=== PATIENT | male | born 1970 | race Hispanic/Latino ===

== ENCOUNTER 2022-01-01 09:27 | Emergency (ER) | payer BC ==
[2022-01-01] MEDS ORDERED: DOXYCYCLINE 100 MG CAP PO ONE (10:38)
[2022-01-01] MEDS ORDERED: VALACYCLOVIR 500 MG TAB ONE (10:39)
--- NOTE | 2022-01-01 10:42 | ER ---
Nurse's Notes [facility] Name: Jose L Mathew Age: 51 yrs Sex: Male : 1970 Arrival Date: 01/01/2022 Time: 09:31 Bed 18 Private MD: Diagnosis: Facial Cellulitis Presentation: 01/01 09:38 Chief complaint: Patient states: Swelling and redness above L eyebrow that started ss yesterday and now swelling to L upper eyelid. Coronavirus screen: Client denies travel out of the [place] in the last 14 days. Ebola Screen: Patient denies exposure to infectious person. Patient denies travel to an Ebola-affected area in the 21 days before illness onset. Initial Sepsis Screen: Does the patient meet any 2 criteria? No. Patient's initial sepsis screen is negative. Does the patient have a suspected source of infection? No. Patient's initial sepsis screen is negative. Risk Assessment: Do you want to hurt yourself or someone else? Patient reports no desire to harm self or others. Onset of symptoms was December 31, 2021. 09:38 Method Of Arrival: Ambulatory ss 09:38 Acuity: URBANO 4 ss Historical: - Allergies: 09:39 No Known Allergies; ss - PMHx: 09:39 MO; Hypertensive disorder; high cholesterol; ss - PSHx: 09:39 CAB; ss - Immunization history:: Client reports having NOT received the Covid vaccine. - Social history:: Smoking status: Patient reports the use of cigarette tobacco products, smokes one-half pack cigarettes per day. Screenin:40 Abuse screen: Denies threats or abuse. Denies injuries from another. Nutritional ss screening: No deficits noted. Tuberculosis screening: Never had TB. Fall Risk None identified. Assessment: 09:40 General: Appears in no apparent distress. comfortable, Behavior is calm, cooperative, ss Denies fever, feeling ill, fatigue, chills. Pain: Complains of pain in outer aspect of left eyebrow and left supraorbital ridge Pain currently is 0 out of 10 on a pain scale. Quality of pain is described as tender. Neuro: Level of Consciousness is awake, alert, obeys commands, Oriented to person, place, time, situation. Respiratory: Airway is patent Respiratory effort is even, unlabored, Respiratory pattern is regular, symmetrical. GI: No signs and/or symptoms were reported involving the gastrointestinal system. EENT: Nares are clear Throat is clear. Derm: Skin is intact, is healthy with good turgor, Skin is dry, Skin is pink, warm \T\ dry. normal. Injury Description: redness and swelling noted to L upper eyelid and just above L side of eyebrow. 10:18 Reassessment: Patient appears in no apparent distress at this time. Patient and/or vg1 family updated on plan of care and expected duration. Pain level reassessed. Patient is alert, oriented x 3, equal unlabored respirations, skin warm/dry/pink. pt reports 10/10 pain at Left eye. Vital Signs: 09:38 BP 116 / 83; Pulse 87; Resp 16; Temp 98.6(TE); Pulse Ox 100% on R/A; Weight 77.56 kg; ss Height 5 ft. (152.40 cm); Pain 0/10; 10:19 BP 134 / 73; Pulse 80; Resp 16; Pulse Ox 99% on R/A; vg1 09:38 Body Mass Index 33.40 (77.56 kg, 152.40 cm) ED Course: 09:31 Patient arrived in ED. rg4 09:39 Triage completed. 09:39 Arm band placed on left wrist. 09:40 Patient has correct armband on for positive identification. Bed in low position. Call light in reach. 09:42 Vin Storey PA is PHCP. [facility] 09:43 Carlos Cummings DO is Attending Physician. [facility] 09:43 Jenifer Michel, RN is Primary Nurse. vg1 10:51 No provider procedures requiring assistance completed. Patient did not have IV access vg1 during this emergency room visit. Administered Medications: 10:37 Drug: Doxycycline 100 mg Route: PO; vg1 10:50 Follow up: Response: No adverse reaction vg1 10:37 Drug: valACYclovir 1000 mg Route: PO; vg1 10:50 Follow up: Response: No adverse reaction vg1 Medication: 09:40 VIS not applicable for this client. Outcome: 10:41 Discharge ordered by . jmm 10:51 Discharged to home ambulatory, with family. vg1 10:51 Condition: good 10:51 Discharge instructions given to patient, family, Instructed on discharge instructions, follow up and referral plans. medication usage, Demonstrated understanding of instructions, follow-up care, medications, Prescriptions given X 3. 10:51 Patient left the ED. vg1 Signatures: Vin Storey PA PA jmm Smirch, Shelby, RN RN Celeste Coleman4 Jenifer Michel RN RN vg1
--- NOTE | 2022-01-01 10:42 | EDPHYS ---
Physician Documentation [facility] Name: Jose L Mathew Age: 51 yrs Sex: Male : 1970 Arrival Date: 01/01/2022 Time: 09:31 Bed 18 Private MD: ED Physician Carlos Cummings Historical: - Allergies: 01/01 09:39 No Known Allergies; ss - PMHx: 09:39 DC; Hypertensive disorder; high cholesterol; ss - PSHx: 09:39 CAB; ss - Immunization history:: Client reports having NOT received the Covid vaccine. - Social history:: Smoking status: Patient reports the use of cigarette tobacco products, smokes one-half pack cigarettes per day. Vital Signs: 09:38 BP 116 / 83; Pulse 87; Resp 16; Temp 98.6(TE); Pulse Ox 100% on R/A; Weight 77.56 kg; ss Height 5 ft. (152.40 cm); Pain 0/10; 10:19 BP 134 / 73; Pulse 80; Resp 16; Pulse Ox 99% on R/A; vg1 09:38 Body Mass Index 33.40 (77.56 kg, 152.40 cm) ss MDM: 09:43 Patient medically screened. [facility] 10:40 Data reviewed: vital signs, nurses notes. Counseling: I had a detailed discussion with lauren the patient and/or guardian regarding: the historical points, exam findings, and any diagnostic results supporting the discharge/admit diagnosis, the need for outpatient follow up, to return to the emergency department if symptoms worsen or persist or if there are any questions or concerns that arise at home. Administered Medications: 10:37 Drug: Doxycycline 100 mg Route: PO; vg1 10:50 Follow up: Response: No adverse reaction vg1 10:37 Drug: valACYclovir 1000 mg Route: PO; vg1 10:50 Follow up: Response: No adverse reaction vg1 Disposition: 19:57 Co-signature as Attending Physician, Carlos Cummings DO I was immediately available on-site ms3 in the Emergency Department for consultation in the care of the patient.. Disposition Summary: 01/01/22 10:41 Discharge Ordered Location: Home jm Condition: Stable mago Diagnosis - Facial Cellulitis [facility] Followup: [facility] - With: Private Physician - When: 2 - 3 days - Reason: Recheck today's complaints, Continuance of care, Re-evaluation by your physician Discharge Instructions: - Discharge Summary Sheet m - Preseptal Cellulitis, Adult [facility] - Form - Return To Work 3 Forms: - Medication Reconciliation Form [facility] - Thank You Letter lauren - Antibiotic Education magom - Prescription Opioid Use jmm - Work release form 3 Prescriptions: - Valtrex 1 gram Oral tablet - take 1 tablet by ORAL route 3 times per day for 7 days; 21 tablet; Refills: 0, [facility] Product Selection Permitted - Cephalexin 500 mg Oral Capsule - take 1 capsule by ORAL route every 6 hours for 10 days; 40 capsule; Refills: 0, [facility] Product Selection Permitted - Doxycycline Hyclate 100 mg Oral Tablet - take 1 tablet by ORAL route every 12 hours; 20 tablet; Refills: 0, Product [facility] Selection Permitted Signatures: Vin Storey PA PA jmm Smirch, Shelby, RN RN ss Garcia, Victoria, RN RN vg1 Carlos Cummings DO DO ms3
[2022-01-01 10:59] VITALS: TEMP 98.6
[2022-01-01 11:00] VITALS: BP 134/73; O2SAT 99
== END 2022-01-01 10:51 | disposition home or self-care (01) ==
LOC: ER 09:27
DX: L03.211 Cellulitis of face (principal); I10 Essential (primary) hypertension; F17.210 Nicotine dependence, cigarettes, uncomplicated; Z95.1 Presence of aortocoronary bypass graft

== ENCOUNTER → 2023-07-15 | Emergency (ER) | payer BC ==
[~2023-07-15] MED LIST: HYDROCODONE/APAP 5/325 MG TAB ONE
--- OUTSIDE RECORDS SUMMARY | 2023-07-15 20:02 | XMS REPORT | Continuity of Care Document ---
Author Name Unknown Address [address] [facility]. [address] [place] [address] [facility] thconnect Address [address] [facility]. 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 Results Test Description Test Time Test Comments Results Result Co mments Source CBC W/AUTO [id number] 13:53:00* Test Item Value Reference Range Interpretation Comme nts WHITE BLOOD CELL (test code = WBC) 8.6 K/MM3 3.8-9.8 N RED BLOOD CELL (test code = RBC) 3.87 M/MM3 3.95-5.67 L HEMOGLOBIN (test code = HGB) 13.2 G/DL 12.4-16.7 N HEMATOCRIT (test code = HCT) 39.1 % 35.9-49.5 N MEAN CELL VOLUME (test code = MCV) 101 fL 81.7-96.1 H MEAN CELL HGB (test code = MCH) 34.1 pg 27.6-33.2 H MEAN CELL HGB CONCETRATION (test code = MCHC) 33.8 % 32.9-35.5 N RED CELL DISTRIBUTION WIDTH (test code = RDW) 12.7 % 12.1-15.2 N PLATELET COUNT (test code = PLT) 179 K/MM3 129-368 N MEAN PLATELET VOLUME (test c ode = MPV) 11.1 fl 7.4-10.4 H NEUTROPHIL % (test code = NT%) 45.8 % 43-75 N IMMATURE GRANULOCYTE % (test code = IG%) 0.3 % 0.0-2.0 N LYMPHOCYTE % (test code = LY%) 44.7 % 14-44 H MONOCYTE % (test code = MO%) 7.4 % 4-13 N EOSINOPHIL % (test code = EO%) 1.3 % 0-6 N BASOPHIL % (test code = BA%) 0.5 % 0-2 N NUCLEATED RBC % (test code = NRBC%) 0.0 % 0-1.0 N NEUTROPHIL # (test code = NT#) 3.95 K/mm3 2.0-7.6 N IMMATURE GRANULOCYTE # (test code = IG#) 0.03 x10 3/uL 0-0.03 N LYMPHOCYTE # (test code = LY#) 3.85 K/mm3 1.0-3.8 H MONOCYTE # (test code = MO#) 0.64 K/mm3 0.1-0.8 N EOSINOPHIL # (test code = EO#) 0.11 K/mm3 0.0-0.2 N BASOPHIL # (test code = BA#) 0.04 K/mm3 0.0-0.2 N NUCLEATED RBC # (test code = NRBC#) 0.00 K/mm3 0.0-0.1 N BASIC METABOLIC [id number] 05:54:00* Test Item Value Reference Range Interpretation Comme nts SODIUM (test code = NA) 140 MMOL/L 137-145 N POTASSIUM (test code = K) 4.0 MMOL/L 3.5-5.1 N CHLORIDE (test code = CL) 106 MMOL/L 98-107 N CARBON DIOXIDE (test code = CO2) 30 MMOL/L 22-30 N ANION GAP (test code = GAP) 8 MMOL/L 14-24 L GLUCOSE (test code = GLU) 90 MG/DL 74-106 BLOOD UREA NITROGEN (test code = BUN) 10 MG/DL 9-20 N GLOMERULAR FILTRATION RATE (test code = GFR) > 60 Reporting units: ml/min/1.73 m2 (Modified MDRD Formula)Reference Range: > or = 60 ml/min/1.73 m2 CREATININE (test code = CREAT) 0.60 MG/DL 0.66-1.25 L CALCIUM (test code = CA) 8.6 MG/DL 8.4-10.2 N CBC W/AUTO [id number] 05:40:00* Test Item Value Reference Range Interpretation Comme nts WHITE BLOOD CELL (test code = WBC) 10.9 K/MM3 3.8-9.8 H RED BLOOD CELL (test code = RBC) 3.48 M/MM3 3.95-5.67 L HEMOGLOBIN (test code = HGB) 12.0 G/DL 12.4-16.7 L HEMATOCRIT (test code = HCT) 35.2 % 35.9-49.5 L MEAN CELL VOLUME (test code = MCV) 101 fL 81.7-96.1 H MEAN CELL HGB (test code = MCH) 34.5 pg 27.6-33.2 H MEAN CELL HGB CONCETRATION (test code = MCHC) 34.1 % 32.9-35.5 N RED CELL DISTRIBUTION WIDTH (test code = RDW) 12.8 % 12.1-15.2 N PLATELET COUNT (test code = PLT) 160 K/MM3 129-368 N MEAN PLATELET VOLUME (test c ode = MPV) 11.0 fl 7.4-10.4 H NEUTROPHIL % (test code = NT%) 58.8 % 43-75 N IMMATURE GRANULOCYTE % (test code = IG%) 0.3 % 0.0-2.0 N LYMPHOCYTE % (test code = LY%) 34.0 % 14-44 N MONOCYTE % (test code = MO%) 6.3 % 4-13 N EOSINOPHIL % (test code = EO%) 0.3 % 0-6 N BASOPHIL % (test code = BA%) 0.3 % 0-2 N NUCLEATED RBC % (test code = NRBC%) 0.0 % 0-1.0 N NEUTROPHIL # (test code = NT#) 6.42 K/mm3 2.0-7.6 N IMMATURE GRANULOCYTE # (test code = IG#) 0.03 x10 3/uL 0-0.03 N LYMPHOCYTE # (test code = LY#) 3.71 K/mm3 1.0-3.8 N MONOCYTE # (test code = MO#) 0.69 K/mm3 0.1-0.8 N EOSINOPHIL # (test code = EO#) 0.03 K/mm3 0.0-0.2 N BASOPHIL # (test code = BA#) 0.03 K/mm3 0.0-0.2 N NUCLEATED RBC # (test code = NRBC#) 0.00 K/mm3 0.0-0.1 N - XR CHEST [id number] 08:05:00Patient Name: DELMI FLORES Unit No: [id number] EXAMS: CPT CODE: [id number] XR CHEST 1V 63080 EXAMINATION: - XR CHEST 1V. LOCATION: B2. HISTORY: post op. COMPARISON: Radiograph dated 01/09/2019. TECHNIQUE: Single AP view of the chest was obtained. FINDINGS: Right subclavian line is unchanged in position. The heart is mildly enlarged in size. Median sternotomy wires are present with breaks of the 3rd most superior wires, unchanged. The lungs are clear. No acute osseous abnormality is identified. IMP RESSION: Mild cardiomegaly with no acute pulmonary process. at 0805 Reported and signed by: Marilyn Chaney MD CC: Technologist: Hilda Ryder RT(R) Transcrpt Date/Tm/Trnsp: 01/10/2019 (804) [email or web address] Orig Print D/T: S: 01/10/2019 (0808) [facility] NAME: DELMI FLORES [id number] PHYS: [place] [address] : 1970 AGE: 48 SEX: M LOC: Z.SI04 A PHONE #: [phone] EXAM DATE: 01/10/2019 STATUS: ADM IN FAX #: [phone] RADIOLOGY NO: PAGE 1 Signed ReportBASIC METABOLIC [id number] 07:00:00* Test Item Value Reference Range Interpretation Comme nts SODIUM (test code = NA) 138 MMOL/L 137-145 N POTASSIUM (test code = K) 4.2 MMOL/L 3.5-5.1 N CHLORIDE (test code = CL) 106 MMOL/L 98-107 N CARBON DIOXIDE (test code = CO2) 26 MMOL/L 22-30 N ANION GAP (test code = GAP) 10 MMOL/L 14-24 L GLUCOSE (test code = GLU) 146 MG/DL 74-106 H BLOOD UREA NITROGEN (test code = BUN) 7 MG/DL 9-20 L GLOMERULAR FILTRATION RATE (test code = GFR) > 60 Reporting units: ml/min/1.73 m2 (Modified MDRD Formula)Reference Range: > or = 60 ml/min/1.73 m2 CREATININE (test code = CREAT) 0.50 MG/DL 0.66-1.25 L CALCIUM (test code = CA) 8.4 MG/DL 8.4-10.2 N UNABLE TO DRAW BLOOD, REASON: CBNNOTIFIED PATIENT CARE STAFF: [facility] 01/10/19 AT 0630 BY Jesus [id number] 07:00:00* Test Item Value Reference Range Interpretation Comme nts MAGNESIUM (test code = MAG) 2.0 MG/DL 1.6-2.3 UNABLE TO DRAW BLOOD, REASON: CBNNOTIFIED PATIENT CARE STAFF: [facility] 01/10/19 AT 0630 BY Jesus Velasquez W/AUTO [id number] 06:42:00* Test Item Value Reference Range Interpretation Comme nts WHITE BLOOD CELL (test code = WBC) 9.5 K/MM3 3.8-9.8 N RED BLOOD CELL (test code = RBC) 3.66 M/MM3 3.95-5.67 L HEMOGLOBIN (test code = HGB) 12.5 G/DL 12.4-16.7 N HEMATOCRIT (test code = HCT) 37.1 % 35.9-49.5 N MEAN CELL VOLUME (test code = MCV) 101 fL 81.7-96.1 H MEAN CELL HGB (test code = MCH) 34.2 pg 27.6-33.2 H MEAN CELL HGB CONCETRATION (test code = MCHC) 33.7 % 32.9-35.5 N RED CELL DISTRIBUTION WIDTH (test code = RDW) 12.5 % 12.1-15.2 N PLATELET COUNT (test code = PLT) 167 K/MM3 129-368 N MEAN PLATELET VOLUME (test c ode = MPV) 10.7 fl 7.4-10.4 H NEUTROPHIL % (test code = NT%) 83.2 % 43-75 H IMMATURE GRANULOCYTE % (test code = IG%) 0.5 % 0.0-2.0 N LYMPHOCYTE % (test code = LY%) 11.4 % 14-44 L MONOCYTE % (test code = MO%) 4.8 % 4-13 N EOSINOPHIL % (test code = EO%) 0.0 % 0-6 N BASOPHIL % (test code = BA%) 0.1 % 0-2 N NUCLEATED RBC % (test code = NRBC%) 0.0 % 0-1.0 N NEUTROPHIL # (test code = NT#) 7.90 K/mm3 2.0-7.6 H IMMATURE GRANULOCYTE # (test code = IG#) 0.05 x10 3/uL 0-0.03 H LYMPHOCYTE # (test code = LY#) 1.08 K/mm3 1.0-3.8 N MONOCYTE # (test code = MO#) 0.46 K/mm3 0.1-0.8 N EOSINOPHIL # (test code = EO#) 0.00 K/mm3 0.0-0.2 N BASOPHIL # (test code = BA#) 0.01 K/mm3 0.0-0.2 N NUCLEATED RBC # (test code = NRBC#) 0.00 K/mm3 0.0-0.1 N UNABLE TO DRAW BLOOD, REASON: CBNNOTIFIED PATIENT CARE STAFF: MIGUEL ÁNGEL 01/10/19 AT 0631 BY Aliya Vel[facility]quezPROM[facility] [id number] 20:01:00* Test Item Value Reference Range Interpretation Comme nts ARTERIAL BLOOD GAS PH (test code = PHA) 7.42 mmHg 7.35-7.45 N ARTERIAL BLOOD GAS PCO2 (adolfo t code = PCO2A) 37.0 mmHg 35.0-45.0 N ARTERIAL BLOOD GAS PO2 (test code = PO2A) 60.4 mmol/L 80.0-100.0 L BICARBONATE TOTAL HCO3 (test code = HCO3) 23.2 mmol/L 20.0-26.0 N BASE EXCESS (test code = ALEX) -0.9 mmol/L -3.0-3.0 N ABG O2 SATURATION (test code = SATA) 91.7 % 95.0-100.0 L ABG DELIVERY (test code = FATOUMATA) RM AIR ABG TEMPERATURE (test code = TEMPA) 37.0 C >37 ABG SITE (test code = SITEA) AL ALLENS TEST (test code = ALLENS) NA CHECK FIO2 (test code = COHBGFFIO2) 21 % - XR CHEST [id number] 19:54:00Patient Name: DELMI FLORES Unit No: [id number] EXAMS: CPT CODE: [id number] XR CHEST 1V 02719 REASONFOR EXAM: Central line placement. COMPARISON: January 04, 2019. Chest, single view, frontal projection. The right subclavian central line has is tip in the superior vena cava at the level of the right mainstem bronchus.. The lungs are well-inflated and clear. Heart size is normal. Median sternotomy changes. No effusion or pneumothorax can be seen. Osseous structures appear to be intact. . IMPRESSION: No acute cardiopulmonary disease. Good position for the central line. Location: U19 at 1953 Reported and signed by: Ad Gee MD CC: Technologist: Sanjay Hartmann, RT(R) Transcrpt Date/Tm/Trnsp: 01/09/2019 (1953) Sarah Orig Print D/T: S: 01/09/2019 (1956) [facility] NAME: DELMI FLORES [id number] PHYS: [place] [address] : 1970 AGE: 48 SEX: M LOC: Z.SI04 A PHONE #: [phone] EXAM DATE: 01/09/2019 STATUS: ADM IN FAX #: [phone] RADIOLOGYNO: PAGE 1 Signed ReportBASIC METABOLIC [id number] 19:37:00* Test Item Value Reference Range Interpretation Comme nts SODIUM (test code = NA) 141 MMOL/L 137-145 N POTASSIUM (test code = K) 3.7 MMOL/L 3.5-5.1 N CHLORIDE (test code = CL) 110 MMOL/L 98-107 H CARBON DIOXIDE (test code = CO2) 24 MMOL/L 22-30 N ANION GAP (test code = GAP) 11 MMOL/L 14-24 L GLUCOSE (test code = GLU) 120 MG/DL 74-106 H BLOOD UREA NITROGEN (test code = BUN) 9 MG/DL 9-20 N GLOMERULAR FILTRATION RATE (test code = GFR) > 60 Reporting units: ml/min/1.73 m2 (Modified MDRD Formula)Reference Range: > or = 60 ml/min/1.73 m2 CREATININE (test code = CREAT) 0.60 MG/DL 0.66-1.25 L CALCIUM (test code = CA) 8.6 MG/DL 8.4-10.2 N [id number] 19:37:00* Test Item Value Reference Range Interpretation Comme nts MAGNESIUM (test code = MAG) 1.5 MG/DL 1.6-2.3 L CBC W/AUTO [id number] 19:13:00* Test Item Value Reference Range Interpretation Comme nts WHITE BLOOD CELL (test code = WBC) 10.3 K/MM3 3.8-9.8 H RED BLOOD CELL (test code = RBC) 3.88 M/MM3 3.95-5.67 L HEMOGLOBIN (test code = HGB) 13.3 G/DL 12.4-16.7 N HEMATOCRIT (test code = HCT) 39.2 % 35.9-49.5 N MEAN CELL VOLUME (test code = MCV) 101 fL 81.7-96.1 H MEAN CELL HGB (test code = MCH) 34.3 pg 27.6-33.2 H MEAN CELL HGB CONCETRATION (test code = MCHC) 33.9 % 32.9-35.5 N RED CELL DISTRIBUTION WIDTH (test code = RDW) 12.8 % 12.1-15.2 N PLATELET COUNT (test code = PLT) 165 K/MM3 129-368 N MEAN PLATELET VOLUME (test c ode = MPV) 10.4 fl 7.4-10.4 N NEUTROPHIL % (test code = NT%) 71.6 % 43-75 N IMMATURE GRANULOCYTE % (test code = IG%) 0.6 % 0.0-2.0 N LYMPHOCYTE % (test code = LY%) 24.1 % 14-44 N MONOCYTE % (test code = MO%) 2.8 % 4-13 L EOSINOPHIL % (test code = EO%) 0.6 % 0-6 N BASOPHIL % (test code = BA%) 0.3 % 0-2 N NUCLEATED RBC % (test code = NRBC%) 0.0 % 0-1.0 N NEUTROPHIL # (test code = NT#) 7.35 K/mm3 2.0-7.6 N IMMATURE GRANULOCYTE # (test code = IG#) 0.06 x10 3/uL 0-0.03 H LYMPHOCYTE # (test code = LY#) 2.47 K/mm3 1.0-3.8 N MONOCYTE # (test code = MO#) 0.29 K/mm3 0.1-0.8 N EOSINOPHIL # (test code = EO#) 0.06 K/mm3 0.0-0.2 N BASOPHIL # (test code = BA#) 0.03 K/mm3 0.0-0.2 N NUCLEATED RBC # (test code = NRBC#) 0.00 K/mm3 0.0-0.1 N GLUCOSE BEDSIDE [id number] 15:24:00* Test Item Value Reference Range Interpretation Comme nts GLUCOSE BEDSIDE TESTING (adolfo t code = GLUBED) 82 MG/DL 60-99 N GLUCOSE BEDSIDE [id number] 13:15:00* Test Item Value Reference Range Interpretation Comme nts GLUCOSE BEDSIDE TESTING (adolfo t code = GLUBED) 86 MG/DL 60-99 N GLUCOSE BEDSIDE [id number] 09:53:00* Test Item Value Reference Range Interpretation Comme nts GLUCOSE BEDSIDE TESTING (adolfo t code = GLUBED) 81 MG/DL 60-99 N HIV 12 AB [id number] 17:32:00* Test Item Value Reference Range Interpretation Comme nts AB HIV 1 2 (test code = [id number]) NON REACTIVE NON-REAC NOTE: A NONREACT SANTO RESULT INDICATES THAT HIV-1 AND HIV-2ANTIBODIES HAVE NOT BEEN FOUND IN THIS PATIENT SPECIMEN. ANON-REACTIVE RESULT, HOWEVER, DOES NOT PRECLUDE PREVIOUSEXPOSURE OR INFECTION WITH HIV1. AG HIV1 P24 (test code = [id number]) NON REACTIVE NONE REAC - XR CHEST 2 [id number] 17:10:00Patient Name: DELMI FLORES Unit No: [id number] EXAMS: CPT CODE: [id number] XR CHEST 2 V 35101 DICTATION LOCATION: H48 HISTORY: Male, 48 years of age with PREOP EXAM: 2 VIEW CHEST X-RAY COMPARISON: 01/12/2019 COMMENT: PA and lateral views are provided. Sternotomy wires are noted. No acute infiltrate or effusion is seen. Cardiomediastinal silhouette is within normal limits. No acute bony abnormalities. IMPRESSION: No acute infiltrate or effusion. at 1710 Reported and signed by: Alejandra Webb MD CC: Technologist: ANDRESSA Nguyen, RT(R) Transcrpt Date/Tm/Trnsp: 01/04/2019 (3960) [email or web address] Orig Print D/T: S: 01/04/2019 (2180) [facility] NAME: DELMI FLORES [address] PHYS: [place] [address] : 1970 AGE: 48 SEX: M LOC: Z.SRG PHONE #: [phone] EXAM DATE: 01/04/2019 STATUS: PRE SDC FAX #: [phone] RADIOLOGY NO: PAGE 1 Signed ReportBASIC METABOLIC PANEL 2019-01-04 17:05:00* Test Item Value Reference Range Interpretation Comme nts SODIUM (test code = NA) 139 MMOL/L 137-145 N POTASSIUM (test code = K) 4.5 MMOL/L 3.5-5.1 N CHLORIDE (test code = CL) 105 MMOL/L 98-107 N CARBON DIOXIDE (test code = CO2) 24 MMOL/L 22-30 N ANION GAP (test code = GAP) 15 MMOL/L 14-24 N GLUCOSE (test code = GLU) 101 MG/DL 74-106 N BLOOD UREA NITROGEN (test code = BUN) 19 MG/DL 9-20 GLOMERULAR FILTRATION RATE (test code = GFR) 59 Reporting units: ml/min/1.73 m2 (Modified MDRD Formula)Reference Range: > or = 60 ml/min/1.73 m2 CREATININE (test code = CREAT) 1.30 MG/DL 0.66-1.25 H CALCIUM (test code = CA) 10.0 MG/DL 8.4-10.2 N PROTHROMBIN [id number] 17:04:00* Test Item Value Reference Range Interpretation Comme [facility] PROTHROMBIN TIME PATIENT (test code = PTP) 18.0 SECONDS 9.6-11.6 H INTERNATIONAL NORMAL RATIO (test code = INR) 1.7 0.8-1.1 H The INR is to be used only for monitoring oral anticoagulanttherap y. INDICATION INR VALUE -------1. Prophylaxis, deep venous thrombosis, including high risk surgery. 2.0 - 3.0 2. Prophylaxis, deep venous thrombosis, hip surgery, treatment for deep venous thrombosis or pulmonary prevention of systemic embolism in patients with valvular heart disease, atrial fibrillation, tissue heart valve, or acute myocardial infarction. 2.0 - 3.0 3. Mechanical prosthesis heart valves, recurrent systemic embolism. 3.0 - 4.5 PTT [id number] 17:04:00* Test Item Value Reference Range Interpretation Comme [facility] PTT ACTIVATED (test code = APTT) 39.3 SECONDS 22.0-33.0 H CBC W/AUTO [id number] 16:50:00* Test Item Value Reference Range Interpretation Comme [facility] WHITE BLOOD CELL (test code = WBC) 8.7 K/MM3 3.8-9.8 N RED BLOOD CELL (test code = RBC) 4.31 M/MM3 3.95-5.67 N HEMOGLOBIN (test code = HGB) 14.8 G/DL 12.4-16.7 N HEMATOCRIT (test code = HCT) 44.6 % 35.9-49.5 N MEAN CELL VOLUME (test code = MCV) 104 fL 81.7-96.1 H MEAN CELL HGB (test code = MCH) 34.3 pg 27.6-33.2 H MEAN CELL HGB CONCETRATION (test code = MCHC) 33.2 % 32.9-35.5 N RED CELL DISTRIBUTION WIDTH (test code = RDW) 12.8 % 12.1-15.2 N PLATELET COUNT (test code = PLT) 183 K/MM3 129-368 N MEAN PLATELET VOLUME (test c ode = MPV) 10.2 fl 7.4-10.4 N NEUTROPHIL % (test code = NT%) 45.2 % 43-75 N IMMATURE GRANULOCYTE % (test code = IG%) 0.3 % 0.0-2.0 N LYMPHOCYTE % (test code = LY%) 42.8 % 14-44 N MONOCYTE % (test code = MO%) 8.5 % 4-13 N EOSINOPHIL % (test code = EO%) 2.4 % 0-6 N BASOPHIL % (test code = BA%) 0.8 % 0-2 N NUCLEATED RBC % (test code = NRBC%) 0.0 % 0-1.0 N NEUTROPHIL # (test code = NT#) 3.93 K/mm3 2.0-7.6 N IMMATURE GRANULOCYTE # (test code = IG#) 0.03 x10 3/uL 0-0.03 N LYMPHOCYTE # (test code = LY#) 3.73 K/mm3 1.0-3.8 N MONOCYTE # (test code = MO#) 0.74 K/mm3 0.1-0.8 N EOSINOPHIL # (test code = EO#) 0.21 K/mm3 0.0-0.2 H BASOPHIL # (test code = BA#) 0.07 K/mm3 0.0-0.2 N NUCLEATED RBC # (test code = NRBC#) 0.00 K/mm3 0.0-0.1 N BASIC METABOLIC [id number] 07:55:00* Test Item Value Reference Range Interpretation Comme nts SODIUM (test code = NA) 143 MMOL/L 137-145 N POTASSIUM (test code = K) 4.1 MMOL/L 3.5-5.1 N CHLORIDE (test code = CL) 106 MMOL/L 98-107 N CARBON DIOXIDE (test code = CO2) 25 MMOL/L 22-30 N GLUCOSE (test code = GLU) 94 MG/DL 74-106 N BLOOD UREA NITROGEN (test code = BUN) 8 MG/DL 9-20 L GLOMERULAR FILTRATION RATE (test code = GFR) > 60 Reporting units: ml/min/1.73 m2 (Modified MDRD Formula)Reference Range: > or = 60 ml/min/1.73 m2 CREATININE (test code = CREAT) 0.60 MG/DL 0.66-1.25 L CALCIUM (test code = CA) 9.4 MG/DL 8.4-10.2 N LIPID PROFILE (CORONARY RISK)2018-12-24 07:55:00* Test Item Value Reference Range Interpretation Comme nts TRIGLYCERIDES (test code = TRIG) 215 MG/DL TRIGLYCERIDES REFERENCE RANGE:Normal: <150 mg/dLBorderline High: 150-199 mg/dLHigh: 200-499 mg/dLVery High: >=500 mg/dL CHOLESTEROL (test code = CHOL) 133 MG/DL <200 HDL CHOLESTEROL (test code = HDL) 57 MG/DL 40-59 N LIPOPROTEIN LDL (test code = LDL) 63 MG/DL 0-99 N OPTIMAL......... <100 mg/dLNEAR OPTIMAL/ABOVE OPTIMAL.........100-12 9 mg/dL BORDERLINE HIGH.........130-159 mg/dL HIGH.........160-189 mg/dL VERY HIGH.........>/= 190 mg/dL [id number] 07:55:00* Test Item Value Reference Range Interpretation Comme nts MAGNESIUM (test code = MAG) 1.7 MG/DL 1.6-2.3 N BASIC METABOLIC [id number] 07:44:00* Test Item Value Reference Range Interpretation Comme nts SODIUM (test code = NA) 143 MMOL/L 137-145 N POTASSIUM (test code = K) 4.1 MMOL/L 3.5-5.1 N CHLORIDE (test code = CL) 106 MMOL/L 98-107 N CARBON DIOXIDE (test code = CO2) 25 MMOL/L 22-30 N GLUCOSE (test code = GLU) 94 MG/DL 74-106 N BLOOD UREA NITROGEN (test code = BUN) 8 MG/DL 9-20 L GLOMERULAR FILTRATION RATE (test code = GFR) > 60 Reporting units: ml/min/1.73 m2 (Modified MDRD Formula)Reference Range: > or = 60 ml/min/1.73 m2 CREATININE (test code = CREAT) 0.60 MG/DL 0.66-1.25 L CALCIUM (test code = CA) 9.4 MG/DL 8.4-10.2 N LIPID PROFILE (CORONARY RISK)2018-12-24 07:44:00* Test Item Value Reference Range Interpretation Comme nts TRIGLYCERIDES (test code = TRIG) 215 MG/DL TRIGLYCERIDES REFERENCE RANGE:Normal: <150 mg/dLBorderline High: 150-199 mg/dLHigh: 200-499 mg/dLVery High: >=500 mg/dL CHOLESTEROL (test code = CHOL) 133 MG/DL <200 HDL CHOLESTEROL (test code = HDL) 57 MG/DL 40-59 N LIPOPROTEIN LDL (test code = LDL) MG/DL 0-99 [id number] 07:44:00* Test Item Value Reference Range Interpretation Comme nts MAGNESIUM (test code = MAG) 1.7 MG/DL 1.6-2.3 N PROTHROMBIN [id number] 07:31:00* Test Item Value Reference Range Interpretation Comme [facility] PROTHROMBIN TIME PATIENT (test code = PTP) 9.9 SECONDS 9.6-11.6 N INTERNATIONAL NORMAL RATIO (test code = INR) 0.9 0.8-1.1 N The INR is to be used only for monitoring oral anticoagulanttherap y. INDICATION INR VALUE -------1. Prophylaxis, deep venous thrombosis, including high risk surgery. 2.0 - 3.0 2. Prophylaxis, deep venous thrombosis, hip surgery, treatment for deep venous thrombosis or pulmonary prevention of systemic embolism in patients with valvular heart disease, atrial fibrillation, tissue heart valve, or acute myocardial infarction. 2.0 - 3.0 3. Mechanical prosthesis heart valves, recurrent systemic embolism. 3.0 - 4.5 PTT [id number] 07:31:00* Test Item Value Reference Range Interpretation Comme [facility] PTT ACTIVATED (test code = APTT) 27.1 SECONDS 22.0-33.0 N CBC W/AUTO [id number] 07:18:00* Test Item Value Reference Range Interpretation Comme nts WHITE BLOOD CELL (test code = WBC) 7.3 K/MM3 3.8-9.8 N RED BLOOD CELL (test code = RBC) 4.04 M/MM3 3.95-5.67 N HEMOGLOBIN (test code = HGB) 13.8 G/DL 12.4-16.7 N HEMATOCRIT (test code = HCT) 41.0 % 35.9-49.5 N MEAN CELL VOLUME (test code = MCV) 102 fL 81.7-96.1 H MEAN CELL HGB (test code = MCH) 34.2 pg 27.6-33.2 H MEAN CELL HGB CONCETRATION (test code = MCHC) 33.7 % 32.9-35.5 N RED CELL DISTRIBUTION WIDTH (test code = RDW) 13.0 % 12.1-15.2 N PLATELET COUNT (test code = PLT) 149 K/MM3 129-368 N MEAN PLATELET VOLUME (test c ode = MPV) 10.6 fl 7.4-10.4 H NEUTROPHIL % (test code = NT%) 45.7 % 43-75 N IMMATURE GRANULOCYTE % (test code = IG%) 0.4 % 0.0-2.0 N LYMPHOCYTE % (test code = LY%) 44.2 % 14-44 H MONOCYTE % (test code = MO%) 6.6 % 4-13 N EOSINOPHIL % (test code = EO%) 2.5 % 0-6 N BASOPHIL % (test code = BA%) 0.6 % 0-2 N NUCLEATED RBC % (test code = NRBC%) 0.0 % 0-1.0 N NEUTROPHIL # (test code = NT#) 3.32 K/mm3 2.0-7.6 N IMMATURE GRANULOCYTE # (test code = IG#) 0.03 x10 3/uL 0-0.03 N LYMPHOCYTE # (test code = LY#) 3.21 K/mm3 1.0-3.8 N MONOCYTE # (test code = MO#) 0.48 K/mm3 0.1-0.8 N EOSINOPHIL # (test code = EO#) 0.18 K/mm3 0.0-0.2 N BASOPHIL # (test code = BA#) 0.04 K/mm3 0.0-0.2 N NUCLEATED RBC # (test code = NRBC#) 0.00 K/mm3 0.0-0.1 N Notes Date/Time Note Provider Source 2019-02-28 20:17:00 [id number] V+[id number] Ehlz86lzCdOthBtkKC/[id number] [id number] [place] [address] PATIENT NAME: DELMI FLORES ADMIT DATE: 01/09/19ACCOUNT NO: [id number] ROOM NO: Z.422 AGE: 49 REPORT TYPE: DISCHARGE SUMMARY REPORT SEX: M ADMITTING PHYSICIAN:Ad Cummings MD ATTENDING PHYSICIAN:Ad Cummings MD ADMISSION DATE: 01/09/2019DISCHARGE DATE: 01/13/2019 DISCHARGE DIAGNOSES: Atherosclerosis of the bilateral lower extremity withintermittent claudication, 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 HOSPITAL COURSE: The patient is a 48-year-old male well known to our serviceswith a history of severe peripheral vascular disease to his bilateral lowerextremities. He is status post a left fem-pop bypass below knee with CryoVeinon 01/11/2018. He was doing relatively well until he was seen by Dr. Duval had stopped taking his warfarin treatment. The patient complained of havingsevere claudication to his bilateral lower extremities, left worse than theright and can barely ambulate a block from his house to his job. He was broughtto the cardiac label stamper by Dr. Worley on 12/24/2018 and underwent an abdominalaortogram with long leg runoff and was found to have a 90% distal SFA,popliteal, and infrapopliteal disease at the tibioperoneal trunk with calcifiedlesions and the left fem-pop bypass was 100% occluded distally. The patient wassubsequently admitted on 01/09/2019 and taken to the operating room, where heunderwent a redo left femoral to posterior tibial artery bypass withcryopreserved saphenous vein. The patient tolerated the procedure well and wastransferred to ICU in a stable condition where he maintained normal sinus rhythmand stable blood pressure. The patient is a heavy smoker and he had a smokingcessation counseling. He also consume alcoholic beverages and was counseledagain to stop consuming alcoholic products. The patient was transferred to theCVU unit where he was ambulating independently and with assistance of physicaltherapy. He remained stable postoperatively having had a good outcome fromsurgery. He was discharged to home in a stable condition. He was instructed tofollow up with Dr. Cummings in 1 week. He is also to follow up with hiscardiologist, Dr. Worley, and he is to continue medications per the dischargeMAR. Dictated By: JEAN Alvarez for Ad Cummings MD WT: DS:MELODY/EBONIE/NTSDD: 02/28/2019 20:17:39DT: 02/28/2019 23:00:29Conf#: [id number]/DID#: [id number] PATIENT NAME: DELMI FLORES Authenticated by JEAN Alvarez On 03/05/2019 05:11:49 PM Authenticated by Ad Cummings MD On 03/05/2019 05:16:33 PM at 1716 at 1716 PATIENT NAME: DELMI FLORES turbhpd0646-85-20L88:00:00Z.[id number] ilable for patient upekASOFJMZTYVMJBD7031-48-89O46:17:08 [facility] 2019-01-13 14:12:00 [id number] GwlwmwQm637HcbhW4xm2AjD4foiN1 1nI0WmybMTrFHshT5OmlXPAc4FgNfIRDCO8813-00-27H74:1 2:00 [facility] ProgREPORT#:[id number] REPORT STATUS: SignedDATE:01/13/19 TIME: 1412 PATIENT: DELMI FLORES UNIT #: [id number]#: [id number] ROOM/BED: [facility]-ADOB: [birth year] AGE: 48 SEX: M ATTEND: JuanAd white Angel [facility] AUTHOR: Yolanda Mondragon NP * ALL edits or amendments must be made on the electronic/computer document * GeneralPost-op: day 4Status post:Redo left femoral to posterior tibial artery bypass with cryopreserved SVG SubjectivePatient reports:No: complaints, nausea, vomiting, pain. Nursing reports:No: complaints. Comments:seen pt lying in beddenies pain, SOB, CP Review of SystemsConstitutional:Denies: chills, fatigue, fever, generalized weakness. Respiratory:Denies: MURO (dyspnea on exertion), SOB. Cardiovascular:Denies: chest pain, MURO (dyspnea on exertion), edema, orthopnea. Objective Physical ExamVS/I O:Last Documented: Result Date Time Pulse Ox 98 01/13 1110 B/P 139/76 01/13 1110 B/P Mean 96.9 01/13 1110 O2 Delivery Room air 01/13 1110 Temp 37.0 01/13 1110 Pulse 55 01/13 1110 Resp 18 01/13 1110 FiO2 21 01/11 0843 24 hour I O ending at 0700: 01/13 0700 01/12 1900 Intake Total 800 1100 Output Total 600 Balance 200 1100 Intake, Oral 800 1100 Number 0 Bowel Movements Number Voids 2 2 Output, Urine 600 Patient Weight Weight (lb): 185Weight (oz): 6.19Weight (kg): 83.915 Medications:Active Meds + DC'd Last 24 HrsBupropion HCl 150 MG BID PO Amlodipine Besylate 5 MG DAILY PO Famotidine 20 MG BID PO Nicotine 21 MG DAILY TRANSDERM (CKD) Ferrous Sulfate 300 MG BID PO Folic Acid 1 MG DAILY PO Multivitamins Therapeutic 1 TAB DAILY PO Thiamine HCl 100 MG DAILY PO Aspirin 81 MG DAILY PO Clopidogrel Bisulfate 75 MG DAILY PO Atorvastatin Calcium 20 MG BEDTIME PO Metoprolol Tartrate 50 MG BID PO Calcium Gluconate 1,000 MG ASDIR PRN IV Sodium Chloride 100 MLLosartan Potassium 100 MG DAILY PO Diphenhydramine HCl 25 MG Q6H PRN PRN PO Acetaminophen 650 MG Q4H PRN PRN PO Bisacodyl 10 MG ASDIR PRN RECTAL Hydrocodone Bitart/Acetaminophen 1 TAB Q4H PRN PRN PO Hydrocodone Bitart/Acetaminophen 2 TAB Q4H PRN PRN PO Meperidine HCl 25 MG Q4H PRN PRN IM Meperidine HCl 50 MG Q4H PRN PRN IM Ondansetron HCl 4 MG Q8H PRN PRN IV Potassium Chloride 10 MEQ ASDIR PRN PO General appearance: alert, awake, oriented, no acute distressWound/incision: 1 Location: left groin Site condition: dressing clean dry, dressing intactWound/incision: 2 Location: left lower extremity Site condition: dressing stained, dressing clean dry, dressing intactNeck: non-tender, no masses or swellingCardiovascular: normal heart sounds, regular rate rhythmRespiratory: aerating well, clear to auscultation, symmetric expansion, no distressAbdomen: soft, non-tenderGenitourinary: no foleyExtremities: pedal pulses (left foot non palpable), moves all, The left leg and foot is warm to touch with good color.Musculoskeletal: full range of motionNeuro/FRY COOK: alert, oriented X 3 ResultsFindings/Data:Laboratory Tests 01/13 1300 Chemistry Sodium (137 - 145 MMOL/L) 140 Potassium (3.5 - 5.1 MMOL/L) 4.5 Chloride (98 - 107 MMOL/L) 102 Carbon Dioxide (22 - 30 MMOL/L) 32 H BUN (9 - 20 MG/DL) 11 Creatinine (0.66 - 1.25 MG/DL) 0.70 Glomerular Filtr Rate > 60 Glucose (74 - 106 MG/DL) 93 Calcium (8.4 - 10.2 MG/DL) 9.8 Laboratory Tests 01/13 1300 Hematology WBC (3.8 - 9.8 K/MM3) 8.6 RBC (3.95 - 5.67 M/MM3) 3.87 L Hgb (12.4 - 16.7 G/DL) 13.2 Hct (35.9 - 49.5 %) 39.1 MCV (81.7 - 96.1 fL) 101 H MCH (27.6 - 33.2 pg) 34.1 H MCHC (32.9 - 35.5 %) 33.8 RDW (12.1 - 15.2 %) 12.7 Plt Count (129 - 368 K/MM3) 179 MPV (7.4 - 10.4 fl) 11.1 H Neut % (Auto) (43 - 75 %) 45.8 Lymph % (Auto) (14 - 44 %) 44.7 H [place] % (Auto) (4 - 13 %) 7.4 Eos % (Auto) (0 - 6 %) 1.3 Baso % (Auto) (0 - 2 %) 0.5 Neut # (Auto) (2.0 - 7.6 K/mm3) 3.95 Lymph # (Auto) (1.0 - 3.8 K/mm3) 3.85 H [place] # (Auto) (0.1 - 0.8 K/mm3) 0.64 Eos # (Auto) (0.0 - 0.2 K/mm3) 0.11 Baso # (Auto) (0.0 - 0.2 K/mm3) 0.04 Immature Gran % (0.0 - 2.0 %) 0.3 Nucleated RBC % (0 - 1.0 %) 0.0 Nucleated RBCs # (Man) (0.0 - 0.1 K/mm3) 0.00 Diagnosis, Assessment PlanFree Text A P:This is a 48 y/m severe PVD, HTN, HLD, CAD, s/p CABs/p Redo left femoral to posterior tibial artery bypass with cryopreserved SVGOn Plavix/ASA/BB/StatinETOH Abuse- on MVI/Thiamine/FolicExpected acute blood loss anemia- started on Feosol with ColaceEncouraged IS and ambulation/Cont PT/OTCBC/BMP/CXR- all unremarkable todayPlan: Conditional D/C home today. Follow up with Dr. Cummings after 1 week. Pt asked about his Coumadin if he needs to resume it back again. Discussed with and said pt does not need to take this, pt needs to be on ASA and Plavixonly. Pt will need pain prescription before dischrge. Plan discussed with: patient, collaborating MD (Dr. Cummings) at 1417 RPT #:[id number] OF REPORTPRProgress Hehu5199-69-97O19:12:00Z.[id number] able for patient babzCBFUAVSENUXAVV6298-30-35N04:17:29 [facility] 2019-01-13 14:12:00 [id number] MKAV0SJ0p9hfwfqyjVKJRriVBsTHC 1DxmzXks/GKntQ7MMRNZfr04SS3VNIGYdG0083-21-30G72:1 2:00 [facility]Card[facility] ProgREPORT#:[id number] REPORT STATUS: SignedDATE:01/13/19 TIME: 141 PATIENT: DELMI FLORES UNIT #: [id number]#: [id number] [facility] AGE: 48 SEX: M ATTEND: Ad Cummings [facility] AUTHOR: Yolanda Mondragon COOK CHILI * ALL edits or amendments must be made on the electronic/computer document * GeneralPost-op: day 4Status post:Redo left femoral to posterior tibial artery bypass with cryopreserved SVG SubjectivePatient reports:No: complaints, nausea, vomiting, pain. Nursing reports:No: complaints. Comments:seen pt lying in beddenies pain, SOB, CP Review of SystemsConstitutional:Denies: chills, fatigue, fever, generalized weakness. Respiratory:Denies: MURO (dyspnea on exertion), SOB. Cardiovascular:Denies: chest pain, MURO (dyspnea on exertion), edema, orthopnea. Objective Physical ExamVS/I O:Last Documented: Result Date Time Pulse Ox 98 01/13 1110 B/P 139/76 01/13 1110 B/P Mean 96.9 01/13 1110 O2 Delivery Room air 01/13 1110 Temp 37.0 01/13 1110 Pulse 55 01/13 1110 Resp 18 01/13 1110 FiO2 21 01/11 0843 24 hour I O ending at 0700: 01/13 0700 01/12 1900 Intake Total 800 1100 Output Total 600 Balance 200 1100 Intake, Oral 800 1100 Number 0 Bowel Movements Number Voids 2 2 Output, Urine 600 Patient Weight Weight (lb): 185Weight (oz): 6.19Weight (kg): 83.915 Medications:Active Meds + DC'd Last 24 HrsBupropion HCl 150 MG BID PO Amlodipine Besylate 5 MG DAILY PO Famotidine 20 MG BID PO Nicotine 21 MG DAILY TRANSDERM (CKD) Ferrous Sulfate 300 MG BID PO Folic Acid 1 MG DAILY PO Multivitamins Therapeutic 1 TAB DAILY PO Thiamine HCl 100 MG DAILY PO Aspirin 81 MG DAILY PO Clopidogrel Bisulfate 75 MG DAILY PO Atorvastatin Calcium 20 MG BEDTIME PO Metoprolol Tartrate 50 MG BID PO Calcium Gluconate 1,000 MG ASDIR PRN IV Sodium Chloride 100 MLLosartan Potassium 100 MG DAILY PO Diphenhydramine HCl 25 MG Q6H PRN PRN PO Acetaminophen 650 MG Q4H PRN PRN PO Bisacodyl 10 MG ASDIR PRN RECTAL Hydrocodone Bitart/Acetaminophen 1 TAB Q4H PRN PRN PO Hydrocodone Bitart/Acetaminophen 2 TAB Q4H PRN PRN PO Meperidine HCl 25 MG Q4H PRN PRN IM Meperidine HCl 50 MG Q4H PRN PRN IM Ondansetron HCl 4 MG Q8H PRN PRN IV Potassium Chloride 10 MEQ ASDIR PRN PO General appearance: alert, awake, oriented, no acute distressWound/incision: 1 Location: left groin Site condition: dressing clean dry, dressing intactWound/incision: 2 Location: left lower extremity Site condition: dressing stained, dressing clean dry, dressing intactNeck: non-tender, no masses or swellingCardiovascular: normal heart sounds, regular rate rhythmRespiratory: aerating well, clear to auscultation, symmetric expansion, no distressAbdomen: soft, non-tenderGenitourinary: no foleyExtremities: pedal pulses (left foot non palpable), moves all, The left leg and foot is warm to touch with good color.Musculoskeletal: full range of motionNeuro/FRY COOK: alert, oriented X 3 ResultsFindings/Data:Laboratory Tests 01/13 1300 Chemistry Sodium (137 - 145 MMOL/L) 140 Potassium (3.5 - 5.1 MMOL/L) 4.5 Chloride (98 - 107 MMOL/L) 102 Carbon Dioxide (22 - 30 MMOL/L) 32 H BUN (9 - 20 MG/DL) 11 Creatinine (0.66 - 1.25 MG/DL) 0.70 Glomerular Filtr Rate > 60 Glucose (74 - 106 MG/DL) 93 Calcium (8.4 - 10.2 MG/DL) 9.8 Laboratory Tests 01/13 1300 Hematology WBC (3.8 - 9.8 K/MM3) 8.6 RBC (3.95 - 5.67 M/MM3) 3.87 L Hgb (12.4 - 16.7 G/DL) 13.2 Hct (35.9 - 49.5 %) 39.1 MCV (81.7 - 96.1 fL) 101 H MCH (27.6 - 33.2 pg) 34.1 H MCHC (32.9 - 35.5 %) 33.8 RDW (12.1 - 15.2 %) 12.7 Plt Count (129 - 368 K/MM3) 179 MPV (7.4 - 10.4 fl) 11.1 H Neut % (Auto) (43 - 75 %) 45.8 Lymph % (Auto) (14 - 44 %) 44.7 H [place] % (Auto) (4 - 13 %) 7.4 Eos % (Auto) (0 - 6 %) 1.3 Baso % (Auto) (0 - 2 %) 0.5 Neut # (Auto) (2.0 - 7.6 K/mm3) 3.95 Lymph # (Auto) (1.0 - 3.8 K/mm3) 3.85 H [place] # (Auto) (0.1 - 0.8 K/mm3) 0.64 Eos # (Auto) (0.0 - 0.2 K/mm3) 0.11 Baso # (Auto) (0.0 - 0.2 K/mm3) 0.04 Immature Gran % (0.0 - 2.0 %) 0.3 Nucleated RBC % (0 - 1.0 %) 0.0 Nucleated RBCs # (Man) (0.0 - 0.1 K/mm3) 0.00 Diagnosis, Assessment PlanFree Text A P:This is a 48 y/m severe PVD, HTN, HLD, CAD, s/p CABs/p Redo left femoral to posterior tibial artery bypass with cryopreserved SVGOn Plavix/ASA/BB/StatinETOH Abuse- on MVI/Thiamine/FolicExpected acute blood loss anemia- started on Feosol with ColaceEncouraged IS and ambulation/Cont PT/OTCBC/BMP/CXR- all unremarkable todayPlan: Conditional D/C home today. Follow up with Dr. Cummings after 1 week. Pt asked about his Coumadin if he needs to resume it back again. Discussed with and said pt does not need to take this, pt needs to be on ASA and Plavixonly. Pt will need pain prescription before dischrge. Plan discussed with: patient, collaborating MD (Dr. Cummings) at 1417 at 1324 RPT #:[id number] OF REPORTPRProgress Ekff9907-75-86Q56:12:00Z.[id number] able for patient tofjXFYFRNDJEIDEYK4761-84-50E60:24:22 [facility] 2019-01-13 12:34:00 LVnqlchxxyg55011036W nWLisHO0Qd4f6bhGwjH/GqKTlkNNw rErNK1z7wGbdrwuSeMZqV0MAFVCzaaUFZ84153-25-65C28:3 4:00 [facility] HospitalHospitalist Progress NoteREPORT#:[id number] REPORT STATUS: SignedDATE:01/13/19 TIME: 1234 PATIENT: DELMI FLORES UNIT #: [id number]#: [id number] ROOM/BED: [facility]-ADOB: [birth year] AGE: 48 SEX: M ATTEND: Ad Cummings MDADM AUTHOR: Hudson Chong MD * ALL edits or amendments must be made on the electronic/computer document * SubjectiveChief Complaint:Patient is requesting something for the anxiety that he gets when he quits smoking. He mentions that he has some pain in the leg at the surgical site. He said he slept well and is ready to go home. Review of SystemsAll systems rev neg: except as marked Objective GeneralVS/I O:Vital Signs: Date Time Temp Pulse Resp B/P B/P Pulse O2 O2 Flow FiO2 Mean Ox Delivery Rate 01/13 1110 98.6 55 18 139/76 96.9 98 Room air 01/13 0731 98.8 61 18 152/76 101.5 97 Room air 01/13 0445 97.9 65 18 172/86 114.9 99 01/12 2330 97.9 57 18 162/86 111.1 99 01/13 2008 98.4 73 18 158/87 110.4 99 01/12 1611 98.6 67 18 123/83 96.2 98 24 hour I O ending at 0700: 01/13 0700 01/12 1900 Intake Total 800 1100 Output Total 600 Balance 200 1100 Intake, Oral 800 1100 Number 0 Bowel Movements Number Voids 2 2 Output, Urine 600 Patient Weight Weight (lb): 185Weight (oz): 6.19Weight (kg): 83.915 Medications:Active Meds + DC'd Last 24 HrsBupropion HCl 150 MG BID PO Amlodipine Besylate 5 MG DAILY PO Famotidine 20 MG BID PO Nicotine 21 MG DAILY TRANSDERM (CKD) Ferrous Sulfate 300 MG BID PO Folic Acid 1 MG DAILY PO Multivitamins Therapeutic 1 TAB DAILY PO Thiamine HCl 100 MG DAILY PO Aspirin 81 MG DAILY PO Clopidogrel Bisulfate 75 MG DAILY PO Atorvastatin Calcium 20 MG BEDTIME PO Metoprolol Tartrate 50 MG BID PO Calcium Gluconate 1,000 MG ASDIR PRN IV Sodium Chloride 100 MLLosartan Potassium 100 MG DAILY PO Diphenhydramine HCl 25 MG Q6H PRN PRN PO Acetaminophen 650 MG Q4H PRN PRN PO Bisacodyl 10 MG ASDIR PRN RECTAL Hydrocodone Bitart/Acetaminophen 1 TAB Q4H PRN PRN PO Hydrocodone Bitart/Acetaminophen 2 TAB Q4H PRN PRN PO Meperidine HCl 25 MG Q4H PRN PRN IM Meperidine HCl 50 MG Q4H PRN PRN IM Ondansetron HCl 4 MG Q8H PRN PRN IV Potassium Chloride 10 MEQ ASDIR PRN PO Physical ExamGeneral appearance: alert, awake, oriented, no acute distress, pleasant, conversational, mental status normal, no respiratory distressHead/Eyes: atraumatic, EOMI, normal conjunctiva/sclera, normal eyelids/periorb.,PERRLENT: moist mucosal membranes, normal ear left, normal ear right, normal nose, normal pharynxNeck: non-tender, supple/no meningismus, no masses or swellingCardiovascular: normal heart sounds, regular rate rhythmRespiratory: aerating well, clear to auscultation, symmetric expansion, no distressAbdomen: non-tender, normal bowel sounds, soft, no guarding, no reboundGenitourinary: no foleyRectal: not indicatedExtremities: moves all, no clubbing, no cyanosisMusculoskeletal: normal inspection, no muscle spasmNeuro/FRY COOK: alert, oriented X 3, normal speech, no motor deficitsWound/incision: Location:Left thigh and leg. Site Condition: dressing clean dry, dressing intactPsychiatry: normal affect, normal judgment/insight, normal mood Sepsis ReassessmentVS:Last Documented: Result Date Time Pulse Ox 98 01/13 1110 B/P 139/76 01/13 1110 B/P Mean 96.9 01/13 1110 O2 Delivery Room air 01/13 1110 Temp 98.6 01/13 1110 Pulse 55 01/13 1110 Resp 18 01/13 1110 FiO2 21 01/11 0843 Diagnosis, Assessment PlanOrders: Procedure Date/time Status Ok to Discharge 01/13 1244 Active Free Text DxA P NotesFree Text DxA P Notes:- Severe peripheral vascular disease with occluded left fem-pop graft, s/p redo left fem-pop on 01/09/2019.- Atherosclerotic heart disease.- Hypertension.- Diabetes mellitus.- Hypercholesterolemia.- Tobacco dependence. PLAN AND RECOMMENDATIONS:01/10/2019:1. Continue home medications.2. Advanced diet and activity.3. Pain medications as needed.4. Counseled the patient regarding tobacco cessation. He indicated that he istrying recently and cutdown on his smoking. I asked if he has tried any tobaccocessation agents including nicotine replacement or Chantix and he indicated no.I offered nicotine patch and he is agreeable.5. The patient to be transferred out of intensive care unit later today. 01/11/2019:- Transfer patient from SICU to medical floor.- Current medical treatment. - Anticipate discharge home in the next 24-48 hours. 01/12/2019:- Continue medical treatment. - Anticipate dischage home tomorrow. 01/13/2019:- Patient is being discharged today. - Continue current treatment until such time. - Patient is requesting a medication that can help with the mood changes associated with smoking cessation. Will prescribe Wellbutrin. Quality MedicationsCurrent medication review:I attest that the foregoing medication list in the medical record is true, accurate, and complete to the best of my knowledge. BMI Screening > 25 or < 18.5BMI status/follow-up: abnl BMI, pt to F/U w/PCP (to discuss diet exercise) Tobacco Use/CounselingTobacco use/counseling: tobacco user, cessation general counsel <3 min HTN Screening/Follow-upB/P assess/follow-up: pre-existing hx of HTN at 1711 RPT #:[id number] OF REPORTPRProgress Ajit0440-36-26O24:34:00Z.[id number] able for patient vmraWQUBJNPXFQTEMD5330-21-07O10:11:28 [facility] 2019-01-13 06:29:00 [id number] VpXAJ9sCfVFvP/96vev6SEPKeF4+T qGHsk0l7JSAI+MrUBsu1l2XnF07fWcSDyL9101-73-36V04:2 9:00 [facility] ([facility])Cardiology Progress NoteREPORT#:[id number] REPORT STATUS: SignedDATE:01/13/19 TIME: 628 PATIENT: DELMI FLORES UNIT #: [id number]#: [id number] ROOM/BED: [facility]-ADOB: [birth year] AGE: 48 SEX: M ATTEND: Ad Cummings [facility] AUTHOR: Gilberto Bonds MD * ALL edits or amendments must be made on the electronic/computer document * SubjectiveChief Complaint:LLE PainPatient reports:No: chest pain, palpitations, shortness of breath. Objective GeneralVS/I O:24 hour I O ending at 0700: 07/19 0700 01/12 1900 Intake Total 800 1100 Output Total 600 Balance 200 1100 Intake, Oral 800 1100 Number 0 Bowel Movements Number Voids 2 2 Output, Urine 600 Vital Signs: Date Time Temp Pulse Resp B/P B/P Pulse O2 O2 Flow FiO2 Mean Ox Delivery Rate 01/13 0445 97.9 65 18 172/86 114.9 99 01/12 2330 97.9 57 18 162/86 111.1 99 01/13 2008 98.4 73 18 158/87 110.4 99 01/12 1611 98.6 67 18 123/83 96.2 98 01/12 1146 98.1 65 16 154/78 103.0 96 01/12 0734 98.4 56 18 149/71 97.4 98 Patient Weight Weight (lb): 185Weight (oz): 6.19Weight (kg): 83.915 Medications:Active Meds + DC'd Last 24 HrsFamotidine 20 MG BID PO Nicotine 21 MG DAILY TRANSDERM (CKD) Ferrous Sulfate 300 MG BID PO Folic Acid 1 MG DAILY PO Multivitamins Therapeutic 1 TAB DAILY PO Thiamine HCl 100 MG DAILY PO Aspirin 81 MG DAILY PO Clopidogrel Bisulfate 75 MG DAILY PO Atorvastatin Calcium 20 MG BEDTIME PO Metoprolol Tartrate 50 MG BID PO Mupirocin 1 APPLIC BID NASAL (DC) Calcium Gluconate 1,000 MG ASDIR PRN IV Sodium Chloride 100 MLLosartan Potassium 100 MG DAILY PO Diphenhydramine HCl 25 MG Q6H PRN PRN PO Acetaminophen 650 MG Q4H PRN PRN PO Bisacodyl 10 MG ASDIR PRN RECTAL Hydrocodone Bitart/Acetaminophen 1 TAB Q4H PRN PRN PO Hydrocodone Bitart/Acetaminophen 2 TAB Q4H PRN PRN PO Meperidine HCl 25 MG Q4H PRN PRN IM Meperidine HCl 50 MG Q4H PRN PRN IM Ondansetron HCl 4 MG Q8H PRN PRN IV Potassium Chloride 10 MEQ ASDIR PRN PO Physical ExamGeneral appearance: alert, awake, orientedHead/Eyes: atraumatic, normocephalicENT: moist mucosal membranesNeck: no JVDCardiovascular: CV assessment: regular rate and rhythmRespiratory: clear to auscultation, no distressUpper extremity: UE assessment: no cyanosis, no edemaLower extremity: LE assessment: no edemaMusculoskeletal: full range of motion, normal inspection, straight leg raise negNeuro/FRY COOK: alert, oriented X 3, CN II-XII intactSkin: dry, intactWound/incision: Site condition: dressing clean dryPsychiatry: normal affect, normal judgment/insight, normal mood Diagnosis, Assessment Plan Free Text DxA P NotesFree Text DxA P Notes:IMP: Severe PVD s/p LLE Fem-pop bypass 12/2017 now with occluded graft s/p LLE fem-tib bypass CAD - s/p ACB Tobacco abuse REC: Continue home medications Add amlodipine IS Ambulate Advised to quit smoking. D/C planning at 0743 RPT #:[id number] OF REPORTPRProgress Pusm5278-55-04E34:29:00Z.[id number] able for patient cexyJTSOXPINMQJGCB6368-23-16Y02:43:35 [facility] 2019-01-12 19:37:00 OBacxvqwrzo82515712U 9hTtDpMcylpPRLjFiv7plJhFCAsH0 bDYHvoE3mXr1MlGq8xMfCDzRPAVWsN9Qyu0231-66-49B81:3 7:00 [facility]Card[facility] ProgREPORT#:[id number] REPORT STATUS: SignedDATE:01/12/19 TIME: 1936 PATIENT: DELMI FLORES UNIT #: [id number]#: [id number] ROOM/BED: [facility]-ADOB: [birth year] AGE: 48 SEX: M ATTEND: Ad Cummings [facility] AUTHOR: Ml Marie * ALL edits or amendments must be made on the electronic/computer document * GeneralPost-op: day 3Status post:Redo left femoral to posterior tibial artery bypass with cryopreserved SVG SubjectivePatient reports:No: complaints. Nursing reports:No: complaints. Comments:Pt. seen at bedside, doing well. He still has some mild soreness to his left leg Review of SystemsConstitutional:Denies: chills, fatigue, fever. Respiratory:Denies: MURO (dyspnea on exertion), SOB. Cardiovascular:Denies: chest pain. Objective Physical ExamVS/I O:Last Documented: Result Date Time Pulse Ox 98 01/12 1611 B/P 123/83 01/12 161 B/P Mean 96.2 01/12 161 Temp 37.0 01/12 161 Pulse 67 01/12 1611 Resp 18 01/12 161 O2 Delivery Room air 01/11 2017 FiO2 21 01/11 0843 24 hour I O ending at 0700: 01/12 0700 01/11 1900 Intake Total 300 Output Total 500 Balance -200 Intake, Oral 300 Output, Urine 500 Patient Weight Weight (lb): 185Weight (oz): 6.19Weight (kg): 83.915 Medications:Active Meds + DC'd Last 24 HrsFamotidine 20 MG BID PO Nicotine 21 MG DAILY TRANSDERM (CKD) Ferrous Sulfate 300 MG BID PO Folic Acid 1 MG DAILY PO Multivitamins Therapeutic 1 TAB DAILY PO Thiamine HCl 100 MG DAILY PO Aspirin 81 MG DAILY PO Clopidogrel Bisulfate 75 MG DAILY PO Atorvastatin Calcium 20 MG BEDTIME PO Metoprolol Tartrate 50 MG BID PO Mupirocin 1 APPLIC BID NASAL (DC) Calcium Gluconate 1,000 MG ASDIR PRN IV Sodium Chloride 100 MLLosartan Potassium 100 MG DAILY PO Diphenhydramine HCl 25 MG Q6H PRN PRN PO Acetaminophen 650 MG Q4H PRN PRN PO Bisacodyl 10 MG ASDIR PRN RECTAL Hydrocodone Bitart/Acetaminophen 1 TAB Q4H PRN PRN PO Hydrocodone Bitart/Acetaminophen 2 TAB Q4H PRN PRN PO Meperidine HCl 25 MG Q4H PRN PRN IM Meperidine HCl 50 MG Q4H PRN PRN IM Ondansetron HCl 4 MG Q8H PRN PRN IV Potassium Chloride 10 MEQ ASDIR PRN PO General appearance: alert, awake, oriented, no acute distressWound/incision: Location: left lower extremity Site condition: dressing clean dry, dressing intactNeck: non-tender, no masses or swellingCardiovascular: normal heart sounds, regular rate rhythmRespiratory: aerating well, clear to auscultation, symmetric expansion, no distressAbdomen: soft, non-tenderGenitourinary: foleyExtremities: pedal pulses (left foot non palpable), moves all, The left leg and foot is warm to touch with good color.Musculoskeletal: full range of motionNeuro/FRY COOK: alert, oriented X 3 Diagnosis, Assessment PlanFree Text A P:This is a 48 y/m severe PVD, HTN, HLD, CAD, s/p CABs/p Redo left femoral to posterior tibial artery bypass with cryopreserved SVGOn Plavix/ASA/BB/StatinETOH Abuse- on MVI/Thiamine/FolicExpected acute blood loss anemia- started on Feosol with ColaceEncouraged IS and ambulation/Cont PT/OTPlan for discharge home in am at 193 RPT #:[id number] OF REPORTPRProgress Yaxd0161-30-59I82:37:00Z.[id number] able for patient jbgyYPVHYLEGBRXWMM6956-48-86U24:40:04 [facility] 2019-01-12 19:37:00 [id number] W6F7qk76tSN0kg1bV48sOB1/ItrN6 8O/vZQ+PunuNazwdrWMOMZ14Oolrl0bl982025-42-16L38:3 7:00 [facility] ([facility])Cardiovascular Surgery ProgREPORT#:[id number] REPORT STATUS: SignedDATE:01/12/19 TIME: 1936 PATIENT: DELMI FLORES UNIT #: [id number]#: [id number] ROOM/BED: [facility]-ADOB: [birth year] AGE: 48 SEX: M ATTEND: Ad Cummings AUTHOR: Ml Marie * ALL edits or amendments must be made on the electronic/computer document * GeneralPost-op: day 3Status post:Redo left femoral to posterior tibial artery bypass with cryopreserved SVG SubjectivePatient reports:No: complaints. Nursing reports:No: complaints. Comments:Pt. seen at bedside, doing well. He still has some mild soreness to his left leg Review of SystemsConstitutional:Denies: chills, fatigue, fever. Respiratory:Denies: MURO (dyspnea on exertion), SOB. Cardiovascular:Denies: chest pain. Objective Physical ExamVS/I O:Last Documented: Result Date Time Pulse Ox 98 01/12 161 B/P 123/83 01/12 161 B/P Mean 96.2 01/12 1611 Temp 37.0 01/12 161 Pulse 67 01/12 1611 Resp 18 01/12 1611 O2 Delivery Room air 01/11 2017 FiO2 21 01/11 0843 24 hour I O ending at 0700: 01/12 0700 01/11 1900 Intake Total 300 Output Total 500 Balance -200 Intake, Oral 300 Output, Urine 500 Patient Weight Weight (lb): 185Weight (oz): 6.19Weight (kg): 83.915 Medications:Active Meds + DC'd Last 24 HrsFamotidine 20 MG BID PO Nicotine 21 MG DAILY TRANSDERM (CKD) Ferrous Sulfate 300 MG BID PO Folic Acid 1 MG DAILY PO Multivitamins Therapeutic 1 TAB DAILY PO Thiamine HCl 100 MG DAILY PO Aspirin 81 MG DAILY PO Clopidogrel Bisulfate 75 MG DAILY PO Atorvastatin Calcium 20 MG BEDTIME PO Metoprolol Tartrate 50 MG BID PO Mupirocin 1 APPLIC BID NASAL (DC) Calcium Gluconate 1,000 MG ASDIR PRN IV Sodium Chloride 100 MLLosartan Potassium 100 MG DAILY PO Diphenhydramine HCl 25 MG Q6H PRN PRN PO Acetaminophen 650 MG Q4H PRN PRN PO Bisacodyl 10 MG ASDIR PRN RECTAL Hydrocodone Bitart/Acetaminophen 1 TAB Q4H PRN PRN PO Hydrocodone Bitart/Acetaminophen 2 TAB Q4H PRN PRN PO Meperidine HCl 25 MG Q4H PRN PRN IM Meperidine HCl 50 MG Q4H PRN PRN IM Ondansetron HCl 4 MG Q8H PRN PRN IV Potassium Chloride 10 MEQ ASDIR PRN PO General appearance: alert, awake, oriented, no acute distressWound/incision: Location: left lower extremity Site condition: dressing clean dry, dressing intactNeck: non-tender, no masses or swellingCardiovascular: normal heart sounds, regular rate rhythmRespiratory: aerating well, clear to auscultation, symmetric expansion, no distressAbdomen: soft, non-tenderGenitourinary: foleyExtremities: pedal pulses (left foot non palpable), moves all, The left leg and foot is warm to touch with good color.Musculoskeletal: full range of motionNeuro/FRY COOK: alert, oriented X 3 Diagnosis, Assessment PlanFree Text A P:This is a 48 y/m severe PVD, HTN, HLD, CAD, s/p CABs/p Redo left femoral to posterior tibial artery bypass with cryopreserved SVGOn Plavix/ASA/BB/StatinETOH Abuse- on MVI/Thiamine/FolicExpected acute blood loss anemia- started on Feosol with ColaceEncouraged IS and ambulation/Cont PT/OTPlan for discharge home in am at 1939 at 1457 RPT #:[id number] OF REPORTPRProgress Wkmp7387-35-29N18:37:00Z.[id number] able for patient xpocFMDDKOIAFFICTV2704-03-58R14:57:20 [facility] 2019-01-12 15:37:00 [id number] XfbwXjMrG7AhvVZ+xFF030vCr2v4b CCnn5r+9NjdDV0MFC40RRRpNmgwN5QGTiI3871-24-37X56:3 7:00 [facility] ([facility])Cardiology Progress NoteREPORT#:[id number] REPORT STATUS: SignedDATE:01/12/19 TIME: 1537 PATIENT: DELMI FLORES UNIT #: [id number]#: [id number] ROOM/BED: [facility]-ADOB: [birth year] AGE: 48 SEX: M ATTEND: Ad Cummings MDADM AUTHOR: Gilberto Bonds MD * ALL edits or amendments must be made on the electronic/computer document * SubjectiveChief Complaint:LLE PainPatient reports:No: chest pain, palpitations, shortness of breath. Objective GeneralVS/I O:24 hour I O ending at 0700: 01/12 0700 01/11 1900 Intake Total 300 Output Total 500 Balance -200 Intake, Oral 300 Output, Urine 500 Vital Signs: Date Time Temp Pulse Resp B/P B/P Pulse O2 O2 Flow FiO2 Mean Ox Delivery Rate 01/12 1146 98.1 65 16 154/78 103.0 96 01/12 0734 98.4 56 18 149/71 97.4 98 01/12 0431 98.1 68 18 179/86 117.3 100 01/11 2339 98.4 58 18 127/72 90.1 96 01/11 2017 98.1 65 18 146/82 103 97 Room air 01/11 1714 98.1 62 16 145/80 101.8 Patient Weight Weight (lb): 185Weight (oz): 6.19Weight (kg): 83.915 Medications:Active Meds + DC'd Last 24 HrsFamotidine 20 MG BID PO Nicotine 21 MG DAILY TRANSDERM (CKD) Ferrous Sulfate 300 MG BID PO Folic Acid 1 MG DAILY PO Multivitamins Therapeutic 1 TAB DAILY PO Thiamine HCl 100 MG DAILY PO Aspirin 81 MG DAILY PO Clopidogrel Bisulfate 75 MG DAILY PO Atorvastatin Calcium 20 MG BEDTIME PO Metoprolol Tartrate 50 MG BID PO Mupirocin 1 APPLIC BID NASAL (DC) Calcium Gluconate 1,000 MG ASDIR PRN IV Sodium Chloride 100 MLLosartan Potassium 100 MG DAILY PO Diphenhydramine HCl 25 MG Q6H PRN PRN PO Acetaminophen 650 MG Q4H PRN PRN PO Bisacodyl 10 MG ASDIR PRN RECTAL Hydrocodone Bitart/Acetaminophen 1 TAB Q4H PRN PRN PO Hydrocodone Bitart/Acetaminophen 2 TAB Q4H PRN PRN PO Meperidine HCl 25 MG Q4H PRN PRN IM Meperidine HCl 50 MG Q4H PRN PRN IM Ondansetron HCl 4 MG Q8H PRN PRN IV Potassium Chloride 10 MEQ ASDIR PRN PO Physical ExamGeneral appearance: alert, awake, orientedHead/Eyes: atraumatic, normocephalicENT: moist mucosal membranesNeck: no JVDCardiovascular: CV assessment: regular rate and rhythmRespiratory: clear to auscultation, no distressUpper extremity: UE assessment: no cyanosis, no edemaLower extremity: LE assessment: no edemaMusculoskeletal: full range of motion, normal inspection, straight leg raise negNeuro/FRY COOK: alert, oriented X 3, CN II-XII intactSkin: dry, intactWound/incision: Site condition: dressing clean dryPsychiatry: normal affect, normal judgment/insight, normal mood Diagnosis, Assessment Plan Free Text DxA P NotesFree Text DxA P Notes:IMP: Severe PVD s/p LLE Fem-pop bypass 12/2017 now with occluded graft s/p LLE fem-tib bypass CAD - s/p ACB Tobacco abuse REC: Continue home medications Add nifedipine prn for HTN. IS Ambulate Advised to quit smoking. at [facility] RPT #:[id number] OF REPORTPRProgress Twbu1258-65-29O22:37:00Z.[id number] able for patient vkppTKCAUADLGSHXBO6635-71-39A61:01:54 [facility] 2019-01-12 14:18:00 [id number] +iFIOo6x5L4GYXtGSdm06MaImcuqf cUu+z+P1/Gh+BjFpKbCUImegPRvO2HesHG5329-66-93X10:1 8:00 [facility] ([facility])Hospitalist Progress NoteREPORT#:[id number] REPORT STATUS: SignedDATE:01/12/19 TIME: 1417 PATIENT: DELMI FLORES UNIT #: [id number]#: [id number] ROOM/BED: [facility]-ADOB: [birth year] AGE: 48 SEX: M ATTEND: Ad Cummings AUTHOR: Hudson Chong MD * ALL edits or amendments must be made on the electronic/computer document * SubjectiveChief Complaint:Patient reports having some pain at the surgical site. He continues to report nodiscomfort while walking. Patient says "everything else is good." Review of SystemsAll systems rev neg: except as marked Objective GeneralVS/I O:Vital Signs: Date Time Temp Pulse Resp B/P B/P Pulse O2 O2 Flow FiO2 Mean Ox Delivery Rate 01/12 1146 98.1 65 16 154/78 103.0 96 01/12 0734 98.4 56 18 149/71 97.4 98 01/12 0431 98.1 68 18 179/86 117.3 100 01/11 2339 98.4 58 18 127/72 90.1 96 01/11 2017 98.1 65 18 146/82 103 97 Room air 01/11 1714 98.1 62 16 145/80 101.8 24 hour I O ending at 0700: 01/12 0700 01/11 1900 Intake Total 300 Output Total 500 Balance -200 Intake, Oral 300 Output, Urine 500 Patient Weight Weight (lb): 185Weight (oz): 6.19Weight (kg): 83.915 Medications:Active Meds + DC'd Last 24 HrsFamotidine 20 MG BID PO Nicotine 21 MG DAILY TRANSDERM (CKD) Ferrous Sulfate 300 MG BID PO Folic Acid 1 MG DAILY PO Multivitamins Therapeutic 1 TAB DAILY PO Thiamine HCl 100 MG DAILY PO Aspirin 81 MG DAILY PO Clopidogrel Bisulfate 75 MG DAILY PO Atorvastatin Calcium 20 MG BEDTIME PO Metoprolol Tartrate 50 MG BID PO Mupirocin 1 APPLIC BID NASAL (DC) Calcium Gluconate 1,000 MG ASDIR PRN IV Sodium Chloride 100 MLLosartan Potassium 100 MG DAILY PO Diphenhydramine HCl 25 MG Q6H PRN PRN PO Acetaminophen 650 MG Q4H PRN PRN PO Bisacodyl 10 MG ASDIR PRN RECTAL Hydrocodone Bitart/Acetaminophen 1 TAB Q4H PRN PRN PO Hydrocodone Bitart/Acetaminophen 2 TAB Q4H PRN PRN PO Meperidine HCl 25 MG Q4H PRN PRN IM Meperidine HCl 50 MG Q4H PRN PRN IM Ondansetron HCl 4 MG Q8H PRN PRN IV Potassium Chloride 10 MEQ ASDIR PRN PO Physical ExamGeneral appearance: alert, awake, oriented, no acute distress, pleasant, conversational, mental status normal, no respiratory distressHead/Eyes: atraumatic, clear cornea, EOMI, normal conjunctiva/sclera, normal eyelids/periorb., PERRLENT: moist mucosal membranes, normal ear left, normal ear right, normal nose, normal pharynxNeck: non-tender, supple/no meningismus, no masses or swellingCardiovascular: normal heart sounds, regular rate rhythmRespiratory: aerating well, clear to auscultation, symmetric expansion, no distressAbdomen: non-tender, normal bowel sounds, soft, no guarding, no reboundGenitourinary: no foleyRectal: not indicatedExtremities: moves all, no clubbing, no cyanosisMusculoskeletal: normal inspection, no muscle spasmNeuro/FRY COOK: alert, oriented X 3, normal speech, no motor deficitsWound/incision: Location:Left thigh and leg. Site Condition: dressing clean dry, dressing intactPsychiatry: normal affect, normal judgment/insight, normal mood ResultsResults: no new labs, vital signs stable, current med profile rev'd Sepsis ReassessmentVS:Last Documented: Result Date Time Pulse Ox 96 01/12 1146 B/P 154/78 01/12 1146 B/P Mean 103.0 01/12 1146 Temp 98.1 01/12 1146 Pulse 65 01/12 1146 Resp 16 01/12 1146 O2 Delivery Room air 01/11 2017 FiO2 21 01/11 0843 Diagnosis, Assessment Plan Free Text DxA P NotesFree Text DxA P Notes:- Severe peripheral vascular disease with occluded left fem-pop graft, s/p redo left fem-pop on 01/09/2019.- Atherosclerotic heart disease.- Hypertension.- Diabetes mellitus.- Hypercholesterolemia.- Tobacco dependence. PLAN AND RECOMMENDATIONS:01/10/2019:1. Continue home medications.2. Advanced diet and activity.3. Pain medications as needed.4. Counseled the patient regarding tobacco cessation. He indicated that he istrying recently and cutdown on his smoking. I asked if he has tried any tobaccocessation agents including nicotine replacement or Chantix and he indicated no.I offered nicotine patch and he is agreeable.5. The patient to be transferred out of intensive care unit later today. 01/11/2019:- Transfer patient from SICU to medical floor.- Current medical treatment. - Anticipate discharge home in the next 24-48 hours. 01/12/2019:- Continue medical treatment. - Anticipate dischage home tomorrow. Quality MedicationsCurrent medication review:I attest that the foregoing medication list in the medical record is true, accurate, and complete to the best of my knowledge. BMI Screening > 25 or < 18.5BMI status/follow-up: abnl BMI, pt to F/U w/PCP (to discuss diet exercise) at 1946 RPT #:[id number] OF REPORTPRProgress Fasl9462-59-11M24:18:00Z.[id number] able for patient baznLJTEVXCHKHXGXP5103-06-15A87:46:54 [facility] 2019-01-11 19:30:00 [id number] QsxNawexjX/sZY5rxPGJi3nopfCMg Kk87YSagbioZt0E16CU5xOlHhLv396TGEM6988-56-18V85:3 0:00 [facility] ProgREPORT#:[id number] REPORT STATUS: SignedDATE:01/11/19 TIME: 1929 PATIENT: DELMI FLORES UNIT #: [id number]#: [id number] ROOM/BED: [facility]-ADOB: [birth year] AGE: 48 SEX: M ATTEND: Ad Cummings [facility] AUTHOR: Ml Marie * ALL edits or amendments must be made on the electronic/computer document * GeneralPost-op: day 2Status post:Redo left femoral to posterior tibial artery bypass with cryopreserved SVG SubjectivePatient reports:No: complaints. Nursing reports:No: complaints. Comments:Pt. seen at bedside, he was transferred to telemetry today. States that his leftfoot feels mucgh better since the surgery Review of SystemsConstitutional:Denies: chills, fatigue, fever. Respiratory:Denies: MURO (dyspnea on exertion), SOB. Cardiovascular:Denies: chest pain, MURO (dyspnea on exertion), palpitations. Objective Physical ExamVS/I O:Last Documented: Result Date Time B/P 145/80 07/17 1714 B/P Mean 101.8 01/11 1714 Temp 36.7 01/11 1714 Pulse 62 01/11 1714 Resp 16 01/11 1714 Pulse Ox 98 01/11 1230 FiO2 21 01/11 0843 O2 Delivery Room air 01/11 0843 24 hour I O ending at 0700: 01/11 0700 01/10 1900 Intake Total 850 1400.00 Output Total 650 1180 Balance 200 220.00 Intake, IV 600.00 Intake, Oral 850 800 Number Voids 2 Output, Urine 650 1180 Patient 83.915 kg Weight Patient Weight Weight (lb): 185Weight (oz): 6.19Weight (kg): 83.915 Medications:Active Meds + DC'd Last 24 HrsFamotidine 20 MG BID PO Nicotine 21 MG DAILY TRANSDERM (CKD) Ferrous Sulfate 300 MG BID PO Folic Acid 1 MG DAILY PO Multivitamins Therapeutic 1 TAB DAILY PO Thiamine HCl 100 MG DAILY PO Aspirin 81 MG DAILY PO Clopidogrel Bisulfate 75 MG DAILY PO Atorvastatin Calcium 20 MG BEDTIME PO Metoprolol Tartrate 50 MG BID PO Mupirocin 1 APPLIC BID NASAL Calcium Gluconate 1,000 MG ASDIR PRN IV Sodium Chloride 100 MLLosartan Potassium 100 MG DAILY PO Diphenhydramine HCl 25 MG Q6H PRN PRN PO Acetaminophen 650 MG Q4H PRN PRN PO Bisacodyl 10 MG ASDIR PRN RECTAL Hydrocodone Bitart/Acetaminophen 1 TAB Q4H PRN PRN PO Hydrocodone Bitart/Acetaminophen 2 TAB Q4H PRN PRN PO Meperidine HCl 25 MG Q4H PRN PRN IM Meperidine HCl 50 MG Q4H PRN PRN IM Nicardipine HCl 25 MG ASDIR PRN IV (DC) Sodium Chloride 250 MLNifedipine 10 MG Q4H PRN PRN SL (DC) Ondansetron HCl 4 MG Q8H PRN PRN IV Potassium Chloride 10 MEQ ASDIR PRN PO Potassium Chloride/Dextrose/Sod Cl 1,000 ML Q12H IV (DC) Nicardipine HCl 25 MG ASDIR IV (DC) Sodium Chloride 250 ML General appearance: alert, awake, oriented, no acute distressWound/incision: Location: left lower extremity, Left groin and thigh dressings are intact. The left calf dressing is saturatedNeck: non-tender, no masses or swellingCardiovascular: normal heart sounds, regular rate rhythmRespiratory: aerating well, clear to auscultation, symmetric expansion, no distressAbdomen: soft, non-tenderExtremities: pedal pulses (left foot non palpable), moves all, The left leg and foot is warm to touch with good color.Musculoskeletal: full range of motionNeuro/FRY COOK: alert, oriented X 3 ResultsFindings/Data:Laboratory Tests 01/12 436 Chemistry Sodium (137 - 145 MMOL/L) 140 Potassium (3.5 - 5.1 MMOL/L) 4.0 Chloride (98 - 107 MMOL/L) 106 Carbon Dioxide (22 - 30 MMOL/L) 30 Anion Gap (14 - 24 MMOL/L) 8 L BUN (9 - 20 MG/DL) 10 Creatinine (0.66 - 1.25 MG/DL) 0.60 L Glomerular Filtr Rate > 60 Glucose (74 - 106 MG/DL) 90 Calcium (8.4 - 10.2 MG/DL) 8.6 Laboratory Tests 01/12 436 Hematology WBC (3.8 - 9.8 K/MM3) 10.9 H RBC (3.95 - 5.67 M/MM3) 3.48 L Hgb (12.4 - 16.7 G/DL) 12.0 L Hct (35.9 - 49.5 %) 35.2 L MCV (81.7 - 96.1 fL) 101 H MCH (27.6 - 33.2 pg) 34.5 H MCHC (32.9 - 35.5 %) 34.1 RDW (12.1 - 15.2 %) 12.8 Plt Count (129 - 368 K/MM3) 160 MPV (7.4 - 10.4 fl) 11.0 H Neut % (Auto) (43 - 75 %) 58.8 Lymph % (Auto) (14 - 44 %) 34.0 [place] % (Auto) (4 - 13 %) 6.3 Eos % (Auto) (0 - 6 %) 0.3 Baso % (Auto) (0 - 2 %) 0.3 Neut # (Auto) (2.0 - 7.6 K/mm3) 6.42 Lymph # (Auto) (1.0 - 3.8 K/mm3) 3.71 [place] # (Auto) (0.1 - 0.8 K/mm3) 0.69 Eos # (Auto) (0.0 - 0.2 K/mm3) 0.03 Baso # (Auto) (0.0 - 0.2 K/mm3) 0.03 Immature Gran % (0.0 - 2.0 %) 0.3 Nucleated RBC % (0 - 1.0 %) 0.0 Nucleated RBCs # (Man) (0.0 - 0.1 K/mm3) 0.00 Diagnosis, Assessment PlanFree Text A P:This is a 48 y/m severe PVD, HTN, HLD, CAD, s/p CABs/p Redo left femoral to posterior tibial artery bypass with cryopreserved SVGOn Plavix/ASA/BB/StatinETOH Abuse- on MVI/Thiamine/FolicExpected acute blood loss anemia- started on Feosol with ColaceEncouraged IS and ambulation/Cont PT/OTPlan for discharge home on WednesdayD/C central line at 1936 RPT #:[id number] OF REPORTPRProgress Eulw7427-56-17V90:30:00Z.[id number] able for patient vqiuEDBKCJVMFCJSYF7044-08-39I08:36:23 [facility] 2019-01-11 19:30:00 [id number] [facility]/i3mJZ3SSLvEk+V068Xv9RBX X14T3AO74p9LEoj40HHYEZqcijHErg58V75185-32-96V02:3 0:00 [facility] ([facility])Cardiovascular Surgery ProgREPORT#:[id number] REPORT STATUS: SignedDATE:01/11/19 TIME: 1929 PATIENT: DELMI FLORES UNIT #: [id number]#: [id number] [facility] AGE: 48 SEX: M ATTEND: Ad Cummings AUTHOR: Ml Marie * ALL edits or amendments must be made on the electronic/computer document * GeneralPost-op: day 2Status post:Redo left femoral to posterior tibial artery bypass with cryopreserved SVG SubjectivePatient reports:No: complaints. Nursing reports:No: complaints. Comments:Pt. seen at bedside, he was transferred to telemetry today. States that his leftfoot feels mucgh better since the surgery Review of SystemsConstitutional:Denies: chills, fatigue, fever. Respiratory:Denies: MURO (dyspnea on exertion), SOB. Cardiovascular:Denies: chest pain, MURO (dyspnea on exertion), palpitations. Objective Physical ExamVS/I O:Last Documented: Result Date Time B/P 145/80 01/11 171 B/P Mean 101.8 01/11 1714 Temp 36.7 01/11 1714 Pulse 62 01/11 1714 Resp 16 01/11 1714 Pulse Ox 98 01/11 1230 FiO2 21 01/11 0843 O2 Delivery Room air 01/11 0843 24 hour I O ending at 0700: 01/11 0700 01/10 1900 Intake Total 850 1400.00 Output Total 650 1180 Balance 200 220.00 Intake, IV 600.00 Intake, Oral 850 800 Number Voids 2 Output, Urine 650 1180 Patient 83.915 kg Weight Patient Weight Weight (lb): 185Weight (oz): 6.19Weight (kg): 83.915 Medications:Active Meds + DC'd Last 24 HrsFamotidine 20 MG BID PO Nicotine 21 MG DAILY TRANSDERM (CKD) Ferrous Sulfate 300 MG BID PO Folic Acid 1 MG DAILY PO Multivitamins Therapeutic 1 TAB DAILY PO Thiamine HCl 100 MG DAILY PO Aspirin 81 MG DAILY PO Clopidogrel Bisulfate 75 MG DAILY PO Atorvastatin Calcium 20 MG BEDTIME PO Metoprolol Tartrate 50 MG BID PO Mupirocin 1 APPLIC BID NASAL Calcium Gluconate 1,000 MG ASDIR PRN IV Sodium Chloride 100 MLLosartan Potassium 100 MG DAILY PO Diphenhydramine HCl 25 MG Q6H PRN PRN PO Acetaminophen 650 MG Q4H PRN PRN PO Bisacodyl 10 MG ASDIR PRN RECTAL Hydrocodone Bitart/Acetaminophen 1 TAB Q4H PRN PRN PO Hydrocodone Bitart/Acetaminophen 2 TAB Q4H PRN PRN PO Meperidine HCl 25 MG Q4H PRN PRN IM Meperidine HCl 50 MG Q4H PRN PRN IM Nicardipine HCl 25 MG ASDIR PRN IV (DC) Sodium Chloride 250 MLNifedipine 10 MG Q4H PRN PRN SL (DC) Ondansetron HCl 4 MG Q8H PRN PRN IV Potassium Chloride 10 MEQ ASDIR PRN PO Potassium Chloride/Dextrose/Sod Cl 1,000 ML Q12H IV (DC) Nicardipine HCl 25 MG ASDIR IV (DC) Sodium Chloride 250 ML General appearance: alert, awake, oriented, no acute distressWound/incision: Location: left lower extremity, Left groin and thigh dressings are intact. The left calf dressing is saturatedNeck: non-tender, no masses or swellingCardiovascular: normal heart sounds, regular rate rhythmRespiratory: aerating well, clear to auscultation, symmetric expansion, no distressAbdomen: soft, non-tenderExtremities: pedal pulses (left foot non palpable), moves all, The left leg and foot is warm to touch with good color.Musculoskeletal: full range of motionNeuro/FRY COOK: alert, oriented X 3 ResultsFindings/Data:Laboratory Tests 01/11 0436 Chemistry Sodium (137 - 145 MMOL/L) 140 Potassium (3.5 - 5.1 MMOL/L) 4.0 Chloride (98 - 107 MMOL/L) 106 Carbon Dioxide (22 - 30 MMOL/L) 30 Anion Gap (14 - 24 MMOL/L) 8 L BUN (9 - 20 MG/DL) 10 Creatinine (0.66 - 1.25 MG/DL) 0.60 L Glomerular Filtr Rate > 60 Glucose (74 - 106 MG/DL) 90 Calcium (8.4 - 10.2 MG/DL) 8.6 Laboratory Tests 01/11 0436 Hematology WBC (3.8 - 9.8 K/MM3) 10.9 H RBC (3.95 - 5.67 M/MM3) 3.48 L Hgb (12.4 - 16.7 G/DL) 12.0 L Hct (35.9 - 49.5 %) 35.2 L MCV (81.7 - 96.1 fL) 101 H MCH (27.6 - 33.2 pg) 34.5 H MCHC (32.9 - 35.5 %) 34.1 RDW (12.1 - 15.2 %) 12.8 Plt Count (129 - 368 K/MM3) 160 MPV (7.4 - 10.4 fl) 11.0 H Neut % (Auto) (43 - 75 %) 58.8 Lymph % (Auto) (14 - 44 %) 34.0 [place] % (Auto) (4 - 13 %) 6.3 Eos % (Auto) (0 - 6 %) 0.3 Baso % (Auto) (0 - 2 %) 0.3 Neut # (Auto) (2.0 - 7.6 K/mm3) 6.42 Lymph # (Auto) (1.0 - 3.8 K/mm3) 3.71 [place] # (Auto) (0.1 - 0.8 K/mm3) 0.69 Eos # (Auto) (0.0 - 0.2 K/mm3) 0.03 Baso # (Auto) (0.0 - 0.2 K/mm3) 0.03 Immature Gran % (0.0 - 2.0 %) 0.3 Nucleated RBC % (0 - 1.0 %) 0.0 Nucleated RBCs # (Man) (0.0 - 0.1 K/mm3) 0.00 Diagnosis, Assessment PlanFree Text A P:This is a 48 y/m severe PVD, HTN, HLD, CAD, s/p CABs/p Redo left femoral to posterior tibial artery bypass with cryopreserved SVGOn Plavix/ASA/BB/StatinETOH Abuse- on MVI/Thiamine/FolicExpected acute blood loss anemia- started on Feosol with ColaceEncouraged IS and ambulation/Cont PT/OTPlan for discharge home on WednesdayD/C central line at 1936 at 1502 RPT #:[id number] OF REPORTPRProgress Kebz8264-12-35E21:30:00Z.[id number] able for patient uucwCQONKCHXEDTNMP4537-32-88K34:02:42 [facility] 2019-[facility] 16:16:00 [id number] s9Gnzw944aJiyfWgMQPHvZIrLRPVL rsHRInO1mhfT5yDmxT4s712g2tR97ynL4d0874-38-49C47:1 6:00 [facility] ([facility])Hospitalist Progress NoteREPORT#:[id number] REPORT STATUS: SignedDATE:01/11/19 TIME: 161 PATIENT: DELMI FLORES UNIT #: [id number]#: [id number] ROOM/BED: [facility]-ADOB: [birth year] AGE: 48 SEX: M ATTEND: Ad Cummings AUTHOR: Hudson Chong MD * ALL edits or amendments must be made on the electronic/computer document * SubjectiveChief Complaint:Patient reports feeling and eating well. He says that he has walked today with no pain and has not experienced the same pain with walking that he used to experience. He mentioned that he had a BM today. He mentions that he is concerned about some oozing at the site of incision. Review of SystemsAll systems rev neg: except as marked Objective GeneralVS/I O:Vital Signs: Date Time Temp Pulse Resp B/P B/P Pulse O2 O2 Flow FiO2 Mean Ox Delivery Rate 01/11 1237 68 12 01/11 1230 97.4 01/11 1230 62 13 109/56 77 98 01/11 1220 15 01/11 1200 55 114/64 84 99 01/11 1130 61 107/53 77 97 01/11 1100 64 16 105/55 76 97 01/11 1030 70 18 131/60 98 01/11 1000 60 129/58 83 96 01/11 0930 65 10 161/78 111 98 01/11 0900 78 12 143/82 107 99 01/11 0843 96 Room air 21 01/11 0841 51 11 143/78 104 98 01/11 0800 56 14 146/77 104 96 01/11 0730 58 15 138/65 94 99 01/11 0700 97.6 01/11 0700 63 24 152/69 96 01/11 0500 69 12 157/79 108 100 01/11 0430 51 15 141/77 103 98 01/11 0400 97.7 01/11 0400 57 13 139/73 101 98 01/11 0330 49 13 152/78 105 98 01/11 0300 50 12 126/76 96 98 01/11 0230 50 13 138/78 102 98 01/11 0200 48 14 160/78 108 99 01/11 0130 47 13 135/79 102 98 01/11 0100 49 125/68 90 95 01/11 0030 50 124/70 92 96 01/11 0000 97.7 01/11 0000 53 14 116/65 85 97 01/10 2330 53 14 126/74 95 96 01/10 2300 54 14 116/67 87 92 01/10 2230 54 16 127/71 94 96 01/10 2200 55 12 123/68 88 94 01/10 2130 58 14 118/69 89 95 01/10 2100 64 14 125/65 90 95 / 2030 67 16 119/62 85 95 01/11 2000 97.9 01/11 2000 63 18 108/58 77 95 01/10 1930 63 18 126/67 90 98 01/10 1900 64 17 115/61 83 96 01/10 1844 98 Room air 01/10 1730 57 127/71 92 99 01/10 1700 58 124/72 93 98 01/10 1630 59 15 116/64 85 99 24 hour I O ending at 0700: 01/11 0700 01/10 1900 Intake Total 850 1400.00 Output Total 650 1180 Balance 200 220.00 Intake, IV 600.00 Intake, Oral 850 800 Number Voids 2 Output, Urine 650 1180 Patient 185 lb Weight Patient Weight Weight (lb): 185Weight (oz): 6.19Weight (kg): 83.915 Medications:Active Meds + DC'd Last 24 HrsFamotidine 20 MG BID PO Nicotine 21 MG DAILY TRANSDERM (CKD) Ferrous Sulfate 300 MG BID PO Folic Acid 1 MG DAILY PO Multivitamins Therapeutic 1 TAB DAILY PO Thiamine HCl 100 MG DAILY PO Aspirin 81 MG DAILY PO Clopidogrel Bisulfate 75 MG DAILY PO Atorvastatin Calcium 20 MG BEDTIME PO Metoprolol Tartrate 50 MG BID PO Mupirocin 1 APPLIC BID NASAL Calcium Gluconate 1,000 MG ASDIR PRN IV Sodium Chloride 100 MLLosartan Potassium 100 MG DAILY PO Diphenhydramine HCl 25 MG Q6H PRN PRN PO Acetaminophen 650 MG Q4H PRN PRN PO Bisacodyl 10 MG ASDIR PRN RECTAL Hydrocodone Bitart/Acetaminophen 1 TAB Q4H PRN PRN PO Hydrocodone Bitart/Acetaminophen 2 TAB Q4H PRN PRN PO Meperidine HCl 25 MG Q4H PRN PRN IM Meperidine HCl 50 MG Q4H PRN PRN IM Nicardipine HCl 25 MG ASDIR PRN IV (DC) Sodium Chloride 250 MLNifedipine 10 MG Q4H PRN PRN SL (DC) Ondansetron HCl 4 MG Q8H PRN PRN IV Potassium Chloride 10 MEQ ASDIR PRN PO Potassium Chloride/Dextrose/Sod Cl 1,000 ML Q12H IV (DC) Nicardipine HCl 25 MG ASDIR IV (DC) Sodium Chloride 250 ML Physical ExamGeneral appearance: alert, awake, oriented, no acute distress, pleasant, conversational, mental status normal, no respiratory distressHead/Eyes: atraumatic, clear cornea, EOMI, normal conjunctiva/sclera, normal eyelids/periorb., PERRLENT: moist mucosal membranes, normal ear left, normal ear right, normal nose, normal pharynxNeck: non-tender, supple/no meningismus, no masses or swellingCardiovascular: normal heart sounds, regular rate rhythmRespiratory: aerating well, clear to auscultation, symmetric expansion, no distressAbdomen: non-tender, normal bowel sounds, soft, no guarding, no reboundGenitourinary: no foleyRectal: not indicatedExtremities: moves all, no clubbing, no cyanosisMusculoskeletal: normal inspection, no muscle spasmNeuro/FRY COOK: alert, oriented X 3, normal speech, no motor deficitsWound/incision: Location:Left thigh and leg. Site Condition: dressing stainedPsychiatry: normal affect, normal judgment/insight, normal mood ResultsFindings/Data:Laboratory Tests 01/11 0436 Chemistry Sodium (137 - 145 MMOL/L) 140 Potassium (3.5 - 5.1 MMOL/L) 4.0 Chloride (98 - 107 MMOL/L) 106 Carbon Dioxide (22 - 30 MMOL/L) 30 Anion Gap (14 - 24 MMOL/L) 8 L BUN (9 - 20 MG/DL) 10 Creatinine (0.66 - 1.25 MG/DL) 0.60 L Glomerular Filtr Rate > 60 Glucose (74 - 106 MG/DL) 90 Calcium (8.4 - 10.2 MG/DL) 8.6 Laboratory Tests 01/11 0436 Hematology WBC (3.8 - 9.8 K/MM3) 10.9 H RBC (3.95 - 5.67 M/MM3) 3.48 L Hgb (12.4 - 16.7 G/DL) 12.0 L Hct (35.9 - 49.5 %) 35.2 L MCV (81.7 - 96.1 fL) 101 H MCH (27.6 - 33.2 pg) 34.5 H MCHC (32.9 - 35.5 %) 34.1 RDW (12.1 - 15.2 %) 12.8 Plt Count (129 - 368 K/MM3) 160 MPV (7.4 - 10.4 fl) 11.0 H Neut % (Auto) (43 - 75 %) 58.8 Lymph % (Auto) (14 - 44 %) 34.0 [place] % (Auto) (4 - 13 %) 6.3 Eos % (Auto) (0 - 6 %) 0.3 Baso % (Auto) (0 - 2 %) 0.3 Neut # (Auto) (2.0 - 7.6 K/mm3) 6.42 Lymph # (Auto) (1.0 - 3.8 K/mm3) 3.71 [place] # (Auto) (0.1 - 0.8 K/mm3) 0.69 Eos # (Auto) (0.0 - 0.2 K/mm3) 0.03 Baso # (Auto) (0.0 - 0.2 K/mm3) 0.03 Immature Gran % (0.0 - 2.0 %) 0.3 Nucleated RBC % (0 - 1.0 %) 0.0 Nucleated RBCs # (Man) (0.0 - 0.1 K/mm3) 0.00 Sepsis ReassessmentVS:Last Documented: Result Date Time Pulse 68 01/11 1237 Resp 12 01/11 1237 Temp 97.4 01/11 1230 Pulse Ox 98 01/11 1230 B/P 109/56 01/11 1230 B/P Mean 77 01/11 1230 FiO2 21 01/11 0843 O2 Delivery Room air 01/11 0843 Diagnosis, Assessment Plan Free Text DxA P NotesFree Text DxA P Notes:- Leukocytosis, likely reactive. - Severe peripheral vascular disease with occluded left fem-pop graft, s/p redo left fem-pop on 01/09/2019.- Atherosclerotic heart disease.- Hypertension.- Diabetes mellitus.- Hypercholesterolemia.- Tobacco dependence. PLAN AND RECOMMENDATIONS:01/10/2019:1. Continue home medications.2. Advanced diet and activity.3. Pain medications as needed.4. Counseled the patient regarding tobacco cessation. He indicated that he istrying recently and cutdown on his smoking. I asked if he has tried any tobaccocessation agents including nicotine replacement or Chantix and he indicated no.I offered nicotine patch and he is agreeable.5. The patient to be transferred out of intensive care unit later today. 01/11/2019:- Transfer patient from SICU to medical floor.- Current medical treatment. - Anticipate discharge home in the next 24-48 hours. Quality MedicationsCurrent medication review:I attest that the foregoing medication list in the medical record is true, accurate, and complete to the best of my knowledge. BMI Screening > 25 or < 18.5BMI status/follow-up: abnl BMI, pt to F/U w/PCP (to discuss diet exercise) Tobacco Use/CounselingTobacco use/counseling: tobacco user, cessation general counsel <3 min HTN Screening/Follow-upB/P assess/follow-up: pre-existing hx of HTN at 1748 RPT #:[id number] OF REPORTPRProgress Kmxw5070-07-78V33:16:00Z.PBUU74233507-5516TQVpjmo able for patient opsoINXQUMIDFSLZDM7596-99-12P58:48:28 [facility] 2019-01-11 07:49:00 [id number] 6uYoY09XjMxsOpF0P9dvqbX3PpVnT N+ofSn23MOYkShHxZDqXrmtXtNlm63ztqd0117-24-89P15:4 9:00 [facility] HospitalCardiology Progress NoteREPORT#:[id number] REPORT STATUS: SignedDATE:01/11/19 TIME: 0749 PATIENT: DELMI FLORES UNIT #: [id number]#: [id number] ROOM[facility]BED: [facility]-ADOB: [birth year] AGE: 48 SEX: M ATTEND: Ad Cummings [facility] AUTHOR: Gilberto Bonds MD * ALL edits or amendments must be made on the electronic/computer document * SubjectivePatient reports:No: chest pain, palpitations, shortness of breath. Objective GeneralVS/I O:24 hour I O ending at 0700: 01/11 0700 01/10 1900 Intake Total 850 1400.00 Output Total 650 1180 Balance 200 220.00 Intake, IV 600.00 Intake, Oral 850 800 Number Voids 2 Output, Urine 650 1180 Patient 83.915 kg Weight Vital Signs: Date Time Temp Pulse Resp B/P B/P Pulse O2 O2 Flow FiO2 Mean Ox Delivery Rate 01/11 0500 69 12 157/79 108 100 01/11 0430 51 15 141/77 103 98 01/11 0400 97.7 01/11 0400 57 13 139/73 101 98 01/11 0330 49 13 152/78 105 98 01/11 0300 50 12 126/76 96 98 01/11 0230 50 13 138/78 102 98 01/11 0200 48 14 160/78 108 99 01/11 0130 47 13 135/79 102 98 01/11 0100 49 125/68 90 95 01/11 0030 50 124/70 92 96 01/11 0000 97.7 01/11 0000 53 14 116/65 85 97 01/10 2330 53 14 126/74 95 96 01/10 2300 54 14 116/67 87 92 / 2230 54 16 127/71 94 96 01/10 2200 55 12 123/68 88 94 / 2130 58 14 118/69 89 95 /16 2100 64 14 125/65 90 95 /16 2030 67 16 119/62 85 95 /16 2000 97.9 01/10 2000 63 18 108/58 77 95 /16 1930 63 18 126/67 90 98 / 1900 64 17 115/61 83 96 01/10 1844 98 Room air 07/16 1730 57 127/71 92 99 07/16 1700 58 124/72 93 98 07/16 1630 59 15 116/64 85 99 07/16 1600 67 17 144/76 101 97 07/16 1600 98.3 62 18 144/76 98 97 Room air 07/16 1530 61 123/69 91 95 07/16 1500 59 13 129/69 94 97 07/16 1430 62 11 133/71 96 98 07/16 1400 64 16 117/63 85 98 07/16 1300 60 13 162/82 115 98 07/16 1230 60 7 124/67 90 99 07/16 1209 98 Room air 21 07/16 1200 61 9 130/62 89 98 07/16 1200 97.8 63 12 130/62 84 100 Room air 07/16 1130 68 18 112/58 79 97 07/16 1101 61 13 114/66 84 99 07/16 1030 59 15 99 07/16 1015 75 19 97 07/16 1000 63 15 99 07/16 0945 62 8 98 07/16 0930 65 15 97 07/16 0915 77 12 96 07/16 0900 59 10 99 07/16 0845 65 97 07/16 0830 63 95 07/16 0815 58 11 96 07/16 0800 58 98 07/16 0800 97.9 62 15 138/60 86 96 Room air Patient Weight Weight (lb): 185Weight (oz): 6.19Weight (kg): 83.915 Medications:Active Meds + DC'd Last 24 HrsHeparin Sodium (Porcine) 1,000 UNIT .STK-MED ONE Z (DC) Sodium Chloride 1,000 ML .STK-MED ONE Z (DC) Famotidine 20 MG BID PO Nicotine 21 MG DAILY TRANSDERM (CKD) Ferrous Sulfate 300 MG BID PO Folic Acid 1 MG DAILY PO Multivitamins Therapeutic 1 TAB DAILY PO Thiamine HCl 100 MG DAILY PO Aspirin 81 MG DAILY PO Clopidogrel Bisulfate 75 MG DAILY PO Cefazolin Sodium 1,000 MG Q8H IV (DC) Sodium Chloride 10 MLAtorvastatin Calcium 20 MG BEDTIME PO Famotidine 20 MG Q12HR IV (DC) Metoprolol Tartrate 50 MG BID PO Mupirocin 1 APPLIC BID NASAL Calcium Gluconate 1,000 MG ASDIR PRN IV Sodium Chloride 100 MLLosartan Potassium 100 MG DAILY PO Multivitamins 10 ML .Q24H IV (DC) Thiamine HCl 100 MG Folic Acid 1 MG Sodium Chloride 1,000 MLDiphenhydramine HCl 25 MG Q6H PRN PRN PO Acetaminophen 650 MG Q4H PRN PRN PO Bisacodyl 10 MG ASDIR PRN RECTAL Hydrocodone Bitart/Acetaminophen 1 TAB Q4H PRN PRN PO Hydrocodone Bitart/Acetaminophen 2 TAB Q4H PRN PRN PO Meperidine HCl 25 MG Q4H PRN PRN IM Meperidine HCl 50 MG Q4H PRN PRN IM Nicardipine HCl 25 MG ASDIR PRN IV (DC) Sodium Chloride 250 MLNifedipine 10 MG Q4H PRN PRN SL (DC) Ondansetron HCl 4 MG Q8H PRN PRN IV Potassium Chloride 10 MEQ ASDIR PRN PO Potassium Chloride/Dextrose/Sod Cl 1,000 ML Q12H IV (DC) Nicardipine HCl 25 MG ASDIR IV (DC) Sodium Chloride 250 ML Physical ExamGeneral appearance: alert, awake, orientedHead/Eyes: atraumatic, normocephalicENT: moist mucosal membranesNeck: no JVDCardiovascular: CV assessment: regular rate and rhythmRespiratory: clear to auscultation, no distressUpper extremity: UE assessment: no cyanosis, no edemaLower extremity: LE assessment: no edemaMusculoskeletal: full range of motion, normal inspection, straight leg raise negNeuro/FRY COOK: alert, oriented X 3, CN II-XII intactSkin: dry, intactWound/incision: Site condition: dressing clean dryPsychiatry: normal affect, normal judgment/insight, normal mood ResultsFindings/Data:Laboratory Tests 01/12 436 Chemistry Sodium (137 - 145 MMOL/L) 140 Potassium (3.5 - 5.1 MMOL/L) 4.0 Chloride (98 - 107 MMOL/L) 106 Carbon Dioxide (22 - 30 MMOL/L) 30 Anion Gap (14 - 24 MMOL/L) 8 L BUN (9 - 20 MG/DL) 10 Creatinine (0.66 - 1.25 MG/DL) 0.60 L Glomerular Filtr Rate > 60 Glucose (74 - 106 MG/DL) 90 Calcium (8.4 - 10.2 MG/DL) 8.6 Laboratory Tests 07/17 0436 Hematology WBC (3.8 - 9.8 K/MM3) 10.9 H RBC (3.95 - 5.67 M/MM3) 3.48 L Hgb (12.4 - 16.7 G/DL) 12.0 L Hct (35.9 - 49.5 %) 35.2 L MCV (81.7 - 96.1 fL) 101 H MCH (27.6 - 33.2 pg) 34.5 H MCHC (32.9 - 35.5 %) 34.1 RDW (12.1 - 15.2 %) 12.8 Plt Count (129 - 368 K/MM3) 160 MPV (7.4 - 10.4 fl) 11.0 H Neut % (Auto) (43 - 75 %) 58.8 Lymph % (Auto) (14 - 44 %) 34.0 [place] % (Auto) (4 - 13 %) 6.3 Eos % (Auto) (0 - 6 %) 0.3 Baso % (Auto) (0 - 2 %) 0.3 Neut # (Auto) (2.0 - 7.6 K/mm3) 6.42 Lymph # (Auto) (1.0 - 3.8 K/mm3) 3.71 [place] # (Auto) (0.1 - 0.8 K/mm3) 0.69 Eos # (Auto) (0.0 - 0.2 K/mm3) 0.03 Baso # (Auto) (0.0 - 0.2 K/mm3) 0.03 Immature Gran % (0.0 - 2.0 %) 0.3 Nucleated RBC % (0 - 1.0 %) 0.0 Nucleated RBCs # (Man) (0.0 - 0.1 K/mm3) 0.00 Diagnosis, Assessment Plan Free Text DxA P NotesFree Text DxA P Notes:IMP: Severe PVD s/p LLE Fem-pop bypass 12/2017 now with occluded graft s/p LLE fem-tib bypass CAD - s/p ACB Tobacco abuse REC: Continue home medications IS Ambulate Advised to quit smoking. at 1755 RPT #:[id number] OF REPORTPRProgress Uswy4748-11-91L47:49:00Z.KQLI88344541-8778BCPxbvl able for patient hdhhLZQFTHJTZGHKPU4675-52-70X17:55:28 [facility] 2019-01-10 15:11:00 [id number] d1k9+AyJXqr2ExmcvJ4I/iCFMsVL5 EjV3OPLvD9/p7WLWRjRlVhsXTcBSXucUE/7299-58-52L95:1 1:[id number] [address] PATIENT NAME: DELMI FLORES ADMIT DATE: 01/09/19ACCOUNT NO: [id number] ROOM NO: Z.SI04 AGE: 48 REPORT TYPE: CONSULTATION REPORT SEX: M ADMITTING PHYSICIAN:Ad Cummings MD ATTENDING PHYSICIAN:Ad Cummings MD CONSULTATION DATE: 01/09/2019 CONSULTING PHYSICIAN: Hudson Chong MD INTERNAL MEDICINE CONSULTATION REFERRING PHYSICIAN: Ad Cummings MD REASON FOR CONSULTATION: Management of medical problems. CHIEF COMPLAINT: Pain in lower extremities. HISTORY OF PRESENTING ILLNESS: The patient is a 48-year-old male with knownmultiple medical problems including hypertension, diabetes mellitus, coronaryartery disease, and peripheral arterial disease who underwent a redo leftfemoral to posterior tibial artery bypass yesterday and is now admitted to theintensive care unit. History has been obtained from the patient as well as fromreview of medical records. The patient initially underwent left fem-pop surgeryin December 2017. He was placed on aspirin, Plavix, and warfarin by Dr. Cummings. There was a concern of hypercoagulable state. At some point, patient quittaking warfarin and subsequently started having symptoms related to claudicationin his left lower extremity. He has some blockages in his right lower extremityas well. He was seen by his vocal music teacher, Dr. Saurabh Worley and underwentaortogram as well as angiogram of bilateral lower extremities on 12/24/2018which showed occluded left fem-pop as well as stenosis of arteries of rightlower extremity. The patient was referred back to Dr. Cummings, who scheduledthe surgery, which was performed yesterday. The patient is now seen in the intensive care unit, sitting up in the chair atthe bedside. He reports improvement in pain in the left lower extremity, whichhe was having prior to the surgery. He reports slight pain at the surgicalsite. He denies any other complaints. PAST MEDICAL HISTORY:1. Hypertension.2. Diabetes mellitus.3. Hyperlipidemia.4. Coronary artery disease. PAST SURGICAL HISTORY:1. CABG.2. Left lower extremity fem-pop graft. PATIENT NAME: DELMI FLORES 3. Ventral hernia repair. MEDICATIONS:1. Plavix 75 mg daily.2. Atorvastatin 20 mg at bedtime.3. Losartan 100 mg daily.4. Metoprolol tartrate 50 mg b.i.d.5. Ecotrin 81 mg daily. ALLERGIES: NO KNOWN DRUG ALLERGIES. SOCIAL HISTORY: The patient has smoked a pack a day almost for 35 years. Veryrecently he decided to decrease and cut down to half pack per day. He drinksalcohol 2 to 3 times a month, mostly on the weekend. His last drink was 2 weeksago. He denies use of any drugs. 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 He is and has 4 children. FAMILY HISTORY: Father has diabetes mellitus and heart problems. Mother hashypercholesterolemia. REVIEW OF SYSTEMS: An extensive 12-point review of systems was performed andwas noted to be negative except for the symptoms listed in the history ofpresenting illness. PHYSICAL EXAMINATION:GENERAL: The patient is a middle age male of average build and height. He is awake, alert, and oriented and a fair historian. He does not appear leida in acute distress.VITAL SIGNS: Temperature 97.9, pulse 62, respiratory rate 16, blood wteiqobk305/60, pulse ox 96%. BMI 27.4.HEENT: Atraumatic, normocephalic, anicterus, pink conjunctivae. Pupils equallyround and reactive to light. No frontomaxillary tenderness, moist oral mucosa,no oropharyngeal lesions.NECK: Supple, nontender.CHEST: Symmetric expansion, respirations nonlabored.LUNGS: Clear to auscultation.CARDIOVASCULAR: No carotid bruits, no JVD. S1 and S2 with regular rate andrhythm, trace pitting edema noted in left lower extremity, diminished pedalpulses.ABDOMEN: Bowel sounds normoactive, soft. No tenderness, guarding, or rigidity.EXTREMITIES: No clubbing or cyanosis, surgical site in left lower extremitycovered with clean dressings.MUSCULOSKELETAL SYSTEM: Normal inspection. No muscle spasms.CENTRAL NERVOUS SYSTEM: The patient is awake, alert, and oriented x3, speechnormal, no motor deficits. LABORATORY DATA: WBC count 9.5, hemoglobin 12.5, and platelets 167. Electrolytes were normal. BUN 7, creatinine 0.5, glucose 146, calcium 8.4, andmagnesium 2.0. Prothrombin time 18.0, INR 1.7. DIAGNOSTIC STUDIES: Chest x-ray showed mild cardiomegaly with no acutepulmonary process. ASSESSMENT: PATIENT NAME: DELMI FLORES 1. Severe peripheral vascular disease with occluded left fem-pop graft, statuspost redo left fem-pop on 01/09/2019.2. Atherosclerotic heart disease.3. Hypertension.4. Diabetes mellitus.5. Hypercholesterolemia.6. Tobacco dependence. PLAN AND RECOMMENDATIONS:1. Continue home medications.2. Advanced diet and activity.3. Pain medications as needed.4. Counseled the patient regarding tobacco cessation. He indicated that he istrying recently and cutdown on his smoking. I asked if he has tried any tobaccocessation agents including nicotine replacement or Chantix and he indicated no. I offered nicotine patch and he is agreeable.5. The patient to be transferred out of intensive care unit later today. Thank you, Dr. Cummings for allowing us to participate in the care of thispatient. We will continue to follow along with you. Dictated By: Hudson Chong MD WT: CON:ZSANGEETA/DOROTHY/NTSDD: 01/10/2019 15:11:39DT: 01/10/2019 15:47:42Conf#: [id number]/DID#: [id number] Authenticated by Hudson Chong MD On 01/10/2019 08:24:48 PM at 2024 PATIENT NAME: DELMI FLORES :47:00Z.[place] [id number] for patient bpbaZCDGPCUESWYSPU5300-04-96Y23:25:33 [facility] 2019-01-10 10:54:00 [id number] B0C/VcQWwHyKbjwPTTQY2PWklJupZ XAbStK+RDoMUnSTjK2wsXsAMfo09nLECeY0644-05-10W56:5 4:00 [facility] HospitalAdult General ConsultationREPORT#:[id number] REPORT STATUS: SignedDATE:01/10/19 TIME: 1054 PATIENT: DELMI FLORES UNIT #: [id number]#: [id number] [address] AGE: 48 SEX: M ATTEND: Ad Cummings MDADM AUTHOR: Hudson Chong MD * ALL edits or amendments must be made on the electronic/computer document * History - Adult longitudinalAllergies:Coded Allergies:No Known Allergies (01/13/18) Diagnosis, Assessment Plan Free Text DxA P NotesFree Text DxA P Notes: CONSULT DICTATED: # [id number] Quality MedicationsCurrent medication review:I attest that the foregoing medication list in the medical record is true, accurate, and complete to the best of my knowledge. 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 general counsel <3 min HTN Screening/Follow-upLast documented vitals:Last Documented: Result Date Time Pulse Ox 98 01/10 1209 FiO2 21 01/10 1209 O2 Delivery Room air 01/10 1209 B/P 130/62 01/10 1200 B/P Mean 84 01/10 1200 Temp 97.8 01/10 1200 Pulse 63 01/10 1200 Resp 12 01/10 1200 B/P assess/follow-up: pre-existing hx of HTN at 1513 RPT #:[id number] OF REPORTLBQjvqzubjtzmf2936-91-63B90:54:00Z.PDOC2 [id number] for patient eidrCVWGUWFQITIRBT9162-19-57J53:13:45 [facility] 2019-01-10 10:41:00 [id number] x00qWr/wX6NdCGJgEJI1OncIYJ3sR USWHC7Jb4LFYBWlwWh2Mi5KqnHpdZqtkPR8020-14-79I62:4 1:00 [facility] HospitalCardiovascular Surgery ProgREPORT#:[id number] REPORT STATUS: SignedDATE:01/10/19 TIME: 1041 PATIENT: DELMI FLORES UNIT #: [id number]#: [id number] [address] AGE: 48 SEX: M ATTEND: Ad Cummings [facility] AUTHOR: Yolanda Mondragon NP * ALL edits or amendments must be made on the electronic/computer document * GeneralPost-op: day 1Status post:Redo left femoral to posterior tibial artery bypass with cryopreserved SVG SubjectivePatient reports:No: complaints, nausea, vomiting, pain. Nursing reports:No: complaints. Comments:seen pt OOB in the chair denies pain,SOB, CP Review of SystemsConstitutional:Denies: chills, fatigue, fever, generalized weakness. Respiratory:Denies: MURO (dyspnea on exertion), SOB. Cardiovascular:Denies: chest pain, MURO (dyspnea on exertion), edema, orthopnea. Objective Physical ExamVS/I O:Last Documented: Result Date Time Pulse Ox 96 01/10 0800 B/P 138/60 01/10 0800 B/P Mean 86 01/10 0800 O2 Delivery Room air 01/10 0800 Temp 36.6 01/10 0800 Pulse 62 01/10 0800 Resp 15 01/10 0800 24 hour I O ending at 0700: 01/10 0700 01/09 1900 Intake Total 1860.00 230.00 Output Total 2275 500 Balance -415.00 -270.00 Intake, IV 1360.00 230.00 Intake, Oral 500 Output, Urine 2275 500 Patient Weight Weight (lb): 185Weight (oz): 6.19Weight (kg): 84.090 Medications:Active Meds + DC'd Last 24 HrsAspirin 81 MG DAILY PO Clopidogrel Bisulfate 75 MG DAILY PO Cefazolin Sodium 1,000 MG Q8H IV Sodium Chloride 10 MLMagnesium Sulfate 50 ML NOW ONE IV (DC) Atorvastatin Calcium 20 MG BEDTIME PO Famotidine 20 MG Q12HR IV Metoprolol Tartrate 50 MG BID PO Mupirocin 1 APPLIC BID NASAL Calcium Gluconate 1,000 MG ASDIR PRN IV Sodium Chloride 100 MLDiphenhydramine HCl 12.5 MG ONCE ONE IV (DC) Losartan Potassium 100 MG DAILY PO Magnesium Sulfate 50 ML NOW ONE IV (DC) Multivitamins 10 ML .Q24H IV Thiamine HCl 100 MG Folic Acid 1 MG Sodium Chloride 1,000 MLDiphenhydramine HCl 25 MG Q6H PRN PRN PO Prednisone 20 MG NOW ONE PO (DC) Diphenhydramine HCl 0 .STK-MED ONE IV (DC) Acetaminophen 650 MG Q4H PRN PRN PO Bisacodyl 10 MG ASDIR PRN RECTAL Calcium Chloride 5 ML ASDIR PRN IV (DC) Sodium Chloride 100 MLHydrocodone Bitart/Acetaminophen 1 TAB Q4H PRN PRN PO Hydrocodone Bitart/Acetaminophen 2 TAB Q4H PRN PRN PO Meperidine HCl 25 MG Q4H PRN PRN IM Meperidine HCl 50 MG Q4H PRN PRN IM Nicardipine HCl 25 MG ASDIR PRN IV Sodium Chloride 250 MLNifedipine 10 MG Q4H PRN PRN SL Ondansetron HCl 4 MG Q8H PRN PRN IV Potassium Chloride 10 MEQ ASDIR PRN PO Potassium Chloride/Dextrose/Sod Cl 1,000 ML Q12H IV Ondansetron HCl 0 .STK-MED ONE .ROUTE (DC) Nicardipine HCl 25 MG ASDIR IV Sodium Chloride 250 MLGlycopyrrolate 0 .STK-MED ONE .ROUTE (DC) Neostigmine [place] 0 .STK-MED ONE .ROUTE (DC) Ephedrine Sulfate 0 .STK-MED ONE .ROUTE (DC) Dexamethasone Sodium Phosphate 0 .STK-MED ONE .ROUTE (DC) Papaverine HCl 0 .STK-MED ONE .ROUTE (DC) Rocuronium [place] 0 .STK-MED ONE .ROUTE (DC) Lidocaine HCl 0 .STK-MED ONE .ROUTE (DC) Propofol 0 .STK-MED ONE .ROUTE (DC) Fentanyl Citrate 0 .STK-MED ONE .ROUTE (DC) Midazolam HCl 0 .STK-MED ONE .ROUTE (DC) Bacitracin 0 .STK-MED ONE .ROUTE (DC) Heparin Sodium 0 .STK-MED ONE .ROUTE (DC) Nicardipine HCl 0 .STK-MED ONE IV (DC) Norepinephrine Bitartrate 0 .STK-MED ONE .ROUTE (DC) Phenylephrine HCl 0 .STK-MED ONE IV (DC) Protamine Sulfate 0 .STK-MED ONE .ROUTE (DC) Sodium Chloride 20 ML .STK-MED ONE IV (DC) Thrombin 0 .STK-MED ONE .ROUTE (DC) Cefazolin Sodium 1,000 MG ONCALL IV (DC) Sodium Chloride 10 ML General appearance: alert, awake, oriented, no acute distressWound/incision: 1 Location: left groin Site condition: dressing clean dry, dressing intactWound/incision: 2 Location: left lower extremity Site condition: dressing clean dry, dressing intactNeck: non-tender, no masses or swellingCardiovascular: normal heart sounds, regular rate rhythmRespiratory: aerating well, clear to auscultation, symmetric expansion, no distressAbdomen: soft, non-tenderGenitourinary: foleyExtremities: pedal pulses (left foot non palpable), moves allMusculoskeletal: full range of motionNeuro/FRY COOK: alert, oriented X 3 ResultsFindings/Data:Laboratory Tests 01/09 1947 Blood Gas Puncture Site AL ABG pH (7.35 - 7.45 mmHg) 7.42 ABG pCO2 (35.0 - 45.0 mmHg) 37.0 ABG pO2 (80.0 - 100.0 mmol/L) 60.4 L ABG HCO3 (20.0 - 26.0 mmol/L) 23.2 ABG O2 Saturation (95.0 - 100.0 %) 91.7 L ABG Base Excess (-3.0 - 3.0 mmol/L) -0.9 Nick Test (CHECK) NA Temperature (37 C) 37.0 O2 Delivery Device RM AIR FiO2 (%) 21 Laboratory Tests 01/10 1857 1519 1308 Chemistry Sodium (137 - 145 MMOL/L) 138 141 Potassium (3.5 - 5.1 MMOL/L) 4.2 3.7 Chloride (98 - 107 MMOL/L) 106 110 H Carbon Dioxide (22 - 30 MMOL/L) 26 24 Anion Gap (14 - 24 MMOL/L) 10 L 11 L BUN (9 - 20 MG/DL) 7 L 9 Creatinine (0.66 - 1.25 MG/DL) 0.50 L 0.60 L Glomerular Filtr Rate > 60 > 60 Glucose (74 - 106 MG/DL) 146 H 120 H POC Glucose (60 - 99 MG/DL) 82 86 Calcium (8.4 - 10.2 MG/DL) 8.4 8.6 Magnesium (1.6 - 2.3 MG/DL) 2.0 1.5 L Laboratory Tests 01/10 1857 Hematology WBC (3.8 - 9.8 K/MM3) 9.5 10.3 H RBC (3.95 - 5.67 M/MM3) 3.66 L 3.88 L Hgb (12.4 - 16.7 G/DL) 12.5 13.3 Hct (35.9 - 49.5 %) 37.1 39.2 MCV (81.7 - 96.1 fL) 101 H 101 H MCH (27.6 - 33.2 pg) 34.2 H 34.3 H MCHC (32.9 - 35.5 %) 33.7 33.9 RDW (12.1 - 15.2 %) 12.5 12.8 Plt Count (129 - 368 K/MM3) 167 165 MPV (7.4 - 10.4 fl) 10.7 H 10.4 Neut % (Auto) (43 - 75 %) 83.2 H 71.6 Lymph % (Auto) (14 - 44 %) 11.4 L 24.1 [place] % (Auto) (4 - 13 %) 4.8 2.8 L Eos % (Auto) (0 - 6 %) 0.0 0.6 Baso % (Auto) (0 - 2 %) 0.1 0.3 Neut # (Auto) (2.0 - 7.6 K/mm3) 7.90 H 7.35 Lymph # (Auto) (1.0 - 3.8 K/mm3) 1.08 2.47 [place] # (Auto) (0.1 - 0.8 K/mm3) 0.46 0.29 Eos # (Auto) (0.0 - 0.2 K/mm3) 0.00 0.06 Baso # (Auto) (0.0 - 0.2 K/mm3) 0.01 0.03 Immature Gran % (0.0 - 2.0 %) 0.5 0.6 Nucleated RBC % (0 - 1.0 %) 0.0 0.0 Nucleated RBCs # (Man) (0.0 - 0.1 K/mm3) 0.00 0.00 Radiology data:Recent Impressions:RADIOLOGY - XR CHEST 1V 01/10 1944 Report Impression - Status: SIGNED Entered: 01/09/20191956 IMPRESSION: No acute cardiopulmonary disease. Good position for thecentral line. Location: [id number] By: [facility] - Ad Eng MDRADIOLOGY - XR CHEST 1V 01/10 0605 Report Impression - Status: SIGNED Entered: 01/10/2019 0808 IMPRESSION:Mild cardiomegaly with no acute pulmonary process.Impression By: [email or web address] - Marilyn Chaney MD Diagnosis, Assessment PlanFree Text A P:This is a 48 y/m severe PVD, HTN, HLD, CAD, s/p CABs/p Redo left femoral to posterior tibial artery bypass with cryopreserved SVGOn Plavix/ASA/BB/StatinD/C F/CD/C arterial lineSR on tele HR 70'sETOH- on MVI/Thiamine/FolicExpected acute blood loss anemia- started on Feosol with ColaceEncouraged IS and ambulation/Cont PT/OTTransfer to CVU/IMCUPlan discussed with: patient, collaborating MD (DR. Cummings) at 1803 RPT #:[id number] OF REPORTPRProgress [id number]:41:00Z.[id number] able for patient saptLFPZEBCMZWNUDQ5321-96-77M91:03:54 [facility] 2019-01-10 10:41:00 [id number] ovrwnUgvs5EmqvP9tAYjYdKQhiH9s qnOdpdgRgkEsDuzLLn/iQg1XWAunO7rDvQ8847-40-07W56:4 1:00 [facility]Card[facility] ProgREPORT#:[id number] REPORT STATUS: SignedDATE:01/10/19 TIME: 1041 PATIENT: DELMI FLORES UNIT #: [id number]#: [id number] ROOM/BED: [facility]-ADOB: [birth year] AGE: 48 SEX: M ATTEND: Ad Cummings [facility] AUTHOR: Yolanda Mondragon COOK CHILI * ALL edits or amendments must be made on the electronic/computer document * GeneralPost-op: day 1Status post:Redo left femoral to posterior tibial artery bypass with cryopreserved SVG SubjectivePatient reports:No: complaints, nausea, vomiting, pain. Nursing reports:No: complaints. Comments:seen pt OOB in the chair denies pain,SOB, CP Review of SystemsConstitutional:Denies: chills, fatigue, fever, generalized weakness. Respiratory:Denies: MURO (dyspnea on exertion), SOB. Cardiovascular:Denies: chest pain, MURO (dyspnea on exertion), edema, orthopnea. Objective Physical ExamVS/I O:Last Documented: Result Date Time Pulse Ox 96 01/10 0800 B/P 138/60 01/10 0800 B/P Mean 86 01/10 0800 O2 Delivery Room air 01/11 800 Temp 36.6 01/10 0800 Pulse 62 01/10 0800 Resp 15 01/10 0800 24 hour I O ending at 0700: 01/10 0700 01/09 1900 Intake Total 1860.00 230.00 Output Total 2275 500 Balance -415.00 -270.00 Intake, IV 1360.00 230.00 Intake, Oral 500 Output, Urine 2275 500 Patient Weight Weight (lb): 185Weight (oz): 6.19Weight (kg): 84.090 Medications:Active Meds + DC'd Last 24 HrsAspirin 81 MG DAILY PO Clopidogrel Bisulfate 75 MG DAILY PO Cefazolin Sodium 1,000 MG Q8H IV Sodium Chloride 10 MLMagnesium Sulfate 50 ML NOW ONE IV (DC) Atorvastatin Calcium 20 MG BEDTIME PO Famotidine 20 MG Q12HR IV Metoprolol Tartrate 50 MG BID PO Mupirocin 1 APPLIC BID NASAL Calcium Gluconate 1,000 MG ASDIR PRN IV Sodium Chloride 100 MLDiphenhydramine HCl 12.5 MG ONCE ONE IV (DC) Losartan Potassium 100 MG DAILY PO Magnesium Sulfate 50 ML NOW ONE IV (DC) Multivitamins 10 ML .Q24H IV Thiamine HCl 100 MG Folic Acid 1 MG Sodium Chloride 1,000 MLDiphenhydramine HCl 25 MG Q6H PRN PRN PO Prednisone 20 MG NOW ONE PO (DC) Diphenhydramine HCl 0 .STK-MED ONE IV (DC) Acetaminophen 650 MG Q4H PRN PRN PO Bisacodyl 10 MG ASDIR PRN RECTAL Calcium Chloride 5 ML ASDIR PRN IV (DC) Sodium Chloride 100 MLHydrocodone Bitart/Acetaminophen 1 TAB Q4H PRN PRN PO Hydrocodone Bitart/Acetaminophen 2 TAB Q4H PRN PRN PO Meperidine HCl 25 MG Q4H PRN PRN IM Meperidine HCl 50 MG Q4H PRN PRN IM Nicardipine HCl 25 MG ASDIR PRN IV Sodium Chloride 250 MLNifedipine 10 MG Q4H PRN PRN SL Ondansetron HCl 4 MG Q8H PRN PRN IV Potassium Chloride 10 MEQ ASDIR PRN PO Potassium Chloride/Dextrose/Sod Cl 1,000 ML Q12H IV Ondansetron HCl 0 .STK-MED ONE .ROUTE (DC) Nicardipine HCl 25 MG ASDIR IV Sodium Chloride 250 MLGlycopyrrolate 0 .STK-MED ONE .ROUTE (DC) Neostigmine [place] 0 .STK-MED ONE .ROUTE (DC) Ephedrine Sulfate 0 .STK-MED ONE .ROUTE (DC) Dexamethasone Sodium Phosphate 0 .STK-MED ONE .ROUTE (DC) Papaverine HCl 0 .STK-MED ONE .ROUTE (DC) Rocuronium [place] 0 .STK-MED ONE .ROUTE (DC) Lidocaine HCl 0 .STK-MED ONE .ROUTE (DC) Propofol 0 .STK-MED ONE .ROUTE (DC) Fentanyl Citrate 0 .STK-MED ONE .ROUTE (DC) Midazolam HCl 0 .STK-MED ONE .ROUTE (DC) Bacitracin 0 .STK-MED ONE .ROUTE (DC) Heparin Sodium 0 .STK-MED ONE .ROUTE (DC) Nicardipine HCl 0 .STK-MED ONE IV (DC) Norepinephrine Bitartrate 0 .STK-MED ONE .ROUTE (DC) Phenylephrine HCl 0 .STK-MED ONE IV (DC) Protamine Sulfate 0 .STK-MED ONE .ROUTE (DC) Sodium Chloride 20 ML .STK-MED ONE IV (DC) Thrombin 0 .STK-MED ONE .ROUTE (DC) Cefazolin Sodium 1,000 MG ONCALL IV (DC) Sodium Chloride 10 ML General appearance: alert, awake, oriented, no acute distressWound/incision: 1 Location: left groin Site condition: dressing clean dry, dressing intactWound/incision: 2 Location: left lower extremity Site condition: dressing clean dry, dressing intactNeck: non-tender, no masses or swellingCardiovascular: normal heart sounds, regular rate rhythmRespiratory: aerating well, clear to auscultation, symmetric expansion, no distressAbdomen: soft, non-tenderGenitourinary: foleyExtremities: pedal pulses (left foot non palpable), moves allMusculoskeletal: full range of motionNeuro/FRY COOK: alert, oriented X 3 ResultsFindings/Data:Laboratory Tests 01/09 1947 Blood Gas Puncture Site AL ABG pH (7.35 - 7.45 mmHg) 7.42 ABG pCO2 (35.0 - 45.0 mmHg) 37.0 ABG pO2 (80.0 - 100.0 mmol/L) 60.4 L ABG HCO3 (20.0 - 26.0 mmol/L) 23.2 ABG O2 Saturation (95.0 - 100.0 %) 91.7 L ABG Base Excess (-3.0 - 3.0 mmol/L) -0.9 Nick Test (CHECK) NA Temperature (37 C) 37.0 O2 Delivery Device RM AIR FiO2 (%) 21 Laboratory Tests 07/01/09 1857 1519 1308 Chemistry Sodium (137 - 145 MMOL/L) 138 141 Potassium (3.5 - 5.1 MMOL/L) 4.2 3.7 Chloride (98 - 107 MMOL/L) 106 110 H Carbon Dioxide (22 - 30 MMOL/L) 26 24 Anion Gap (14 - 24 MMOL/L) 10 L 11 L BUN (9 - 20 MG/DL) 7 L 9 Creatinine (0.66 - 1.25 MG/DL) 0.50 L 0.60 L Glomerular Filtr Rate > 60 > 60 Glucose (74 - 106 MG/DL) 146 H 120 H POC Glucose (60 - 99 MG/DL) 82 86 Calcium (8.4 - 10.2 MG/DL) 8.4 8.6 Magnesium (1.6 - 2.3 MG/DL) 2.0 1.5 L Laboratory Tests 01/10 1857 Hematology WBC (3.8 - 9.8 K/MM3) 9.5 10.3 H RBC (3.95 - 5.67 M/MM3) 3.66 L 3.88 L Hgb (12.4 - 16.7 G/DL) 12.5 13.3 Hct (35.9 - 49.5 %) 37.1 39.2 MCV (81.7 - 96.1 fL) 101 H 101 H MCH (27.6 - 33.2 pg) 34.2 H 34.3 H MCHC (32.9 - 35.5 %) 33.7 33.9 RDW (12.1 - 15.2 %) 12.5 12.8 Plt Count (129 - 368 K/MM3) 167 165 MPV (7.4 - 10.4 fl) 10.7 H 10.4 Neut % (Auto) (43 - 75 %) 83.2 H 71.6 Lymph % (Auto) (14 - 44 %) 11.4 L 24.1 [place] % (Auto) (4 - 13 %) 4.8 2.8 L Eos % (Auto) (0 - 6 %) 0.0 0.6 Baso % (Auto) (0 - 2 %) 0.1 0.3 Neut # (Auto) (2.0 - 7.6 K/mm3) 7.90 H 7.35 Lymph # (Auto) (1.0 - 3.8 K/mm3) 1.08 2.47 [place] # (Auto) (0.1 - 0.8 K/mm3) 0.46 0.29 Eos # (Auto) (0.0 - 0.2 K/mm3) 0.00 0.06 Baso # (Auto) (0.0 - 0.2 K/mm3) 0.01 0.03 Immature Gran % (0.0 - 2.0 %) 0.5 0.6 Nucleated RBC % (0 - 1.0 %) 0.0 0.0 Nucleated RBCs # (Man) (0.0 - 0.1 K/mm3) 0.00 0.00 Radiology data:Recent Impressions:RADIOLOGY - XR CHEST 1V 01/09 194 Report Impression - Status: SIGNED Entered: 01/09/20191956 IMPRESSION: No acute cardiopulmonary disease. Good position for thecentral line. Location: [id number] By: Sarah - Ad Eng MDRADIOLOGY - XR CHEST 1V 01/10 0605 Report Impression - Status: SIGNED Entered: 01/10/2019 0808 IMPRESSION:Mild cardiomegaly with no acute pulmonary process.Impression By: TellyPR7 - Marilyn Chaney MD Diagnosis, Assessment PlanFree Text A P:This is a 48 y/m severe PVD, HTN, HLD, CAD, s/p CABs/p Redo left femoral to posterior tibial artery bypass with cryopreserved SVGOn Plavix/ASA/BB/StatinD/C F/CD/C arterial lineSR on tele HR 70'sETOH- on MVI/Thiamine/FolicExpected acute blood loss anemia- started on Feosol with ColaceEncouraged IS and ambulation/Cont PT/OTTransfer to CVU/IMCUPlan discussed with: patient, collaborating MD (DR. Cummings) at 1803 at 1507 RPT #:[id number] OF REPORTPRProgress Rwyn6935-32-69N38:41:00Z.GVWL43455738-7109BJWkvon able for patient tnhwUNVBPDZDWEGVIQ9549-65-22M75:07:32 [facility] 2019-01-10 06:17:00 [id number] tqoafD8hoHXAbNCH9fhCGkNeVc965 smmhrwOjsTSrF0RH2828yDhxPhnG2fD5902416-13-89X25:1 7:00 [facility] ([facility])Cardiology Progress NoteREPORT#:[id number] REPORT STATUS: SignedDATE:01/10/19 TIME: 616 PATIENT: DELMI FLORES UNIT #: [id number]#: [id number] [facility] AGE: 48 SEX: M ATTEND: Ad Cummings [facility] AUTHOR: Gilberto Bonds MD * ALL edits or amendments must be made on the electronic/computer document * SubjectiveHPI:48 year old male with h/o CAD, ACB, severe PVD, s/p previous left fem-pop bypass12/2017, now s/p LLE fem-tib bypass. No c/o chest pain, palpitations, dyspnea. LLE incisional pain. Objective GeneralVS/I O:Vital Signs: Date Time Temp Pulse Resp B/P B/P Pulse O2 O2 Flow FiO2 Mean Ox Delivery Rate 01/09 1900 89 22 100 01/09 1844 97 100 01/09 1842 97.6 01/09 1003 97.3 64 18 173/95 100 Room air Patient Weight Weight (lb): 185Weight (oz): 6.19Weight (kg): 84.090 Medications:Active Meds + DC'd Last 24 HrsAspirin 81 MG DAILY PO Clopidogrel Bisulfate 75 MG DAILY PO Cefazolin Sodium 1,000 MG Q8H IV Sodium Chloride 10 MLMagnesium Sulfate 50 ML NOW ONE IV (DC) Atorvastatin Calcium 20 MG BEDTIME PO Famotidine 20 MG Q12HR IV Metoprolol Tartrate 50 MG BID PO Mupirocin 1 APPLIC BID NASAL Calcium Gluconate 1,000 MG ASDIR PRN IV Sodium Chloride 100 MLDiphenhydramine HCl 12.5 MG ONCE ONE IV (DC) Losartan Potassium 100 MG DAILY PO Magnesium Sulfate 50 ML NOW ONE IV (DC) Multivitamins 10 ML .Q24H IV Thiamine HCl 100 MG Folic Acid 1 MG Sodium Chloride 1,000 MLDiphenhydramine HCl 25 MG Q6H PRN PRN PO Prednisone 20 MG NOW ONE PO (DC) Diphenhydramine HCl 0 .STK-MED ONE IV (DC) Acetaminophen 650 MG Q4H PRN PRN PO Bisacodyl 10 MG ASDIR PRN RECTAL Calcium Chloride 5 ML ASDIR PRN IV (DC) Sodium Chloride 100 MLHydrocodone Bitart/Acetaminophen 1 TAB Q4H PRN PRN PO Hydrocodone Bitart/Acetaminophen 2 TAB Q4H PRN PRN PO Meperidine HCl 25 MG Q4H PRN PRN IM Meperidine HCl 50 MG Q4H PRN PRN IM Nicardipine HCl 25 MG ASDIR PRN IV Sodium Chloride 250 MLNifedipine 10 MG Q4H PRN PRN SL Ondansetron HCl 4 MG Q8H PRN PRN IV Potassium Chloride 10 MEQ ASDIR PRN PO Potassium Chloride/Dextrose/Sod Cl 1,000 ML Q12H IV Ondansetron HCl 0 .STK-MED ONE .ROUTE (DC) Nicardipine HCl 25 MG ASDIR IV Sodium Chloride 250 MLGlycopyrrolate 0 .STK-MED ONE .ROUTE (DC) Neostigmine [place] 0 .STK-MED ONE .ROUTE (DC) Ephedrine Sulfate 0 .STK-MED ONE .ROUTE (DC) Dexamethasone Sodium Phosphate 0 .STK-MED ONE .ROUTE (DC) Papaverine HCl 0 .STK-MED ONE .ROUTE (DC) Rocuronium [place] 0 .STK-MED ONE .ROUTE (DC) Lidocaine HCl 0 .STK-MED ONE .ROUTE (DC) Propofol 0 .STK-MED ONE .ROUTE (DC) Fentanyl Citrate 0 .STK-MED ONE .ROUTE (DC) Midazolam HCl 0 .STK-MED ONE .ROUTE (DC) Bacitracin 0 .STK-MED ONE .ROUTE (DC) Heparin Sodium 0 .STK-MED ONE .ROUTE (DC) Nicardipine HCl 0 .STK-MED ONE IV (DC) Norepinephrine Bitartrate 0 .STK-MED ONE .ROUTE (DC) Phenylephrine HCl 0 .STK-MED ONE IV (DC) Protamine Sulfate 0 .STK-MED ONE .ROUTE (DC) Sodium Chloride 20 ML .STK-MED ONE IV (DC) Thrombin 0 .STK-MED ONE .ROUTE (DC) Cefazolin Sodium 0 .STK-MED ONE .ROUTE (DC) Lidocaine HCl 0 .STK-MED ONE .ROUTE (DC) Cefazolin Sodium 1,000 MG ONCALL IV (DC) Sodium Chloride 10 ML Physical ExamGeneral appearance: alert, awake, orientedHead/Eyes: atraumatic, normocephalicENT: moist mucosal membranesNeck: no JVDCardiovascular: CV assessment: regular rate and rhythmRespiratory: clear to auscultation, no distressUpper extremity: UE assessment: no cyanosis, no edemaLower extremity: LE assessment: no edemaMusculoskeletal: full range of motion, normal inspection, straight leg raise negNeuro/FRY COOK: alert, oriented X 3, CN II-XII intactSkin: dry, intactWound/incision: Site condition: dressing clean dryPsychiatry: normal affect, normal judgment/insight, normal mood ResultsFindings/Data:Laboratory Tests 01/09 1947 Blood Gas Puncture Site AL ABG pH (7.35 - 7.45 mmHg) 7.42 ABG pCO2 (35.0 - 45.0 mmHg) 37.0 ABG pO2 (80.0 - 100.0 mmol/L) 60.4 L ABG HCO3 (20.0 - 26.0 mmol/L) 23.2 ABG O2 Saturation (95.0 - 100.0 %) 91.7 L ABG Base Excess (-3.0 - 3.0 mmol/L) -0.9 Nick Test (CHECK) NA Temperature (37 C) 37.0 O2 Delivery Device RM AIR FiO2 (%) 21 Laboratory Tests 01/09 01/09 01/09 01/09 1857 1519 1308 0943 Chemistry Sodium (137 - 145 MMOL/L) 141 Potassium (3.5 - 5.1 MMOL/L) 3.7 Chloride (98 - 107 MMOL/L) 110 H Carbon Dioxide (22 - 30 MMOL/L) 24 Anion Gap (14 - 24 MMOL/L) 11 L BUN (9 - 20 MG/DL) 9 Creatinine (0.66 - 1.25 MG/DL) 0.60 L Glomerular Filtr Rate > 60 Glucose (74 - 106 MG/DL) 120 H POC Glucose (60 - 99 MG/DL) 82 86 81 Calcium (8.4 - 10.2 MG/DL) 8.6 Magnesium (1.6 - 2.3 MG/DL) 1.5 L Laboratory Tests 01/09 1857 Hematology WBC (3.8 - 9.8 K/MM3) 10.3 H RBC (3.95 - 5.67 M/MM3) 3.88 L Hgb (12.4 - 16.7 G/DL) 13.3 Hct (35.9 - 49.5 %) 39.2 MCV (81.7 - 96.1 fL) 101 H MCH (27.6 - 33.2 pg) 34.3 H MCHC (32.9 - 35.5 %) 33.9 RDW (12.1 - 15.2 %) 12.8 Plt Count (129 - 368 K/MM3) 165 MPV (7.4 - 10.4 fl) 10.4 Neut % (Auto) (43 - 75 %) 71.6 Lymph % (Auto) (14 - 44 %) 24.1 [place] % (Auto) (4 - 13 %) 2.8 L Eos % (Auto) (0 - 6 %) 0.6 Baso % (Auto) (0 - 2 %) 0.3 Neut # (Auto) (2.0 - 7.6 K/mm3) 7.35 Lymph # (Auto) (1.0 - 3.8 K/mm3) 2.47 [place] # (Auto) (0.1 - 0.8 K/mm3) 0.29 Eos # (Auto) (0.0 - 0.2 K/mm3) 0.06 Baso # (Auto) (0.0 - 0.2 K/mm3) 0.03 Immature Gran % (0.0 - 2.0 %) 0.6 Nucleated RBC % (0 - 1.0 %) 0.0 Nucleated RBCs # (Man) (0.0 - 0.1 K/mm3) 0.00 Laboratory Tests 01/097 Chemistry Magnesium (1.6 - 2.3 MG/DL) 1.5 L Radiology data:Recent Impressions:RADIOLOGY - XR CHEST 1V 01/10 1944 Report Impression - Status: SIGNED Entered: 01/09/20191956 IMPRESSION: No acute cardiopulmonary disease. Good position for thecentral line. Location: [id number] By: Sarah Eng MD Diagnosis, Assessment Plan Free Text DxA P NotesFree Text DxA P Notes:IMP: Severe PVD s/p LLE Fem-pop bypass 12/2017 now with occluded graft s/p LLE fem-tib bypass CAD - s/p ACB Tobacco abuse REC: Continue home medications IS Ambulate Advised to quit smoking. at 0724 RPT #:[id number] OF REPORTPRProgress Dbmm5873-85-16O16:17:00Z.JBZY78987201-2489LSBybyi able for patient nxoqYXREJHERRZGRKW0827-49-70Q67:24:40 [facility] 2019-01-10 03:59:00 GPbmpdiqikh06065646G /BFXzorGk6BlgT5TztPEXMwHkgkV7 FWcapy2WMHarIDXzU3+dCdgb4dig4TcCR54324-89-78P48:5 9:[id number] [address] PATIENT NAME: DELMI FLORES ADMIT DATE: 01/09/19ACCOUNT NO: [id number] ROOM NO: SI04 AGE: 48 REPORT TYPE: ELECTROCARDIOGRAM SEX: M ADMITTING PHYSICIAN:Ad Cummings MD ATTENDING PHYSICIAN:Ad Cummings MD Order:[id number] Reason : CAD Test Date/Time Stamp:WedJan 10 2019 03:59:09Blood Pressure : / mmHGVent. Rate : 056 BPM Atrial Rate : 056 BPM P-R Int : 166 ms QRS Dur : 118 ms QT Int : 468 ms P-R-T Axes : 062 063 058 degrees QTc Int : 451 ms Sinus bradycardiaRight bundle branch blockAbnormal ECGWhen compared with ECG of 09-JAN-2019 20:54,No significant change was foundConfirmed by SAURABH WORLEY ([id number]) on 01/10/2019 7:07:13 AM Referred By: Ad Cummings Confirmed by:SAURABH WORLEY at 0707 PATIENT NAME: DELMI FLORES .[id number] AVAvailable for patient wyabMPNGTZBZNUTGJU4231-60-08P35:07:31 [facility] 2019-01-09 20:54:00 [id number] JDdKeYuB5lOP1cGycN+DcE7RwVUXg ohBOp82gVKHpPy5eNgq2QADwNI6OJo66fn2464-56-55S99:5 [id number] [place] [address] PATIENT NAME: DELMI FLORES ADMIT DATE: 01/09/19ACCOUNT NO: [id number] ROOM NO: Z.SI04 AGE: 48 REPORT TYPE: ELECTROCARDIOGRAM SEX: M ADMITTING PHYSICIAN:Ad Cummings MD ATTENDING PHYSICIAN:Ad Cummings MD Order:[id number] Reason : CAD Test Date/Time Stamp:WedJan 09 2019 20:54:46Blood Pressure : / mmHGVent. Rate : 079 BPM Atrial Rate : 079 BPM P-R Int : 152 ms QRS Dur : 118 ms QT Int : 430 ms P-R-T Axes : 055 034 046 degrees QTc Int : 493 ms Normal sinus rhythmRight bundle branch blockAbnormal ECGWhen compared with ECG of 04-JAN-2019 15:49,QT has lengthenedConfirmed by SAURABH WORLEY ([id number]) on 01/10/2019 7:07:03 AM Referred By: Ad Cummings Confirmed by:SAURABH WORLEY at 0707 PATIENT NAME: DELMI FLORES .[id number] AVAvailable for patient ihwuYOSBXZLSHEQKIU2329-68-00X70:07:22 [facility] 2019-01-09 18:44:00 IDhptfviqqg55169744f clKv2/I4N72iggd4zlV0h+Nt5Pxhg YbquLQHGaqTpSLDdGNhV+Xh9O9NxRrPw+H3703-44-68L89:4 4:[id number] [address] PATIENT NAME: DELMI FLORES ADMIT DATE: 01/09/19ACCOUNT NO: [id number] ROOM NO: Z.[facility] AGE: 49 REPORT TYPE: OPERATIVE REPORT SEX: M ADMITTING PHYSICIAN:Ad Cummings MD ATTENDING PHYSICIAN:Ad Cummings MD OPERATION DATE: 01/09/2019 CARDIAC SURGERY SERVICE PREOPERATIVE DIAGNOSES: Severe peripheral vascular disease left lower extremitywith severe rest pain and claudication, atherosclerosis vessels with leftpopliteal artery occlusion, left tibioperoneal occlusion, hypertension,hyperlipidemia, coronary artery disease, status post coronary artery bypasssurgery, positive tobacco use. POSTOPERATIVE DIAGNOSES: Severe peripheral vascular disease left lowerextremity with severe rest pain and claudication, atherosclerosis vessels withleft popliteal artery occlusion, left tibioperoneal occlusion, hypertension,hyperlipidemia, coronary artery disease, status post coronary artery bypasssurgery, positive tobacco use. PROCEDURE: Right CVP insertion and also ultrasound-guided access with SonoSiteto right subclavian vein, redo left femoral to posterior tibial artery bypassusing cryopreserved saphenous vein. SURGEON: Ad Cummings MD DRIVER OPERATOR: Ml Marie PA-C ANESTHESIA: General. COMPLICATIONS: None. DISPOSITION: The patient to surgical ICU in stable condition. DESCRIPTION OF PROCEDURE: On 01/09/2019, patient was brought to the operatingroom, placed on the operating table in supine position, prepped and draped inusual fashion. Following introduction of satisfactory general anesthesia,placement of appropriate monitoring lines, Her catheter, hips, shoulders,elbows padded in usual fashion. Right subclavian CVP was placed using Seldingerpercutaneous guidewire technique and ultrasound-guided access with SonoSite. The patient prepped and draped in usual fashion. Redo left groin incision wasmade, carried down through dense scar tissue down to the femoral, superficialfemoral artery after takeoff of the deep femoral artery. We then made a medialcalf incision where the previous incision was and extended more distally,dissected down through scar tissue again to get down to level of the posteriortibial artery and isolated the posterior tibial artery. Counter incision made a PATIENT NAME: DELMI FLORES left medial thigh through dense scar tissue from previous graft and dissectedout tunnels and we used a tunneler to pass the cryopreserved saphenous vein fromthe left groin through the counter incision in medial thigh to the left midcalfincision. We then heparinized the patient. Small vascular clamps were placedon the posterior tibial artery. Arteriotomy was made and the distal anastomosiswas done with running 6-0 Prolene suture. Clamps were released and the vascularclamps then placed on the other femoral artery and arteriotomy was made andanastomosis was done with running 6-0 Prolene suture. Clamps were released. Excellent pulse by palpation and Doppler within the incisions. Protamine given,hemostasis achieved. Wounds were irrigated with antibiotic saline solution,closed in layers in the usual fashion, dressings applied, and the patient to thesurgical ICU in stable condition with good Doppler pulse present in theincisions. Wound site has been closed in standard fashion. Dictated By: Ad Cummings MD WT: OP:ZSANGEETA/DENG/NTSDD: 01/09/2019 18:44:39DT: 01/09/2019 21:30:25Conf#: [id number]/DID#: [id number] cc: Dr. Hugo oWrley MD Authenticated by Ad Cummings MD On 02/25/2019 01:10:36 PM at 1311 PATIENT NAME: DELMI FLORES ybbzzp2987-56-54N28:30:00Z.[id number] lable for patient wdzyLDRWDZGPVNNEGX6495-31-81I29:11:14 [facility] 2019-01-09 18:33:00 EWnrjzjyeso59775689o dS2ifhDXVd/SQMLWGZFnzO8aX9aip miKVWDy6lgNHtHt7VVRtNuZG39r6qH8Y5f9005-09-56Q05:3 3:00 [facility] ([facility])Brief Op NoteREPORT#:[id number] REPORT STATUS: SignedDATE:01/09/19 TIME: 1832 PATIENT: DELMI FLORES UNIT #: [id number]#: [id number] [address] AGE: 48 SEX: M ATTEND: Ad Cummings MDADM AUTHOR: Ad Cummings MD * ALL edits or amendments must be made on the electronic/computer document * Op/Inv Proc Note - BriefORM Surgeries: Surgery Date and Time: 01/09/2019 1455 Proposed Primary Procedure: REDO LEFT FEMORAL TO POSTERIOR TIBIAL Pre-procedure diagnosis:Atherosclerosis of the LLE with intermittent claudicationAtherosclerosis of the non autologous bypass graft of the LLE with intermittent claudicationsPost-procedure diagnosis: same as pre procedure dxProcedures performed:Redo left femoral to posterior tibial artery bypass with cryopreserved SVGInsertion of right subclavian central line using sonosite US guidancePrimary Surgeon:Ad Gurrolatant(s): JEAN Escalante-CAnesthesiologist:Dr. Tang Hauser. AlanizAnesthesia: general anesthesiaFindings:see detailed op reportComplications: noneEstimated blood loss in ml's: 100ccSpecimens removed/altered: noneDrain(s): Her Catheter PlacedDisposition: ICU, stable at 1836 RPT #:[id number] OF REPORTOPOperative iyxfmo2836-04-87P29:33:00Z.[id number] ilable for patient jqiyGXIQQNEFRAVAEX2607-39-19O26:36:43 [facility] 2019-01-09 16:00:00 ELjittwvbcc58594857h 6xBf0f0IIuQV+Nz/CVqyN/ZwGeGwO HadYyzW5OGMsOA5QP10rHoClzPBDCvQCyG5744-54-26G11:0 [id number] [place] [address] PATIENT NAME: DELMI FLORES ADMIT DATE: 01/09/19ACCOUNT NO: [id number] ROOM NO: Z.422 AGE: 49 REPORT TYPE: HISTORY AND PHYSICAL SEX: M ADMITTING PHYSICIAN:Ad Cummings MD ATTENDING PHYSICIAN:Ad Cummings MD ADMISSION DATE: 01/09/2019 REASON FOR ADMISSION: Atherosclerosis of the left lower extremity withintermittent claudication, atherosclerosis of the nonautologous bypass graft ofthe left lower extremity with intermittent claudication, coronary arterydisease, status post CABG. HISTORY OF PRESENT ILLNESS: The patient is a 48-year-old male well [facility] with a history of severe peripheral vascular disease to his bilaterallower extremity. He is status post a left fem-pop bypass below knee withCryoVein on 01/11/2018. The patient was discharged home on aspirin, Plavix, andwarfarin at that time. Most recently, he was seen and followed by hiscardiologist, Dr. Worley and he had stopped taking his warfarin treatment. Thepatient also states that he has severe claudication to his bilateral lowerextremity, left worse than the right. He works about a block from his home andhe could barely make it to his house, so he is ambulating. He is able toambulate less than a block before he has severe cramping to his bilateral lowerextremity. He also says he has pain to his bilateral feet. He is status postan abdominal aortogram with long leg runoff by Dr. Worley on 12/24/2018 wherehe was found to have a 90% distal SFA, popliteal, and infrapopliteal disease atthe tibioperoneal trunk calcified lesions on the right occluded left fem-popwith 100% distal occlusion of the SFA, popliteal distal SFA was also 80% beforethe occlusion. The patient's is being admitted to the hospital today to undergoa redo left femoral to posterior tibial artery bypass. PAST MEDICAL HISTORY: Significant for coronary artery disease, peripheralvascular disease, hypertension, hypercholesterolemia, history of depression. PAST SURGICAL HISTORY: Significant for CABG in 2011, a left fem-pop bypassbelow knee on 01/11/2018 and hernia repair. ALLERGIES: NO KNOWN DRUG ALLERGIES. MEDICATIONS: Aspirin, metoprolol, Plavix, atorvastatin, losartan, citalopram. He stopped taking his warfarin. SOCIAL HISTORY: The patient continues to smoke. He is a current everydaysmoker. He smokes cigarettes daily despite being counseled to stop severaltimes. He denies using any alcoholic beverages or use any illicit drugs. FAMILY HISTORY: Positive for coronary artery disease. PATIENT NAME: DELMI FLORES REVIEW OF SYSTEMS: The patient complains of having severe claudication tobilateral lower extremities with numbness and pain to his left foot. He denieshaving any chest pain, shortness of breath, nausea, or vomiting. PHYSICAL EXAMINATION:GENERAL: Demonstrates well-developed, well-nourished male in no apparentdistress.NECK: No carotid bruits. Carotid pulse present bilaterally.LUNGS: Clear to auscultation bilaterally.HEART: Regular rate and rhythm. Sternal incision is well healed from previousscar.ABDOMEN: Soft, nontender, and nondistended.EXTREMITIES: He has 2+ femoral pulses bilaterally. He has absent poplitealpulses on both feet and absent pedal pulses on both legs.NEUROLOGIC: He is alert and oriented x3. IMPRESSION: The patient with atherosclerosis of the bilateral lower extremitywith intermittent claudication, atherosclerosis of the nonautologous bypassgraft of the left lower extremity with intermittent claudication, hypertension,hypercholesterolemia, coronary artery disease, status post coronary arterybypass grafting. PLAN: The plan will be to take the patient to the operating room today toundergo a redo left femoral to posterior tibial artery bypass. The procedure,possible risks, alternatives, complications as well as the inherent risks ofsurgery were all explained to the patient and his who understands, accepts,and wants to proceed. Dictated By: JEAN Alvarez for Ad Cummings MD WT: HP:MELODY/EBONIE/NTSDD: 01/09/2019 16:00:31DT: 01/09/2019 18:33:46Conf#: [id number]/DID#: [id number] by JEAN Alvarez On 01/11/2019 09:58:26 PM Authenticated by Ad Cummings MD On 02/25/2019 01:10:32 PM at 1310 at 1310 PATIENT NAME: DELMI FLORES and physical pbktcmawwcs9357-20-26B45:33:00Z.[id number] VAvailable for patient zupfXRTEBKXBISEBTG2585-59-67G37:11:04 [facility] 2019-01-04 15:49:00 [id number] X0+P3KT74OXRJgnfT1vokG0uxgW3B qsYSYw2Xzm+vj83n9HF/hAIvMhqzBgVOax9223-25-38O56:4 9:[id number] [place] [id number] PATIENT NAME: DELMI FLORES ADMIT DATE: ACCOUNT NO: [id number] ROOM NO: AGE: 48 REPORT TYPE: ELECTROCARDIOGRAM SEX: M ADMITTING PHYSICIAN: ATTENDING PHYSICIAN:Ad Cummings MD Order:[id number] Reason : PREOP Test Date/Time Stamp:WedJan 04 2019 15:49:47Blood Pressure : / mmHGVent. Rate : 064 BPM Atrial Rate : 064 BPM P-R Int : 176 ms QRS Dur : 116 ms QT Int : 412 ms P-R-T Axes : 047 021 040 degrees QTc Int : 425 ms Normal sinus rhythmIncomplete right bundle branch blockBorderline ECGWhen compared with ECG of 24-DEC-2018 07:15,No significant change was foundConfirmed by SAURABH WORLEY ([id number]) on 01/06/2019 11:15:05 AM Referred By: Ad Cummings Confirmed by:SAURABH WORLEY at 1115 PATIENT NAME: DELMI FLORES .[id number] AVAvailable for patient dlxgPIWYZZGNYSXJGL4640-70-30V49:15:23 [facility] 2018-12-24 09:05:00 [id number] 94lyLfivNzA1TdXJ1kQXGkSH8JqDZ l3+fZKc6+SAIL FINISHER HAND+X3+2qH0KSbQpM6zOaGfIUH9371-45-91Z00:0 [id number] [place] [address] PATIENT NAME: DELMI FLORES ADMIT DATE: 12/24/18ACCOUNT NO: [id number] ROOM NO: AGE: 48 REPORT TYPE: CARDIAC CATHETERIZATION REPORT SEX: M ADMITTING PHYSICIAN: ATTENDING PHYSICIAN:Saurabh Worley MD PROCEDURE DATE: 12/24/2018 CARDIOLOGY PROCEDURE DIRECTOR OF ASSISTED LIVING: Saurabh Worley MD INDICATION FOR THE PROCEDURE: Disabling PAD with leg claudications previousfem-pop bypass on the left. TITLE OF THE PROCEDURE: Abdominal and bilateral selective iliofemoralangiograms, first order angiogram of the right lower extremity, third orderangiogram of the left lower extremity. ESTIMATED BLOOD LOSS: Minimal. COMPLICATIONS: None. CONTRAST: 100 mL. ANESTHESIA: Conscious sedation with Versed and fentanyl and 1% lidocaine forlocal anesthesia. FINAL DIAGNOSES: A 90% distal SFA, popliteal, and infrapopliteal disease at theTP trunk calcified lesions on the right, occluded left fem-pop on the, 100%distal occlusion of the SFA, popliteal, distal SFA was also 80% before theocclusion. The recommendation is surgical consultation PROCEDURE IN DETAIL: After informed consent, the patient was brought to thecardiac catheterization lab in a stable fasting nonsedated state. He wasprepped and draped in the usual sterile fashion. After conscious sedation, 1%lidocaine was administered to the right common femoral artery area for localanesthesia. A 6-Croatian sheath was placed in the right common femoral arteryusing standard techniques and fluoroscopy. After heparinization, selectiveiliofemoral angiogram on the right showed a 35% external iliac disease, 50%eccentric common femoral disease. The distal SFA had a 90% at the popliteal andthen after that he has 2 calcified lesions in the TP trunk 90%. There was3-vessel runoff. The abdominal angiogram showed no significant aortoiliacdisease. The left fem-pop bypass is occluded. The selective angiogram with theright coronary catheter over a Glidewire of the left lower extremity third ordershowed 80% distal SFA lesion followed by 100% occlusion at the popliteal withcollaterals down to the leg. The right groin was sealed using basket. Therewere no complications. The patient tolerated the procedure well and will be PATIENT NAME: DELMI FLORES transferred back to the holding area for observation. Surgical consultationwill be obtained. Of note, here also he had a small distal abdominal aorticaneurysm on the abdominal angiogram. Dictated By: Saurabh Worley MD WT: CATH:CURTIS/LIZ/NTSDD: 12/24/2018 09:05:54DT: 12/24/2018 10:45:23Conf#: [id number]/DID#: [id number] Authenticated by Saurabh Worley MD On 12/24/2018 12:10:26 PM at 1210 PATIENT NAME: DELMI FLORES Aceg0160-24-78B07:45:00Z.[id number] ble for patient dxiuDVHLTCSINYVYNG8154-57-72E41:10:55 [facility] 2018-12-24 07:15:00 [id number] khcjQyKktj1YPKV+9aJHYkrfvJKQR ijtynFjGLgdlj4rjM4tPlXgxGllzziHrza9122-71-46F73:1 [id number] [place] [address] PATIENT NAME: DELMI FLORES ADMIT DATE: 12/24/18ACCOUNT NO: [id number] ROOM NO: AGE: 48 REPORT TYPE: ELECTROCARDIOGRAM SEX: M ADMITTING PHYSICIAN: ATTENDING PHYSICIAN:Saurabh Worley MD Order:[id number] Reason : CAD Test Date/Time Stamp:WedDec 24 2018 07:15:01Blood Pressure : / mmHGVent. Rate : 067 BPM Atrial Rate : 067 BPM P-R Int : 178 ms QRS Dur : 116 ms QT Int : 390 ms P-R-T Axes : 060 032 029 degrees QTc Int : 412 ms Normal sinus rhythmRight bundle branch blockAbnormal ECGWhen compared with ECG of 15-JAN-2018 07:26,Right bundle branch block is now presentConfirmed by SAURABH WORLEY ([id number]) on 12/24/2018 10:36:27 AM Referred By: Saurabh Worley Confirmed by:SAURABH WORLEY at 1036 PATIENT NAME: DELMI FLORES .[id number] AVAvailable for patient vozxXXKULINOOOPRFQ2719-87-34O21:36:53 [facility] 2018-12-23 07:15:00 [id number] S/IKnDwwyIeGIM9oWHVbGNJEjr4Xg YVj7Pp6Jmpp7Dm0M9aA1XMY/bL1MkARYX43607-23-96H32:1 [id number] [address] PATIENT NAME: DELMI FLORES ADMIT DATE: ACCOUNT NO: [id number] ROOM NO: AGE: 48 REPORT TYPE: HISTORY AND PHYSICAL SEX: M ADMITTING PHYSICIAN: ATTENDING PHYSICIAN:Saurabh Worley MD PATIENT NAME: DELMI FLORES ADMIT DATE:12/24/2018ADMISSION DATE: 12/24/2018 DIRECTOR OF ASSISTED LIVING: Saurabh Worley MD REASON FOR ADMISSION: Abdominal and bilateral selective iliofemoral angiograms. Access from the right groin to assess for peripheral vascular disease andpossible further revascularization. HISTORY OF PRESENT ILLNESS: Delmi is a 48-year-old patient with extensiveatherosclerotic cardiovascular disease history. The patient has known coronaryartery disease. His last heart catheterization was done on 01/08/2018 thatshowed patent LOMELI to the LAD, patent vein graft to the PDA and occluded veingraft to the OM. He has been stable from the cardiac standpoint. His lastperipheral angiogram showed his right popliteal to be 60% stenosed. The leftpopliteal to be 100% occluded. The patient underwent surgery by Dr. Cummings.He was considered to be hypercoagulable state and was placed on aspirin, Plavix,and warfarin. The patient due to noncompliance has stopped his warfarin andpresented back to the office with worsening claudication of the left lowerextremity. The lower arterial Doppler examination showed the right anklebrachial index to be still normal but the left ankle brachial index was 0.59showing most likely occlusion of the graft for severe disease. Given thisinformation, the patient is here for abdominal and bilateral iliofemoralangiograms to assess for further possible revascularization. The patient hasmoderate carotid disease, 40% to 50% plaquing. He has known normal ejectionfraction on an echocardiogram with mild mitral regurgitation and mild pulmonaryhypertension. His last stress test showed ischemia back in November 2017 andejection fraction of 45% that was followed up by the last heart catheterization,which showed occlusion of the vein graft to the obtuse marginal and he will bemanaged medically for his coronary artery disease. The patient is here todayfor abdominal and bilateral iliofemoral angiograms to assess for furtherrevascularization of the left lower extremity. PAST MEDICAL HISTORY: Remarkable for the above in addition to hypertension,hyperlipidemia, previous myocardial infarction and a triple bypass in 2011,anxiety and depression. PAST SURGICAL HISTORY: The above-mentioned bypass and hernia repair and theleft leg bypass. ALLERGIES: NO KNOWN DRUG ALLERGIES. PATIENT NAME: DELMI FLORES MEDICATIONS: Aspirin 81 mg daily, metoprolol 50 mg b.i.d., Plavix 75 mg daily,atorvastatin 10 mg daily, losartan 100 mg daily. He is supposed to be onwarfarin, but he has been out of it due to noncompliance, citalopram 20 mgdaily. He was on simvastatin 40 mg daily that was changed to atorvastatin 10 mgdaily. SOCIAL HISTORY: The patient is an active smoker. He denies alcohol or streetdrug use. FAMILY HISTORY: Positive for atherosclerotic cardiovascular disease. REVIEW OF SYSTEMS: Remarkable for the above in addition to easy bruisability.No acute GI or symptoms. No TIAs or strokes. PHYSICAL EXAMINATION:GENERAL: Reveals a pleasant middle-aged male, in no acute distress.VITAL SIGNS: Blood pressure 127/88, pulse 68 and regular, respiratory rate 16unlabored, temperature afebrile.HEENT: Head, atraumatic and normocephalic. Eyes, ENT examination within normalfor age.NECK: Supple. No jugular venous distention, bruits, or lymphadenopathy.Normal upstroke.LUNGS: Decreased air entry, otherwise clear and resonant.HEART: Regular rate and rhythm with II/ systolic ejection murmur at the leftlower sternal border and no gallops.ABDOMEN: Soft. No tenderness, no organomegaly, no masses or bruits.EXTREMITIES: 1+ distal pulses on the left, 2+ on the right, left leg scar notedfrom the bypass. No edema, cyanosis, or clubbing.NEUROLOGIC: Alert and oriented x3. Examination appears to be nonfocal. LABORATORY DATA: Pending. Noninvasive cardiovascular workup enclosed. IMPRESSION: This is a 48-year-old patient with known atheroscleroticcardiovascular disease, multiple cardiovascular risk factors, who appears tohave either severe disease or occlusion of the left fem-pop bypass that issymptomatic with left lower extremity claudication. The patient is here forabdominal and bilateral selective iliofemoral angiograms to assess the patencyof the left fem-pop bypass and to assess for further possible revascularization. The surgery was done by Dr. Cummings on 01/11/2018. The recommendation is to proceed with the above-mentioned procedure. The risksand benefits of the planned procedures were discussed in detail with the patientand his and he is willing to proceed. Dictated By: Saurabh Worley MD WT: HP:MELODY/LIZ/EARLEDD: 12/23/2018 07:15:37DT: 12/23/2018 08:55:07Conf#: [id number]/DID#: [id number] PATIENT NAME: DELMI FLORES cc: Ad Cummings MDAuthenticated and Edited by Saurabh Worley MD On 12/23/18 5:55:12 PM at 1757 PATIENT NAME: DELMI FLORES and physical fybxfuthhie3967-99-19U77:55:00Z.[id number] VAvailable for patient mguhWCLHKVSKSMEFBA0258-26-28P50:58:03 HCAWU
--- NOTE | 2023-07-15 22:23 | ER ---
Nurse's Notes [facility] Name: Jose L Mathew Age: 53 yrs Sex: Male : 1970 Arrival Date: 07/15/2023 Time: 20:00 Bed 10 Private MD: Diagnosis: Peripheral vascular disease, bilateral leg pain Presentation: 07/15 20:13 Chief complaint: Patient states: bilateral lower leg pain of 10 that radiates to pf1 feet,onset 1 year. Patient denies any injury. Coronavirus screen: Vaccine status: Patient reports being unvaccinated. Client denies travel out of the [place] in the last 14 days. At this time, the client does not indicate any symptoms associated with coronavirus-19. Ebola Screen: Patient negative for fever greater than or equal to 101.5 degrees Fahrenheit, and additional compatible Ebola Virus Disease symptoms. Initial Sepsis Screen: Does the patient meet any 2 criteria? No. Patient's initial sepsis screen is negative. Does the patient have a suspected source of infection? No. Patient's initial sepsis screen is negative. Risk Assessment: Do you want to hurt yourself or someone else? Patient reports no desire to harm self or others. 20:13 Method Of Arrival: Ambulatory pf1 20:13 Acuity: URBANO 3 pf1 Triage Assessment: 22:52 General: Appears in no apparent distress. comfortable, Behavior is calm, cooperative. pf1 Pain: Complains of pain in right leg and left leg. Historical: - Allergies: 20:18 No Known Allergies; pf1 - PMHx: 20:18 High Cholesterol; Hypertensive disorder; OK; pf1 - PSHx: 20:18 CAB; pf1 - Immunization history:: Adult Immunizations not up to date, Client reports having NOT received the Covid vaccine. Last tetanus immunization: > 10 years ago Flu vaccine is not up to date. - Social history:: Smoking status: Patient reports the use of cigarette tobacco products, smokes one-half pack cigarettes per day, Patient uses alcohol, on a daily basis. Patient/guardian denies using street drugs. Screenin:52 [facility] ED Fall Risk Assessment (Adult) History of falling in the last 3 months, pf1 including since admission No falls in past 3 months (0 pts). Abuse screen: Denies threats or abuse. Denies injuries from another. Nutritional screening: No deficits noted. Tuberculosis screening: No symptoms or risk factors identified. Assessment: 22:51 General: see triage assessment. pf1 Vital Signs: 20:13 BP 126 / 85; Pulse 84; Resp 16; Temp 97.9; Pulse Ox 100% on R/A; Weight 77.11 kg; pf1 Height 5 ft. 6 in. ; Pain 10/10; 20:13 Body Mass Index 27.44 (77.11 kg, 167.64 cm) pf1 20:13 Pain Scale: Adult pf1 ED Course: 20:02 Patient arrived in ED. jj6 20:03 Oumou Jay MD is Attending Physician. sp3 20:18 Triage completed. pf1 22:51 Leola Ybarra, RN is Primary Nurse. pf1 22:52 Arm band placed on right wrist. pf1 22:52 Patient has correct armband on for positive identification. pf1 22:52 No provider procedures requiring assistance completed. Patient did not have IV access pf1 during this emergency room visit. Administered Medications: 22:32 Drug: [place] PO 5 mg-325 mg 2 tabs PO once Route: PO; lg3 22:40 Follow up: Response: No adverse reaction; Marked relief of symptoms lg3 Medication: 22:52 VIS not applicable for this client. pf1 Outcome: 22:22 Discharge ordered by . sp3 22:52 Discharged to home ambulatory, pf1 22:52 Condition: stable 22:52 Discharge instructions given to patient, Instructed on discharge instructions, follow up and referral plans. Demonstrated understanding of instructions, follow-up care, 22:52 Patient left the ED. pf1 Signatures: Sunita Castellano RN RN 3 Oumou Jay MD MD sp3 Aliya Londono j6 Leola Ybarra RN RN pf1
--- NOTE | 2023-07-15 22:23 | EDPHYS ---
Physician Documentation [facility] Name: Jose L Mathew Age: 53 yrs Sex: Male : 1970 Arrival Date: 07/15/2023 Time: 20:00 Bed 10 Private MD: ED Physician Oumou Jay HPI: 07/15 22:19 This 53 yrs old Male presents to ER via Ambulatory with complaints of Leg Pain.sp3 22:19 53-year-old male with history of peripheral vascular disease, CAD status post CABG, sp3 hypertension, hyperlipidemia now presents to the ED with chief complaint acute on chronic bilateral lower extremity pain and numbness that has been going on for a total of 5 years and he states is worse over the last few weeks and decided to come in to "figure it out". Patient has had balloon angioplasties bilaterally in the lower extremities presumably arterial and has not followed up with his vascular surgeon. Patient states he is "not been taking all of his medications" due to financial reasons. He denies any other symptoms including fever, URI symptoms, headache, chest pain, back pain, shortness of breath, abdominal pain, nausea, vomiting, diarrhea, focal neurological deficit other than the bilateral lower extremity numbness in the feet, or any other signs or symptoms on ROS at this time.. Historical: - Allergies: 20:18 No Known Allergies; pf1 - PMHx: 20:18 High Cholesterol; Hypertensive disorder; [place]; pf1 - PSHx: 20:18 CAB; pf1 - Immunization history:: Adult Immunizations not up to date, Client reports having NOT received the Covid vaccine. Last tetanus immunization: > 10 years ago Flu vaccine is not up to date. - Social history:: Smoking status: Patient reports the use of cigarette tobacco products, smokes one-half pack cigarettes per day, Patient uses alcohol, on a daily basis. Patient/guardian denies using street drugs. ROS: 22:20 Constitutional: Negative for fever, chills, and weight loss, Eyes: Negative for injury, sp3 pain, redness, and discharge, ENT: Negative for injury, pain, and discharge, Neck: Negative for injury, pain, and swelling, Cardiovascular: Negative for chest pain, palpitations, and edema, Respiratory: Negative for shortness of breath, cough, wheezing, and pleuritic chest pain, Abdomen/GI: Negative for abdominal pain, nausea, vomiting, diarrhea, and constipation, Back: Negative for injury and pain, Skin: Negative for injury, rash, and discoloration, Neuro: Negative for headache, weakness, numbness, tingling, and seizure, Psych: Negative for depression, anxiety, suicide ideation, homicidal ideation, and hallucinations, Allergy/Immunology: Negative for hives, rash, and allergies, Endocrine: Negative for neck swelling, polydipsia, polyuria, polyphagia, and marked weight changes, Hematologic/Lymphatic: Negative for swollen nodes, abnormal bleeding, and unusual bruising, 22:20 All other systems are negative, Exam: 22:20 Constitutional: This is a well developed, well nourished patient who is awake, alert, sp3 and in no acute distress. Head/Face: Normocephalic, atraumatic. Eyes: Pupils equal round and reactive to light, extra-ocular motions intact. Lids and lashes normal. Conjunctiva and sclera are non-icteric and not injected. Cornea within normal limits. Periorbital areas with no swelling, redness, or edema. Chest/axilla: Normal chest wall appearance and motion. Nontender with no deformity. No lesions are appreciated. Cardiovascular: Regular rate and rhythm with a normal S1 and S2. No gallops, murmurs, or rubs. Normal PMI, no JVD. No pulse deficits. Respiratory: Lungs have equal breath sounds bilaterally, clear to auscultation and percussion. No rales, rhonchi or wheezes noted. No increased work of breathing, no retractions or nasal flaring. Abdomen/GI: Soft, non-tender, with normal bowel sounds. No distension or tympany. No guarding or rebound. No evidence of tenderness throughout. Back: No spinal tenderness. No costovertebral tenderness. Full range of motion. Skin: Warm, dry with normal turgor. Normal color with no rashes, no lesions, and no evidence of cellulitis. Neuro: Awake and alert, GCS 15, oriented to person, place, time, and situation. Cranial nerves II-XII grossly intact. Motor strength 5/5 in all extremities. Sensory grossly intact. Cerebellar exam normal. Normal gait. Psych: Awake, alert, with orientation to person, place and time. Behavior, mood, and affect are within normal limits. 22:20 Musculoskeletal/extremity: Faint pulse present bilaterally. Capillary refill is normal bilaterally. Patient has full range of motion and is neurologically intact except for some subjective numbness. . Vital Signs: 20:13 BP 126 / 85; Pulse 84; Resp 16; Temp 97.9; Pulse Ox 100% on R/A; Weight 77.11 kg; pf1 Height 5 ft. 6 in. ; Pain 10/10; 20:13 Body Mass Index 27.44 (77.11 kg, 167.64 cm) pf1 20:13 Pain Scale: Adult pf1 MDM: 20:20 Patient medically screened. sp3 22:21 Data reviewed: vital signs, nurses notes. ED course: 53-year-old with ongoing sp3 peripheral vascular disease. No acute or emergent process currently occurring. We will treat pain with [place] 2 tabs and I have urged patient to follow-up with his vascular surgeon by making appointment with her clinic.. Administered Medications: 22:32 Drug: [place] PO 5 mg-325 mg 2 tabs PO once Route: PO; lg3 22:40 Follow up: Response: No adverse reaction; Marked relief of symptoms lg3 Disposition Summary: 07/15/23 22:22 Discharge Ordered Notes: Location: Home sp3 Condition: Stable sp3 Diagnosis - Peripheral vascular disease, bilateral leg pain sp3 Followup: sp3 - With: Private Physician - When: Upon discharge from the Emergency Department - Reason: Continuance of care Discharge Instructions: - Discharge Summary Sheet sp3 - Peripheral Vascular Disease, Agjq-ox-Ydmk sp3 Forms: - Work release form lg3 - Medication Reconciliation Form sp3 - Thank You Letter sp3 - Antibiotic Education sp3 - Prescription Opioid Use sp3 - Patient Portal Instructions sp3 - Leadership Thank You Letter sp3 Signatures: Sunita Castellano RN RN lg3 Oumou Jay MD MD sp3 Leola Ybarra RN RN pf1
[2023-07-16 01:33] VITALS: BP 126/85; TEMP 97.9; O2SAT 100
== END ==
LOC: ER 20:00
DX: I73.9 Peripheral vascular disease, unspecified (principal); F17.210 Nicotine dependence, cigarettes, uncomplicated; I10 Essential (primary) hypertension; E78.00 Pure hypercholesterolemia, unspecified; I25.2 Old myocardial infarction
CPT/HCPCS: 99283

== ENCOUNTER 2023-10-10 19:14 | Emergency (ER) | payer BC ==
--- OUTSIDE RECORDS SUMMARY | 2023-10-10 19:18 | XMS REPORT | Continuity of Care Document ---
Author Name Unknown Address [address] [facility]. [address] [place] [address] [facility] thconnect Address [address] [facility]. [address] [place] [address] Care Team Providers Care Warehouse Checker Name Role Phone Unavailable Unavailable Unavailable Payers Payer Name Policy Type Policy Number Effective Date Expirati on Date Source Allergies, Adverse Reactions, Alerts Allergy Name Allergy Type Status Severity Reaction(s) Onset Date Inactive Date Treating Clinician Comments Source No Known Allergie s DA Active U 01-13 00:00: 00 [facility] Results Test Description Test Time Test Comments Results Result Co mments Source CBC W/AUTO [id number] 13:53:00* Test Item Value Reference Range Interpretation [...] NRBC#) 0.00 K/mm3 0.0-0.1 N BASIC METABOLIC [id number] 05:54:00* Test Item Value Reference Range Interpretation [...] CA) 8.6 MG/DL 8.4-10.2 N CBC W/AUTO [id number] 05:40:00* Test Item Value Reference Range Interpretation [...] 0.00 K/mm3 0.0-0.1 N - XR CHEST [id number] 08:05:00Patient Name: DELMI FLORES Unit No: [id number] EXAMS: CPT CODE: [id number] XR CHEST 1V 02713 EXAMINATION: - XR CHEST 1V. LOCATION: B2. [...] tSHERRYR.PR7 Orig Print D/T: S: 01/10/2019 (0808) [facility] NAME: DELMI FLORES [address] PHYS: [place] [address] :1970 AGE: 48 SEX: M LOC: Z.SI04 A PHONE #: [phone] EXAM DATE: 01/10/2019 STATUS: ADM IN FAX #: [phone] RADIOLOGY NO: PAGE 1 Signed ReportBASIC METABOLIC [id number] 07:00:00* Test Item Value Reference Range Interpretation [...] DRAW BLOOD, REASON: CBNNOTIFIED PATIENT CARE STAFF: [facility] 01/10/19 AT 0630 BY Jesus VelasquezAciqcgayKERQJQIAV4658-09-81 07:00:00* Test Item Value Reference Range Interpretation Comme nts MAGNESIUM (test code = MAG) 2.0 MG/DL 1.6-2.3 UNABLE TO DRAW BLOOD, REASON: CBNNOTIFIED PATIENT CARE STAFF: [facility] 01/10/19 AT 0630 BY Jesus Velasquez W/AUTO [id number] 06:42:00* Test Item Value Reference Range Interpretation [...] MIGUEL ÁNGEL 01/10/19 AT 0631 BY [facility] [id number] 20:01:00* Test Item Value Reference Range Interpretation [...] = COHBGFFIO2) 21 % - XR CHEST [id number] 19:54:00Patient Name: DELMI FLORES Unit No: [id number] EXAMS: CPT CODE: [id number] XR CHEST 1V 49754 REASON FOR EXAM: Central line placement. COMPARISON: January 04, 2019. Chest, single view, frontal projection.The right subclavian central line has is tip in the superior vena cava at the level of the right mainstem bronchus.. The lungs are well-inflated and clear. Heart size is normal. Median sternotomy changes. No effusion or pneumothorax can be seen. Osseous structures appear to be intact. . IMPRESSION:No acute cardiopulmonary disease. Good position for the central line. Location: U19 at 1953 Reported and signed by: Ad Eng MD CC: Technologist: RT Anaid(R) Transcrpt Date/Tm/Trnsp: 01/09/2019 (1953)Sarah Orig Print D/T: S: 01/09/2019 (1956) [facility] NAME: DELMI FLORES [address] PHYS: [place] [address] : 1970 AGE: 48 SEX: M LOC: Z.SI04 A PHONE #: [phone] EXAM DATE: 01/09/2019 STATUS: ADM IN FAX #: [phone] RADIOLOGY NO: PAGE 1 Signed ReportBASIC METABOLIC [id number] 19:37:00* Test Item Value Reference Range Interpretation [...] code = CA) 8.6 MG/DL 8.4-10.2 N [id number] 19:37:00* Test Item Value Reference Range Interpretation Comme nts MAGNESIUM (test code = MAG) 1.5 MG/DL 1.6-2.3 L CBC W/AUTO [id number] 19:13:00* Test Item Value Reference Range Interpretation [...] NRBC#) 0.00 K/mm3 0.0-0.1 N GLUCOSE BEDSIDE [id number] 15:24:00* Test Item Value Reference Range Interpretation Comme nts GLUCOSE BEDSIDE TESTING (adolfo t code = GLUBED) 82 MG/DL 60-99 N GLUCOSE BEDSIDE [id number] 13:15:00* Test Item Value Reference Range Interpretation Comme nts GLUCOSE BEDSIDE TESTING (adolfo t code = GLUBED) 86 MG/DL 60-99 N GLUCOSE BEDSIDE [id number] 09:53:00* Test Item Value Reference Range Interpretation Comme nts GLUCOSE BEDSIDE TESTING (adolfo t code = GLUBED) 81 MG/DL 60-99 N HIV 12 AB PERCADORGBXQRLI7540-06-09 17:32:00* Test Item Value Reference Range Interpretation Comme nts AB HIV 1 2 (test code = ZNJ24DK) NON REACTIVE NON-REAC NOTE: A NONREACT SANTO RESULT INDICATES THAT HIV-1 AND HIV-2ANTIBODIES HAVE NOT BEEN FOUND IN THIS PATIENT SPECIMEN. ANON-REACTIVE RESULT, HOWEVER, DOES NOT PRECLUDE PREVIOUSEXPOSURE OR INFECTION WITH HIV1. AG HIV1 P24 (test code = KAA8I99) NON REACTIVE NONE REAC - XR CHEST 2 [id number] 17:10:00Patient Name: DELMI FLORES Unit No: [id number] EXAMS: CPT CODE: [id number] XR CHEST 2 V 61040 DICTATION LOCATION: H48 HISTORY: Male, 48 years [...] Technologist: ANDRESSA Nguyen, RT(R) Transcrpt Date/Tm/Trnsp: 01/04/2019 (1380) t.SAIMA.CLW Orig Print D/T: S: 01/04/2019 (6854) [facility]: DELMI FLORES [address] PHYS: [place] [address] : 1970 AGE: 48 SEX: M LOC: Z.SRG PHONE #: [phone] EXAM DATE: 01/04/2019 STATUS: PRE SDC FAX #: [phone] RADIOLOGY NO: PAGE 1 Signed ReportBASIC METABOLIC [...] = CA) 10.0 MG/DL 8.4-10.2 N PROTHROMBIN [id number] 17:04:00* Test Item Value Reference Range Interpretation Comme [facility] PROTHROMBIN TIME PATIENT (test code = PTP) [...] recurrent systemic embolism. 3.0 - 4.5 PTT [id number] 17:04:00* Test Item Value Reference Range Interpretation Comme [facility] PTT ACTIVATED (test code = APTT) 39.3 SECONDS 22.0-33.0 H CBC W/AUTO [id number] 16:50:00* Test Item Value Reference Range Interpretation Comme [facility] WHITE BLOOD CELL (test code = WBC) [...] NRBC#) 0.00 K/mm3 0.0-0.1 N BASIC METABOLIC [id number] 07:55:00* Test Item Value Reference Range Interpretation [...] mg/dL HIGH.........160-189 mg/dL VERY HIGH.........>/= 190 mg/dL RBYXMYWQH9135-85-37 07:55:00* Test Item Value Reference Range Interpretation Comme nts MAGNESIUM (test code = MAG) 1.7 MG/DL 1.6-2.3 N BASIC METABOLIC [id number] 07:44:00* Test Item Value Reference Range Interpretation [...] LDL (test code = LDL) MG/DL 0-99 WNOCBNVYV5332-54-08 07:44:00* Test Item Value Reference Range Interpretation Comme nts MAGNESIUM (test code = MAG) 1.7 MG/DL 1.6-2.3 N PROTHROMBIN [id number] 07:31:00* Test Item Value Reference Range Interpretation Comme [facility] PROTHROMBIN TIME PATIENT (test code = PTP) [...] recurrent systemic embolism. 3.0 - 4.5 PTT WXQFLUBKB3667-22-85 07:31:00* Test Item Value Reference Range Interpretation Comme [facility] PTT ACTIVATED (test code = APTT) 27.1 SECONDS 22.0-33.0 N CBC W/AUTO [id number] 07:18:00* Test Item Value Reference Range Interpretation [...] Notes Date/Time Note Provider Source 2019-02-28 20:17:00 XXqvtnjuhxd65708634p V+QxZZ/QLmqVPfolSoLl6syuwKVyZ Gxaa11piZgZlxBpeFF/Gg2uO2wFXsLRmR36250-86-04T41:1 7:679580-0041 [place] [address] PATIENT NAME: DELMI FLORES ADMIT DATE: 01/09/19ACCOUNT NO: [id number] ROOM NO: Z.422 AGE: 49 REPORT TYPE: [...] his job. 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 Worley on 12/24/2018 and underwent [...] MD WT: DS:MELODY/EBONIE/NTSDD: 02/28/2019 20:17:39DT: 02/28/2019 23:00:29Conf#: [id number]/DID#: [id number] PATIENT NAME: DELMI FLORES Authenticated by JEAN Alvarez On 03/05/2019 05:11:49 PM Authenticated by Ad Cummings MD On 03/05/2019 05:16:33 PM at 1716 at 1716 PATIENT NAME: DELMI FLORES isnawpl3503-17-61T38:00:00Z.LYW69991709-5118JJVqn ilable for patient zjsiRAFPIKUAOVCFMY9053-47-25H89:17:08 [facility] 2019-01-13 14:12:00 DUyeqkpxavl227257320 KsaqxjYh883OvizZ1wt2KwE5kmxT7 2vF9HtsqXZiJEpiH6SkmWYNk9WnWuQSXVB1553-31-63G26:1 2:00 [facility] ProgREPORT#:[id number] REPORT STATUS: SignedDATE:01/13/19 TIME: 1412 PATIENT: DELMI FLORES UNIT #: [id number]#: [id number] ROOM/BED: [facility]-ADOB: [birth year] AGE: 48 SEX: M ATTEND: JuanAd white Angel [facility] AUTHOR: Yolanda Mondragon NP * ALL edits [...] touch with good color.Musculoskeletal: full range of motionNeuro/PHYSICIAN ASSISTANT SURGERY: alert, oriented X 3 ResultsFindings/Data:Laboratory Tests 01/13 [...] (Auto) (14 - 44 %) 44.7 H Graves % (Auto) (4 - 13 %) 7.4 Eos % (Auto) (0 - 6 %) 1.3 Baso % (Auto) (0 - 2 %) 0.5 Neut # (Auto) (2.0 - 7.6 K/mm3) 3.95 Lymph # (Auto) (1.0 - 3.8 K/mm3) 3.85 H Graves # (Auto) (0.1 - 0.8 K/mm3) 0.64 [...] collaborating MD (Dr. Cummings) at 1417 RPT #:[id number] OF REPORTPRProgress Ngnc3322-67-35N43:12:00Z.CLQR94069047-1052PUEcuiu able for patient jakgEJUTEVCNCPMGZW9500-89-63H58:17:29 [facility] 2019-01-13 14:12:00 LSscsjtzxfh836481233 NRUY6QE8r9djruqgxYBODylZIaKOZ 1DxmzXks/LDllL1TKCPXpm87LM3MTYVEfW4246-29-45C77:1 2:00 [facility] ProgREPORT#:[id number] REPORT STATUS: SignedDATE:01/13/19 TIME: 141 PATIENT: DELMI FLORES UNIT #: [id number]#: [id number] [facility] [birth year] AGE: 48 SEX: M ATTEND: Ad Cummings [facility] AUTHOR: Yolanda Mondragon PAEDODONTIST * ALL edits or amendments must be [...] touch with good color.Musculoskeletal: full range of motionNeuro/PHYSICIAN ASSISTANT SURGERY: alert, oriented X 3 ResultsFindings/Data:Laboratory Tests 01/13 [...] (Auto) (14 - 44 %) 44.7 H Graves % (Auto) (4 - 13 %) 7.4 Eos % (Auto) (0 - 6 %) 1.3 Baso % (Auto) (0 - 2 %) 0.5 Neut # (Auto) (2.0 - 7.6 K/mm3) 3.95 Lymph # (Auto) (1.0 - 3.8 K/mm3) 3.85 H Graves # (Auto) (0.1 - 0.8 K/mm3) 0.64 [...] (Dr. Cummings) at 1417 at 1324 RPT #:[id number] OF REPORTPRProgress Zvyf8476-80-92B08:12:00Z.CODG45720321-3354PAJamxt able for patient ltymBTMYOBVIPKZNDA5482-22-41B92:24:22 [facility] 2019-01-13 12:34:00 TIsbhxrjmzp81419706B pJDanUP6Ts2n8bsUpyO/GqKTlkNNw hUtOJ7a7hLpqonsGtIHvY2MRTFEvazECA95855-76-00D72:3 4:00 [facility]entonHospital[facility] Progress NoteREPORT#:[id number] REPORT STATUS: SignedDATE:01/13/19 TIME: 1234 PATIENT: DELMI FLORES UNIT #: [id number]#: [id number] ROOM/BED: [facility]-ADOB: [birth year] AGE: 48 SEX: M ATTEND: Ad [...] clubbing, no cyanosisMusculoskeletal: normal inspection, no muscle spasmNeuro/PHYSICIAN ASSISTANT SURGERY: alert, oriented X 3, normal speech, no [...] exercise) Tobacco Use/CounselingTobacco use/counseling: tobacco user, cessation mental health counselor <3 min HTN Screening/Follow-upB/P assess/follow-up: pre-existing hx of HTN at 1711 RPT #:[id number] OF REPORTPRProgress Yomh8908-67-47J38:34:00Z.STBD73693379-4043YAXskyn able for patient zbjgRTGOYOVNTTZIML0567-45-67E54:11:28 [facility] 2019-01-13 06:29:00 LGjydkzaxsy179453427 AzQFY9gRrZLqD/36vqs7GEMRxB8+T hRHmn6g3IJZO+GaXIjo4a0YtM37uQoPDdO5786-32-57Y47:2 9:00 [facility] ([facility])Cardiology Progress NoteREPORT#:[id number] REPORT STATUS: SignedDATE:01/13/19 TIME: 628 PATIENT: DELMI FLORES UNIT #: [id number]#: [id number] ROOM/BED: [facility]-ADOB: [birth year] AGE: 48 SEX: M ATTEND: Ad Cummings [facility] AUTHOR: Gilberto Bonds MD * ALL edits [...] of motion, normal inspection, straight leg raise negNeuro/PHYSICIAN ASSISTANT SURGERY: alert, oriented X 3, CN II-XII intactSkin: [...] quit smoking. D/C planning at 0743 RPT #:[id number] OF REPORTPRProgress Ousq6945-93-52L67:29:00Z.BAEW48332077-2984CTPmlze able for patient fousIASNYSXUEAGZJX9657-16-77W50:43:35 [facility] 2019-01-12 19:37:00 ADoaylpyqqr52384141L 6vJvRlDytjuLSGfMdf5xlUrQOLjW6 dUTQyfS5dMx4UzBr1sCnGEqPTXZLtY8Pgo0989-32-69Q05:3 7:00 [facility] ProgREPORT#:[id number] REPORT STATUS: SignedDATE:01/12/19 TIME: 1936 PATIENT: DELMI FLORES UNIT #: [id number]#: [id number] ROOM/BED: [facility]-ADOB: [birth year] AGE: 48 SEX: M ATTEND: Ad Cummings [facility] AUTHOR: Ml Marie * ALL edits or [...] touch with good color.Musculoskeletal: full range of motionNeuro/PHYSICIAN ASSISTANT SURGERY: alert, oriented X 3 Diagnosis, Assessment PlanFree Text A P:This is a 48 y/m severe PVD, HTN, HLD, CAD, s/p CABs/p Redo left femoral to posterior tibial artery bypass with cryopreserved SVGOn Plavix/ASA/BB/StatinETOH Abuse- on MVI/Thiamine/FolicExpected acute blood loss anemia- started on Feosol with ColaceEncouraged IS and ambulation/Cont PT/OTPlan for discharge home in am at 193 RPT #:[id number] OF REPORTPRProgress Qbwa7917-21-19A77:37:00Z.GJKN38714610-0592XMSplcj able for patient yaycQYXZIDCFBRDFJA1164-87-57H47:40:04 [facility] 2019-01-12 19:37:00 MWcbgoaiqtd08565283F G7P5fv57cSS6af5rE65iCQ4/ItrN6 8O/vZQ+CekeLsvcmmCSOCE04Rhjbu4qt841059-19-08V23:3 7:00 [facility] ([facility])Cardiovascular Surgery ProgREPORT#:[id number] REPORT STATUS: SignedDATE:01/12/19 TIME: 1936 PATIENT: DELMI FLORES UNIT #: [id number]#: [id number] ROOM/BED: [facility]-ADOB: [birth year] AGE: 48 SEX: M ATTEND: Ad [...] touch with good color.Musculoskeletal: full range of motionNeuro/PHYSICIAN ASSISTANT SURGERY: alert, oriented X 3 Diagnosis, Assessment PlanFree Text A P:This is a 48 y/m severe PVD, HTN, HLD, CAD, s/p CABs/p Redo left femoral to posterior tibial artery bypass with cryopreserved SVGOn Plavix/ASA/BB/StatinETOH Abuse- on MVI/Thiamine/FolicExpected acute blood loss anemia- started on Feosol with ColaceEncouraged IS and ambulation/Cont PT/OTPlan for discharge home in am at 1939 at 1457 RPT #:[id number] OF REPORTPRProgress Lkya0225-72-57I10:37:00Z.YMPL37898634-2740PZLbmfh able for patient uctfASYZDUORWHMYIT4441-29-17L17:57:20 [facility] 2019-01-12 15:37:00 WJotexadxkp39488938Q WyakXyJbU5BdtUI+gSA997xEd0x0q CCnn5r+5SpnFR3SDW05TOQtItmtB5CMJpK8149-19-15U50:3 7:00 [facility] ([facility])Cardiology Progress NoteREPORT#:[id number] REPORT STATUS: SignedDATE:01/12/19 TIME: 1537 PATIENT: DELMI FLORES UNIT #: [id number]#: [id number] ROOM/BED: [facility]-ADOB: [birth year] AGE: 48 SEX: M ATTEND: Ad [...] of motion, normal inspection, straight leg raise negNeuro/PHYSICIAN ASSISTANT SURGERY: alert, oriented X 3, CN II-XII intactSkin: [...] IS Ambulate Advised to quit smoking. at [facility] RPT #:[id number] OF REPORTPRProgress Undd0373-09-93I44:37:00Z.BNWQ69930832-8030WCLlwzv able for patient vbzaHWETDDXKWVQZWA7705-22-73Z56:01:54 [facility] 2019-01-12 14:18:00 GBxlrndrdfm05419418h +vMUXw8z3N6ITVfHApx76WiNepdtu cUu+z+P1/Gh+EqTxWrKCUzauBKpQ5XdfCL8995-35-53Y80:1 8:00 [facility] ([facility])Hospitalist Progress NoteREPORT#:[id number] REPORT STATUS: SignedDATE:01/12/19 TIME: 1417 PATIENT: DELMI FLORES UNIT #: [id number]#: [id number] ROOM/BED: [facility]-ADOB: [birth year] AGE: 48 SEX: M ATTEND: Ad [...] clubbing, no cyanosisMusculoskeletal: normal inspection, no muscle spasmNeuro/PHYSICIAN ASSISTANT SURGERY: alert, oriented X 3, normal speech, no [...] (to discuss diet exercise) at 1946 RPT #:[id number] OF REPORTPRProgress Gedj8108-04-51G61:18:00Z.KJLM04787504-7108AQLjqus able for patient dhdcRDXRQEHQJNCASX1163-32-96W76:46:54 [facility] 2019-01-11 19:30:00 RTupcqfeuti37629088M QsxNawexjX/bAX6plXGJf4rtvcDXy Kd59ZEhsijiOr4K46YW0aHkLtNs299ICMP7354-15-37E71:3 0:00 [facility] ProgREPORT#:[id number] REPORT STATUS: SignedDATE:01/11/19 TIME: 1929 PATIENT: DELMI FLORES UNIT #: [id number]#: [id number] ROOM/BED: [facility]-ADOB: [birth year] AGE: 48 SEX: M ATTEND: Ad Cummings [facility] AUTHOR: Ml Marie * ALL edits or [...] touch with good color.Musculoskeletal: full range of motionNeuro/PHYSICIAN ASSISTANT SURGERY: alert, oriented X 3 ResultsFindings/Data:Laboratory Tests 01/12 [...] % (Auto) (14 - 44 %) 34.0 Graves % (Auto) (4 - 13 %) 6.3 Eos % (Auto) (0 - 6 %) 0.3 Baso % (Auto) (0 - 2 %) 0.3 Neut # (Auto) (2.0 - 7.6 K/mm3) 6.42 Lymph # (Auto) (1.0 - 3.8 K/mm3) 3.71 Graves # (Auto) (0.1 - 0.8 K/mm3) 0.69 [...] on WednesdayD/C central line at 1936 RPT #:[id number] OF REPORTPRProgress Znzb8415-15-00K62:30:00Z.CQAO36496439-2123AXAcimx able for patient tcnzBPURSCKNWSPIPB3737-16-30F76:36:23 [facility] 2019-01-11 19:30:00 JCinujlrgfu68540877C [facility]/q2qQX7NCTbTh+R887Mu5ADT Y68H1WG81k8DDom31CIAUFczgsSVgg58A30906-33-74W90:3 0:00 [facility] ([facility])Cardiovascular Surgery ProgREPORT#:[id number] REPORT STATUS: SignedDATE:01/11/19 TIME: 1929 PATIENT: DELMI FLORES UNIT #: [id number]#: [id number] [facility] [birth year] AGE: 48 SEX: M ATTEND: Ad [...] touch with good color.Musculoskeletal: full range of motionNeuro/PHYSICIAN ASSISTANT SURGERY: alert, oriented X 3 ResultsFindings/Data:Laboratory Tests 01/11 [...] % (Auto) (14 - 44 %) 34.0 Graves % (Auto) (4 - 13 %) 6.3 Eos % (Auto) (0 - 6 %) 0.3 Baso % (Auto) (0 - 2 %) 0.3 Neut # (Auto) (2.0 - 7.6 K/mm3) 6.42 Lymph # (Auto) (1.0 - 3.8 K/mm3) 3.71 Graves # (Auto) (0.1 - 0.8 K/mm3) 0.69 [...] central line at 1936 at 1502 RPT #:[id number] OF REPORTPRProgress Xxis6502-96-08V08:30:00Z.IOUR71757632-8511HFEavla able for patient trrsXSBJGBFLNERXJH9741-58-92G34:02:42 [facility] 2019-[facility] 16:16:00 FJhicxoejtp741292094 z2Nrna794tRffgArEQYQkHMqMINCO ceNFAeB0aniN8qQxyL0v374v2cC81qxX7p0568-51-39E66:1 6:00 [facility] ([facility])Hospitalist Progress NoteREPORT#:[id number] REPORT STATUS: SignedDATE:01/11/19 TIME: 161 PATIENT: DELMI FLORES UNIT #: [id number]#: [id number] ROOM/BED: [facility]-ADOB: [birth year] AGE: 48 SEX: M ATTEND: Ad [...] clubbing, no cyanosisMusculoskeletal: normal inspection, no muscle spasmNeuro/PHYSICIAN ASSISTANT SURGERY: alert, oriented X 3, normal speech, no [...] % (Auto) (14 - 44 %) 34.0 Graves % (Auto) (4 - 13 %) 6.3 Eos % (Auto) (0 - 6 %) 0.3 Baso % (Auto) (0 - 2 %) 0.3 Neut # (Auto) (2.0 - 7.6 K/mm3) 6.42 Lymph # (Auto) (1.0 - 3.8 K/mm3) 3.71 Graves # (Auto) (0.1 - 0.8 K/mm3) 0.69 [...] exercise) Tobacco Use/CounselingTobacco use/counseling: tobacco user, cessation mental health counselor <3 min HTN Screening/Follow-upB/P assess/follow-up: pre-existing hx of HTN at 1748 RPT #:[id number] OF REPORTPRProgress Ogje5761-57-48O73:16:00Z.UKEU42546824-8398QVWiutl able for patient rntmQZWMFNQWWJQOQD1419-44-43M81:48:28 [facility] 2019-01-11 07:49:00 QWnehikcstl68115926O 2yQiK31XoCzuYhA2A1hdxtL8LzHiS N+aeLb67DUUcOjTaCAcViouTmYws31ainx9988-49-66M71:4 9:00 [facility] ([facility])Cardiology Progress NoteREPORT#:[id number] REPORT STATUS: SignedDATE:01/11/19 TIME: 0749 PATIENT: DELMI FLORES UNIT #: [id number]#: [id number] ROOM/BED: [facility]-ADOB: [birth year] AGE: 48 SEX: M ATTEND: Ad Cummings [facility] AUTHOR: Gilberto Bonds MD * ALL edits [...] 01/10 2130 58 14 118/69 89 95 /16 2100 64 14 125/65 90 95 / 2030 67 16 119/62 85 95 01/10 2000 97.9 01/10 2000 63 18 108/58 77 95 01/10 [...] of motion, normal inspection, straight leg raise negNeuro/PHYSICIAN ASSISTANT SURGERY: alert, oriented X 3, CN II-XII intactSkin: [...] % (Auto) (14 - 44 %) 34.0 Graves % (Auto) (4 - 13 %) 6.3 Eos % (Auto) (0 - 6 %) 0.3 Baso % (Auto) (0 - 2 %) 0.3 Neut # (Auto) (2.0 - 7.6 K/mm3) 6.42 Lymph # (Auto) (1.0 - 3.8 K/mm3) 3.71 Graves # (Auto) (0.1 - 0.8 K/mm3) 0.69 [...] Advised to quit smoking. at 1755 RPT #:[id number] OF REPORTPRProgress Ibyw5530-33-26F37:49:00Z.IONJ95852128-4629UQKdrsz able for patient kqrjZCYZFGKGVWXDBQ6480-98-82E35:55:28 [facility] 2019-01-10 15:11:00 LVgzrcfrlrk38794768U d1k9+EsSOsa9FaxyoH4K/iCFMsVL5 JmE2CZJuT1/i6AREMoRwMgtUGaGNVruIV/0943-85-64G84:1 1:218740-5212 [place] [address] PATIENT NAME: DELMI FLORES ADMIT DATE: 01/09/19ACCOUNT NO: [id number] ROOM NO: Z.SI04 AGE: 48 REPORT TYPE: CONSULTATION REPORT SEX: M ADMITTING PHYSICIAN:Ad Cummings MD ATTENDING PHYSICIAN:Ad Cummings MD CONSULTATION DATE: 01/09/2019 CONSULTING PHYSICIAN: Hudson Chong MD INTERNAL MEDICINE CONSULTATION REFERRING PHYSICIAN: Ad Cumminsg MD REASON FOR CONSULTATION: Management of medical [...] extremityas well. He was seen by his electric motor analyst, Dr. Saurabh Worley and underwentaortogram as well [...] drugs. 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 He is and has 4 children. FAMILY [...] 97.9, pulse 62, respiratory rate 16, blood pdylvoxd520/60, pulse ox 96%. BMI 27.4.HEENT: Atraumatic, normocephalic, [...] MD WT: CON:ZSANGEETA/DOROTHY/NTSDD: 01/10/2019 15:11:39DT: 01/10/2019 15:47:42Conf#: [id number]/DID#: [id number] Authenticated by Hudson Chong MD On 01/10/2019 08:24:48 PM at 2024 PATIENT NAME: DELMI FLORES :47:00Z.VT [id number] for patient zqfjVAZMIJCYNOSXLO2783-20-69E85:25:33 [facility] 2019-01-10 10:54:00 [id number] B0C/SoWBgGhObixPFCMQ3LGnkOgrL XAbStK+MZeGRoTBqR5inAlOZsn31hZIWmY6142-67-94R25:5 4:00 [facility] ([facility] SYSTEMAdult General ConsultationREPORT#:[id number] REPORT STATUS: SignedDATE:01/10/19 TIME: 1054 PATIENT: DELMI FLORES UNIT #: [id number]#: [id number] [address] AGE: 48 SEX: M ATTEND: Ad Cummings MDADM AUTHOR: Hudson Chong MD * ALL edits or amendments must be made on the electronic/computer document * History - Adult longitudinalAllergies:Coded Allergies:No Known Allergies (01/13/18) Diagnosis, Assessment Plan Free Text DxA P NotesFree Text DxA P Notes: CONSULT DICTATED: # [id number] Quality MedicationsCurrent medication review:I attest that the foregoing medication list in the medical record is true, accurate, and complete to the best of my knowledge. 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 mental health counselor <3 min HTN Screening/Follow-upLast documented vitals:Last Documented: Result Date Time Pulse Ox 98 01/10 1209 FiO2 21 01/10 1209 O2 Delivery Room air 01/10 1209 B/P 130/62 01/10 1200 B/P Mean 84 01/10 1200 Temp 97.8 01/10 1200 Pulse 63 01/10 1200 Resp 12 01/10 1200 B/P assess/follow-up: pre-existing hx of HTN at 1513 RPT #:[id number] OF REPORTHSNaxiwyygmtqk4585-15-24Y51:54:00Z.PDOC2 [id number] for patient zfsrTYAUNFUATODJFH1153-76-21C57:13:45 [facility] 2019-01-10 10:41:00 [id number] x00qWr/hA9SfHDDvRNV6AzqWNL3hV OIBTA3Do1QMJYRqsUx5Uf1FtcIqmNcefJL8697-70-16G91:4 1:00 [facility] ProgREPORT#:[id number] REPORT STATUS: SignedDATE:01/10/19 TIME: 1041 PATIENT: DELMI FLORES UNIT #: [id number]#: [id number] [address]: [address] AGE: 48 SEX: M ATTEND: Ad Cummings [facility] AUTHOR: Yolanda Mondragon PAEDODONTIST * ALL edits or amendments must be [...] MLGlycopyrrolate 0 .STK-MED ONE .ROUTE (DC) Neostigmine [place] 0 .STK-MED ONE .ROUTE (DC) Ephedrine Sulfate 0 .STK-MED ONE .ROUTE (DC) Dexamethasone Sodium Phosphate 0 .STK-MED ONE .ROUTE (DC) Papaverine HCl 0 .STK-MED ONE .ROUTE (DC) Rocuronium [place] 0 .STK-MED ONE .ROUTE (DC) Lidocaine HCl [...] non palpable), moves allMusculoskeletal: full range of motionNeuro/PHYSICIAN ASSISTANT SURGERY: alert, oriented X 3 ResultsFindings/Data:Laboratory Tests 01/09 [...] (14 - 44 %) 11.4 L 24.1 Graves % (Auto) (4 - 13 %) 4.8 2.8 L Eos % (Auto) (0 - 6 %) 0.0 0.6 Baso % (Auto) (0 - 2 %) 0.1 0.3 Neut # (Auto) (2.0 - 7.6 K/mm3) 7.90 H 7.35 Lymph # (Auto) (1.0 - 3.8 K/mm3) 1.08 2.47 Graves # (Auto) (0.1 - 0.8 K/mm3) 0.46 [...] disease. Good position for thecentral line. Location: P49Ffceaedgnx [facility] Ad Eng MDRADIOLOGY - XR CHEST 1V 01/10 0605 Report Impression - Status: SIGNED Entered: 01/10/2019 0808 IMPRESSION:Mild cardiomegaly with no acute pulmonary process.Impression By: Stacy7 Mable Chaney MD Diagnosis, Assessment PlanFree Text A [...] collaborating MD (DR. Cummings) at 1803 RPT #:[id number] OF REPORTPRProgress Jyot3344-60-63J21:41:00Z.ZGZR24056813-2850ALCtwny able for patient aojeMGHCTZDUGIRALL9008-36-12V34:03:54 [facility] 2019-01-10 10:41:00 NJrvpwdawan50043245x okhujYiub3JeunE1qYYpKpLGweB3t qnOdpdgRgkEsDuzLLn/kMl9WDYaoR9oAcE5956-27-18Z84:4 1:00 [facility] ProgREPORT#:[id number] REPORT STATUS: SignedDATE:01/10/19 TIME: 1041 PATIENT: DELMI FLORES UNIT #: [id number]#: [id number] ROOM/BED: [facility]-ADOB: [birth year] AGE: 48 SEX: M ATTEND: Ad Cummings AUTHOR: Yolanda Mondragon PAEDODONTIST * ALL edits or amendments must be [...] MLGlycopyrrolate 0 .STK-MED ONE .ROUTE (DC) Neostigmine [place] 0 .STK-MED ONE .ROUTE (DC) Ephedrine Sulfate 0 .STK-MED ONE .ROUTE (DC) Dexamethasone Sodium Phosphate 0 .STK-MED ONE .ROUTE (DC) Papaverine HCl 0 .STK-MED ONE .ROUTE (DC) Rocuronium [place] 0 .STK-MED ONE .ROUTE (DC) Lidocaine HCl [...] non palpable), moves allMusculoskeletal: full range of motionNeuro/PHYSICIAN ASSISTANT SURGERY: alert, oriented X 3 ResultsFindings/Data:Laboratory Tests 01/09 [...] (14 - 44 %) 11.4 L 24.1 Graves % (Auto) (4 - 13 %) 4.8 2.8 L Eos % (Auto) (0 - 6 %) 0.0 0.6 Baso % (Auto) (0 - 2 %) 0.1 0.3 Neut # (Auto) (2.0 - 7.6 K/mm3) 7.90 H 7.35 Lymph # (Auto) (1.0 - 3.8 K/mm3) 1.08 2.47 Graves # (Auto) (0.1 - 0.8 K/mm3) 0.46 [...] disease. Good position for thecentral line. Location: L86Cearjugwxd By: Sarah - Ad Eng MDRADIOLOGY - [...] (DR. Cummings) at 1803 at 1507 RPT #:[id number] OF REPORTPRProgress Dhjh1774-84-97S62:41:00Z.WYOZ70891016-5354OUDwnks able for patient ehskHJFZRWGEHAEWXB5582-26-25Z27:07:32 [facility] 2019-01-10 06:17:00 WSwreyttcpt31182617Q loiutG2pvLOCgWKW7egTIuAmDm765 xdyrrsOiyBTfF2AC5191jTacWlkE2bK3359908-94-81P51:1 7:00 [facility] ([facility])Cardiology Progress NoteREPORT#:[id number] REPORT STATUS: SignedDATE:01/10/19 TIME: 616 PATIENT: DELMI FLORES UNIT #: [id number]#: [id number] [facility] AGE: 48 SEX: M ATTEND: Ad Cummings MDA AUTHOR: Gilberto Bonds MD * ALL edits [...] MLGlycopyrrolate 0 .STK-MED ONE .ROUTE (DC) Neostigmine [place] 0 .STK-MED ONE .ROUTE (DC) Ephedrine Sulfate 0 .STK-MED ONE .ROUTE (DC) Dexamethasone Sodium Phosphate 0 .STK-MED ONE .ROUTE (DC) Papaverine HCl 0 .STK-MED ONE .ROUTE (DC) Rocuronium [place] 0 .STK-MED ONE .ROUTE (DC) Lidocaine HCl [...] of motion, normal inspection, straight leg raise negNeuro/PHYSICIAN ASSISTANT SURGERY: alert, oriented X 3, CN II-XII intactSkin: [...] % (Auto) (14 - 44 %) 24.1 Graves % (Auto) (4 - 13 %) 2.8 L Eos % (Auto) (0 - 6 %) 0.6 Baso % (Auto) (0 - 2 %) 0.3 Neut # (Auto) (2.0 - 7.6 K/mm3) 7.35 Lymph # (Auto) (1.0 - 3.8 K/mm3) 2.47 Graves # (Auto) (0.1 - 0.8 K/mm3) 0.29 Eos # (Auto) (0.0 - 0.2 K/mm3) 0.06 Baso # (Auto) (0.0 - 0.2 K/mm3) 0.03 Immature Gran % (0.0 - 2.0 %) 0.6 Nucleated RBC % (0 - 1.0 %) 0.0 Nucleated RBCs # (Man) (0.0 - 0.1 K/mm3) 0.00 Laboratory Tests 01/09 1857 Chemistry Magnesium (1.6 - 2.3 MG/DL) 1.5 L Radiology data:Recent Impressions:RADIOLOGY - XR CHEST 1V 07/15 1944 Report Impression - Status: SIGNED Entered: 01/09/20191956 IMPRESSION: No acute cardiopulmonary disease. Good position for thecentral line. Location: R79Xvaticspqr By: Sarah - Ad Eng MD Diagnosis, Assessment Plan Free Text DxA P NotesFree Text DxA P Notes:IMP: Severe PVD s/p LLE Fem-pop bypass 12/2017 now with occluded graft s/p LLE fem-tib bypass CAD - s/p ACB Tobacco abuse REC: Continue home medications IS Ambulate Advised to quit smoking. at 0724 RPT #:[id number] OF REPORTPRProgress Pzyp1031-93-18X80:17:00Z.DXWX01787943-5493SCRgwju able for patient pihhEHMESMUSTJYXXR7392-94-35N45:24:40 [facility] 2019-01-10 03:59:00 GLybfzfodkw10887498J /HROklzVa0SbnU6RnvULFYmKklmT8 PZtogw3OUHqnQKWsL7+dNhwa0neg0DbPO66916-39-58Y58:5 9:[id number] [address] PATIENT NAME: DELMI FLORES ADMIT DATE: 01/09/19ACCOUNT NO: [id number] ROOM NO: [facility] AGE: 48 REPORT TYPE: ELECTROCARDIOGRAM SEX: M ADMITTING PHYSICIAN:Ad Cummings MD ATTENDING PHYSICIAN:Ad Cummings MD Order:[id number] Reason : CAD Test Date/Time Stamp:WedJan 10 [...] WORLEY at 0707 PATIENT NAME: DELMI FLORES .[id number] AVAvailable for patient yqagDVDTOKIRLZAQTN4928-27-31U79:07:31 [facility] 2019-01-09 20:54:00 [id number] ZHcXvQzH5wZB6xXgoW+HtW1GlWCMb fsLLf14hGXCzFa0qRxw0HOAfOQ7TLh66uy5599-96-36M40:5 4:[id number] [place] [address] PATIENT NAME: DELMI FLORES ADMIT DATE: 01/09/19ACCOUNT NO: [id number] ROOM NO: Z.SI04 AGE: 48 REPORT TYPE: ELECTROCARDIOGRAM SEX: M ADMITTING PHYSICIAN:Ad Cummings MD ATTENDING PHYSICIAN:Ad Cummings MD Order:[id number] Reason : CAD Test Date/Time Stamp:WedJan 09 [...] WORLEY at 0707 PATIENT NAME: DELMI FLORES .[id number] AVAvailable for patient ecwwENZZJBFQPDBAZP7601-15-12T53:07:22 [facility] 2019-01-09 18:44:00 RTngmqbiwnv62793634l clKv2/V0N11uskz3gmM4b+Kq1Utqb YbquLQHGaqTpSLDdGNhV+Jf9P1WgKeIz+F4648-48-35Q11:4 4:830945-1987 [place] [address] PATIENT NAME: DELMI FLORES ADMIT DATE: 01/09/19ACCOUNT NO: [id number] ROOM NO: [facility] AGE: 49 REPORT TYPE: OPERATIVE REPORT [...] cryopreserved saphenous vein. SURGEON: Ad Cummings MD FINANCIAL AID ADVISOR: Ml Marie PA-C ANESTHESIA: General. COMPLICATIONS: None. [...] MD WT: OP:ZSANGEETA/DENG/NTSDD: 01/09/2019 18:44:39DT: 01/09/2019 21:30:25Conf#: [id number]/DID#: [id number] cc: Dr. Hugo Worley MD Authenticated by Ad Cummings MD On 02/25/2019 01:10:36 PM at 1311 PATIENT NAME: DELMI FLORES kpjhpq2876-41-94J52:30:00Z.EPX04992398-7492RHPwyr lable for patient zufxZZQNXRIGTUPKAU2040-92-56M12:11:14 [facility] 2019-01-09 18:33:00 RHemcehsmrp95899403r hE1uyvAJYs/HAZCWJTLkdB0fJ4bhp vpPACEy3dbZAkHc8FXMeGiPO99d6vL7L5w3146-91-10X71:3 3:00 [facility] ([facility])Brief Op NoteREPORT#:[id number] REPORT STATUS: SignedDATE:01/09/19 TIME: 1832 PATIENT: DELMI FLORES UNIT #: [id number]#: [id number] [address] AGE: 48 SEX: M ATTEND: Ad [...] Catheter PlacedDisposition: ICU, stable at 1836 RPT #:[id number] OF REPORTOPOperative atzgpu6528-74-14N91:33:00Z.AKNH71790770-4131PUDyc ilable for patient xevhAALJRECHMUYUET5606-42-94U43:36:43 [facility] 2019-01-09 16:00:00 NYpppcqnvxd61755216o 8oBh9j9FXfIP+Nz/CVqyN/ZwGeGwO MsgHyiK9TATqSO0ON06pIsDakFAMHoYUeD9051-71-13L58:0 0:275650-3284 [place] [address] PATIENT NAME: DELMI FLORES ADMIT DATE: 01/09/19ACCOUNT NO: [id number] ROOM NO: Z.422 AGE: 49 REPORT TYPE: [...] is a 48-year-old male well known to [facility] with a history of severe peripheral vascular [...] MD WT: HP:MELODY/EBONIE/NTSDD: 01/09/2019 16:00:31DT: 01/09/2019 18:33:46Conf#: [id number]/DID#: [id number] by JEAN Alvarez On 01/11/2019 09:58:26 PM Authenticated by Ad Cummings MD On 02/25/2019 01:10:32 PM at 1310 at 1310 PATIENT NAME: DELMI FLORES and physical sebgmqbxyvd5733-17-42T34:33:00Z.TXZ12755426-9505Y VAvailable for patient ebvsYKLWGUTDPNYMCR5271-51-43I73:11:04 [facility] 2019-01-04 15:49:00 FDlgwitvhfl42221342I X0+F0EO55FEDYyjlQ9jxsD3bjbR5J dfFCVw2Fco+pu27b2YF/wGQhQmugQgEWqr4492-63-72M33:4 9:553787-4401 [place] [address] PATIENT NAME: DELMI FLORES ADMIT DATE: ACCOUNT NO: [id number] ROOM NO: AGE: 48 REPORT TYPE: ELECTROCARDIOGRAM SEX: M ADMITTING PHYSICIAN: ATTENDING PHYSICIAN:Ad Cummings MD Order:[id number] Reason : PREOP Test Date/Time Stamp:WedJan 04 [...] WORLEY at 1115 PATIENT NAME: DELMI FLORES .[id number] AVAvailable for patient jlvhWQQQNEZOXMVKFN4251-91-39L84:15:23 [facility] 2018-12-24 09:05:00 OKxsefmxbyk60960588e 18hvElryZkA4JxPS2pXHHmOU3RhIV l3+fZKc6+ENGINEERING TECHNOLOGIST+X3+8cC4FJmIzL8nFiRfLSN0227-77-33K42:0 5:721274-6950 [place] [address] PATIENT NAME: DELMI FLORES ADMIT DATE: 12/24/18ACCOUNT NO: [id number] ROOM NO: AGE: 48 REPORT TYPE: CARDIAC CATHETERIZATION REPORT SEX: M ADMITTING PHYSICIAN: ATTENDING PHYSICIAN:Saurabh Worley MD PROCEDURE DATE: 12/24/2018 CARDIOLOGY PROCEDURE DUPLEX TRIMMER: Saurabh Worley MD INDICATION FOR THE PROCEDURE: [...] common femoral artery area for localanesthesia. A 6-Mongolian sheath was placed in the right common [...] bypass is occluded. The selective angiogram with [employer] coronary catheter over a Glidewire of the [...] MD WT: CATH:CURTIS/LIZ/NTSDD: 12/24/2018 09:05:54DT: 12/24/2018 10:45:23Conf#: [id number]/DID#: [id number] Authenticated by Saurabh Worley MD On 12/24/2018 12:10:26 PM at 1210 PATIENT NAME: DELMI FLORES Bqcp7387-25-56G70:45:00Z.ELM91695071-0290NOCadvju ble for patient yqweUCVPZVHFGUUNLE8101-16-07Z52:10:55 [facility] 2018-12-24 07:15:00 LHfltaavflx85960883A rkypLkTpvj4BXFH+9aJHYkrfvJKQR sykjrFvKViqud3dvJ2lQjYhgDmljebQqdx6458-69-47Z32:1 5:[id number] [place] [address] PATIENT NAME: DELMI FLORES ADMIT DATE: 12/24/18ACCOUNT NO: [id number] ROOM NO: AGE: 48 REPORT TYPE: ELECTROCARDIOGRAM SEX: M ADMITTING PHYSICIAN: ATTENDING PHYSICIAN:Saurabh Worley MD Order:[id number] Reason : CAD Test Date/Time Stamp:WedDec 24 [...] WORLEY at 1036 PATIENT NAME: DELMI FLORES .[id number] AVAvailable for patient nqvxCGCUJNDOWMSNDB0363-26-52W90:36:53 [facility] 2018-12-23 07:15:00 AFqsmqlzokb68064330y S/QAnKbciFmNBF6xDXLeBRIBhu4Gz HPn0Ku7Erit5Oo2A8hV6UQZ/kM8XcUNMQ27944-71-52S00:1 5:114850-6289 [place] [address] PATIENT NAME: DELMI FLORES ADMIT DATE: ACCOUNT NO: [id number] ROOM NO: AGE: 48 REPORT TYPE: HISTORY AND PHYSICAL SEX: M ADMITTING PHYSICIAN: ATTENDING PHYSICIAN:Saurabh Worley MD PATIENT NAME: DELMI FLORES ADMIT DATE:12/24/2018ADMISSION DATE: 12/24/2018 DUPLEX TRIMMER: Saurabh Worley MD REASON FOR ADMISSION: Abdominal [...] MD WT: HP:MELODY/LIZ/EARLEDD: 12/23/2018 07:15:37DT: 12/23/2018 08:55:07Conf#: [id number]/DID#: [id number] PATIENT NAME: DELMI FLORES cc: Ad Cummings MDAuthenticated and Edited by Saurabh Worley MD On 12/23/18 5:55:12 PM at 1757 PATIENT NAME: DELMI FLORES and physical oebfobheonp5107-46-48G56:55:00Z.RIW48082373-7900I VAvailable for patient szjkQBIPBQTNMTSQCO7048-76-12P60:58:03 [facility]
[2023-10-10 19:56] LABS: Absolute Basophils 0.1 K/uL (0-0.5); Absolute Eosinophils 0.1 K/uL (0-0.5); Absolute Monocytes 0.4 K/uL (0.1-1.3); Absolute Neutrophil 3.3 K/uL (1.8-8.0); Basophils % 0.9 % (0-1.3); Eosinophils % 0.8 % (0-4.4); Hemoglobin 12.9 g/dL (13.6-17.9); Lymphocytes % 56.4 % (15.3-44.8); MCH 35.9 pg (27.0-35.0); MCHC 34.8 g/dL (32.0-36.0); MCV 103.3 fL (80-100); MPV 8.2 fL (7.6-11.3); Monocytes % 4.9 % (3.3-12.3); Nucleated Red Blood Cells % 0.3 % (0-0); Platelets 150 thou/uL (152-406); RBC Red Blood Cell Count 3.58 M/uL (4.33-5.43); Red Cell Distribution Width 13.1 % (12.1-15.2)
[2023-10-10 19:59] LABS: PT Prothrombin Time 10.7 SECONDS (9.5-12.5); Protime INR 0.97
[2023-10-10 20:35] LABS: Albumin 3.2 g/dL (3.4-5.0); Albumin/Globulin Ratio 0.7 (1.1-1.8); Anion Gap 13.7 mEq/L (5.0-15.0); Bilirubin Direct 0.1 mg/dL (0-0.2); Bilirubin Indirect, Calculated 0.3 mg/dL (0.2-0.8); Bilirubin Total 0.4 mg/dL (0.2-1.0); Globulin 4.4 g/dL (2.3-3.5); Magnesium 1.9 mg/dL (1.6-2.4); Potassium 3.7 mEq/L (3.5-5.1); Protein, Total 7.6 g/dL (6.4-8.2); Troponin High Sensitivity 17.5 pg/mL (<58.9)
--- NOTE | 2023-10-10 20:39 | RAD REPORT ---
EXAM DESCRIPTION: Ron Single View10/10/2023 8:28 pm CLINICAL HISTORY: CHEST PAIN COMPARISON: THORAX WO CONTRAST dated 02/25/2013 TECHNIQUE: Portable AP view of the chest. FINDINGS: The lungs are clear. No pneumothorax or effusion. The cardiomediastinal contours are unch anged, with sequelae of median sternotomy. IMPRESSION: No acute cardiopulmonary process.
[2023-10-10] MEDS ORDERED: NA CHLORIDE 0.9% 500 ML ONE (20:52)
--- NOTE | 2023-10-10 21:13 | ER ---
Nurse's Notes [facility] Name: Jose L Mathew Age: 53 yrs Sex: Male : 1970 Arrival Date: 10/10/2023 Time: 19:14 Bed 14 Private MD: Diagnosis: Chest pain, unspecified;Hypo-osmolality and hyponatremia Presentation: 10/09 19:19 Chief complaint: EMS states: HE WAS WATCHING TV WHEN HE SUDDENLY STARTED TO FEEL CHEST ha1 PAIN. 324 mg OF ASPIRIN WERE GIVEN. DENIES ANY PAIN AT THIS MOMENT. Coronavirus screen: Vaccine status: Patient reports being unvaccinated. Ebola Screen: No symptoms or risks identified at this time. Initial Sepsis Screen: Does the patient meet any 2 criteria? No. Patient's initial sepsis screen is negative. Does the patient have a suspected source of infection? No. Patient's initial sepsis screen is negative. Risk Assessment: Do you want to hurt yourself or someone else? Patient reports no desire to harm self or others. Onset of symptoms was October 10, 2023. 19:19 Method Of Arrival: EMS: [facility] ha1 19:19 Acuity: URBANO 2 ha1 Historical: - Allergies: 19:23 No Known Allergies; ha1 - PMHx: 19:23 High Cholesterol; Hypertensive disorder; UT; ha1 - PSHx: 19:23 CAB; ha1 - Immunization history:: Adult Immunizations not up to date. - Infectious Disease History:: Denies. - Social history:: Smoking status: Patient reports the use of cigarette tobacco products, smokes one pack cigarettes per day. Screenin:30 Abuse screen: Denies threats or abuse. Denies injuries from another. Nutritional ha1 screening: No deficits noted. Tuberculosis screening: No symptoms or risk factors identified. Assessment: 19:25 Reassessment: SEE TRIAGE ASSESSMENT. ha1 20:25 Reassessment: Patient and/or family updated on plan of care and expected duration. Pain ha1 level reassessed. Patient is alert, oriented x 3, equal unlabored respirations, skin warm/dry/pink. 20:30 Reassessment: PT. REQUESTING TO BE DISCHARGE NOTIFIED CARE PROVIDER PAGE. EXPLAINED THE ha1 NEED FOR ADMIT DUE TO LOW SODIUM LEVELS. Vital Signs: 19:19 BP 115 / 77; Pulse 73; Resp 18 S; Temp 97.9; Pulse Ox 99% on R/A; Weight 60.33 kg; ha1 20:17 BP 101 / 75; Pulse 70; Resp 18 S; Pulse Ox 96% on R/A; ha1 ED Course: 19:17 Patient arrived in ED. gm2 19:18 Patient has correct armband on for positive identification. Bed in low position. Call ha1 light in reach. Side rails up X 1. Adult w/ patient. 19:18 Client placed on continuous cardiac and pulse oximetry monitoring. NIBP monitoring ha1 applied. monitor technician on. 19:19 Ruthann Doran, RN is Primary Nurse. ha1 19:23 Triage completed. ha1 19:27 Perry Acevedo PA is PHCP. cp 19:27 Oumou Jay MD is Attending Physician. cp 19:30 Maintain EMS IV. Dressing intact. Good blood return noted. Site clean \T\ dry. Gauge \T\ martinez 1 site: 20 GAUGE LAC. 19:40 EKG done, by ED staff, reviewed by Perry PENA. [facility] 20:30 XRAY Chest (1 view) In Process Unspecified. EDMS Administered Medications: 21:08 Not Given (Patient Refused): lactated ringers alxqkwbt4151 ml IV at 75 ml/hr continuous ha1 21:09 Not Given (Patient Refused): ns 0.9% 500 ml IV at bolus once ha1 Outcome: 21:17 Patient left the ED. ha1 Signatures: Dispatcher [employer] EDMS Perry Acevedo PA PA cp Ayala, Heidy, RN RN 1 Danay Fisher 2 Sandi Stafford [facility]
--- NOTE | 2023-10-10 21:14 | EDPHYS ---
Physician Documentation [facility] Name: Jose L Mathew Age: 53 yrs Sex: Male : 1970 Arrival Date: 10/10/2023 Time: 19:14 Bed 14 Private MD: ED Physician Oumou Jay HPI: 10/09 19:30 This 53 yrs old Male presents to ER via EMS with complaints of Chest Pain. cp 19:30 The patient or guardian reports chest pain that is located primarily in the anterior cp chest wall. Onset: just prior to arrival. 19:30 The pain does not radiate. Duration: The patient or guardian reports a single episode, cp that is now resolved. 19:30 Associated signs and symptoms: Pertinent negatives: abdominal pain, diaphoresis, lower cp extremity pain, lower extremity swelling, lightheadedness, near syncope, palpitations, shortness of breath, syncope. 19:30 The chest pain is described as aching. cp Historical: - Allergies: 19:23 No Known Allergies; ha1 - PMHx: 19:23 High Cholesterol; Hypertensive disorder; NM; ha1 - PSHx: 19:23 CAB; ha1 - Immunization history:: Adult Immunizations not up to date. - Infectious Disease History:: Denies. - Social history:: Smoking status: Patient reports the use of cigarette tobacco products, smokes one pack cigarettes per day. ROS: 19:30 Constitutional: Negative for body aches, chills, fever, poor PO intake, cp 19:30 Cardiovascular: Positive for chest pain, Negative for edema, palpitations, cp 19:30 Back: Negative for pain at rest, pain with movement, 19:30 Neuro: Negative for altered mental status, dizziness, headache, numbness, syncope, weakness, Exam: 19:30 ECG was reviewed by the Attending Physician. cp 19:35 Constitutional: The patient appears in no acute distress, alert, awake, cp non-diaphoretic, non-toxic, well developed, well nourished, 19:35 Head/Face: Normocephalic, atraumatic. cp 19:35 Eyes: Periorbital structures: appear normal, Conjunctiva: normal, no exudate, no injection, Sclera: no appreciated abnormality, Lids and lashes: appear normal, bilaterally, 19:35 ENT: External ear(s): are unremarkable, Nose: is normal, Mouth: Lips: moist, Oral mucosa: moist, Posterior pharynx: Airway: no evidence of obstruction, patent, 19:35 Neck: ROM/movement: is normal, is supple, without pain, no range of motions limitations, 19:35 Chest/axilla: Inspection: normal, 19:35 Cardiovascular: Rate: normal, Rhythm: regular, Edema: is not appreciated, JVD: is not appreciated, 19:35 Respiratory: the patient does not display signs of respiratory distress, Respirations: normal, no use of accessory muscles, no retractions, labored breathing, is not present, Breath sounds: are clear throughout, no decreased breath sounds, no stridor, no wheezing, 19:35 Abdomen/GI: Inspection: abdomen appears normal, Palpation: abdomen is soft and non-tender, in all quadrants, 19:35 Neuro: Orientation: to person, place \T\ time. Mentation: able to follow commands, Motor: cp moves all fours, no focal deficits, Vital Signs: 19:19 BP 115 / 77; Pulse 73; Resp 18 S; Temp 97.9; Pulse Ox 99% on R/A; Weight 60.33 kg; ha1 20:17 BP 101 / 75; Pulse 70; Resp 18 S; Pulse Ox 96% on R/A; ha1 MDM: 19:28 Patient medically screened. cp 20:45 Data reviewed: vital signs, nurses notes, lab test result(s), EKG, radiologic studies, cp plain films. 20:45 The patient was not given aspirin in the Emergency Department. Administered by EMS. cp 21:00 Refusal of service: The patient/guardian displays adequate decision making capability cp and despite a detailed discussion of alternatives, benefits, risks, and consequences refuses: Admission to the hospital for further work-up and treatment, patient is capable of informed decision making and refuses admission for low sodium and chest pain, understands risk of and that he can return at any time for reevaluation. 10/09 19:28 Order name: Basic Metabolic Panel; Complete Time: 20:42 cp 10/09 20:42 Interpretation: Normal except: NA 119; CL 86; BUN 4; CRE 0.48; CA 7.8. cp 10/09 19:28 Order name: CBC with Diff; Complete Time: 20:42 cp 10/09 20:42 Interpretation: Normal except: RBC 3.58; HGB 12.9; HCT 37.0; MCV 103.3; MCH 35.9; PLT cp 150; ELLIOTT% 37.0; LYM% 56.4; LYMA 5.0. 10/09 19:28 Order name: LFT's; Complete Time: 20:42 cp 10/09 19:28 Order name: Magnesium; Complete Time: 20:42 cp 10/09 19:28 Order name: NT PRO-BNP; Complete Time: 20:42 cp 10/09 19:28 Order name: PT-INR; Complete Time: 20:42 cp 10/09 19:28 Order name: Troponin HS; Complete Time: 20:42 cp 10/09 20:43 Order name: ETOH Level cp 10/09 19:28 Order name: XRAY Chest (1 view); Complete Time: 20:42 cp 10/09 19:28 Order name: Cardiac monitoring; Complete Time: 19:36 cp 10/09 19:28 Order name: EKG - Nurse/Tech; Complete Time: 19:36 cp 10/09 19:28 Order name: IV Saline Lock; Complete Time: 19:36 cp 10/09 19:28 Order name: Labs collected and sent; Complete Time: 19:36 cp 10/09 19:28 Order name: O2 Per Protocol; Complete Time: 19:36 cp 10/09 19:28 Order name: O2 Sat Monitoring; Complete Time: 19:36 cp EC:30 Rate is 70 beats/min. Rhythm is regular. LA interval is normal. QRS interval is cp prolonged at 132 msec. QT interval is normal. T waves are Inverted in lead aVR. Interpreted by me. Reviewed by me. Administered Medications: 21:08 Not Given (Patient Refused): lactated ringers fliwfcyx9784 ml IV at 75 ml/hr continuous ha1 21:09 Not Given (Patient Refused): ns 0.9% 500 ml IV at bolus once ha1 Disposition Summary: 10/10/23 21:13 Left Against Medical Advice Notes: Location: Home cp Problem: new cp Symptoms: have improved cp Condition: Fair cp Diagnosis - Chest pain, unspecified cp - Hypo-osmolality and hyponatremia cp Followup: cp - With: Private Physician - When: 1 - 2 days - Reason: Recheck today's complaints Discharge Instructions: - Discharge Summary Sheet cp - Nonspecific Chest Pain, Adult cp - Hyponatremia cp Signatures: Dispatcher [employer] EDMS Perry Acevedo PA PA cp Ayala, Heidy RN RN ha1 Corrections: (The following items were deleted from the chart) 19: 19:28 BASIC METABOLIC PANEL+C.LAB.BRZ ordered. EDMS EDMS 19: 19:28 CBC+H.LAB.BRZ ordered. EDMS EDMS : 19:28 HEPATIC FUNCTION+C.LAB.BRZ ordered. EDMS EDMS 19: 19:28 MAGNESIUM+C.LAB.BRZ ordered. EDMS EDMS 19: 19:28 PROBNP+C.LAB.BRZ ordered. EDMS EDMS 19: 19:28 PROTIME (+INR)+COAG.LAB.BRZ ordered. EDMS EDMS 19: 19:28 Troponin High Sensitivity+C.LAB.BRZ ordered. EDMS EDMS 19: 19:29 Chest Single View+RAD.RAD.BRZ ordered. EDMS EDMS
[2023-10-10 22:43] VITALS: BP 101/75; TEMP 97.9; O2SAT 96
== END 2023-10-10 21:17 | disposition left against medical advice (07) ==
LOC: ER 19:14
DX: R07.89 Other chest pain (principal); E87.1 Hypo-osmolality and hyponatremia; E78.00 Pure hypercholesterolemia, unspecified; I10 Essential (primary) hypertension; I25.2 Old myocardial infarction; F17.210 Nicotine dependence, cigarettes, uncomplicated; Z95.1 Presence of aortocoronary bypass graft
CPT/HCPCS: 93005; 85025; 80048; 36415; 83735; 85610; 80076; 84484; 83880; 71045; 99284; 82077; J7040

== ENCOUNTER 2023-12-18 18:03 | Emergency (ER) | payer BC ==
--- OUTSIDE RECORDS SUMMARY | 2023-12-18 18:07 | XMS REPORT | Continuity of Care Document ---
Author Name Unknown Address [address] [facility] [address] [place] [address] [facility] thconnect Address [address] [place] [address] Care Team Providers Care Hospital Laboratory Technician Name Role Phone Unavailable Unavailable Unavailable Payers Payer Name Policy Type Policy Number Effective Date Expirati on Date Source Allergies, Adverse Reactions, Alerts Allergy Name Allergy Type Status Severity Reaction(s) Onset Date Inactive Date Treating Clinician Comments Source No Known Allergie s DA Active U 01-13 00:00: 00 [facility] Results Test Description Test Time Test Comments Results Result Co mments Source CBC W/AUTO [id number] 13:53:00* Test Item Value Reference Range Interpretation [...] NRBC#) 0.00 K/mm3 0.0-0.1 N BASIC METABOLIC [id number] 05:54:00* Test Item Value Reference Range Interpretation [...] CA) 8.6 MG/DL 8.4-10.2 N CBC W/AUTO [id number] 05:40:00* Test Item Value Reference Range Interpretation [...] 0.00 K/mm3 0.0-0.1 N - XR CHEST [id number] 08:05:00Patient Name: DELMI FLORES Unit No: [id number] EXAMS: CPT CODE: [id number] XR CHEST 1V 84383 EXAMINATION: - XR CHEST 1V. LOCATION: B2. HISTORY: post op. COMPARISON: Radiograph dated 01/09/2019. TECHNIQU E: Single AP view of the chest was obtained. FINDINGS: Right subclavian line is unchanged in position. The heart is mildly enlarged in size. Median sternotomy wires are present with breaks of the 3rdmost superior wires, unchanged. The lungs are clear. No acute osseous abnormality is identified. IMPRESSION: Mild cardiomegaly with no acute pulmonary process. at 0805 Reported and signed by: Marilyn Chaney MD CC: Technologist: RT Cornel(R) Transcrpt Date/Tm/Trnsp: 01/10/2019 (08) tELISSA.PR7 Orig Print D/T: S: 01/10/2019 (0808) [facility] NAME: DELMI FLORES [address] PHYS: [place] [address] :1970 AGE: 48 SEX: M LOC: Z.SI04 A PHONE #: [phone] EXAM DATE: 01/10/2019 STATUS: ADM IN FAX #: [phone] RADIOLOGY NO: PAGE 1 Signed Report BASIC METABOLIC [id number] 07:00:00* Test Item Value Reference Range Interpretation [...] DRAW BLOOD, REASON: CBNNOTIFIED PATIENT CARE STAFF: [facility] 01/10/19 AT 0630 BY Jesus VelasquezHsbacvzgFMMCLLDPG9298-79-76 07:00:00* Test Item Value Reference Range Interpretation Comme nts MAGNESIUM (test code = MAG) 2.0 MG/DL 1.6-2.3 UNABLE TO DRAW BLOOD, REASON: CBNNOTIFIED PATIENT CARE STAFF: [facility] 01/10/19 AT 0630 BY Jesus Velasquez W/AUTO [id number] 06:42:00* Test Item Value Reference Range Interpretation [...] MIGUEL ÁNGEL 01/10/19 AT 0631 BY Aliya [facility] [id number] 20:01:00* Test Item Value Reference Range Interpretation [...] = COHBGFFIO2) 21 % - XR CHEST [id number] 19:54:00Patient Name: DELMI FLORES Unit No: [id number] EXAMS: CPT CODE: [id number] XR CHEST 1V 86382 REASON FOR EXAM: Central line placement. COMPARISON: [...] Good position for the central line. Location: [facility] at [facility] Reported and signed by: Ad Eng MD CC: Technologist: Sanjay Hartmann, RT(R) Transcrpt Date/Tm/Trnsp: 01/09/2019 (1953) Sarah Orig Print D/T: S: 01/09/2019 (1956) [facility] NAME: DELMI FLORES [address] PHYS: [place] [address] : 1970 AGE: 48 SEX: M LOC:Z.SI04 A PHONE #: [phone] EXAM DATE: 01/09/2019 STATUS: ADM IN FAX #: [phone] RADIOLOGY NO: PAGE 1 Signed ReportBASIC METABOLIC [id number] 19:37:00* Test Item Value Reference Range Interpretation [...] code = CA) 8.6 MG/DL 8.4-10.2 N [id number] 19:37:00* Test Item Value Reference Range Interpretation Comme nts MAGNESIUM (test code = MAG) 1.5 MG/DL 1.6-2.3 L CBC W/AUTO [id number] 19:13:00* Test Item Value Reference Range Interpretation [...] NRBC#) 0.00 K/mm3 0.0-0.1 N GLUCOSE BEDSIDE [id number] 15:24:00* Test Item Value Reference Range Interpretation Comme nts GLUCOSE BEDSIDE TESTING (adolfo t code = GLUBED) 82 MG/DL 60-99 N GLUCOSE BEDSIDE [id number] 13:15:00* Test Item Value Reference Range Interpretation Comme nts GLUCOSE BEDSIDE TESTING (adolfo t code = GLUBED) 86 MG/DL 60-99 N GLUCOSE BEDSIDE BQMIJGR0780-37-43 09:53:00* Test Item Value Reference Range Interpretation Comme nts GLUCOSE BEDSIDE TESTING (adolfo t code = GLUBED) 81 MG/DL 60-99 N HIV 12 AB SUNWYMNNMMQUKCL7414-90-29 17:32:00* Test Item Value Reference Range Interpretation Comme nts AB HIV 1 2 (test code = SZH59YD) NON REACTIVE NON-REAC NOTE: A NONREACT SANTO RESULT INDICATES THAT HIV-1 AND HIV-2ANTIBODIES HAVE NOT BEEN FOUND IN THIS PATIENT SPECIMEN. ANON-REACTIVE RESULT, HOWEVER, DOES NOT PRECLUDE PREVIOUSEXPOSURE OR INFECTION WITH HIV1. AG HIV1 P24 (test code = PAL9U10) NON REACTIVE NONE REAC - XR CHEST 2 [id number] 17:10:00Patient Name: DELMI FLORES Unit No: [id number] EXAMS: CPT CODE: [id number] XR CHEST 2 V 89478 DICTATION LOCATION: H48 HISTORY: Male, 48 years [...] Technologist: ANDRESSA Nguyen, RT(R) Transcrpt Date/Tm/Trnsp: 01/04/2019 (5420) t.SAIMA.CLW Orig Print D/T: S: 01/04/2019 (2390) [facility] NAME: DELMI FLORES [address] PHYS: [place] [address] : 1970 AGE: 48 SEX: M LOC: Z.SRG PHONE #: [phone] EXAM DATE: 01/04/2019 STATUS: PRE SDC FAX #: [phone] RADIOLOGY NO: PAGE 1 Signed ReportBASIC METABOLIC [...] = CA) 10.0 MG/DL 8.4-10.2 N PROTHROMBIN [id number] 17:04:00* Test Item Value Reference Range Interpretation Comme [facility] PROTHROMBIN TIME PATIENT (test code = [...] recurrent systemic embolism. 3.0 - 4.5 PTT [id number] 17:04:00* Test Item Value Reference Range Interpretation Comme [facility] PTT ACTIVATED (test code = APTT) 39.3 SECONDS 22.0-33.0 H CBC W/AUTO [id number] 16:50:00* Test Item Value Reference Range Interpretation Comme [facility] WHITE BLOOD CELL (test code = [...] NRBC#) 0.00 K/mm3 0.0-0.1 N BASIC METABOLIC [id number] 07:55:00* Test Item Value Reference Range Interpretation [...] mg/dL HIGH.........160-189 mg/dL VERY HIGH.........>/= 190 mg/dL [id number] 07:55:00* Test Item Value Reference Range Interpretation Comme nts MAGNESIUM (test code = MAG) 1.7 MG/DL 1.6-2.3 N BASIC METABOLIC [id number] 07:44:00* Test Item Value Reference Range Interpretation [...] Test Item Value Reference Range Interpretation Comme [facility] TRIGLYCERIDES (test code = TRIG) 215 MG/DL TRIGLYCERIDES REFERENCE RANGE:Normal: <150 mg/dLBorderline High: 150-199 mg/dLHigh: 200-499 mg/dLVery High: >=500 mg/dL CHOLESTEROL (test code = CHOL) 133 MG/DL <200 HDL CHOLESTEROL (test code = HDL) 57 MG/DL 40-59 N LIPOPROTEIN LDL (test code = LDL) MG/DL 0-99 [id number] 07:44:00* Test Item Value Reference Range Interpretation Comme [facility] MAGNESIUM (test code = MAG) 1.7 MG/DL 1.6-2.3 N PROTHROMBIN [id number] 07:31:00* Test Item Value Reference Range Interpretation Comme [facility] PROTHROMBIN TIME PATIENT (test code = [...] recurrent systemic embolism. 3.0 - 4.5 PTT CRNJJJSGM3701-75-59 07:31:00* Test Item Value Reference Range Interpretation [facility] P[facility] ACTIVATED (test code = APTT) 27.1 SECONDS 22.0-33.0 N CBC W/AUTO [id number] 07:18:00* Test Item Value Reference Range Interpretation Comme [facility] WHITE BLOOD CELL (test code = [...] Notes Date/Time Note Provider Source 2019-02-28 20:17:00 KSfhlfgdnqh93696553x V+QxZZ/NXjxWAlyqSjBg3isoaJMqI Bldi76btBhIhtRpwKX/Dz9uI9wPKyLTyF93698-19-87K04:1 7:920139-[address]17 [place] [address] PATIENT NAME: DELMI FLORES ADMIT DATE: 01/09/19ACCOUNT NO: [id number] ROOM NO: [facility] AGE: 49 REPORT TYPE: DISCHARGE SUMMARY REPORT [...] his job. 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 Worley on 12/24/2018 and underwent [...] MD WT: DS:MELODY/EBONIE/NTSDD: 02/28/2019 20:17:39DT: 02/28/2019 23:00:29Conf#: [id number]/DID#: [id number] PATIENT NAME: DELMI FLORES Authenticated by JEAN Alvarez On 03/05/2019 05:11:49 PM Authenticated by Ad Cummings MD On 03/05/2019 05:16:33 PM at 1716 at 1716 PATIENT NAME: DELMI FLORES ulsgegu5216-13-82L87:00:00Z.ZWK92693738-8759NKZtk ilable for patient bfdsHKCHXKULVRMIOX3535-61-98A64:17:08 [facility] 2019-01-13 14:12:00 XXdbgfgotij879548098 ClhqtmGo357NosiD0kj2LlM2yhmK3 8vM0NsjwIByFEquK7ZpyGMKv2CmIoBVFEO9497-78-97R43:1 2:00 [facility] ([facility])Cardiovascular Surgery ProgREPORT#:[id number] REPORT STATUS: SignedDATE:01/13/19 TIME: 1412 PATIENT: DELMI FLORES UNIT #: [id number]#: [id number] ROOM/BED: [facility]-ADOB: [birth year] AGE: 48 SEX: M ATTEND: Ad Cummings [facility] AUTHOR: Yolanda Mondragon NP * ALL edits [...] touch with good color.Musculoskeletal: full range of motionNeuro/TREE TRIMMER HELPER: alert, oriented X 3 ResultsFindings/Data:Laboratory Tests 01/13 [...] (Auto) (14 - 44 %) 44.7 H [place] % (Auto) (4 - 13 %) 7.4 Eos % (Auto) (0 - 6 %) 1.3 Baso % (Auto) (0 - 2 %) 0.5 Neut # (Auto) (2.0 - 7.6 K/mm3) 3.95 Lymph # (Auto) (1.0 - 3.8 K/mm3) 3.85 H [place] # (Auto) (0.1 - 0.8 K/mm3) 0.64 [...] collaborating MD (Dr. Cummings) at 1417 RPT #:[id number] OF REPORTPRProgress Cviw1741-37-30K40:12:00Z.RSSN61903604-3956JVMblbu able for patient xdixLOBYRZAHJLLSYI3993-88-92C01:17:29 [facility] 2019-01-13 14:12:00 DIqgbrqpxdf996228556 LDLQ3XJ6f9hynwpovHFKEsbRRvDNE 1DxmzXks/MMljB5ICYRYjm95PP9XQQLHiG7910-25-56M16:1 2:00 [facility] ProgRE[facility]#:[id number] REPORT STATUS: SignedDATE:01/13/19 TIME: 1411 PATIENT: DELMI FLORES UNIT #: [id number]#: [id number] ROOM/BED: [facility]-ADOB: [birth year] AGE: 48 SEX: M ATTEND: Ad Cummings [facility] AUTHOR: Yolanda Mondragon LEGAL PROJECT MANAGER * ALL edits or amendments must be [...] touch with good color.Musculoskeletal: full range of motionNeuro/TREE TRIMMER HELPER: alert, oriented X 3 ResultsFindings/Data:Laboratory Tests 01/13 [...] (Auto) (14 - 44 %) 44.7 H [place] % (Auto) (4 - 13 %) 7.4 Eos % (Auto) (0 - 6 %) 1.3 Baso % (Auto) (0 - 2 %) 0.5 Neut # (Auto) (2.0 - 7.6 K/mm3) 3.95 Lymph # (Auto) (1.0 - 3.8 K/mm3) 3.85 H [place] # (Auto) (0.1 - 0.8 K/mm3) 0.64 [...] (Dr. Cummings) at 1417 at 1324 RPT #:[id number] OF REPORTPRProgress Papp4173-04-78Y15:12:00Z.AKLP41708019-7182FVDkthn able for patient ghvaWZIUQCTTKSWJRU3081-10-53U41:24:22 [facility] 2019-01-13 12:34:00 NXnptblplbs23726149G iGIcbUA5Uj2f9lvVhgT/GqKTlkNNw oOuPR5y0bOrrpplGdNAoS5KOXPVrhcSBB90350-04-14F42:3 4:00 [facility] ([facility] SYSTEMHospitalist Progress NoteREPORT#:[id number] REPORT STATUS: SignedDATE:01/13/19 TIME: 1234 PATIENT: DELMI FLORES UNIT #: [id number]#: [id number] ROOM/BED: [facility]-ADOB: [birth year] AGE: 48 SEX: M ATTEND: [...] clubbing, no cyanosisMusculoskeletal: normal inspection, no muscle spasmNeuro/TREE TRIMMER HELPER: alert, oriented X 3, normal speech, no [...] exercise) Tobacco Use/CounselingTobacco use/counseling: tobacco user, cessation counseling center director <3 min HTN Screening/Follow-upB/P assess/follow-up: pre-existing hx of HTN at 1711 RPT #:[id number] OF REPORTPRProgress Fisq5423-69-68G85:34:00Z.RCEG43575886-2651RYJlkmg able for patient qjspCPWNNISXIKWUHQ2039-58-91S71:11:28 [facility] 2019-01-13 06:29:00 JHgtrscbzel897950459 GyGJR8vQwGYaR/99vwm3FBFVwF5+T vPStj8j0IWXS+RuDYys0m5MkE89hKaRDeP4274-06-04D35:2 9:00 [facility] ([facility] SYSTEMCardiology Progress NoteREPORT#:[id number] REPORT STATUS: SignedDATE:01/13/19 TIME: 628 PATIENT: DELMI FLORES UNIT #: [id number]#: [id number] ROOM/BED: [facility]-ADOB: [birth year] AGE: 48 SEX: M ATTEND: Ad Cummings [facility] AUTHOR: Gilberto Bonds MD * ALL edits or amendments must be made on the electronic/computer document * SubjectiveChief Complaint:LLE PainPatient reports:No: chest pain, palpitations, shortness of breath. Objective GeneralVS/I O:24 hour I O ending at 0700: 01/13 0700 07/18 1900 Intake Total 800 1100 Output Total [...] of motion, normal inspection, straight leg raise negNeuro/TREE TRIMMER HELPER: alert, oriented X 3, CN II-XII intactSkin: [...] quit smoking. D/C planning at 0743 RPT #:[id number] OF REPORTPRProgress Vpdd4425-94-99A34:29:00Z.GMHM38341497-1668CXRvtrz able for patient sfjyWSXDMSEFWVPEEF4607-74-12W52:43:35 [facility] 2019-01-12 19:37:00 JLjesjvhreh96397879N 0xOrAyAuudyMGFkKrl9ktNxIOEhT5 lOFMpnB4oOc9CcIs7qLnGHtLZZZFcG0Bkl1968-78-26J37:3 7:00 [facility] ([facility])Cardiovascular Surgery ProgREPORT#:[id number] REPORT STATUS: SignedDATE:01/12/19 TIME: 1936 PATIENT: DELMI FLORES UNIT #: [id number]#: [id number] ROOM/BED: [facility]-ADOB: [birth year] AGE: 48 SEX: M ATTEND: Ad Cummings [facility] AUTHOR: Ml Marie * ALL edits or [...] touch with good color.Musculoskeletal: full range of motionNeuro/TREE TRIMMER HELPER: alert, oriented X 3 Diagnosis, Assessment PlanFree Text A P:This is a 48 y/m severe PVD, HTN, HLD, CAD, s/p CABs/p Redo left femoral to posterior tibial artery bypass with cryopreserved SVGOn Plavix/ASA/BB/StatinETOH Abuse- on MVI/Thiamine/FolicExpected acute blood loss anemia- started on Feosol with ColaceEncouraged IS and ambulation/Cont PT/OTPlan for discharge home in am at 193 RPT #:[id number] OF REPORTPRProgress Imht0799-20-93M12:37:00Z.BRHM73005864-6731JXZxprj able for patient yfvmGMCAZLEMYXYVIN3734-66-45G42:40:04 [facility] 2019-01-12 19:37:00 MGuzsjqejug73337804M I3Y7xe91iGQ0pk2wC63cYU7/ItrN6 8O/vZQ+JbazKafhcgBVNGC70Lqrpl9no370460-09-80O82:3 7:00 [facility] ([facility])Cardiovascular Surgery ProgREPORT#:[id number] REPORT STATUS: SignedDATE:01/12/19 TIME: 1936 PATIENT: DELMI FLORES UNIT #: [id number]#: [id number] ROOM/BED: [facility]-ADOB: [birth year] AGE: 48 SEX: M ATTEND: [...] touch with good color.Musculoskeletal: full range of motionNeuro/TREE TRIMMER HELPER: alert, oriented X 3 Diagnosis, Assessment PlanFree Text A P:This is a 48 y/m severe PVD, HTN, HLD, CAD, s/p CABs/p Redo left femoral to posterior tibial artery bypass with cryopreserved SVGOn Plavix/ASA/BB/StatinETOH Abuse- on MVI/Thiamine/FolicExpected acute blood loss anemia- started on Feosol with ColaceEncouraged IS and ambulation/Cont PT/OTPlan for discharge home in am at 1939 at 1457 RPT #:[id number] OF REPORTPRProgress Dpui4024-26-38I67:37:00Z.NSDG21075638-6457HFKfeye able for patient fdzlLAJIOFXKOGQELB4825-39-42Q10:57:20 [facility] 2019-01-12 15:37:00 IEfvxbmkwln23518337S VfkoByUaS4OtcYE+zDX672fOn4u1c CCnn5r+4VnoPV3GDR56RPLjFzqxQ2TGShA6983-08-25F76:3 7:00 [facility] ([facility])Cardiology Progress NoteREPORT#:[id number] REPORT STATUS: SignedDATE:01/12/19 TIME: 1537 PATIENT: DELMI FLORES UNIT #: [id number]#: [id number] ROOM/BED: [facility]-ADOB: [birth year] AGE: 48 SEX: M ATTEND: [...] of motion, normal inspection, straight leg raise negNeuro/TREE TRIMMER HELPER: alert, oriented X 3, CN II-XII intactSkin: [...] IS Ambulate Advised to quit smoking. at [address] [place] [address] #:[id number] OF REPORTPRProgress Qxze7916-45-53Y84:37:00Z.SYAQ27191928-5516RJCciin able for patient djeuXDUFPPGIWHPCAH6993-41-02C19:01:54 [facility] 2019-01-12 14:18:00 TFnatnvgica89585733b +aAROk6d3O6SBFjPUij16SsDpqicb cUu+z+P1/Gh+NsNrYxFIBhisDFqK2EzsMP4862-94-64L12:1 8:00 [facility] ([facility] SYSTEMHospitalist Progress NoteREPORT#:[id number] REPORT STATUS: SignedDATE:01/12/19 TIME: 1418 PATIENT: DELMI FLORES UNIT #: [id number]#: [id number] [facility] [birth year] [facility]GE: 48 SEX: M ATTEND: Ad [...] clubbing, no cyanosisMusculoskeletal: normal inspection, no muscle spasmNeuro/TREE TRIMMER HELPER: alert, oriented X 3, normal speech, no [...] (to discuss diet exercise) at 1946 RPT #:[id number] OF REPORTPRProgress Cwgv4219-71-72F96:18:00Z.EIAM40161863-0039YBOqzdy able for patient hsmyGVJICMVDTAEWYR6086-26-34Q53:46:54 [facility] 2019-01-11 19:30:00 DFaixdxnzdj30501049K QsxNawexjX/gDX7rjBQUb5frzlPAc Oz47CEujuheBf2T18OI2wDiQqOx363IPMD9602-68-86J74:3 0:00 [facility] ProgREPORT#:[id number] REPORT STATUS: SignedDATE:01/11/19 TIME: 1929 PATIENT: DELMI FLORES UNIT #: [id number]#: [id number] ROOM/BED: [facility]-ADOB: [birth year] AGE: 48 SEX: M ATTEND: Ad Cummings [facility] AUTHOR: Ml Marie * ALL edits or [...] Documented: Result Date Time B/P 145/80 01/11 1714 B/P Mean 101.8 01/11 1714 Temp 36.7 01/11 1714 Pulse 62 01/11 1714 Resp 16 01/11 171 Pulse Ox 98 01/11 1230 FiO2 21 [...] touch with good color.Musculoskeletal: full range of motionNeuro/TREE TRIMMER HELPER: alert, oriented X 3 ResultsFindings/Data:Laboratory Tests 01/12 [...] % (Auto) (14 - 44 %) 34.0 [place] % (Auto) (4 - 13 %) 6.3 Eos % (Auto) (0 - 6 %) 0.3 Baso % (Auto) (0 - 2 %) 0.3 Neut # (Auto) (2.0 - 7.6 K/mm3) 6.42 Lymph # (Auto) (1.0 - 3.8 K/mm3) 3.71 [place] # (Auto) (0.1 - 0.8 K/mm3) 0.69 [...] on WednesdayD/C central line at 1936 RPT #:[id number] OF REPORTPRProgress Hknd6867-23-57U76:30:00Z.ISXC67693914-0206PRJkweg able for patient clegTRZIZQWLGZQOKJ8856-87-16H73:36:23 [facility] 2019-01-11 19:30:00 OYsagbijvrt88691579Q ZaWt/k3nCO2TZAzKv+M798Gu2CJA J85X9QV09q7IDoz70QCCWLrhwpCNjr51D03851-47-01N64:3 0:00 [facility] ([facility])Cardiovascular Surgery ProgREPORT#:[id number] REPORT STATUS: SignedDATE:01/11/19 TIME: 1929 PATIENT: DELMI FLORES UNIT #: [id number]#: [id number] [facility] [birth year] AGE: 48 SEX: M ATTEND: Ad Cummings AUTHOR: Ml Maire * ALL edits or amendments must be [...] touch with good color.Musculoskeletal: full range of motionNeuro/TREE TRIMMER HELPER: alert, oriented X 3 ResultsFindings/Data:Laboratory Tests 01/11 [...] % (Auto) (14 - 44 %) 34.0 [place] % (Auto) (4 - 13 %) 6.3 Eos % (Auto) (0 - 6 %) 0.3 Baso % (Auto) (0 - 2 %) 0.3 Neut # (Auto) (2.0 - 7.6 K/mm3) 6.42 Lymph # (Auto) (1.0 - 3.8 K/mm3) 3.71 [place] # (Auto) (0.1 - 0.8 K/mm3) 0.69 [...] central line at 1936 at 1502 RPT #:[id number] OF REPORTPRProgress Hhnz9292-17-21A41:30:00Z.DTMN73775743-7812LTKxfma able for patient hqvxXYKNMQXZAZTHYH8760-95-69R84:02:42 [facility] 2019-01-11 16:16:00 NJiupkccegg928843588 n7Hhqo382dVlkeRcAHYSfLExBURRM ajJXBpG9ingS8hXcpV6f090f4lX89snE0j9095-61-95S07:1 6:00 [facility] ([facility] SYSTEMHospitalist Progress NoteREPORT#:[id number] REPORT STATUS: SignedDATE:01/11/19 TIME: 161 PATIENT: DELMI FLORES UNIT #: [id number]#: [id number] ROOM/BED: [facility]-ADOB: [birth year] AGE: 48 SEX: M ATTEND: Ad Cummings [facility] AUTHOR: Hudson Chong MD * ALL edits [...] 01/10 2100 64 14 125/65 90 95 01/10 2030 67 16 119/62 85 95 01/10 2000 97.9 01/11 2000 63 18 108/58 [...] clubbing, no cyanosisMusculoskeletal: normal inspection, no muscle spasmNeuro/TREE TRIMMER HELPER: alert, oriented X 3, normal speech, no [...] % (Auto) (14 - 44 %) 34.0 [place] % (Auto) (4 - 13 %) 6.3 Eos % (Auto) (0 - 6 %) 0.3 Baso % (Auto) (0 - 2 %) 0.3 Neut # (Auto) (2.0 - 7.6 K/mm3) 6.42 Lymph # (Auto) (1.0 - 3.8 K/mm3) 3.71 [place] # (Auto) (0.1 - 0.8 K/mm3) 0.69 [...] exercise) Tobacco Use/CounselingTobacco use/counseling: tobacco user, cessation counseling center director <3 min HTN Screening/Follow-upB/P assess/follow-up: pre-existing hx of HTN at 1748 RPT #:[id number] OF REPORTPRProgress Qbwm6219-71-06D69:16:00Z.DFHA03383841-5573KVSlilf able for patient xpkySUNVRDGIRPJUMO0660-58-13V90:48:28 [facility] 2019-01-11 07:49:00 SJjpzbtaqea89540511W 6cEzV07IwPayZvR8A6ujmhR9OvKzA N+rtVj95NCVvFaAaJMhShykTbQxf58yuiz3781-14-12R17:4 9:00 [facility] ([facility])Cardiology Progress NoteREPORT#:[id number] REPORT STATUS: SignedDATE:01/11/19 TIME: 0749 PATIENT: DELMI FLORES UNIT #: [id number]#: [id number] ROOM/BED: [facility]-ADOB: [birth year] AGE: 48 SEX: M ATTEND: Ad Cummings [facility] AUTHOR: Gilberto Bonds MD * ALL edits [...] / 2130 58 14 118/69 89 95 / 2100 64 14 125/65 90 95 /16 2030 67 16 119/62 85 95 / 2000 97.9 01/10 2000 63 18 108/58 77 95 / 1930 63 18 126/67 90 98 / 1900 64 17 115/61 83 96 07/16 1844 98 Room air 07/16 1730 57 [...] of motion, normal inspection, straight leg raise negNeuro/TREE TRIMMER HELPER: alert, oriented X 3, CN II-XII intactSkin: [...] % (Auto) (14 - 44 %) 34.0 [place] % (Auto) (4 - 13 %) 6.3 Eos % (Auto) (0 - 6 %) 0.3 Baso % (Auto) (0 - 2 %) 0.3 Neut # (Auto) (2.0 - 7.6 K/mm3) 6.42 Lymph # (Auto) (1.0 - 3.8 K/mm3) 3.71 [place] # (Auto) (0.1 - 0.8 K/mm3) 0.69 [...] Advised to quit smoking. at 1755 RPT #:[id number] OF REPORTPRProgress Blpm3870-66-25R84:49:00Z.NQOX27261465-5493NSJnwum able for patient fyrvBOGCVUZIZQJZTB4485-81-11W31:55:28 [facility] 2019-01-10 15:11:00 [id number] d1k9+FpOKcm6ZrkciL2V/iCFMsVL5 WbC9JLHdU3/t1RMJEmFsQncSSsWJNtsHZ/1494-71-02N03:1 1:[id number] [place] [address] PATIENT NAME: DELMI FLORES ADMIT DATE: 01/09/19ACCOUNT NO: [id number] [facility]GE[facility] 48 REPORT TYPE: CONSULTATION REPORT SEX: [...] extremityas well. He was seen by his director of public relations, Dr. Saurabh Worley and underwentaortogram as well [...] drugs. 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 He is and has 4 children. FAMILY [...] 97.9, pulse 62, respiratory rate 16, blood uzrbipde599/60, pulse ox 96%. BMI 27.4.HEENT: Atraumatic, normocephalic, [...] you. Dictated By: Hudson Chong MD WT: CON:MELODY/DOROTHY/NTSDD: 01/10/2019 15:11:39DT: 01/10/2019 15:47:42Conf#: [id number]/DID#: [id number] Authenticated by Hudson Chong MD On 01/10/2019 08:24:48 PM at 2024 PATIENT NAME: DELMI FLORES :47:00Z.VA [id number] for patient lyjvBGTWICRYOEUTQW4658-60-99D10:25:33 [facility] 2019-01-10 10:54:00 [id number] [facility]/HnKOvMmKebnHFCGG2XTxxOqoR XAbStK+ODbFGbGHvH5bdIfNDlv94zIMCrL1190-81-15C34:5 4:00 [facility] ([facility] SYSTEMAdult General ConsultationREPORT#:[id number] REPORT STATUS: SignedDATE:01/10/19 TIME: 1054 PATIENT: DELMI FLORES UNIT #: [id number]#: [id number] [address]YPQ: 69 AGE: 48 SEX: M ATTEND: Ad Cummings AUTHOR: Hudson Chong MD * ALL edits or amendments must be made on the electronic/computer document * History - Adult longitudinalAllergies:Coded Allergies:No Known Allergies (01/13/18) Diagnosis, Assessment Plan Free Text DxA P NotesFree Text DxA P Notes: CONSULT DICTATED: # [id number] Quality MedicationsCurrent medication review:I attest that the foregoing medication list in the medical record is true, accurate, and complete to the best of my knowledge. 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 counseling center director <3 min HTN Screening/Follow-upLast documented vitals:Last Documented: Result Date Time Pulse Ox 98 01/10 1209 FiO2 21 01/10 1209 O2 Delivery Room air 01/10 1209 B/P 130/62 01/10 1200 B/P Mean 84 01/10 1200 Temp 97.8 01/10 1200 Pulse 63 01/10 1200 Resp 12 01/10 1200 B/P assess/follow-up: pre-existing hx of HTN at 1513 RPT #:[id number] OF REPORTXIAemztgzopqxl3070-01-66B14:54:00Z.PDOC2 [id number] for patient ikxzWECGCBMTEMRQUW8238-91-02U86:13:45 [facility] 2019-01-10 10:41:00 [id number] x00qWr/xG3SqBLHlKZM6KkfPXX2wQ PXXPY8Fq1SZYFStsRu1Pe1PmfJdvGmxwWT6291-24-88A81:4 1:00 [facility]Card[facility] ProgREPORT#:[id number] REPORT STATUS: SignedDATE:01/10/19 TIME: 1041 PATIENT: DELMI FLORES UNIT #: [id number]#: [id number] [address] AGE: 48 SEX: M ATTEND: Ad Cummings [facility] AUTHOR: Yolanda Mondragon LEGAL PROJECT MANAGER * ALL edits or amendments must be [...] MLGlycopyrrolate 0 .STK-MED ONE .ROUTE (DC) Neostigmine [place] 0 .STK-MED ONE .ROUTE (DC) Ephedrine Sulfate 0 .STK-MED ONE .ROUTE (DC) Dexamethasone Sodium Phosphate 0 .STK-MED ONE .ROUTE (DC) Papaverine HCl 0 .STK-MED ONE .ROUTE (DC) Rocuronium [place] 0 .STK-MED ONE .ROUTE (DC) Lidocaine HCl [...] non palpable), moves allMusculoskeletal: full range of motionNeuro/TREE TRIMMER HELPER: alert, oriented X 3 ResultsFindings/Data:Laboratory Tests 01/09 [...] (14 - 44 %) 11.4 L 24.1 [place] % (Auto) (4 - 13 %) 4.8 2.8 L Eos % (Auto) (0 - 6 %) 0.0 0.6 Baso % (Auto) (0 - 2 %) 0.1 0.3 Neut # (Auto) (2.0 - 7.6 K/mm3) 7.90 H 7.35 Lymph # (Auto) (1.0 - 3.8 K/mm3) 1.08 2.47 [place] # (Auto) (0.1 - 0.8 K/mm3) 0.46 [...] disease. Good position for thecentral line. Location: H64Rmncbnlmiz By: [facility] - Ad Eng MDRADIOLOGY - XR [...] collaborating MD (DR. Cummings) at 1803 RPT #:[id number] OF REPORTPRProgress Mafu4183-96-49V51:41:00Z.SNML98119287-7192HGGbuya able for patient cruaOTIBQHXKVGGAOP7729-58-81O64:03:54 [facility] 2019-01-10 10:41:00 FCfpenbmujh21918413o cerwwBjht4DpzyJ5iGDoZeMGakA5m qnOdpdgRgkEsDuzLLn/zLp3NKIgfF4xWdD2430-14-58M76:4 1:00 [facility] ProgREPORT#:[id number] REPORT STATUS: SignedDATE:01/10/19 TIME: 1041 PATIENT: DELMI FLORES UNIT #: [id number]#: [id number] [facility]GE: 48 SEX: M ATTEND: Ad Cummings [facility] AUTHOR: Yolanda Mondragon LEGAL PROJECT MANAGER * ALL edits or amendments must be [...] MLGlycopyrrolate 0 .STK-MED ONE .ROUTE (DC) Neostigmine [place] 0 .STK-MED ONE .ROUTE (DC) Ephedrine Sulfate 0 .STK-MED ONE .ROUTE (DC) Dexamethasone Sodium Phosphate 0 .STK-MED ONE .ROUTE (DC) Papaverine HCl 0 .STK-MED ONE .ROUTE (DC) Rocuronium [place] 0 .STK-MED ONE .ROUTE (DC) Lidocaine HCl [...] non palpable), moves allMusculoskeletal: full range of motionNeuro/TREE TRIMMER HELPER: alert, oriented X 3 ResultsFindings/Data:Laboratory Tests 01/09 [...] 2.3 MG/DL) 2.0 1.5 L Laboratory Tests 01/1015 1857 Hematology WBC (3.8 - 9.8 K/MM3) [...] (14 - 44 %) 11.4 L 24.1 [place] % (Auto) (4 - 13 %) 4.8 2.8 L Eos % (Auto) (0 - 6 %) 0.0 0.6 Baso % (Auto) (0 - 2 %) 0.1 0.3 Neut # (Auto) (2.0 - 7.6 K/mm3) 7.90 H 7.35 Lymph # (Auto) (1.0 - 3.8 K/mm3) 1.08 2.47 [place] # (Auto) (0.1 - 0.8 K/mm3) 0.46 [...] disease. Good position for thecentral line. Location: Y92Wfivwctepj By: [facility] - Ad Eng MDRADIOLOGY - XR [...] (DR. Cummings) at 1803 at 1507 RPT #:[id number] OF REPORTPRProgress Lmhg1405-95-46W75:41:00Z.VWGM20227236-8488WQAkgnk able for patient msnsAVLWZTBTKLQHEP0313-77-03M16:07:32 [facility] 2019-01-10 06:17:00 EAwzgwowpkk69846265Z zqevjG9jjVCTyRLM6eaQDgWsKj946 qgbtdzEmbHDtH4PS7968iJggNyyH5eA9402685-97-55I92:1 7:00 [facility] ([facility])Cardiology Progress NoteREPORT#:[id number] REPORT STATUS: SignedDATE:01/10/19 TIME: 616 PATIENT: DELMI FLORES UNIT #: [id number]#: [id number] [address]YJED: [address] AGE: 48 SEX: M ATTEND: Ad Cummings [facility] AUTHOR: Gilberto Bonds MD * ALL edits [...] MLGlycopyrrolate 0 .STK-MED ONE .ROUTE (DC) Neostigmine [place] 0 .STK-MED ONE .ROUTE (DC) Ephedrine Sulfate 0 .STK-MED ONE .ROUTE (DC) Dexamethasone Sodium Phosphate 0 .STK-MED ONE .ROUTE (DC) Papaverine HCl 0 .STK-MED ONE .ROUTE (DC) Rocuronium [place] 0 .STK-MED ONE .ROUTE (DC) Lidocaine HCl [...] of motion, normal inspection, straight leg raise negNeuro/TREE TRIMMER HELPER: alert, oriented X 3, CN II-XII intactSkin: [...] % (Auto) (14 - 44 %) 24.1 [place] % (Auto) (4 - 13 %) 2.8 L Eos % (Auto) (0 - 6 %) 0.6 Baso % (Auto) (0 - 2 %) 0.3 Neut # (Auto) (2.0 - 7.6 K/mm3) 7.35 Lymph # (Auto) (1.0 - 3.8 K/mm3) 2.47 [place] # (Auto) (0.1 - 0.8 K/mm3) 0.29 [...] disease. Good position for thecentral line. Location: D68Ebptrommtz By: Sarah Eng MD Diagnosis, Assessment Plan Free Text DxA P NotesFree Text DxA P Notes:IMP: Severe PVD s/p LLE Fem-pop bypass 12/2017 now with occluded graft s/p LLE fem-tib bypass CAD - s/p ACB Tobacco abuse REC: Continue home medications IS Ambulate Advised to quit smoking. at 0724 RPT #:[id number] OF REPORTPRProgress Fimf5999-58-97O63:17:00Z.BYOT94654774-6119QIWfqnx able for patient ibrnWIEWGUDLAOLILI8451-89-56O43:24:40 [facility] 2019-01-10 03:59:00 IFvrnzmzgml34370684X /ONNtzyCn2AskT8NatXDLVrKnnkF4 ECyhlk1UCQegYAJyI1+eCyhh9ksq2QcBH20189-83-34L66:5 9:[id number] [address] PATIENT NAME: DELMI FLORES ADMIT DATE: 01/09/19ACCOUNT NO: [id number] ROOM NO: [facility] AGE: 48 REPORT TYPE: ELECTROCARDIOGRAM SEX: M ADMITTING PHYSICIAN:Ad Cummings MD ATTENDING PHYSICIAN:Ad Cummings MD Order:[id number] Reason : CAD Test Date/Time Stamp:WedJan 10 [...] WORLEY at 0707 PATIENT NAME: DELMI FLORES .[id number] AVAvailable for patient iykiEXFDXTQYYBCDWT7245-72-63F63:07:31 [facility] 2019-01-09 20:54:00 XEyimvtpiyp253960582 FWoWcDbI2yUS5oRctM+MaH8TkBTMm goLXb09gSFCkTl1bObc0PADbOZ5DJe81ov5466-03-64Z17:5 4:[id number] [place] [address] PATIENT NAME: DELMI FLORES ADMIT DATE: 01/09/19ACCOUNT NO: [id number] ROOM NO: Z.SI04 AGE: 48 REPORT TYPE: ELECTROCARDIOGRAM SEX: M ADMITTING PHYSICIAN:Ad Cummings MD ATTENDING PHYSICIAN:Ad Cummings MD Order:[id number] Reason : CAD Test Date/Time Stamp:WedJan 09 [...] WORLEY at 0707 PATIENT NAME: DELMI FLORES .[id number] AVAvailable for patient vfjrGYGZPGWSRKZMZS6789-96-26R28:07:22 [facility] 2019-01-09 18:44:00 JYtwttdnkzz92001110q clKv2/T1X23ojwm6wgY2h+Ku4Gchw YbquLQHGaqTpSLDdGNhV+Cz4Z5RhWjGm+O4737-03-00K80:4 4:420924-4111 [place] [id number] PATIENT NAME: DELMI FLORES ADMIT DATE: 01/09/19ACCOUNT NO: [id number] ROOM NO: Z.422 AGE: 49 REPORT TYPE: OPERATIVE REPORT SEX: [...] cryopreserved saphenous vein. SURGEON: Ad Cummings MD PATTERNMAKER APPRENTICE WOOD: Ml Marie PA-C ANESTHESIA: General. COMPLICATIONS: None. [...] MD WT: OP:ZSANGEETA/DENG/NTSDD: 01/09/2019 18:44:39DT: 01/09/2019 21:30:25Conf#: [id number]/DID#: [id number] cc: Dr. Hugo Worley MD Authenticated by Ad Cummings MD On 02/25/2019 01:10:36 PM at 1311 PATIENT NAME: DELMI FLORES msjkgg8809-02-02A46:30:00Z.[id number] lable for patient ioxuKGGOXPFDFAWTNX1204-10-39X38:11:14 [facility] 2019-01-09 18:33:00 WJcymvznxrg55176288q hT1bsjBVIs/YIENMIAGboK6uT5inh aoIOTAc2myVPqVj6ZDUlFaCS64j5aC9N5j1805-38-98Q92:3 3:00 [facility] ([facility])Brief Op NoteREPORT#:[id number] REPORT STATUS: SignedDATE:01/09/19 TIME: 1832 PATIENT: DELMI FLORES UNIT #: [id number]#: [id number] [address]YF[address] AGE: 48 SEX: M ATTEND: Ad [...] Catheter PlacedDisposition: ICU, stable at 1836 RPT #:[id number] OF REPORTOPOperative wipmwp3541-75-76E04:33:00Z.WGZJ60265288-1314QJTjt ilable for patient eevnYVLGZYNFKALKDK1929-40-04I84:36:43 [facility] 2019-01-09 16:00:00 LJqhozcvhyi49835752q 7mPh0c1QXbHE+Nz/CVqyN/ZwGeGwO HgxOrzY0MGDhIG1IT20sUkUigWCPLzRLcV7002-47-77E29:0 0:[id number] [place] [address] PATIENT NAME: DELMI FLORES ADMIT DATE: 01/09/19ACCOUNT NO: [id number] ROOM NO: Z.422 AGE: 49 REPORT TYPE: [...] is a 48-year-old male well known to [facility] with a history of severe [...] JEAN Alvarez for Ad Cummings MD WT: HP:MELODY/TIANAO-JAMESKA/NTSDD: 01/09/2019 16:00:31DT: 01/09/2019 18:33:46Conf#: [id number]/DID#: [id number] by JEAN Alvarez On 01/11/2019 09:58:26 PM Authenticated by Ad Cummings MD On 02/25/2019 01:10:32 PM at 1310 at 1310 PATIENT NAME: DELMI FLORES and physical rgtmzefpwpc5872-09-05M21:33:00Z.LIP34122793-0057E VAvailable for patient grdcTLNVUWGNHQSKOY7820-06-93P67:11:04 [facility] 2019-01-04 15:49:00 KZkynhamgln10947198G X0+Y4XT07GALZzieC2dkoA6jwlZ2R dgDMTe7Oer+td73t3AF/wKTiTzmuBmHCed5402-50-15H76:4 9:260672-4460 [place] [address]82 PATIENT NAME: DELMI FLORES ADMIT DATE: ACCOUNT NO: [id number] ROOM NO: AGE: 48 REPORT TYPE: ELECTROCARDIOGRAM SEX: M ADMITTING PHYSICIAN: ATTENDING PHYSICIAN:Ad Cummings MD Order:[id number] Reason : PREOP Test Date/Time Stamp:WedJan 04 [...] WORLEY at 1115 PATIENT NAME: DELMI FLORES .[id number] AVAvailable for patient ttobBESGUHBHUGSLYK8983-47-22O08:15:23 [facility] 2018-12-24 09:05:00 SVvacmjxewx10635744h 32noTqfcNnN1KgZX3mYJQkBX6MrSG l3+fZKc6+FOOD SERVICE DIRECTOR+X3+1aT4RNePiS1zYoUjWJE4977-26-59X90:0 5:060359-3910 [place] [address]9982 PATIENT NAME: DELMI FLORES ADMIT DATE: 12/24/18ACCOUNT NO: [id number] ROOM NO: AGE: 48 REPORT TYPE: CARDIAC CATHETERIZATION REPORT SEX: M ADMITTING PHYSICIAN: ATTENDING PHYSICIAN:Saurabh Worley MD PROCEDURE DATE: 12/24/2018 CARDIOLOGY PROCEDURE AIR/OCEAN EXPORT CLERK: Saurabh Worley MD INDICATION FOR THE PROCEDURE: [...] common femoral artery area for localanesthesia. A 6-[place] sheath was placed in the right common [...] bypass is occluded. The selective angiogram with [place] coronary catheter over a Glidewire of the [...] MD WT: CATH:CURTIS/LIZ/NTSDD: 12/24/2018 09:05:54DT: 12/24/2018 10:45:23Conf#: [id number]/DID#: [id number] Authenticated by Saurabh Worley MD On 12/24/2018 12:10:26 PM at 1210 PATIENT NAME: DELMI FLORES Kdtx1186-08-00P44:45:00Z.CGQ88496944-4065YKVqhlqy ble for patient sfgvCCIVZSMLNDFBKJ6133-28-00N58:10:55 [facility] 2018-12-24 07:15:00 ETzvnftbkab93709208C uxhqEfNfnd2BUFG+9aJHYkrfvJKQR xiferPsREyygg8ctX3fBmOguTsrvntPtay0532-23-66F52:1 5:525021-6890 [place] [address] PATIENT NAME: DELMI FLORES ADMIT DATE: 12/24/18ACCOUNT NO: [id number] ROOM NO: AGE: 48 REPORT TYPE: ELECTROCARDIOGRAM SEX: M ADMITTING PHYSICIAN: ATTENDING PHYSICIAN:Saurabh Worley MD Order:[id number] Reason : CAD Test Date/Time Stamp:WedDec 24 [...] WORLEY at 1036 PATIENT NAME: DELMI FLORES .[id number] AVAvailable for patient ucacYXWOXVFVJETZGN8781-23-00T05:36:53 [facility] 2018-12-23 07:15:00 IQoobufrabv41370290b S/KSaTpscJnOAF1hUBUrGPHKdg9Tz XDs3Ym9Zivn1Cy6V2jO3ZEO/qQ8RsRVJO04211-35-92O06:1 5:[id number] [address] PATIENT NAME: DELMI FLORES ADMIT DATE: ACCOUNT NO: [id number] ROOM NO: AGE: 48 REPORT TYPE: HISTORY AND PHYSICAL SEX: M ADMITTING PHYSICIAN: ATTENDING PHYSICIAN:Saurabh Worlye MD PATIENT NAME: DELMI FLORES ADMIT DATE:12/24/2018ADMISSION DATE: 12/24/2018 AIR/OCEAN EXPORT CLERK: Saurabh Worley MD REASON FOR ADMISSION: Abdominal [...] MD WT: HP:MELODY/LIZ/EARLEDD: 12/23/2018 07:15:37DT: 12/23/2018 08:55:07Conf#: [id number]/DID#: [id number] PATIENT NAME: DELMI FLORES cc: Ad Cummings MDAuthenticated and Edited by Saurabh Worley MD On 12/23/18 5:55:12 PM at 1757 PATIENT NAME: DELMI FLORES and physical kjrpdjlheat1319-68-55P39:55:00Z.[id number] VAvailable for patient xmwpWXHORTBFMJYXPT2676-40-61X71:58:03 [facility]
[2023-12-18 19:26] LABS: Absolute Lymphocytes (CBC) 4.4 K/uL (0.7-4.9); Absolute Monocytes 0.6 K/uL (0.1-1.3); Absolute Neutrophil 3.7 K/uL (1.8-8.0); Basophils % 0.6 % (0-1.3); Eosinophils % 0.5 % (0-4.4); Lymphocytes % 49.8 % (15.3-44.8); MCH 35.5 pg (27.0-35.0); MCHC 34.2 g/dL (32.0-36.0); MCV 103.6 fL (80-100); MPV 8.2 fL (7.6-11.3); Monocytes % 7.3 % (3.3-12.3); Neutrophils % 41.8 % (41.7-73.7); Platelets 173 thou/uL (152-406); RBC Red Blood Cell Count 3.38 M/uL (4.33-5.43); Red Cell Distribution Width 13.9 % (12.1-15.2)
[2023-12-18 19:41] LABS: PT Prothrombin Time 10.7 SECONDS (9.4-12.5); Protime INR 0.97
[2023-12-18 19:53] LABS: Albumin 3.5 g/dL (3.4-5.0); Albumin/Globulin Ratio 0.8 (1.1-1.8); Anion Gap 14.1 mEq/L (5.0-15.0); Bilirubin Direct 0.2 mg/dL (0-0.2); Bilirubin Indirect, Calculated 0.2 mg/dL (0.2-0.8); Bilirubin Total 0.4 mg/dL (0.2-1.0); Globulin 4.4 g/dL (2.3-3.5); Magnesium 1.7 mg/dL (1.6-2.4); Potassium 3.1 mEq/L (3.5-5.1); Protein, Total 7.9 g/dL (6.4-8.2); Troponin High Sensitivity 12.9 pg/mL (<58.9)
[2023-12-18] MEDS ORDERED: NA CHLORIDE 0.9% 500 ML ONE (20:49)
--- NOTE | 2023-12-18 20:59 | RAD REPORT ---
EXAM DESCRIPTION: US - Extrem Venous W Compress Bimal - 12/18/2023 7:54 pm CLINICAL HISTORY: Pain COMPARISON: None. TECHNIQUE: Real-time sonographic evaluation of the bilateral lower extremity deep venous systems was performed. FINDINGS: Normal compressibility, flow augmentation, phasic flow and spontaneous flow is identified in both the left and right lower extremity deep venous systems. No intraluminal filling defects seen. IMPRESSION: No DVT in either lower extremity.
--- NOTE | 2023-12-18 21:05 | RAD REPORT ---
EXAM DESCRIPTION: US - Lower Extremity Arterial Bilat - 12/18/2023 7:54 pm CLINICAL HISTORY: PAIN COMPARISON: No comparisons TECHNIQUE: Bilateral lower extremity arterial Doppler examination was performed with marcos garvin FINDINGS: Monophasic waveforms are seen throughout both lower extremity arterial systems to the leve l of the dorsalis pedis arteries. Markedly elevated peak systolic velocity along the right common femoral artery. Blunted upstroke with spectral widening along the posterior tibial and dorsalis pedis arteries bilaterally. Marked reducti on of velocity along the left popliteal and right posterior tibial artery suggesting slow flow. IMPRESSION: Evidence of advanced bilateral peripheral vascular disease.
--- NOTE | 2023-12-18 21:23 | EDPHYS ---
Physician Documentation [facility] Name: Jose L Mathew Age: 53 yrs Sex: Male : 1970 Arrival Date: 12/18/2023 Time: 18:03 Bed 19 Private MD: ED Physician Jorge Ramos HPI: 12/17 18:50 This 53 yrs old Male presents to ER via Ambulatory with complaints of Rash, cp Vomiting. 18:50 The patient's rash thought to be caused by an unknown cause. The rash is located on the cp right foot and left foot. The rash can be described as erythematous, pain. 18:50 Onset: The symptoms/episode began/occurred 3 day(s) ago. Associated signs and symptoms: cp Pertinent positives: 1 episode of vomiting today, Pertinent negatives: fever, abdominal pain, diarrhea. Severity of symptoms: in the emergency department the symptoms are unchanged despite home interventions. Historical: - Allergies: 18:19 No Known Allergies; ld1 - PMHx: 18:19 High Cholesterol; Hypertensive disorder; IL; ld1 - PSHx: 18:19 CAB; ld1 - Immunization history:: Adult Immunizations up to date. - Infectious Disease History:: Denies. - Social history:: Smoking status: Patient reports the use of cigarette tobacco products, smokes one pack cigarettes per day. Patient uses alcohol, 12 pack of beer daily. ROS: 18:55 Constitutional: Negative for body aches, chills, fever, poor PO intake, cp 18:55 Eyes: Negative for injury, pain, redness, and discharge, cp 18:55 ENT: Negative for drainage from ear(s), ear pain, sore throat, difficulty swallowing, difficulty handling secretions, 18:55 Cardiovascular: Negative for chest pain, edema, 18:55 Respiratory: Negative for cough, shortness of breath, wheezing, 18:55 Abdomen/GI: Negative for abdominal pain, diarrhea, constipation, active vomiting, 18:55 Neuro: Negative for altered mental status, dizziness, headache, weakness, 18:55 All other systems are negative, Exam: 19:00 Constitutional: The patient appears in no acute distress, alert, awake, cp non-diaphoretic, non-toxic, well developed, well nourished, 19:00 Head/Face: Normocephalic, atraumatic. cp 19:00 Eyes: Periorbital structures: appear normal, Conjunctiva: normal, no exudate, no injection, Sclera: no appreciated abnormality, Lids and lashes: appear normal, bilaterally, 19:00 ENT: External ear(s): are unremarkable, Nose: is normal, Mouth: Lips: moist, Oral mucosa: pink and intact, moist, Posterior pharynx: is normal, airway is patent, no erythema, no exudate, 19:00 Chest/axilla: Inspection: normal, 19:00 Cardiovascular: Rate: normal, Rhythm: regular, 19:00 Respiratory: the patient does not display signs of respiratory distress, Respirations: normal, no use of accessory muscles, no retractions, labored breathing, is not present, Breath sounds: are clear throughout, no decreased breath sounds, no stridor, no wheezing, 19:00 Abdomen/GI: Inspection: abdomen appears normal, Palpation: abdomen is soft and non-tender, in all quadrants, 19:00 Skin: cellulitis, is not appreciated, mild erythema noted soles of feet, skin dry with no open wounds. 19:00 Neuro: Orientation: to person, place \T\ time. Mentation: able to follow commands, Motor: moves all fours, no focal deficits, Sensation: no obvious gross deficits, Gait: is steady, 19:25 ECG was reviewed by the Attending Physician. Vital Signs: 18:18 BP 128 / 79; Pulse 76; Resp 18; Temp 97.2(TE); Pulse Ox 100% on R/A; Weight 79.38 kg; ld1 Height 5 ft. 2 in. ; Pain 0/10; 19:05 BP 114 / 79; Pulse 70; Resp 15 S; Pulse Ox 100% on R/A; jw7 20:00 BP 103 / 54; Pulse 72; Resp 12 S; Pulse Ox 100% on R/A; jw7 21:00 BP 119 / 70; Pulse 70; Resp 17 S; Temp 97.5(TE); Pulse Ox 100% on R/A; jw7 18:18 Body Mass Index 32.01 (79.38 kg, 157.48 cm) ld1 18:18 Pain Scale: Adult ld1 MDM: 18:22 Patient medically screened. 21:23 Data reviewed: vital signs, nurses notes, lab test result(s), EKG, radiologic studies, cp ultrasound, and as a result, I will admit patient. 21:23 Differential diagnosis: cellulitis, abscess. Refusal of service: The patient/guardian cp displays adequate decision making capability and despite a detailed discussion of alternatives, benefits, risks, and consequences refuses: Admission to the hospital for further work-up and treatment. 12/17 18:46 Order name: Basic Metabolic Panel; Complete Time: 20:15 12/17 20:15 Interpretation: Normal except: NA 121; K 3.1; CL 88; BUN 4; CRE 0.56; CA 8.3. cp 12/17 18:46 Order name: CBC with Diff; Complete Time: 20:15 12/17 20:15 Interpretation: Normal except: RBC 3.38; HGB 12.0; HCT 35.0; MCV 103.6; MCH 35.5; LYM% cp 49.8. 12/17 18:46 Order name: LFT's; Complete Time: 20:15 12/17 18:46 Order name: Magnesium; Complete Time: 20:15 12/17 18:46 Order name: PT-INR; Complete Time: 20:15 cp 12/17 18:46 Order name: Troponin HS; Complete Time: 20:15 12/17 18:46 Order name: Ptt, Activated; Complete Time: 20:15 12/17 18:46 Order name: US Extremity Venous W Compression Bimal; Complete Time: 21:02 12/17 18:46 Order name: Lower Extremity Arterial Bilat US; Complete Time: 21:07 12/17 21:08 Interpretation: Report reviewed. 12/17 18:46 Order name: Cardiac monitoring; Complete Time: 19:22 12/17 18:46 Order name: EKG - Nurse/Tech; Complete Time: 19:22 12/17 18:46 Order name: IV Saline Lock; Complete Time: 19:22 12/17 18:46 Order name: Labs collected and sent; Complete Time: 19:22 12/17 18:46 Order name: O2 Per Protocol; Complete Time: 18:47 12/17 18:46 Order name: O2 Sat Monitoring; Complete Time: 18:47 cp EC:25 Rate is 69 beats/min. Rhythm is regular. LA interval is normal. QRS interval is cp prolonged at 142 msec. QT interval is normal. T waves are Inverted in lead aVR. Interpreted by me. Reviewed by me. Administered Medications: 20:59 Drug: NS 0.9% IV 500 ml IV at bolus once Route: IV; Rate: bolus; Site: right jw7 antecubital; 21:42 Follow up: Response: No adverse reaction; IV Status: Completed infusion; IV Intake: jw7 500ml Disposition: 12/18 07:23 Co-signature as Attending Physician, Jorge Ramos MD I reviewed the patient's care rt provided by the Advanced Practice Provider and agree with the diagnosis and treatment plan. Disposition Summary: 12/18/23 21:23 Left Against Medical Advice Notes: Location: Home cp Problem: an ongoing problem cp Symptoms: have improved cp Condition: Stable cp Diagnosis - Hypo-osmolality and hyponatremia cp - Peripheral vascular disease, unspecified cp - Vomiting cp Followup: cp - With: Emergency Department - When: As needed - Reason: Worsening of condition Signatures: Dispatcher [employer] EDMS Perry Acevedo PA PA cp Yulia Cummings RN RN ld1 Ida Mckeon RN RN jw7 Jorge Ramos MD MD rt Corrections: (The following items were deleted from the chart) 12/17 18:46 18:46 BASIC METABOLIC PANEL+C.LAB.BRZ ordered. EDMS EDMS 18:46 18:46 CBC+H.LAB.BRZ ordered. EDMS EDMS 18:46 18:46 HEPATIC FUNCTION+C.LAB.BRZ ordered. EDMS EDMS 18:46 18:46 MAGNESIUM+C.LAB.BRZ ordered. EDMS EDMS 18:46 18:46 PROTIME (+INR)+COAG.LAB.BRZ ordered. EDMS EDMS 18:46 18:46 Troponin High Sensitivity+C.LAB.BRZ ordered. EDMS EDMS 18:46 18:46 PTT, ACTIVATED+COAG.LAB.BRZ ordered. EDMS EDMS 18:46 18:46 Extrem Venous W Compression Bimal+US.RAD.BRZ ordered. EDMS EDMS 18:46 18:46 Lower Extremity Arterial Bilat+US.RAD.BRZ ordered. EDMS EDMS
--- NOTE | 2023-12-18 21:23 | ER ---
Nurse's Notes [facility] Name: Jose L Mathew Age: 53 yrs Sex: Male : 1970 Arrival Date: 12/18/2023 Time: 18:03 Bed 19 Private MD: Diagnosis: Hypo-osmolality and hyponatremia;Peripheral vascular disease, unspecified;Vomiting Presentation: 12/17 18:18 Chief complaint: Patient states: Rash to TC feet 2-3 days. N/V since this morning. ld1 Coronavirus screen: At this time, the client does not indicate any symptoms associated with coronavirus-19. Ebola Screen: No symptoms or risks identified at this time. Initial Sepsis Screen: Does the patient meet any 2 criteria? No. Patient's initial sepsis screen is negative. Does the patient have a suspected source of infection? No. Patient's initial sepsis screen is negative. Risk Assessment: Do you want to hurt yourself or someone else? Patient reports no desire to harm self or others. Onset of symptoms was December 18, 2023. 18:18 Method Of Arrival: Ambulatory ld1 18:18 Acuity: URBANO 4 ld1 Triage Assessment: 18:19 General: Appears in no apparent distress. comfortable, Behavior is calm, cooperative, ld1 appropriate for age. Pain: Denies pain. EENT: No signs and/or symptoms were reported regarding the EENT system. Neuro: Level of Consciousness is awake, alert, obeys commands, Oriented to person, place, time, situation, Appropriate for age. Cardiovascular: Capillary refill < 3 seconds Patient's skin is warm and dry. Respiratory: Airway is patent Respiratory effort is even, unlabored. GI: Abdomen is round non-distended, Reports nausea, vomiting. : No signs and/or symptoms were reported regarding the genitourinary system. Derm: Rash noted that is on right foot and left foot. Musculoskeletal: No signs and/or symptoms reported regarding the musculoskeletal system. Historical: - Allergies: 18:19 No Known Allergies; ld1 - PMHx: 18:19 High Cholesterol; Hypertensive disorder; AR; ld1 - PSHx: 18:19 CAB; ld1 - Immunization history:: Adult Immunizations up to date. - Infectious Disease History:: Denies. - Social history:: Smoking status: Patient reports the use of cigarette tobacco products, smokes one pack cigarettes per day. Patient uses alcohol, 12 pack of beer daily. Screenin:10 [facility] ED Fall Risk Assessment (Adult) History of falling in the last 3 months, jw7 including since admission No falls in past 3 months (0 pts) Confusion or Disorientation No (0 pts) Intoxicated or Sedated No (0 pts) Impaired Gait No (0 pts) Mobility Assist Device Used No (0 pt) Altered Elimination No (0 pt) Score/Fall Risk Level 0 - 2 = Low Risk Oriented to surroundings, Maintained a safe environment, Educated pt \\T\\ family on fall prevention, incl call for assistance when getting out of bed. Abuse screen: Denies threats or abuse. Denies injuries from another. Nutritional screening: No deficits noted. Tuberculosis screening: No symptoms or risk factors identified. Assessment: 19:10 General: Appears in no apparent distress. comfortable, Behavior is calm, cooperative, jw7 appropriate for age. Pain: Complains of pain in left foot and right foot Pain radiates to right leg and left leg Pain currently is 6 out of 10 on a pain scale. Quality of pain is described as throbbing, Pain began gradually, Is continuous. Neuro: Level of Consciousness is awake, alert, obeys commands, Oriented to person, place, time, situation, Appropriate for age. Cardiovascular: Heart tones S1 S2 present Capillary refill < 3 seconds Clubbing of nail beds is absent JVD is absent Patient's skin is warm and dry. Respiratory: Airway is patent Trachea midline Respiratory effort is even, unlabored, Respiratory pattern is regular, symmetrical, Breath sounds are clear bilaterally. GI: Abdomen is flat, non-distended, Bowel sounds present X 4 quads. Abd is soft and non tender X 4 quads. : No deficits noted. No signs and/or symptoms were reported regarding the genitourinary system. EENT: No deficits noted. No signs and/or symptoms were reported regarding the EENT system. Derm: Skin is healthy with good turgor, Skin is dry, Skin is normal, Skin temperature is warm Rash noted that is Redness to bilateral Lower Extremities and Feet. Musculoskeletal: Circulation, motion, and sensation intact. Range of motion: intact in all extremities. 20:00 Reassessment: Patient appears in no apparent distress at this time. No changes from jw7 previously documented assessment. Patient and/or family updated on plan of care and expected duration. Pain level reassessed. Patient is alert, oriented x 3, equal unlabored respirations, skin warm/dry/pink. 21:00 Reassessment: Patient appears in no apparent distress at this time. No changes from jw7 previously documented assessment. Patient and/or family updated on plan of care and expected duration. Pain level reassessed. Patient is alert, oriented x 3, equal unlabored respirations, skin warm/dry/pink. 21:30 General: Educated patient on need to stay in the hospital for further jw7 testing/evaluation, Patient refused to stay stated "I want to go home, I don't want to stay in the hospital". . Vital Signs: 18:18 BP 128 / 79; Pulse 76; Resp 18; Temp 97.2(TE); Pulse Ox 100% on R/A; Weight 79.38 kg; ld1 Height 5 ft. 2 in. ; Pain 0/10; 19:05 BP 114 / 79; Pulse 70; Resp 15 S; Pulse Ox 100% on R/A; jw7 20:00 BP 103 / 54; Pulse 72; Resp 12 S; Pulse Ox 100% on R/A; jw7 21:00 BP 119 / 70; Pulse 70; Resp 17 S; Temp 97.5(TE); Pulse Ox 100% on R/A; jw7 18:18 Body Mass Index 32.01 (79.38 kg, 157.48 cm) ld1 18:18 Pain Scale: Adult ld1 ED Course: 18:05 Patient arrived in ED. mg5 18:15 Perry Acevedo PA is PHCP. cp 18:15 Jorge Ramos MD is Attending Physician. cp 18:19 Triage completed. ld1 18:19 Arm band placed on right wrist. EKG completed in triage. Results shown to MD. ld1 18:34 Funmi Stanley, VIOLA is Primary Nurse. nj1 19:10 Patient has correct armband on for positive identification. Bed in low position. Call jw7 light in reach. Provided Education on: Use of Call Light. 19:15 Initial lab(s) drawn, by ED staff, sent to lab. Inserted saline lock: 22 gauge in right jw7 antecubital area, using aseptic technique. Blood collected. 19:22 EKG done, by ED staff, reviewed by Perry PENA. jw7 19:56 US Extremity Venous W Compression Tc In Process Unspecified. EDMS 19:56 Lower Extremity Arterial Bilat US In Process Unspecified. EDMS 21:39 No provider procedures requiring assistance completed. IV discontinued, intact, jw7 bleeding controlled, No redness/swelling at site. Pressure dressing applied. Administered Medications: 20:59 Drug: NS 0.9% IV 500 ml IV at bolus once Route: IV; Rate: bolus; Site: right jw7 antecubital; 21:42 Follow up: Response: No adverse reaction; IV Status: Completed infusion; IV Intake: jw7 500ml Medication: 21:39 VIS not applicable for this client. jw7 Intake: 21:42 IV: 500ml; Total: 500ml. jw7 Outcome: 21:39 AMA AMA form signed jw7 21:39 Condition: stable 21:39 Instructed on follow up and referral plans. Demonstrated understanding of instructions, 21:42 Patient left the ED. jw7 Signatures: Dispatcher [employer] EDMS Perry Acevedo PA PA cp Sims, Lauren, RN RN ld1 Ida Mckeon RN RN jw7 Funmi Stanley RN RN nj1 Kali [facility]5
[2023-12-18 22:11] VITALS: BP 119/70; TEMP 97.5; O2SAT 100
--- NOTE | 2023-12-20 13:08 | EKG ---
Test Date: 2023-12-18 Test Time: 19:18:53 Calibration Tester: HOLLIS MEASUREMENT RESULTS: Intervals: Rate: 69 IN: 182 QRSD: 142 QT: 422 QTc: 452 [place]: P: 64 IN: 182 QRS: -26 T: 8 INTERPRETIVE STATEMENTS: Normal sinus rhythm Right bundle branch block Abnormal ECG Compared to ECG 10/10/2023 19:22:47 No significant changes Electronically Signed On 12-20-23 13:03:46 CDT by Greg Candelario
== END 2023-12-18 21:42 | disposition left against medical advice (07) ==
LOC: ER 18:03
DX: E87.1 Hypo-osmolality and hyponatremia (principal); I73.9 Peripheral vascular disease, unspecified; R21 Rash and other nonspecific skin eruption
CPT/HCPCS: 85025; 80048; 36415; 83735; 85610; 80076; 85730; 84484; 93925; 93970; 96360; 99284; J7040; 93005

== ENCOUNTER 2024-02-11 08:59 | Inpatient (IN) | payer BC ==
[2024-02-11 10:23] LABS: Absolute Basophils 0.1 K/uL (0-0.5); Absolute Eosinophils 0.1 K/uL (0-0.5); Absolute Lymphocytes (CBC) 2.1 K/uL (0.7-4.9); Absolute Monocytes 0.4 K/uL (0.1-1.3); Absolute Neutrophil 3.7 K/uL (1.8-8.0); Eosinophils % 0.8 % (0-4.4); Hematocrit 41.5 % (39.6-49.0); Hemoglobin 14.1 g/dL (13.6-17.9); MCH 35.6 pg (27.0-35.0); MCV 104.9 fL (80-100); MPV 8.3 fL (7.6-11.3); Monocytes % 5.9 % (3.3-12.3); Neutrophils % 58.3 % (41.7-73.7); Platelets 174 thou/uL (152-406); RBC Red Blood Cell Count 3.96 M/uL (4.33-5.43); Red Cell Distribution Width 13.4 % (12.1-15.2)
[2024-02-11 10:24] LABS: PT Prothrombin Time 9.9 SECONDS (9.4-12.5); PTT, Activated Partial Thromb 36.7 SECONDS (24.3-36.9); Protime INR 0.88
[2024-02-11 10:35] LABS: Albumin 4.1 g/dL (3.4-5.0); Albumin/Globulin Ratio 0.8 (1.1-1.8); Anion Gap 10.4 mEq/L (5.0-15.0); Bilirubin Total 0.6 mg/dL (0.2-1.0); Globulin 5.2 g/dL (2.3-3.5); Potassium 3.4 mEq/L (3.5-5.1); Protein, Total 9.3 g/dL (6.4-8.2)
[2024-02-11] MEDS ORDERED: D10W 250 ML IV ONE (11:00)
--- NOTE | 2024-02-11 11:02 | RAD REPORT ---
EXAM DESCRIPTION: RAD - Foot Left 3 View - 02/11/2024 10:54 am CLINICAL HISTORY: pain, eval for osteo COMPARISON: No comparisons FINDINGS: No fracture, dislocation radiographic evidence of osteomyelitis. Moderate vascular calcifi cations. No soft tissue gas or foreign body visible.
[2024-02-11] MEDS ORDERED: NA CHLORIDE 0.9% 100 ML ONE (11:17)
[2024-02-11] MEDS ORDERED: VANCOMYCIN 1 GM/VIAL ONE (11:17)
[2024-02-11] MEDS ORDERED: NA CHLORIDE 0.9% 250 ML ONE (11:46)
--- NOTE | 2024-02-11 12:45 | RAD REPORT ---
EXAM DESCRIPTION: US - Lower Extremity Arterial Bilat - 02/11/2024 12:32 pm CLINICAL HISTORY: Pain;Swelling COMPARISON: Lower Extremity Arterial Bilat dated 12/18/2023; Extrem Venous W Compress Bimal dated 2023 TECHNIQUE: Bilateral lower extremity arterial Doppler examination was performed with marcos garvin FINDINGS: The left lower extremity arterial system shows significant atherosclerotic plaquing in very limited f low is visible. There is occlusion of the majority of the left lower extremity arterial system with s ome arterial flow suspected in the left SFA, monophasic in appearance. The right lower extremity arterial system is also significantly diseased with largely monophasic wave form seen throughout. IMPRESSION: Significant peripheral vascular disease is seen, more severe on the left. The majority o f left lower extremity arterial system shows very little confirmed flow suggesting significant occlus ion is present. Recommend CTA runoffs of both lower extremity arterial systems for further evaluation.
--- NOTE | 2024-02-11 13:13 | ER ---
Nurse's Notes [facility] Name: Jose L Mathew Age: 54 yrs Sex: Male : 1970 Arrival Date: 02/11/2024 Time: 08:59 Bed 20 Private MD: Diagnosis: Cellulitis of left lower limb;Peripheral arterial stenosis/occlusion Presentation: 02/10 09:25 Chief complaint: Bilateral foot wounds x months. Coronavirus screen: At this time, the hb client does not indicate any symptoms associated with coronavirus-19. Ebola Screen: No symptoms or risks identified at this time. 09:25 Method Of Arrival: Ambulatory hb 09:26 Initial Sepsis Screen: Does the patient meet any 2 criteria? No. Patient's initial hb sepsis screen is negative. Does the patient have a suspected source of infection? No. Patient's initial sepsis screen is negative. Risk Assessment: Do you want to hurt yourself or someone else? Patient reports no desire to harm self or others. Onset of symptoms is unknown. 09:26 Acuity: URBANO 3 hb Historical: - Allergies: 09:26 No Known Allergies; hb - PMHx: 09:26 High Cholesterol; Hypertensive disorder; NE; hb - PSHx: 09:26 CAB; hb - Immunization history:: Adult Immunizations up to date. - Infectious Disease History:: Denies. - Social history:: Smoking status: Patient reports the use of cigarette tobacco products. - Family history:: not pertinent. - Hospitalizations: : No recent hospitalization is reported. Screenin:13 [facility] ED Fall Risk Assessment (Adult) History of falling in the last 3 months, nj1 including since admission No falls in past 3 months (0 pts) Confusion or Disorientation No (0 pts) Intoxicated or Sedated No (0 pts) Impaired Gait No (0 pts) Mobility Assist Device Used No (0 pt) Altered Elimination No (0 pt) Score/Fall Risk Level 0 - 2 = Low Risk Oriented to surroundings, Maintained a safe environment, Hourly rounding (assess needs \T\ fall precautionary measures) done. Abuse screen: Denies threats or abuse. Denies injuries from another. Nutritional screening: No deficits noted. Tuberculosis screening: No symptoms or risk factors identified. Assessment: 09:45 General: Appears in no apparent distress. uncomfortable, Behavior is calm, cooperative. kj2 Pain: Complains of pain in left foot Pain currently is 7 out of 10 on a pain scale. Neuro: Level of Consciousness is awake, alert, obeys commands, Oriented to person, place, time. Cardiovascular: Patient's skin is warm and dry. Respiratory: Airway is patent Respiratory effort is unlabored. GI: No deficits noted. : No deficits noted. 10:31 Reassessment: No changes from previously documented assessment. Patient and/or family kj2 updated on plan of care and expected duration. Pain level reassessed. Patient is alert, oriented x 3, equal unlabored respirations, skin warm/dry/pink. 11:02 Reassessment: discharge on hold due to physician new order to be given prior to patient kj2 leaving. 12:36 Reassessment: Patient appears in no apparent distress at this time. Patient and/or kj2 family updated on plan of care and expected duration. Pain level reassessed. Patient is alert, oriented x 3, equal unlabored respirations, skin warm/dry/pink. patient just returned from ultrasound. 14:09 Reassessment: Patient appears in no apparent distress at this time. Patient and/or kj2 family updated on plan of care and expected duration. Pain level reassessed. Patient is alert, oriented x 3, equal unlabored respirations, skin warm/dry/pink. Back from imaging. Refused gown. 14:16 Reassessment: Plastic bag placed to left foot/leg as requested by Dr Diaz. kj2 Vital Signs: 09:25 BP 107 / 70; Pulse 97; Resp 16; Temp 98.2(O); Pulse Ox 98% on R/A; Weight 79.38 kg; hb Height 5 ft. 4 in. ; Pain 9/10; 10:43 BP 127 / 78; Pulse 79; Resp 16; Temp 98.2; Pulse Ox 99% on R/A; Weight 77.11 kg; Height kj2 5 ft. 2 in. ; 12:36 BP 132 / 86; Pulse 85; Resp 16; Pulse Ox 99% on R/A; kj2 14:07 BP 166 / 69; Pulse 88; Resp 20; Pulse Ox 100% on R/A; kj2 15:01 BP 130 / 74; Pulse 81; Resp 18; Temp 98.2; Pulse Ox 100% on R/A; kj2 10:43 Body Mass Index 31.09 (77.11 kg, 157.48 cm) kj2 09:25 Pain Scale: Adult hb ED Course: 09:01 Patient arrived in ED. im 09:01 Aman Panchal MD is Attending Physician. rn 09:26 Triage completed. hb 09:26 Arm band placed on. hb 09:58 Inserted saline lock: 20 gauge in right antecubital area, using aseptic technique. nj1 Blood collected. Flushed with 10 mL NS. 10:00 Client placed on continuous cardiac and pulse oximetry monitoring. NIBP monitoring nj1 applied. nurse monitoring on. 10:11 EKG done, by ED staff, reviewed by Aman Panchal MD. em1 10:14 Patient has correct armband on for positive identification. Bed in low position. Call nj1 light in reach. Adult w/ patient. Provided Education on: call light, fall precautions. 10:31 Nasrin Fay, RN is Primary Nurse. kj2 10:37 Notified ED physician of a critical lab result(s). Lactic Acid 2.4. nj1 10:38 Notified primary nurse of Lactic Acid 2.4. Will need fu lactic acid 2 hours from now. nj1 10:56 XRAY Foot LEFT 3 View In Process Unspecified. EDMS 12:34 Lower Extremity Arterial Bilat US In Process Unspecified. EDMS 13:12 Aman Panchal MD is Hospitalizing Provider. rn 13:12 Tarik Panchal MD is Hospitalizing Provider. rn 13:58 Abdomen Angio In Process Unspecified. EDMS 13:58 Lower Ext Angio In Process Unspecified. EDMS 13:58 Pelvis Angio In Process Unspecified. EDMS 15:02 No provider procedures requiring assistance completed. kj2 Administered Medications: 11:04 Drug: D10 in Water IVP 250 ml IVP bolus Route: IVP; Site: right antecubital; nj1 13:06 Follow up: Response: No adverse reaction; 250ml, infusion complete. kj2 12:37 Drug: Cefepime IVPB 1 grams IVPB at 200 ml/hr once over 30 mins; (mix in NS 100 mL) kj2 Route: IVPB; Rate: 200 ml/hr; Infused Over: 30 mins; Site: left antecubital; 13:05 Follow up: Response: No adverse reaction; IV Status: Completed infusion; IV Intake: kj2 100ml 13:05 Drug: vancoMYCIN IVPB 1 grams IVPB once over 2 hrs Route: IVPB; Infused Over: 2 hrs; kj2 Site: right antecubital; Medication: 10:46 VIS not applicable for this client. kj2 Intake: 13:05 IV: 100ml; Total: 100ml. kj2 Outcome: 13:13 Decision to Hospitalize by Provider. rn 15:15 Patient left the ED. Signatures: Dispatcher [employer] EDMS Aman Panchal MD MD rn Martinez, Eric em1 Britt Clayton RN RN Funmi Stanley RN RN nj1 Janeen Waters Krystal, RN RN kj2 Corrections: (The following items were deleted from the chart) 09:26 09:25 BP 107 / 70; Pulse 97bpm; Resp 16bpm; Pulse Ox 98% RA; Temp 98.2F Oral; Pain hb 9/10, Adult; hb 13:06 12:38 Response: No adverse reaction kj2 kj2
--- NOTE | 2024-02-11 13:13 | EDPHYS ---
Physician Documentation [facility] Name: Jose L Mathew Age: 54 yrs Sex: Male : 1970 Arrival Date: 02/11/2024 Time: 08:59 Bed 20 Private MD: ED Physician Aman Panchal HPI: 02/10 09:36 This 54 yrs old Male presents to ER via Ambulatory with complaints of Wound rn Check - on feet. 09:36 Patient presents to ED for recheck of: cellulitis. The affected area is on the left rn foot. The patient has experienced a previous episode. . 10:32 Patient reports pain and swelling with discoloration to bilateral feet, left worse than rn right for the last 2 to 4 weeks. Seen here recently and left AGAINST MEDICAL ADVICE, recommendation was admission for IV antibiotics at that time. Patient reports pain getting worse and hurts to walk. No trauma. No fever.. Historical: - Allergies: 09:26 No Known Allergies; hb - PMHx: 09:26 High Cholesterol; Hypertensive disorder; [place]; hb - PSHx: 09:26 CAB; hb - Immunization history:: Adult Immunizations up to date. - Infectious Disease History:: Denies. - Social history:: Smoking status: Patient reports the use of cigarette tobacco products. - Family history:: not pertinent. - Hospitalizations: : No recent hospitalization is reported. ROS: 10:32 Constitutional: Negative for fever, chills, and weight loss, Cardiovascular: Negative rn for chest pain, palpitations, and edema, Respiratory: Negative for shortness of breath, cough, wheezing, and pleuritic chest pain, Abdomen/GI: Negative for abdominal pain, nausea, vomiting, diarrhea, and constipation, MS/Extremity: Positive for bilateral foot pain Neuro: Negative for headache, weakness, numbness, tingling, and seizure, Exam: 10:32 Constitutional: This is a well developed, well nourished patient who is awake, alert, rn and in no acute distress. Cardiovascular: Regular rate and rhythm. No pulse deficits. MS/ Extremity: Mild swelling to the dorsum and distal left foot, maggots identified within webspaces. Foul smell present. No purulence noted. No dry gangrene noted. Neuro: Awake and alert, GCS 15 Vital Signs: 09:25 BP 107 / 70; Pulse 97; Resp 16; Temp 98.2(O); Pulse Ox 98% on R/A; Weight 79.38 kg; hb Height 5 ft. 4 in. ; Pain 9/10; 10:43 BP 127 / 78; Pulse 79; Resp 16; Temp 98.2; Pulse Ox 99% on R/A; Weight 77.11 kg; Height kj2 5 ft. 2 in. ; 12:36 BP 132 / 86; Pulse 85; Resp 16; Pulse Ox 99% on R/A; kj2 14:07 BP 166 / 69; Pulse 88; Resp 20; Pulse Ox 100% on R/A; kj2 15:01 BP 130 / 74; Pulse 81; Resp 18; Temp 98.2; Pulse Ox 100% on R/A; kj2 10:43 Body Mass Index 31.09 (77.11 kg, 157.48 cm) kj2 09:25 Pain Scale: Adult hb MDM: 09:01 Patient medically screened. rn 13:08 Differential diagnosis: cellulitis, Arterial insufficiency versus occlusion, rn cellulitis, gangrene, osteomyelitis. Data reviewed: vital signs, nurses notes, lab test result(s), radiologic studies, doppler, and as a result, I will admit patient. Consideration of Admission/Observation Patient was admitted/placed on observation. Escalation of care including admission/observation considered. Management of patient was discussed with the following: Shipwright Apprentice: Discussed case with Dr. Archibald, including results of high level stenosis versus possible occlusion, will see patient in consult on patient here.. Care significantly affected by the following chronic conditions: Hypertension, Peripheral arterial disease. Counseling: I had a detailed discussion with the patient and/or guardian regarding the historical points, exam findings, and any diagnostic results supporting the discharge/admit diagnosis, lab results, radiology results, the need for further work-up and treatment in the hospital. ED course: I personally spent 35 minutes engaged in work directly related to the individual patient's care. This does not include any time spent performing procedures. The patient has been deemed critically ill because of severe peripheral arterial disease, possible arterial occlusion, infection of the foot with maggots and requiring organization of multiple specialty care.. 02/10 09:16 Order name: Blood Culture Adult (2) rn 02/10 09:16 Order name: CBC with Diff; Complete Time: 10:32 rn 02/10 09:16 Order name: CMP; Complete Time: 10:42 rn 02/10 09:16 Order name: Lactate w/ 2H reflex if indic.; Complete Time: 10:42 rn 02/10 09:16 Order name: Protime (+inr); Complete Time: 10:32 rn 02/10 09:16 Order name: Ptt, Activated; Complete Time: 10:32 rn 02/10 12:37 Order name: Ghost Lactate-NO COLLECT Timer; Complete Time: 12:49 EDTX 02/10 13:16 Order name: Lactate Sepsis 2 HR Follow-up; Complete Time: 13:17 EDMS 02/10 13:28 Order name: Glucose, Ancillary Testing; Complete Time: 15:07 EDTX 02/10 09:16 Order name: XRAY Foot LEFT 3 View; Complete Time: 11:37 rn 02/10 09:16 Order name: Lower Extremity Arterial Bilat US; Complete Time: 12:49 rn 02/10 13:39 Order name: Abdomen Angio; Complete Time: 15:07 EDTX 02/10 13:39 Order name: Lower Ext Angio; Complete Time: 15:07 EDTX 02/10 13:39 Order name: Pelvis Angio; Complete Time: 15:07 EDMS 02/10 09:16 Order name: EKG; Complete Time: 09:17 rn 02/10 13:51 Order name: CONS Physician Consult EDTX 02/10 09:16 Order name: Accucheck; Complete Time: 13:17 rn 02/10 09:16 Order name: Cardiac monitoring; Complete Time: 10:13 rn 02/10 09:16 Order name: EKG - Nurse/Tech; Complete Time: 10:11 rn 02/10 09:16 Order name: IV Saline Lock - Large Bore; Complete Time: 10:13 rn 02/10 09:16 Order name: Labs collected and sent; Complete Time: 10:13 rn 02/10 09:16 Order name: O2 Per Protocol; Complete Time: 10:13 rn 02/10 09:16 Order name: O2 Sat Monitoring; Complete Time: 10:13 rn 02/10 09:16 Order name: Vital Signs; Complete Time: 10:13 rn Administered Medications: 11:04 Drug: D10 in Water IVP 250 ml IVP bolus Route: IVP; Site: right antecubital; nj1 13:06 Follow up: Response: No adverse reaction; 250ml, infusion complete. kj2 12:37 Drug: Cefepime IVPB 1 grams IVPB at 200 ml/hr once over 30 mins; (mix in NS 100 mL) kj2 Route: IVPB; Rate: 200 ml/hr; Infused Over: 30 mins; Site: left antecubital; 13:05 Follow up: Response: No adverse reaction; IV Status: Completed infusion; IV Intake: kj2 100ml 13:05 Drug: vancoMYCIN IVPB 1 grams IVPB once over 2 hrs Route: IVPB; Infused Over: 2 hrs; kj2 Site: right antecubital; Disposition Summary: 02/11/24 13:13 Hospitalization Ordered Notes: Hospitalization Status: Inpatient Admission rn Provider: Tarik Panchal [facility]n [facility] Condition: Stable rn Problem: new rn Symptoms: have improved rn Bed/Room Type: Standard rn Room Assignment: 210(02/11/24 14:01) em1 Diagnosis - Cellulitis of left lower limb rn - Peripheral arterial stenosis/occlusion rn Forms: - Medication Reconciliation Form rn - SBAR form rn - Leadership Thank You Letter yarn finisher time excluding procedures: 13:08 Critical care time: Bedside Care: 25 minutes, Consultation: 10 minutes. Total time: 35 rn minutes Signatures: Dispatcher [employer] EDMS Aman Panchal MD MD rn Martinez, Eric em1 Mike Phelps, RETAIL FIELD SUPERVISOR-C RETAIL FIELD SUPERVISOR-Cla1 Britt Clayton, RN RN Funmi Banks RN RN nj1 Nasrin Fay RN RN kj2 Corrections: (The following items were deleted from the chart) 09:17 09:17 BLOOD CULTURE*+BA.LAB.BRZ ordered. EDMS EDMS 09:17 09:17 CBC+H.LAB.BRZ ordered. EDMS EDMS 09:17 09:17 COMPREHENSIVE METABOLIC PANEL+C.LAB.BRZ ordered. EDMS EDMS 09:17 09:17 LACTATE+C.LAB.BRZ ordered. EDMS EDMS 09:17 09:17 PROTIME (+INR)+COAG.LAB.BRZ ordered. EDMS EDMS 09:17 09:17 PTT, ACTIVATED+COAG.LAB.BRZ ordered. EDMS EDMS 09:17 09:17 Foot Left 3 View+RAD.RAD.BRZ ordered. EDMS EDMS 09:17 09:17 Lower Extremity Arterial Bilat+US.RAD.BRZ ordered. EDMS EDMS 10:33 09:36 The patient has experienced a previous episode, rn rn 14:01 13:13 rn em1
--- NOTE | 2024-02-11 14:15 | P.HP ---
Certification for Inpatient Patient admitted to: Inpatient With expected LOS: >2 Midnights Patient will require the following post-hospital care: None Practitioner: I am a practitioner with admitting privileges, knowledge of patient current condition, hospital course, and medical plan of care. Services: Services provided to patient in accordance with Admission requirements found in Title 42 Section 412.3 of the Code of Federal Regulations Patient History Date of Service: 02/11/24 Reason for admission: Foot wound, severe PAD History of Present Illness: 54-year-old male with history of severe PAD, CAD with previous CABG, hypertension presents the emergency department with chief complaint of left foot wound. He has been evaluated for this wound couple times over the course of the past 2 months but has left AMA or refuse treatment in the past. He was evaluated in the emergency department today his labs are significant for a sodium of 127 potassium 3.4 chloride 93 creatinine 0.67 initial lactic acid 2.4 recheck down to 2.1. X-ray of his left foot was obtained which showed no fracture, dislocation or radiographic evidence for osteomyelitis. Moderate vascular calcifications. No soft tissue gas or foreign body visible. Arterial ultrasound was performed which showed significant peripheral vascular disease is seen more severe on the left. The majority of left lower extremity arterial system shows very little confirm flow suggesting significant occlusion is present. Recommend CTA runoffs of both lower extremities arterial system for further evaluation. ED physician discussed case with vascular surgery who agrees to see patient, on exam patient noted to have maggots in the wound between his third and fourth toe on the left. Patient also admits to drinking a 12 pack/day as long as he can remember, also smokes a pack per day. - Past Medical/Surgical History -: Hypertension -: Severe PAD -: CAD with previous CABG -: Multiple vascular surgeries to bilateral lower extremities -: CABG -: Hernia repairs Psychosocial/ Personal History: Lives at home with his family - Family History Family History: Reviewed- Non-Contributory - Social History Smoking Status: Current every day smoker Counseled patient to stop smoking for: less than 10 minutes Smoking therapy provided: Yes Patient receptive to therapy: Yes Alcohol use: Yes CD- Drugs: No Caffeine use: Yes Place of Residence: Home Review of Systems 10-point ROS is otherwise unremarkable Musculoskeletal: Foot Pain Physical Examination - Physical Exam General: Alert, In no apparent distress, Oriented x3 HEENT: Atraumatic, PERRLA, EOMI Neck: Supple, 2+ carotid pulse no bruit, No LAD Respiratory: Clear to auscultation bilaterally, Normal air movement Cardiovascular: Regular rate/rhythm, Normal S1 S2 Capillary refill: >2 Seconds Gastrointestinal: Normal bowel sounds Musculoskeletal: No tenderness Integumentary: Erythema (Primarily of the toes of the left foot), Arterial ulcer (Wounds present between toes, the worst between left third and fourth toe with tunneling wound present and maggots present) Neurological: Normal gait, Normal speech, Normal strength at 5/5 x4 extr, Normal tone, Normal affect Lymphatics: No axilla or inguinal lymphadenopathy - Studies Laboratory Data (last 24 hrs) 02/11/24 02/11/24 02/11/24 10:00 10:00 10:00 WBC 6.30 Hgb 14.1 Hct 41.5 Plt Count 174 PT 9.9 INR 0.88 APTT 36.7 Sodium 127 L Potassium 3.4 L BUN 3 L Creatinine 0.67 L Glucose 65 L Total Bilirubin 0.6 AST 25 ALT 28 Alkaline Phosphatase 79 Assessment and Plan - Plan Assessment: Cellulitis of left foot Tunneling left foot wound between third and fourth toes Elevated lactate Hyponatremia Hypokalemia Hypoglycemia Tobacco use disorder Alcohol use disorder Severe PAD History of CAD with previous CABG Hypertension Plan: Cellulitis of left foot Tunneling left foot wound between third and fourth toes Elevated lactate Seen by surgery in ED, n.p.o. for likely surgical intervention Continue antibiotics vancomycin/cefepime Blood cultures obtained in ED, will follow No sepsis at this time Lactate initially 2.4 down to 2.1, suspect this is due to hypoperfusion/hypoglycemia 1/4 SIRS criteria present with heart rate only elevated greater than [address] angio pending Vascular consultation in place Hyponatremia Hypokalemia Hypoglycemia Continue IV fluids, electrolyte protocols If blood sugars persistently low dextrose-containing fluids Tobacco use disorder Alcohol use disorder Counseled on need for cessation Provided with NicoDerm patch Alcohol withdrawal assessments, as needed benzodiazepines Has drank 12 pack/day for many years now History of CAD with previous CABG Hypertension Continue home medications as appropriate DVT PPX: SCDs Code status: Full Discharge Plan: Home Plan to discharge in: Greater than 2 days - Advance Directives Does patient have a Living Will: No Does patient have a Durable POA for Healthcare: No - Code Status/Comfort Care Code Status Assessed: Yes (Full code) Critical Care: No Time Spent Managing Pts Care (In Minutes): 70
--- NOTE | 2024-02-11 15:05 | RAD REPORT ---
EXAM DESCRIPTION: CT - Pelvis Angio - 02/11/2024 1:56 pm CLINICAL HISTORY: eval poss arterial occulsion COMPARISON: Abdomen Angio dated 02/11/2024; Lower Ext Angio dated 02/11/2024; Lower Extremity Arterial Bilat dated 02/11/2024 TECHNIQUE: Thin axial CT images of the abdomen and pelvis, with bilateral lower extremity runoffs, w ere obtained during administration of 100mL Isovue 370 IV contrast. Sagittal and coronal reconstructi ons as well as maximal intensity projection reconstruction were generated and reviewed per an aortic angiography protocol. All CT scans are performed using dose optimization technique as appropriate and may include automated exposure control or mA/KV adjustment according to patient size. FINDINGS: Aorta is normal in diameter with no dissection or other acute aortic findings. Moderate to advanced atherosclerotic calcifications along the abdominal aorta and common iliac arteries. Dense a therosclerotic calcifications along the external iliac arteries, with focal up to moderate mid left e xternal iliac artery narrowing, see axial image 59/268. Segments of severe narrowing and occlusion involving the left common femoral artery and the proximal to mid left superficial femoral artery as well as the proximal left deep femoral artery. Reconstituti on of flow along the distal left superficial femoral artery and left popliteal artery with multifocal areas of severe stenosis is well. . Moderate atherosclerotic plaque formation along the left tibial and peroneal arteries, with the exception of the distal left peroneal artery which progressively atte nuates, with no visible opacification at the level of the ankle. Multifocal moderate to severe stenoses along the right common femoral and proximal right superficial femoral artery. Enim-gm-tihwqecm stenoses along the right deep femoral and mid to distal superficial femoral arteries. Short-segment of dense atherosclerotic calcification involving most of the poplitea l artery with reconstitution of flow distally and along the trifurcation, with patent flow along the lower leg vessels. The visualized lower lungs are unremarkable. Celiac, SMA and renal arteries are patent with pzbc-sr-tuklnexs atherosclerotic narrowing at the orig ins. Solid abdominal viscera and bowel show no significant findings. No mass or abnormal lymphadenopa thy. No suspicious osseous lesions. Grade 1 spondylolisthesis at L5-S1. IMPRESSION: No evidence of dissection or aneurysmal dilation on CT angiogram of the aorta. Multifocal up to advanced atherosclerotic changes throughout the aorta, iliac, femoral, and popliteal vessels as above, most notably contributing to long segments of mixed severe stenoses and occlusion along the left common femoral and proximal to mid left superficial femoral artery, and the proximal l eft deep femoral artery. These findings are of uncertain chronicity. Severe multifocal stenoses along the distal left superficial femoral artery and left popliteal artery , and along the right common femoral and proximal right superficial femoral arteries. The lower leg vessels are patent bilaterally with the exception of the distal left peroneal artery wh ich progressively attenuates, with no visible opacification at the level of the ankle. Other yywo-nz-ibqfztoe arterial stenoses as above.
--- NOTE | 2024-02-11 15:05 | RAD REPORT ---
EXAM DESCRIPTION: CT - Lower Ext Angio - 02/11/2024 1:56 pm CLINICAL HISTORY: eval poss arterial occulsion COMPARISON: Lower Extremity Arterial Bilat dated 02/11/2024 TECHNIQUE: Thin axial CT images of the abdomen and pelvis, with bilateral lower extremity runoffs, w ere obtained during administration of 100mL Isovue 370 IV contrast. Sagittal and coronal reconstructi ons as well as maximal intensity projection reconstruction were generated and reviewed per an aortic angiography protocol. All CT scans are performed using dose optimization technique as appropriate and may include automated exposure control or mA/KV adjustment according to patient size. FINDINGS: Aorta is normal in diameter with no dissection or other acute aortic findings. Moderate to advanced atherosclerotic calcifications along the abdominal aorta and common iliac arteries. Dense a therosclerotic calcifications along the external iliac arteries, with focal up to moderate mid left e xternal iliac artery narrowing, see axial image 59/268. Segments of severe narrowing and occlusion involving the left common femoral artery and the proximal to mid left superficial femoral artery as well as the proximal left deep femoral artery. Reconstituti on of flow along the distal left superficial femoral artery and left popliteal artery with multifocal areas of severe stenosis is well. . Moderate atherosclerotic plaque formation along the left tibial and peroneal arteries, with the exception of the distal left peroneal artery which progressively atte nuates, with no visible opacification at the level of the ankle. Multifocal moderate to severe stenoses along the right common femoral and proximal right superficial femoral artery. Hzwc-kh-aazbznok stenoses along the right deep femoral and mid to distal superficial femoral arteries. Short-segment of dense atherosclerotic calcification involving most of the poplitea l artery with reconstitution of flow distally and along the trifurcation, with patent flow along the lower leg vessels. The visualized lower lungs are unremarkable. Celiac, SMA and renal arteries are patent with jgtw-dq-kakuvwzx atherosclerotic narrowing at the orig ins. Solid abdominal viscera and bowel show no significant findings. No mass or abnormal lymphadenopa thy. No suspicious osseous lesions. Grade 1 spondylolisthesis at L5-S1. IMPRESSION: No evidence of dissection or aneurysmal dilation on CT angiogram of the aorta. Multifocal up to advanced atherosclerotic changes throughout the aorta, iliac, femoral, and popliteal vessels as above, most notably contributing to long segments of mixed severe stenoses and occlusion along the left common femoral and proximal to mid left superficial femoral artery, and the proximal l eft deep femoral artery. These findings are of uncertain chronicity. Severe multifocal stenoses along the distal left superficial femoral artery and left popliteal artery , and along the right common femoral and proximal right superficial femoral arteries. The lower leg vessels are patent bilaterally with the exception of the distal left peroneal artery wh ich progressively attenuates, with no visible opacification at the level of the ankle. Other dbrz-xe-ljrfvguu arterial stenoses as above.
[2024-02-11 16:06] VITALS: BMI 30.1
[2024-02-11] MEDS ORDERED: ONDANSETRON 4 MG/2 ML VIAL IV PRN (16:15)
[2024-02-11] MEDS: NA CHLORIDE 0.9% 1,000 ML IV SCH (16:40)
[2024-02-11] MEDS: NICOTINE 21 MG/PAT TD SCH (16:41)
[2024-02-11] MEDS: VANCOMYCIN 1 GM in NA CHLORIDE 0.9% 250 ML IVPB ONE (18:04)
[2024-02-11] MEDS: MORPHINE 2 MG/ML SYR IV PRN (18:35)
[2024-02-11] MEDS: CEFEPIME 2 GM in NA CHLORIDE 0.9% 100 ML IV SCH (21:00)
[2024-02-11] MEDS ORDERED: VANCOMYCIN 1 GM in NA CHLORIDE 0.9% 250 ML IVPB SCH (21:00)
[2024-02-11] MEDS: LIDOCAINE HCL/EPINEPHRINE 20 ML MDV ONE (21:10)
[2024-02-11] MEDS ORDERED: FENTANYL CITR 100 MCG/2 ML ONE (21:28)
[2024-02-11] MEDS ORDERED: propofoL 200 MG/20 ML VIAL IV ONE (21:28)
[2024-02-11] MEDS ORDERED: MIDAZOLAM HCL 2 MG/2 ML INJ ONE (21:28)
[2024-02-11] MEDS: CEFEPIME 1 GM/VIAL ONE (21:35)
--- NOTE | 2024-02-11 21:59 | P.OP ---
Preoperative diagnosis: LEFT foot open wound with maggot infestation, 3rd web space Postoperative diagnosis: LEFT foot open wound with maggot infestation, 3rd web space Primary procedure: Debridement of LEFT foot open wound with maggot infestation, 3rd web space Anesthesia: GETA Estimated blood loss: <2cc Specimen: Debridement Tissue Findings: Maggot infestation of 3rd web space Complications: None Transferred to: Recovery Room Condition: Good
[2024-02-11] MEDS: FENTANYL CITR 100 MCG/2 ML ONE (22:12)
[2024-02-11] MEDS: HYDROMORPHONE HCL 1 MG/ML INJ ONE (22:18)
[2024-02-11] MEDS: KETOROLAC 30 MG/ML INJ ONE (22:30)
--- NOTE | 2024-02-11 22:33 | OP ---
Date of Procedure: 02/11/2024 Surgeon: Derrick Diaz MD, Preoperative Diagnosis: Left foot open wound with maggot infestation at the third web space. Postoperative Diagnosis: Left foot open wound with maggot infestation at the third web space. Procedure Performed: Debridement of left foot open wound with maggot infestation at the third web sp kenisha. Anesthesia: General endotracheal. Estimated Blood Loss: Less than 2 cc. Specimens: Debridement tissue. Findings: Maggot infestation at the third webspace. Complications: None. Disposition: The patient was transferred to recovery room in good condition. Procedure In Detail: After informed consent was obtained, patient was brought to the operating room, prepped and draped in the usual sterile fashion. After adequate anesthesia was achieved, I made an incision circumferentially around the area of a maggot infestation removing the maggots en bloc. I h ad had them decontaminated and soaked in the emergency room to help eliminate them. They were remove d as nonviable tissue. I made a small circumferential opening in the third web space down to subcuta neous tissues removing all nonviable tissues. The wound was then packed with Vashe after maggot infe station was ensured was not present any longer. We then all the toes and put sterile packi ng gauze in between and wrapped and elevated the foot. The patient tolerated the procedure without i ncident or complication and transferred to PACU in good condition. All counts were correct at the end of the case. SHAN/SILVANO Voice ID: [id number] Report ID: [id number]
[2024-02-11] MEDS: VANCOMYCIN 1.25 GM in NA CHLORIDE 0.9% 250 ML IVPB SCH (22:44)
[2024-02-11] MEDS ORDERED: VANCOMYCIN 1.25 GM in NA CHLORIDE 0.9% 250 ML IVPB SCH (23:00)
[2024-02-12 00:30] VITALS: O2SAT 94
[2024-02-12] MEDS ORDERED: HYDROCODONE/APAP 7.5/325 MG TAB PO PRN (01:48)
[2024-02-12] MEDS: HYDROCODONE/APAP 7.5/325 MG TAB PO PRN (02:38)
[2024-02-12] MEDS: LORazepam 2 MG/ML VIAL IV PRN (04:43)
[2024-02-12 08:09] LABS: Absolute Basophils 0.1 K/uL (0-0.5); Absolute Lymphocytes (CBC) 2.3 K/uL (0.7-4.9); Absolute Monocytes 0.6 K/uL (0.1-1.3); Absolute Neutrophil 5.1 K/uL (1.8-8.0); Basophils % 0.7 % (0-1.3); Eosinophils % 0.3 % (0-4.4); Hematocrit 35.9 % (39.6-49.0); Hemoglobin 12.2 g/dL (13.6-17.9); MCH 35.6 pg (27.0-35.0); MCV 104.7 fL (80-100); MPV 8.5 fL (7.6-11.3); Monocytes % 7.4 % (3.3-12.3); Neutrophils % 63.6 % (41.7-73.7); Platelets 157 thou/uL (152-406); RBC Red Blood Cell Count 3.43 M/uL (4.33-5.43); Red Cell Distribution Width 13.3 % (12.1-15.2)
[2024-02-12] MEDS: LOSARTAN POTASSIUM 50 MG TABLET PO SCH (08:20)
[2024-02-12] MEDS: METOPROLOL XL 50 MG TAB PO SCH (08:21)
[2024-02-12] MEDS: FOLIC ACID 1 MG TABLET PO SCH (08:21)
[2024-02-12 08:31] LABS: Anion Gap 7.2 mEq/L (5.0-15.0); Potassium 4.2 mEq/L (3.5-5.1); Thyroid Stimulating Hormone 5.08 uIU/mL (0.358-3.740)
--- NOTE | 2024-02-12 11:10 | CON ---
Date of Consultation: 02/11/2024 Brief History Of Present Illness: The patient is a 54-year-old male with a history of severe periphe ral arterial disease, coronary artery disease, CABG surgery, hypertension, who presented to the emerg ency room with complaint of a left foot wound, which was beginning worse, necrotic, and foul odorous. He had been evaluated for this before in the past, but left AMA and refused treatment in the past. He was evaluated in the emergency department and found to have maggots/maggot infestation to the thi rd webspace of his foot, at this point with an open necrotic wound. As such, he had arterial ultraso und, which showed significant peripheral arterial disease, more severe on the left. The majority of the system was non-opacified with significant evidence of occlusion. Past Medical History: Significant for hypertension, severe peripheral arterial disease, coronary art froilan disease. Past Surgical History: Includes CABG, multiple vascular surgeries to bilateral lower extremities inc luding stents and possibly bypass he believes, coronary artery bypass grafts as described and hernia repairs. Social History: He lives at home with his family from a social standpoint. He continues to smoke ci garettes every day. He denies recreational drug use but does admit to alcohol use. Review of Systems: A 10-point review of systems other than HPI, denies. Physical Examination: General: At the time of my examination, he is awake, alert, and oriented. Psychiatric: He is appropriate, conversive. HEENT: Normocephalic. Sclerae are anicteric. Mucous membranes are moist. Oropharynx is clear. Neck: Supple with no JVD. Chest: Normal expansion and excursion. Cardiovascular: Regular rate and rhythm. Pulmonary: Clear to auscultation bilaterally. Abdomen: Soft, nontender. Extremities: Focused examination of extremities shows the left foot third webspace has living moving maggot infestation to this area with significant necrosis to the wound. There are ulcers between th e toes and drainage was present with foul odor. Otherwise, he has normal gait, normal speech. Psychiatric: He is appropriate and conversive. Vital Signs: At time of my examination ongoing, his blood pressure was 144/87, pulse 91, respiratory rate 16, temperature 97.8, SpO2 94% on room air. Laboratory Data: Revealed a white blood count of 6.3, hemoglobin 14.1, hematocrit of 41.5, platelet count was 174. PT 9.9, INR 0.88, PTT is 36.7. His sodium 127, potassium 3.4, chloride 93, carbon di oxide 27, BUN 3, creatinine 0.67, glucose is 65. Lactic acid was 2.4. He had imaging performed as d escribed, which showed multifocal up to advanced atherosclerotic changes throughout the aorta, iliac, femoral, and popliteal vessels, most notably contributing to the long segments of mixed severe steno sis and occlusion along the left common femoral, proximal to mid left SFA, and proximal left profunda femoris unknown chronicity. There was severe multifocal stenosis along the distal left SFA and left popliteal artery and along the right common femoral and proximal right SFA. The lower leg vessels w ere patent bilateral with the exception of the distal left peroneal artery, which progressively atten uates. No visible opacification at the level of the ankle, other mild to moderate arterial stenosis are noted. Assessment And Plan: This is a 54-year-old male who comes in with severe peripheral arterial disease and multiple medical problems as described above. 1.IV fluid hydration. 2.Antibiotic coverage. 3.Decontamination and isolation precautions for the maggot infestation of his left foot. 4.I have explained debridement of this necrotic wound and removal of the maggots in the operating ro om with a surgical debridement. I have explained the risks, benefits, alternatives of this plan incl uding, but not limited to bleeding, infection, damage to surrounding tissues, need for further operat ion procedures, chronic wound, need for ongoing followup regarding his severe peripheral arterial dis ease to ensure he is able to heal this wound as I have informed him that without adequate arterial issa pply, there is no hope to heal any form of wounds. He displayed understanding the above stated plan. All questions were answered and patient agreed to proceed as indicated. SHAN/SILVANO Voice ID: [id number] Report ID: [id number]
--- NOTE | 2024-02-12 13:28 | P.PN ---
Date of Service: 02/12/24 Subjective: Status post I&D 02/10 Complains of pain to left foot No acute events overnight ROS: 10 point ROS as noted above, otherwise negative Physical exam GEN: Alert, oriented, NAD HEENT: Normal conjunctiva, sclera anicteric CV: Regular rate and rhythm, no edema Pulm: Nonlabored respirations on room air ABD: Soft, nontender, nondistended MSK: No joint tenderness Integumentary: Dressing in place left foot, prolonged cap refill Neuro: Normal speech, normal affect Vitals reviewed Assessment: Cellulitis of left foot Tunneling left foot wound between third and fourth toes status post debridement 02/10 Elevated lactate Hyponatremia Hypokalemia Hypoglycemia Tobacco use disorder Alcohol use disorder Severe PAD History of CAD with previous CABG Hypertension Plan: Cellulitis of left foot Tunneling left foot wound between third and fourth toes status post debridement 02/10 Elevated lactate Status post debridement 02/10 Continue antibiotics vancomycin/cefepime Blood cultures obtained in ED, will follow No sepsis at this time Lactate initially 2.4 down to 2.1, suspect this is due to hypoperfusion/hypoglycemia 07/01 SIRS criteria present with heart rate only elevated greater than [address] ANGIO 02/10 Multifocal up to advanced atherosclerotic changes throughout the aorta, iliac, femoral, and popliteal vessels as above, most notably contributing to long segments of mixed severe stenoses and occlusion along the left common femoral and proximal to mid left superficial femoral artery, and the proximal left deep femoral artery. These findings are of uncertain chronicity. Severe multifocal stenoses along the distal left superficial femoral artery and left popliteal artery, and along the right common femoral and proximal right superficial femoral arteries. The lower leg vessels are patent bilaterally with the exception of the distal left peroneal artery which progressively attenuates, with no visible opacification at the level of the ankle. Other cdsx-cm-rnkawsse arterial stenoses as above. Vascular consult in place with Dr. Archibald, will await recs Hyponatremia Hypokalemia Hypoglycemia Continue IV fluids, electrolyte protocols If blood sugars persistently low dextrose-containing fluids Tobacco use disorder Alcohol use disorder Counseled on need for cessation Provided with NicoDerm patch Alcohol withdrawal assessments, as needed benzodiazepines Has drank 12 pack/day for many years now History of CAD with previous CABG Hypertension Continue home medications as appropriate DVT PPX: SCDs Code status: Full Discharge Plan: Home Plan to discharge in: 1-2 days Time Spent Managing Pts Care (In Minutes): 35
[2024-02-12] MEDS: ATORVASTATIN 20 MG TAB PO SCH (20:26)
[2024-02-13 05:42] LABS: Absolute Basophils 0.1 K/uL (0-0.5); Absolute Eosinophils 0.1 K/uL (0-0.5); Absolute Lymphocytes (CBC) 2.3 K/uL (0.7-4.9); Absolute Monocytes 0.5 K/uL (0.1-1.3); Basophils % 0.9 % (0-1.3); Eosinophils % 1.2 % (0-4.4); Hematocrit 34.4 % (39.6-49.0); Hemoglobin 11.8 g/dL (13.6-17.9); Lymphocytes % 29.2 % (15.3-44.8); MCH 36.1 pg (27.0-35.0); MCHC 34.2 g/dL (32.0-36.0); MCV 105.8 fL (80-100); MPV 8.7 fL (7.6-11.3); Monocytes % 5.7 % (3.3-12.3); Nucleated Red Blood Cells % 0.1 % (0-0); Platelets 153 thou/uL (152-406); RBC Red Blood Cell Count 3.25 M/uL (4.33-5.43); Red Cell Distribution Width 13.4 % (12.1-15.2)
[2024-02-13 08:14] VITALS: BP 172/93
[2024-02-13 08:52] VITALS: TEMP 98.1
[2024-02-13 08:56] LABS: Atypical Lymphocytes 2 %; Blood Morphology Comment NOTED (NOT SEEN); Differential Total Cells Count 100; Eosinophils 2 % (0-3); Lymphocytes 30 % (15-42); Macrocytosis SLIGHT; Monocytes 6 % (0-10); Platelet Estimate ADEQ; Segmented Neutrophils 56 % (40-80); Toxic Granulation 1+
--- NOTE | 2024-02-13 09:36 | P.DS ---
Admission Date: 02/11/24 Discharge Date: 02/13/24 Disposition: ROUTINE DISCHARGE Discharge Condition: GOOD Reason for Admission: Foot wound, severe PAD Consultations: Dr. Bernard general surgery Procedures: I&D left foot 02/10 Brief History of Present Illness: 54-year-old male with history of severe PAD, CAD with previous CABG, hypertension presents the emergency department with chief complaint of left foot wound. He has been evaluated for this wound couple times over the course of the past 2 months but has left AMA or refuse treatment in the past. He was evaluated in the emergency department today his labs are significant for a sodium of 127 potassium 3.4 chloride 93 creatinine 0.67 initial lactic acid 2.4 recheck down to 2.1. X-ray of his left foot was obtained which showed no fracture, dislocation or radiographic evidence for osteomyelitis. Moderate vascular calcifications. No soft tissue gas or foreign body visible. Arterial ultrasound was performed which showed significant peripheral vascular disease is seen more severe on the left. The majority of left lower extremity arterial system shows very little confirm flow suggesting significant occlusion is present. Recommend CTA runoffs of both lower extremities arterial system for further evaluation. ED physician discussed case with vascular surgery who agrees to see patient, on exam patient noted to have maggots in the wound between his third and fourth toe on the left. Patient also admits to drinking a 12 pack/day as long as he can remember, also smokes a pack per day. Hospital Course: Assessment: Cellulitis of left foot Tunneling left foot wound between third and fourth toes status post debridement 02/10 Elevated lactate Hyponatremia Hypokalemia Hypoglycemia Tobacco use disorder Alcohol use disorder Severe PAD History of CAD with previous CABG Hypertension Patient was admitted to the hospital for wound to his left foot between his third and fourth toes. On exam patient was found to have maggots present in wound, his wound was decontaminated in the ED prior to going to the operating room for debridement of his left foot wound which was performed on 02/10. He did well in the postoperative period, white blood cell count remain normal and he has been afebrile. He has known significant PAD, a CTA was performed of the abdomen, pelvis, lower extremities bilaterally with the following findings: FINDINGS: Aorta is normal in diameter with no dissection or other acute aortic findings. Moderate to advanced atherosclerotic calcifications along the abdominal aorta and common iliac arteries. Dense atherosclerotic calcifications along the external iliac arteries, with focal up to moderate mid left external iliac artery narrowing, see axial image 59/268. Segments of severe narrowing and occlusion involving the left common femoral artery and the proximal to mid left superficial femoral artery as well as the proximal left deep femoral artery. Reconstitution of flow along the distal left superficial femoral artery and left popliteal artery with multifocal areas of severe stenosis is well. . Moderate atherosclerotic plaque formation along the left tibial and peroneal arteries, with the exception of the distal left peroneal artery which progressively attenuates, with no visible opacification at the level of the ankle. Multifocal moderate to severe stenoses along the right common femoral and proximal right superficial femoral artery. Isdx-wy-zbngjhda stenoses along the right deep femoral and mid to distal superficial femoral arteries. Short-segment of dense atherosclerotic calcification involving most of the popliteal artery with reconstitution of flow distally and along the trifurcation, with patent flow along the lower leg vessels. The visualized lower lungs are unremarkable. Celiac, SMA and renal arteries are patent with [id number] atherosclerotic narrowing at the origins. Solid abdominal viscera and bowel show no significant findings. No mass or abnormal lymphadenopathy. No suspicious osseous lesions. Grade 1 spondylolisthesis at L5-S1. IMPRESSION: No evidence of dissection or aneurysmal dilation on CT angiogram of the aorta. Multifocal up to advanced atherosclerotic changes throughout the aorta, iliac, femoral, and popliteal vessels as above, most notably contributing to long segments of mixed severe stenoses and occlusion along the left common femoral and proximal to mid left superficial femoral artery, and the proximal left deep femoral artery. These findings are of uncertain chronicity. Severe multifocal stenoses along the distal left superficial femoral artery and left popliteal artery, and along the right common femoral and proximal right superficial femoral arteries. The lower leg vessels are patent bilaterally with the exception of the distal left peroneal artery which progressively attenuates, with no visible opacification at the level of the ankle. Other ibmu-cl-isjnznhc arterial stenoses as above. His case was discussed with vascular surgery- Dr. Archibald who recommends outpatient angiogram be performed ideally this week. This information was provided to Dr. Sanches to set up close follow-up this week for outpatient angiogram. This was discussed with both the patient and his who are agreeable with plan. Patient was treated with IV antibiotics during his hospitalization, will be sent a prescription for doxycycline to his pharmacy for 1 week. Wound care as follows from Dr. Diaz Pack wound with Vashe damp to dry, seperate toes with betadine, wrap and elevate Please continue to take your home medications as previously prescribed with the addition of the antibiotic for 1 week. Please follow-up with Dr. Diaz this week Please also follow-up with Dr. Archibald this week to arrange for angiogram of your lower extremities for the severe peripheral arterial disease. You need to quit smoking and significantly decrease the amount of alcohol you consume or stop drinking completely. Vital Signs/Physical Exam: Temp Pulse Resp BP Pulse Ox 98.1 F 85 18 172/93 H 98 02/13/24 08:00 02/13/24 08:13 02/13/24 08:13 02/13/24 08:13 02/13/24 08:13 General: Alert, In no apparent distress, Oriented x3 HEENT: Atraumatic, PERRLA Neck: Supple, JVD not distended Respiratory: Clear to auscultation bilaterally, Normal air movement Cardiovascular: Regular rate/rhythm, Normal S1 S2 Gastrointestinal: Normal bowel sounds, No tenderness Musculoskeletal: No tenderness Integumentary: Arterial ulcer (between left 3rd/4th toes) Neurological: Normal speech, Normal tone, Normal affect Laboratory Data at Discharge: WBC 8.00 thou/uL (4.3-10.9) 02/13/24 04:57 Hgb 11.8 g/dL (13.6-17.9) L 02/13/24 04:57 Hct 34.4 % (39.6-49.0) L 02/13/24 04:57 Plt Count 153 thou/uL (152-406) 02/13/24 04:57 PT 9.9 SECONDS (9.4-12.5) 02/11/24 10:00 INR 0.88 02/11/24 10:00 APTT 36.7 SECONDS (24.3-36.9) 02/11/24 10:00 Sodium 131 mEq/L (136-145) L 02/13/24 04:57 Potassium 4.0 mEq/L (3.5-5.1) 02/13/24 04:57 BUN 6 mg/dL (7-18) L 02/13/24 04:57 Creatinine 0.59 mg/dL (0.70-1.30) L 02/13/24 04:57 Glucose 99 mg/dL (74-106) 02/13/24 04:57 Total Bilirubin 0.6 mg/dL (0.2-1.0) 02/11/24 10:00 AST 25 U/L (15-37) 02/11/24 10:00 ALT 28 U/L (16-61) 02/11/24 10:00 Alkaline Phosphatase 79 U/L (45-117) 02/11/24 10:00 Home Medications: Atorvastatin Calcium [Lipitor*] 20 mg PO BEDTIME 02/11/24 Losartan Potassium 100 mg PO DAILY 02/11/24 Metoprolol Succinate [Toprol Xl*] 50 mg PO DAILY 02/11/24 Codeine/APAP [Tylenol W/Codeine #3 tab] 1 tab PO Q6HP PRN #20 tab 02/13/24 Doxycycline Hyclate 100 mg PO BID 7 Days #14 cap 02/13/24 New Medications: Codeine/APAP [Tylenol W/Codeine #3 tab] 1 tab PO Q6HP PRN #20 tab PRN Reason: Pain Doxycycline Hyclate 100 mg PO BID 7 Days #14 cap Physician Discharge Instructions: Patient was admitted to the hospital for wound to his left foot between his third and fourth toes. On exam patient was found to have maggots present in wound, his wound was decontaminated in the ED prior to going to the operating room for debridement of his left foot wound which was performed on 02/10. He did well in the postoperative period, white blood cell count remain normal and he has been afebrile. He has known significant PAD, a CTA was performed of the abdomen, pelvis, lower extremities bilaterally with the following findings: FINDINGS: Aorta is normal in diameter with no dissection or other acute aortic findings. Moderate to advanced atherosclerotic calcifications along the abdominal aorta and common iliac arteries. Dense atherosclerotic calcifications along the external iliac arteries, with focal up to moderate mid left external iliac artery narrowing, see axial image 59/268. Segments of severe narrowing and occlusion involving the left common femoral artery and the proximal to mid left superficial femoral artery as well as the proximal left deep femoral artery. Reconstitution of flow along the distal left superficial femoral artery and left popliteal artery with multifocal areas of severe stenosis is well. . Moderate atherosclerotic plaque formation along the left tibial and peroneal arteries, with the exception of the distal left peroneal artery which progressively atte nuates, with no visible opacification at the level of the ankle. Multifocal moderate to severe stenoses along the right common femoral and proximal right superficial femoral artery. Vpsp-oy-vviqrkhi stenoses along the right deep femoral and mid to distal superficial femoral arteries. Short-segment of dense atherosclerotic calcification involving most of the popliteal artery with reconstitution of flow distally and along the trifurcation, with patent flow along the lower leg vessels. The visualized lower lungs are unremarkable. Celiac, SMA and renal arteries are patent with ezmb-il-[id number] atherosclerotic narrowing at the origins. Solid abdominal viscera and bowel show no significant findings. No mass or abnormal lymphadenopathy. No suspicious osseous lesions. Grade 1 spondylolisthesis at L5-S1. IMPRESSION: No evidence of dissection or aneurysmal dilation on CT angiogram of the aorta. Multifocal up to advanced atherosclerotic changes throughout the aorta, iliac, femoral, and popliteal vessels as above, most notably contributing to long segments of mixed severe stenoses and occlusion along the left common femoral and proximal to mid left superficial femoral artery, and the proximal left deep femoral artery. These findings are of uncertain chronicity. Severe multifocal stenoses along the distal left superficial femoral artery and left popliteal artery, and along the right common femoral and proximal right superficial femoral arteries. The lower leg vessels are patent bilaterally with the exception of the distal left peroneal artery which progressively attenuates, with no visible opacification at the level of the ankle. Other prdj-pq-zjbhtzek arterial stenoses as above. His case was discussed with vascular surgery- Dr. Archibald who recommends outpatient angiogram be performed ideally this week. This information was provided to Dr. Sanches to set up close follow-up this week for outpatient angiogram. This was discussed with both the patient and his who are agreeable with plan. Patient was treated with IV antibiotics during his hospitalization, will be sent a prescription for doxycycline to his pharmacy for 1 week. Wound care as follows from Dr. Diaz Pack wound with Vashe damp to dry, seperate toes with betadine, wrap and elevate Please continue to take your home medications as previously prescribed with the addition of the antibiotic for 1 week. Please follow-up with Dr. Diaz this week Please also follow-up with Dr. Archibald this week to arrange for angiogram of your lower extremities for the severe peripheral arterial disease. You need to quit smoking and significantly decrease the amount of alcohol you consume or stop drinking completely. Diet: AHA Activity: Ad araseli Followup: Derrick Diaz MD [ACTIVE - CAN ADMIT] - 1-2 Weeks NONE,NONE [Primary Care Provider] - Aleyda Archibald MD [ACTIVE - CAN ADMIT] - 2-3 Days Time spent managing pt's care (in minutes): 35
--- OUTSIDE RECORDS SUMMARY | 2024-02-14 08:31 | XMS REPORT | Continuity of Care Document ---
Author Name Unknown Address [address] [place] [address] [facility] Address [address] [place] [address] Care Team Providers Care Service Tech/Welder Name Role Phone FREEMAN LANDIS Primary Care Physician DOT Felix Attending Clinician DOT Felix Attending Clinician Vanessa dominguez Payers Payer Name Policy Type Policy Number Effective Date Expirati on Date Source [facility] [id number] 2017 00:00:00 Allergies, Adverse Reactions, Alerts Allergy Name Allergy Type Status Severity Reaction(s) Onset Date Inactive Date Treating Clinician Comments Source No Known Allergie s DA Active U 01-13 00:00: 00 [facility] NO KNOWN ALLERGIE S Drug Class Active [facility] Social History Social Habit Start Date Stop Date Quantity Comments Source Sexual orientation U [facility] Sex assigned at 1970 00:00:00 1970 00:00:00 [facility] Smoking Status Start Date Stop Date Source Tobacco smoking consumption unknown [facility] Medications Ordered Medication Name Filled Medication Name Start Date Stop Date Current Medication? Ordering Clinician Indication Dosage Frequency Signature (SIG) Comments Components Source NaCl 0.9% (NS) bolus infusion 1,000 mL 12-31 21:45: 00 12-31 21:21 :00 No 1000mL at 999 mL/hr, 1,000 mL, IV Infusion, ONCE, 1 dose, On 01/01/24 at 1645, EVER [facility] Vital Signs Vital Name Observation Time Observation Value Barber gunter Systolic blood pressure 2024-01-01 21:00:00 96 mm[Hg] [facility] acute hospital Diastolic blood pressure 2024-01-01 21:00:00 59 mm[Hg] General acute hospital Heart rate 2024-01-01 21:00:00 86 /min [facility] Respiratory rate 2024-01-01 21:00:00 19 /min [facility] Oxygen saturation in Arterial blood by Pulse oximetry 2024-01-01 21:00:00 97 /min General acute hospital Body temperature 2024-01-01 20:31:00 37.11 Shana [facility] Body height 2024-01-01 20:31:00 160 cm [facility] Body weight 2024-01-01 20:31:00 77.111 kg [facility] BMI 2024-01-01 20:31:00 30.11 kg/m2 [facility] Procedures Procedure Date / Time Performed Performing Clinicia n Source EKG-12 LEAD 2024-01-01 21:26:21 Dot Ballard [facility] LACTIC ACID WHOLE BLOOD 2024-01-01 20:54:00 Dot Ballard [facility] MAGNESIUM 2024-01-01 20:52:00 Dot Ballard Un [facility] COMP. METABOLIC PANEL (48633) 2024-01-01 20:52:00 Dot Ballard [facility] CBC WITH DIFF 2024-01-01 20:52:00 [facility] Start Date/Time End Date/Time Encounter Type Admission Type Attending Clinicians Care Facility Care Department Encounter ID Source 2024-01-01 15:35:00 2024-01-01 16:45:00 Emergency X DOT BALLARD [facility] ERT [id number] [facility] 2024-01-01 15:35:00 2024-01-01 16:45:00 Emergency Dot Ballard [facility] [id number] [facility] Results Test Description Test Time Test Comments Results Result Co mments Source [facility] 21:40:52* Test Item Value Reference Range Interpretation Comme nts MAGNESIUM (test code = 5407975558) 1.8 mg/dL 1.7-2.4 Lab Interpretation (test cod e = 67616-4) Normal [facility] [id number] 21:24:51* Test Item Value Reference Range Interpretation Comme nts WBC (test code = 6690-2) 7.39 4.20-10.70 RBC (test code = 789-8) 3.64 4.26-5.52 L HGB (test code = 718-7) 13.1 g/dL 12.2-16.4 HCT (test code = 4544-3) 36.5 % 38.4-49.3 L MCV (test code = 787-2) 100.3 fL 81.7-95.6 H MCH (test code = 785-6) 36.0 pg 26.1-32.7 H MCHC (test code = 786-4) 35.9 g/dL 31.2-35.0 H RDW-SD (test code = 64081-9) 48.2 fL 38.5-51.6 RDW-CV (test code = 788-0) 13.1 % 12.1-15.4 PLT (test code = 777-3) 189 150-328 MPV (test code = 85523-6) 10.0 fL 9.8-13.0 NRBC/100 WBC (test code = 4195256594) 0.0 0.0-10.0 NRBC x10^3 (test code = 8138078384) See_Comment [Automated messa ge] The system which generated this result transmitted reference range: 10*3/?L. The reference range was not used to interpret this result as normal/abnormal. GRAN MAT (NEUT) % (test code = 770-8) 39.8 % IMM GRAN % (test code = 4508035985) 0.30 % LYMPH % (test code = 736-9) 52.9 % MONO % (test code = 5905-5) 5.4 % EOS % (test code = 713-8) 0.9 % BASO % (test code = 706-2) 0.7 % GRAN MAT x10^3(ANC) (test code = 4767147619) 2.94 10*3/uL 1.99-6.95 IMM GRAN x10^3 (test code = 4480821335) 0.00-0.06 LYMPH x10^3 (test code = 731-0) 3.91 10*3/uL 1.09-3.23 H MONO x10^3 (test code = 742-7) 0.40 10*3/uL 0.36-1.02 EOS x10^3 (test code = 711-2) 0.07 10*3/uL 0.06-0.53 BASO x10^3 (test code = 704-7) 0.05 10*3/uL 0.01-0.09 Lab Interpretation (test code = 24792-2) Abnormal [facility] Whole [id number] 21:00:29* Test Item Value Reference Range Interpretation Comme nts LACTIC ACID (test code = 4120483756) 3.50 mmol/L 0.50-2.20 H Lab Interpretation (test cod e = 16057-4) Abnormal [facility] METABOLIC [id number] 14:11:00* Test Item Value Reference Range Interpretation Comme nts SODIUM (test code = NA) 140 MMOL/L 137-145 N POTASSIUM (test code = K) 4.5 MMOL/L 3.5-5.1 N CHLORIDE (test code = CL) 102 MMOL/L 98-107 N CARBON DIOXIDE (test code = CO2) 32 MMOL/L 22-30 H GLUCOSE (test code = GLU) 93 MG/DL 74-106 N BLOOD UREA NITROGEN (test code = BUN) 11 MG/DL 9-20 N GLOMERULAR FILTRATION RATE (test code = GFR) > 60 Reporting units: ml/min/1.73 m2 (Modified MDRD Formula)Reference Range: > or = 60 ml/min/1.73 m2 CREATININE (test code = CREAT) 0.70 MG/DL 0.66-1.25 N CALCIUM (test code = CA) 9.8 MG/DL 8.4-10.2 N CBC W/AUTO [id number] 13:53:00* Test Item Value Reference Range Interpretation [...] NRBC#) 0.00 K/mm3 0.0-0.1 N BASIC METABOLIC [id number] 05:54:00* Test Item Value Reference Range Interpretation [...] CA) 8.6 MG/DL 8.4-10.2 N CBC W/AUTO [id number] 05:40:00* Test Item Value Reference Range Interpretation [...] 0.00 K/mm3 0.0-0.1 N - XR CHEST [id number] 08:05:00Patient Name: DELMI MATHEW Unit No: [id number] EXAMS: CPT CODE: [id number] XR CHEST 1V 22791 EXAMINATION: - XR CHEST 1V. LOCATION: B2. [...] Technologist: Hilda Ryder RT(R) Transcrpt Date/Tm/Trnsp: 01/10/2019 (08) TellyPR7 Orig Print D/T: S: 01/10/2019 (0808) [facility] NAME: DELMI MATHEW [id number] PHYS: [place] [address] :1970 AGE: 48 SEX: M LOC: Z.SI04 A PHONE #: [phone] EXAM DATE: 01/10/2019 STATUS: ADM IN FAX #: [phone] RADIOLOGY NO: PAGE 1 Signed ReportBASIC METABOLIC [id number] 07:00:00* Test Item Value Reference Range Interpretation [...] PATIENT CARE STAFF: MIGUEL ÁNGEL 01/10/19 AT 0630 BY Billie V[id number] 07:00:00* Test Item Value Reference Range Interpretation Comme nts MAGNESIUM (test code = MAG) 2.0 MG/DL 1.6-2.3 UNABLE TO DRAW BLOOD, REASON: CBNNOTIFIED PATIENT CARE STAFF: MIGUEL ÁNGEL 01/10/19 AT 0630 BY Jesus Velasquez W/AUTO [id number] 06:42:00* Test Item Value Reference Range Interpretation [...] MIGUEL ÁNGEL 01/10/19 AT 0631 BY Aliya VelasquezARTERIAL BLOOD [id number] 20:01:00* Test Item Value Reference Range Interpretation [...] = COHBGFFIO2) 21 % - XR CHEST [id number] 19:54:00Patient Name: DELMI MATHEW Unit No: [id number] EXAMS: CPT CODE: [id number] XR CHEST 1V 75433 REASON FOR EXAM: Central line placement. COMPARISON: [...] for the central line. Location: U19 at 1954 Reported and signed by: Ad Eng MD CC: Technologist: Sanjay Hartmann, RT(R) Transcrpt Date/Tm/Trnsp: 01/09/2019 (1953)Sarah Orig Print D/T: S: 01/09/2019 (1956) [facility] NAME: DELMI MATHEW [id number] PHYS: [place] [address] : 1970 AGE: 48 SEX: M LOC:Z.SI04 A PHONE #: [phone] EXAM DATE: 01/09/2019 STATUS: ADM IN FAX #: [phone] RADIOLOGY NO: PAGE 1 Signed ReportBASIC METABOLIC [id number] 19:37:00* Test Item Value Reference Range Interpretation [...] code = CA) 8.6 MG/DL 8.4-10.2 N [id number] 19:37:00* Test Item Value Reference Range Interpretation Comme nts MAGNESIUM (test code = MAG) 1.5 MG/DL 1.6-2.3 L CBC W/AUTO [id number] 19:13:00* Test Item Value Reference Range Interpretation [...] NRBC#) 0.00 K/mm3 0.0-0.1 N GLUCOSE BEDSIDE [id number] 15:24:00* Test Item Value Reference Range Interpretation Comme nts GLUCOSE BEDSIDE TESTING (adolfo t code = GLUBED) 82 MG/DL 60-99 N GLUCOSE BEDSIDE [id number] 13:15:00* Test Item Value Reference Range Interpretation Comme nts GLUCOSE BEDSIDE TESTING (adolfo t code = GLUBED) 86 MG/DL 60-99 N GLUCOSE BEDSIDE [id number] 09:53:00* Test Item Value Reference Range Interpretation Comme nts GLUCOSE BEDSIDE TESTING (adolfo t code = GLUBED) 81 MG/DL 60-99 N HIV 12 AB [id number] 17:32:00* Test Item Value Reference Range Interpretation Comme nts AB HIV 1 2 (test code = FBI22KW) NON REACTIVE NON-REAC NOTE: A NONREACT SANTO RESULT INDICATES THAT HIV-1 AND HIV-2ANTIBODIES HAVE NOT BEEN FOUND IN THIS PATIENT SPECIMEN. ANON-REACTIVE RESULT, HOWEVER, DOES NOT PRECLUDE PREVIOUSEXPOSURE OR INFECTION WITH HIV1. AG HIV1 P24 (test code = KAY7V69) NON REACTIVE NONE REAC - XR CHEST 2 [id number] 17:10:00Patient Name: DELMI MATHEW Unit No: [id number] EXAMS: CPT CODE: [id number] XR CHEST 2 V 16223 DICTATION LOCATION: 8 HISTORY: Male, 48 years of age with [...] Technologist: ANDRESSA Nguyen, RT(R) Transcrpt Date/Tm/Trnsp: 01/04/2019 (171) tSHANIQUA Orig Print D/T: S: 01/04/2019 (2995) [facility] NAME: DELMI MATHEW [id number] PHYS: [place] [address] : 1970 AGE: 48 SEX: M LOC: CORI PHONE #: [phone] EXAM DATE: 01/04/2019 STATUS: PRE [facility] FAX #: [phone] RADIOLOGY NO: PAGE 1 Signed ReportBASIC METABOLIC [...] = CA) 10.0 MG/DL 8.4-10.2 N PROTHROMBIN [id number] 17:04:00* Test Item Value Reference Range Interpretation Comme nts PROTHROMBIN TIME PATIENT (test code = PTP) [...] recurrent systemic embolism. 3.0 - 4.5 PTT [id number] 17:04:00* Test Item Value Reference Range Interpretation Comme nts PTT ACTIVATED (test code = APTT) 39.3 SECONDS 22.0-33.0 H CBC W/AUTO [id number] 16:50:00* Test Item Value Reference Range Interpretation [...] NRBC#) 0.00 K/mm3 0.0-0.1 N BASIC METABOLIC [id number] 07:55:00* Test Item Value Reference Range Interpretation [...] mg/dL HIGH.........160-189 mg/dL VERY HIGH.........>/= 190 mg/dL [id number] 07:55:00* Test Item Value Reference Range Interpretation Comme nts MAGNESIUM (test code = MAG) 1.7 MG/DL 1.6-2.3 N BASIC METABOLIC [id number] 07:44:00* Test Item Value Reference Range Interpretation [...] LDL (test code = LDL) MG/DL 0-99 [id number] 07:44:00* Test Item Value Reference Range Interpretation Comme nts MAGNESIUM (test code = MAG) 1.7 MG/DL 1.6-2.3 N PROTHROMBIN [id number] 07:31:00* Test Item Value Reference Range Interpretation Comme nts PROTHROMBIN TIME PATIENT (test code = PTP) [...] recurrent systemic embolism. 3.0 - 4.5 PTT [id number] 07:31:00* Test Item Value Reference Range Interpretation Comme nts PTT ACTIVATED (test code = APTT) 27.1 SECONDS 22.0-33.0 N CBC W/AUTO [id number] 07:18:00* Test Item Value Reference Range Interpretation [...] 0.0-0.1 N Notes Date/Time Note Provider Source 2024-01-01 16:22:15 Patient leaving AMA due to just wanting to leave. discussed risks of leaving against medical advice/final dispositon, Dr. Ballard aware and notified of patient's decision. Patient encouraged to seek medical attention for any new/prolonged/worsening of symptoms and stressed importance of follow up with a medical provider as soon as possible. AMA form explained, patient signed form. IV d'cd, dressing to site. Patient leaving ambulatory with steady gait, appears in no distress Sheridan Barnes RN [facility] 2024-01-01 15:33:30 Patient came in with complaints of blisters on bilateral feet since 2 weeks. Denies any complaints. BP in triage 82/60mmHg. ETTET Lidya Pierce RN [facility] 2024-01-01 15:23:00 Associated Order(s): EKG-12 Lead ROUTINE ONCE Pre-Procedure Diagnose(s): Hypotension, unspecified hypotension type Post-Procedure Diagnose(s): Hypotension, unspecified hypotension type [facility] Emergency Department Note Patient Name: Delmi Mathew Date of : 1970 53 year old male Treatment Room: TX1/TX1 Primary Care Physician: Freeman Landis Patient Escorted by: Family [5] Mode of Arrival: Personal means [1] EMS Treatment Prior to ED Arrival: SLOT FLOOR PERSON treatment: None Travel and Exposure Screening: Symptoms Does patient have any of these symptoms?: (not recorded) Exposure Screening Has patient had contact with someone with a communicable disease in the last month?: (not recorded) Diseases exposed to:: (not recorded) Is Patient ?: (not recorded) Exposure Date: (not recorded) Chief Complaint: Chief Complaint Patient presents with Blister Bilateral feet History of Present Illness: The patient presents from home for evaluation for pain to his bilateral feet. He reports he has blisters on them for the past several days. He states he used hydroperoxide yesterday and it burned. No fevers. No chest pain or pressure. No shortness of breath. He has had a Dr Pepper to drink today but no other food or beverages. No history of diabetes. Here for evaluation. Past Medical History/Immunizations: History reviewed. No pertinent past medical history. Tetanus received in last 5 years: No Childhood immunizations: Up-to-date Allergies: No Known Allergies Past Social History: Substance & Sexual Activity No substance use or sexual activity history on file. Past Surgical History: History reviewed. No pertinent surgical history. Review of Systems: Review of Systems Constitutional: Negative for chills and fever. Respiratory: Negative for cough and shortness of breath. Cardiovascular: Negative for chest pain. Gastrointestinal: Negative for abdominal pain and vomiting. Genitourinary: Negative for dysuria. Musculoskeletal: Negative for arthralgias, neck pain and neck stiffness. Skin: Negative for wound. Neurological: Negative for dizziness. Psychiatric/Behavioral: Negative for agitation. Endocrine: Negative for goiter. Physical Exam: ED Triage Vitals Weight 01/01/24 1531 77.1 kg (170 lb) Actual or estimated -- Height 01/01/24 1531 1.6 m (5' 3") BP 01/01/24 1536 (!) 82/60 Pulse 01/01/24 1531 91 Resp 01/01/24 1531 16 Temp 01/01/24 1531 37.1 ?C (98.8 ?F) Temp source 01/01/24 1531 Oral SpO2 01/01/24 1531 96 % Measured on -- Physical Exam Vitals and nursing note reviewed. Constitutional: Appearance: Normal appearance. He is normal weight. HENT: Head: Normocephalic and atraumatic. Mouth/Throat: Mouth: Mucous membranes are dry. Cardiovascular: Rate and Rhythm: Normal rate and regular rhythm. Pulmonary: Effort: Pulmonary effort is normal. No respiratory distress. Abdominal: General: There is no distension. Palpations: There is no mass. Tenderness: There is no abdominal tenderness. There is no guarding. Hernia: No hernia is present. Musculoskeletal: General: Normal range of motion. Cervical back: Normal range of motion and neck supple. Skin: General: Skin is warm and dry. Comments: Several small wounds to his feet consistent with likely bug bites. Neurological: General: No focal deficit present. Mental Status: He is alert and oriented to person, place, and time. Radiology: No orders to display Lab Results: Lab Results CBC WITH DIFF - Abnormal Result Value Ref Range WBC 7.39 4.20 - 10.70 10*3/?L RBC 3.64 (*) 4.26 - 5.52 10*6/?L HGB 13.1 12.2 - 16.4 g/dL HCT 36.5 (*) 38.4 - 49.3 % MCV 100.3 (*) 81.7 - 95.6 fL MCH 36.0 (*) 26.1 - 32.7 pg MCHC 35.9 (*) 31.2 - 35.0 g/dL RDW-SD 48.2 38.5 - 51.6 fL RDW-CV 13.1 12.1 - 15.4 % PLT 189 150 - 328 10*3/?L MPV 10.0 9.8 - 13.0 fL NRBC/100 WBC 0.0 0.0 - 10.0 /100 WBCs NRBC x10 3 <0.01 10*3/?L GRAN MAT (NEUT) % 39.8 % IMM GRAN % 0.30 % LYMPH % 52.9 % MONO % 5.4 % EOS % 0.9 % BASO % 0.7 % GRAN MAT x10 3 (ANC) 2.94 1.99 - 6.95 10*3/uL IMM GRAN x10 3 <0.03 0.00 - 0.06 10*3/uL LYMPH x10 3 3.91 (*) 1.09 - 3.23 10*3/uL MONO x10 3 0.40 0.36 - 1.02 10*3/uL EOS x10 3 0.07 0.06 - 0.53 10*3/uL BASO x10 3 0.05 0.01 - 0.09 10*3/uL LACTIC ACID WHOLE BLOOD - Abnormal LACTIC ACID 3.50 (*) 0.50 - 2.20 mmol/L COMP. METABOLIC PANEL (75006) TROPONIN I MAGNESIUM URINALYSIS EKG: If EKG completed, see Procedure Note. Orders and Treatments: Orders Placed This Encounter Procedures CBC WITH DIFF COMP. METABOLIC PANEL (04492) Lactic Acid Whole Blood Lactic Acid Whole Blood TROPONIN I Magnesium URINALYSIS Orders Placed This Encounter Medications NaCl 0.9% (NS) bolus infusion 1,000 mL First Provider Eval: ED Events Date/Time Event User Comments 01/01/24 1525 Medical Screening Begins DOT BALLARD DO -- 01/01/24 1525 First Provider Evaluation DOT BALLARD DO -- ED COURSE Diagnosis/Impression as of 01/01/24 1626 Hypotension, unspecified hypotension type Procedures: EKG-12 Lead ROUTINE ONCE Date/Time: 01/01/2024 4:25 PM Performed by: Dot Ballard DO Authorized by: Dot Ballard DO ECG interpreted by ED Physician in the absence of a brim ironer hand: yes Interpretation: Interpretation: normal Rate: ECG rate: 82 ECG rate assessment: normal Rhythm: Rhythm: sinus rhythm Ectopy: Ectopy: none QRS: QRS axis: Normal QRS intervals: Normal QRS conduction: normal ST segments: ST segments: Normal T waves: T waves: normal Q waves: Abnormal Q-waves: not present MDM: Medical Decision Making The patient presents from home for evaluation for pain to his bilateral feet for the past several days. He reports he has blisters to his feet and that he used hydroperoxide yesterday and it caused him to burn. No fevers. No drainage from his wounds. No history of diabetes. No medications taken today for his pain. He reports he did have a DrRussell Bonds today but had nothing else to eat or drink. The patient is hypotensive upon arrival with systolic blood pressures in the 80s. He has dry mucous membranes. His abdomen is soft and nontender. His lungs are clear bilaterally. He has well-healing wounds to his bilateral feet consistent with suspected bug bites. No evidence of cellulitis or abscess to his feet. His EKG shows a normal sinus rhythm, no STEMI. His initial lactic acid level is elevated 3.50. Will give the patient IV fluids here in the ER and check laboratory studies. 1625 -the patient decided he no longer wanted to be here. He signed the AMA paperwork with nursing and left the ER. Problems Addressed: Hypotension, unspecified hypotension type: acute illness or injury Amount and/or Complexity of Data Reviewed Labs: ordered. Decision-making details documented in ED Course. ECG/medicine tests: ordered and independent interpretation performed. Decision-making details documented in ED Course. Risk Prescription drug management. Flowsheet Documentation: Scoring Tools: No data recorded Disposition/Condition: ED Disposition ED Disposition AMA Condition -- Comment -- Discharge Medications: Patient's Medications No medications on file Follow-up: Electronically signed by: Dot Ballard DO 01/01/24 1626 [facility] 2019-02-28 20:17:00 [id number] [place] [address] PATIENT NAME: DELMI MATHEW ADMIT DATE: 01/09/19 ACCOUNT NO: [id number] ROOM NO: Z.422 AGE: 49 REPORT TYPE: DISCHARGE SUMMARY REPORT SEX: M ADMITTING PHYSICIAN:Ad Cummings MD ATTENDING PHYSICIAN:Ad Cummings MD ADMISSION DATE: 01/09/2019 DISCHARGE DATE: 01/13/2019 DISCHARGE DIAGNOSES: Atherosclerosis of the bilateral lower extremity with intermittent claudication, 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 HOSPITAL COURSE: The patient is a 48-year-old male well known to our services with a history of severe peripheral vascular disease to his bilateral lower extremities. He is status post a left fem-pop bypass below knee with CryoVein on 01/11/2018. He was doing relatively well until he was seen by Dr. Worley and had stopped taking his warfarin treatment. The patient complained of having severe claudication to his bilateral lower extremities, left worse than the right and can barely ambulate a block from his house to his job. He was brought to the cardiac laborer wrecking [facility] salvaging by Dr. Worley on 12/24/2018 and underwent an abdominal aortogram with long leg runoff and was found to have a 90% distal SFA, popliteal, and infrapopliteal disease at the tibioperoneal trunk with calcified lesions and the left fem-pop bypass was 100% occluded distally. The patient was subsequently admitted on 01/09/2019 and taken to the operating room, where he underwent a redo left femoral to posterior tibial artery bypass with cryopreserved saphenous vein. The patient tolerated the procedure well and was transferred to ICU in a stable condition where he maintained normal sinus rhythm and stable blood pressure. The patient is a heavy smoker and he had a smoking cessation counseling. He also consume alcoholic beverages and was counseled again to stop consuming alcoholic products. The patient was transferred to the CVU unit where he was ambulating independently and with assistance of physical therapy. He remained stable postoperatively having had a good outcome from surgery. He was discharged to home in a stable condition. He was instructed to follow up with Dr. Cummings in 1 week. He is also to follow up with his brim ironer hand, Dr. Worley, and he is to continue medications per the discharge MAR. Dictated By: JEAN Alvarez for Ad Cummings MD WT: DS:MELODY/EBONIE/EARLE Conf#: [id number]/DID#: [id number] PATIENT NAME: DELMI MATHEW Authenticated by JEAN Alvarez On 03/05/2019 05:11:49 PM Authenticated by Ad Cummings MD On 03/05/2019 05:16:33 PM at 1716 at 1716 PATIENT NAME: DELMI MATHEW [facility] 2019-01-13 14:12:00 [facility] ([facility]) Cardiovascular Surgery Prog REPORT#:[id number] REPORT STATUS: Signed DATE:01/13/19 TIME: 141 PATIENT: DELMI MATHEW UNIT #: [id number] ROOM/BED: [address] : [birth year] AGE: 48 SEX: M ATTEND: Ad Cummings MD ADM AUTHOR: Yolanda Mondragon NP * ALL edits or amendments must be made on the electronic/computer document * General Post-op: day 4 Status post: Redo left femoral to posterior tibial artery bypass with cryopreserved SVG Subjective Patient reports: No: complaints, nausea, vomiting, pain. Nursing reports: No: complaints. Comments: seen pt lying in bed denies pain, SOB, CP Review of Systems Constitutional: Denies: chills, fatigue, fever, generalized weakness. Respiratory: Denies: MURO (dyspnea on exertion), SOB. Cardiovascular: Denies: chest pain, MURO (dyspnea on exertion), edema, orthopnea. Objective Physical Exam VS/I O: Last Documented: Result Date Time Pulse Ox 98 [...] Output, Urine 600 Patient Weight Weight (lb): 185 Weight (oz): 6.19 Weight (kg): 83.915 Medications: Active Meds + DC'd Last 24 Hrs Bupropion HCl 150 MG BID PO Amlodipine Besylate [...] MG ASDIR PRN IV Sodium Chloride 100 ML Losartan Potassium 100 MG DAILY PO Diphenhydramine HCl [...] General appearance: alert, awake, oriented, no acute distress Wound/incision: 1 Location: left groin Site condition: dressing clean dry, dressing intact Wound/incision: 2 Location: left lower extremity Site condition: dressing stained, dressing clean dry, dressing intact Neck: non-tender, no masses or swelling Cardiovascular: normal heart sounds, regular rate rhythm Respiratory: aerating well, clear to auscultation, symmetric expansion, no distress Abdomen: soft, non-tender Genitourinary: no chen Extremities: pedal pulses (left foot non palpable), moves all, The left leg and foot is warm to touch with good color. 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 AUTOMATIC: alert, oriented X 3 Results Findings/Data: Laboratory Tests 01/13 1300 Chemistry Sodium (137 - [...] (Auto) (14 - 44 %) 44.7 H Atlantic % (Auto) (4 - 13 %) 7.4 Eos % (Auto) (0 - 6 %) 1.3 Baso % (Auto) (0 - 2 %) 0.5 Neut # (Auto) (2.0 - 7.6 K/mm3) 3.95 Lymph # (Auto) (1.0 - 3.8 K/mm3) 3.85 H Atlantic # (Auto) (0.1 - 0.8 K/mm3) 0.64 Eos # (Auto) (0.0 - 0.2 K/mm3) 0.11 Baso # (Auto) (0.0 - 0.2 K/mm3) 0.04 Immature Gran % (0.0 - 2.0 %) 0.3 Nucleated RBC % (0 - 1.0 %) 0.0 Nucleated RBCs # (Man) (0.0 - 0.1 K/mm3) 0.00 Diagnosis, Assessment Plan Free Text A P: This is a 48 y/m severe PVD, HTN, HLD, CAD, s/p CAB s/p Redo left femoral to posterior tibial artery bypass with cryopreserved SVG On Plavix/ASA/BB/Statin ETOH Abuse- on MVI/Thiamine/Folic Expected acute blood loss anemia- started on Feosol with Colace Encouraged IS and ambulation/Cont PT/OT CBC/BMP/CXR- all unremarkable today Plan: Conditional D/C home today. Follow up with Dr. Cummings after 1 week. Pt asked about his Coumadin if he needs to resume it back again. Discussed with Dr. Melendez and said pt does not need to take this, pt needs to be on ASA and Plavix only. Pt will need pain prescription before dischrge. Plan discussed with: patient, collaborating MD (Dr. Cummings) at 1417 RPT #:[id number] END OF REPORT [facility] 2019-01-13 14:12:00 [facility] Cardiovascular Surgery Prog REPORT#:[id number] REPORT STATUS: Signed DATE:01/13/19 TIME: 1412 PATIENT: DELMI MATHEW UNIT #: [id number] ROOM/BED: [address] : [birth year] AGE: 48 SEX: M ATTEND: Ad Cummings MD ADM AUTHOR: Yolanda Mondragon NP * ALL edits or amendments must be made on the electronic/computer document * General Post-op: day 4 Status post: Redo left femoral to posterior tibial artery bypass with cryopreserved SVG Subjective Patient reports: No: complaints, nausea, vomiting, pain. Nursing reports: No: complaints. Comments: seen pt lying in bed denies pain, SOB, CP Review of Systems Constitutional: Denies: chills, fatigue, fever, generalized weakness. Respiratory: Denies: MURO (dyspnea on exertion), SOB. Cardiovascular: Denies: chest pain, MURO (dyspnea on exertion), edema, orthopnea. Objective Physical Exam VS/I O: Last Documented: Result Date Time Pulse Ox 98 [...] Output, Urine 600 Patient Weight Weight (lb): 185 Weight (oz): 6.19 Weight (kg): 83.915 Medications: Active Meds + DC'd Last 24 Hrs Bupropion HCl 150 MG BID PO Amlodipine Besylate [...] MG ASDIR PRN IV Sodium Chloride 100 ML Losartan Potassium 100 MG DAILY PO Diphenhydramine HCl [...] General appearance: alert, awake, oriented, no acute distress Wound/incision: 1 Location: left groin Site condition: dressing clean dry, dressing intact Wound/incision: 2 Location: left lower extremity Site condition: dressing stained, dressing clean dry, dressing intact Neck: non-tender, no masses or swelling Cardiovascular: normal heart sounds, regular rate rhythm Respiratory: aerating well, clear to auscultation, symmetric expansion, no distress Abdomen: soft, non-tender Genitourinary: no chen Extremities: pedal pulses (left foot non palpable), moves all, The left leg and foot is warm to touch with good color. 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 AUTOMATIC: alert, oriented X 3 Results Findings/Data: Laboratory Tests 01/13 1300 Chemistry Sodium (137 - [...] (Auto) (14 - 44 %) 44.7 H Atlantic % (Auto) (4 - 13 %) 7.4 Eos % (Auto) (0 - 6 %) 1.3 Baso % (Auto) (0 - 2 %) 0.5 Neut # (Auto) (2.0 - 7.6 K/mm3) 3.95 Lymph # (Auto) (1.0 - 3.8 K/mm3) 3.85 H Atlantic # (Auto) (0.1 - 0.8 K/mm3) 0.64 Eos # (Auto) (0.0 - 0.2 K/mm3) 0.11 Baso # (Auto) (0.0 - 0.2 K/mm3) 0.04 Immature Gran % (0.0 - 2.0 %) 0.3 Nucleated RBC % (0 - 1.0 %) 0.0 Nucleated RBCs # (Man) (0.0 - 0.1 K/mm3) 0.00 Diagnosis, Assessment Plan Free Text A P: This is a 48 y/m severe PVD, HTN, HLD, CAD, s/p CAB s/p Redo left femoral to posterior tibial artery bypass with cryopreserved SVG On Plavix/ASA/BB/Statin ETOH Abuse- on MVI/Thiamine/Folic Expected acute blood loss anemia- started on Feosol with Colace Encouraged IS and ambulation/Cont PT/OT CBC/BMP/CXR- all unremarkable today Plan: Conditional D/C home today. Follow up with Dr. Cummings after 1 week. Pt asked about his Coumadin if he needs to resume it back again. Discussed with Dr. Melendez and said pt does not need to take this, pt needs to be on ASA and Plavix only. Pt will need pain prescription before dischrge. Plan discussed with: patient, collaborating MD (Dr. Cummings) at 1417 at 1324 RPT #:[id number] END OF REPORT [facility] 2019-01-13 12:34:00 [facility] ([facility]) Hospitalist Progress Note REPORT#:[id number] REPORT STATUS: Signed DATE:01/13/19 TIME: 1234 PATIENT: DELMI MATHEW UNIT #: [id number] ROOM/BED: [address] : 68 AGE: 48 SEX: M ATTEND: Ad Cummings MD ADM AUTHOR: Hudson Chong MD * ALL edits or amendments must be made on the electronic/computer document * Subjective Chief Complaint: Patient is requesting something for the anxiety that he gets when he quits smoking. He mentions that he has some pain in the leg at the surgical site. He said he slept well and is ready to go home. Review of Systems All systems rev neg: except as marked Objective General VS/I O: Vital Signs: Date Time Temp Pulse Resp [...] Output, Urine 600 Patient Weight Weight (lb): 185 Weight (oz): 6.19 Weight (kg): 83.915 Medications: Active Meds + DC'd Last 24 Hrs Bupropion HCl 150 MG BID PO Amlodipine Besylate [...] MG ASDIR PRN IV Sodium Chloride 100 ML Losartan Potassium 100 MG DAILY PO Diphenhydramine HCl [...] Chloride 10 MEQ ASDIR PRN PO Physical Exam General appearance: alert, awake, oriented, no acute distress, pleasant, conversational, mental status normal, no respiratory distress Head/Eyes: atraumatic, EOMI, normal conjunctiva/sclera, normal eyelids/periorb., PERRL ENT: moist mucosal membranes, normal ear left, normal ear right, normal nose, normal pharynx Neck: non-tender, supple/no meningismus, no masses or swelling Cardiovascular: normal heart sounds, regular rate rhythm Respiratory: aerating well, clear to auscultation, symmetric expansion, no distress Abdomen: non-tender, normal bowel sounds, soft, no guarding, no rebound Genitourinary: no chen Rectal: not indicated Extremities: moves all, no clubbing, no cyanosis Musculoskeletal: normal inspection, no muscle spasm Neuro/PRESS OPERATOR AUTOMATIC: alert, oriented X 3, normal speech, no motor deficits Wound/incision: Location: Left thigh and leg. Site Condition: dressing clean dry, dressing intact Psychiatry: normal affect, normal judgment/insight, normal mood Sepsis Reassessment VS: Last Documented: Result Date Time Pulse Ox 98 01/13 1110 B/P 139/76 01/13 1110 B/P Mean 96.9 01/13 1110 O2 Delivery Room air 01/13 1110 Temp 98.6 01/13 1110 Pulse 55 01/13 1110 Resp 18 01/13 1110 FiO2 21 01/11 0843 Diagnosis, Assessment Plan Orders: Procedure Date/time Status Ok to Discharge 01/13 1244 Active Free Text DxA P Notes Free Text DxA P Notes: - Severe peripheral vascular disease with occluded left fem-pop graft, s/p redo left fem-pop on 01/09/2019. - Atherosclerotic heart disease. - Hypertension. - Diabetes mellitus. - Hypercholesterolemia. - Tobacco dependence. PLAN AND RECOMMENDATIONS: 01/10/2019: 1. Continue home medications. 2. Advanced diet and activity. 3. Pain medications as needed. 4. Counseled the patient regarding tobacco cessation. He indicated that he is trying recently and cutdown on his smoking. I asked if he has tried any tobacco cessation agents including nicotine replacement or Chantix and he indicated no. I offered nicotine patch and he is agreeable. 5. The patient to be transferred out of intensive care unit later today. 01/11/2019: - Transfer patient from SICU to medical floor. - Current medical treatment. - Anticipate discharge home in the next 24-48 hours. 01/12/2019: - Continue medical treatment. - Anticipate dischage home tomorrow. 01/13/2019: - Patient is being discharged today. - Continue current treatment until such time. - Patient is requesting a medication that can help with the mood changes associated with smoking cessation. Will prescribe Wellbutrin. Quality Medications Current medication review: I attest that the foregoing medication list in the medical record is true, accurate, and complete to the best of my knowledge. BMI Screening > 25 or < 18.5 BMI status/follow-up: abnl BMI, pt to F/U w/PCP (to discuss diet exercise) Tobacco Use/Counseling Tobacco use/counseling: tobacco user, cessation counselor/art therapist <3 min HTN Screening/Follow-up B/P assess/follow-up: pre-existing hx of HTN at 1711 [facility] #:[id number] END OF REPORT [facility] 2019-01-13 06:29:00 [facility] ([facility]) Cardiology Progress Note REPORT#:[id number] REPORT STATUS: Signed DATE:01/13/19 TIME: 628 PATIENT: DELMI MATHEW UNIT #: [id number] ROOM/BED: [address] : 68 AGE: 48 SEX: M ATTEND: Ad Cummings MD ADM AUTHOR: Gilberto Bonds MD * ALL edits or amendments must be made on the electronic/computer document * Subjective Chief Complaint: LLE Pain Patient reports: No: chest pain, palpitations, shortness of breath. Objective General VS/I O: 24 hour I O ending at 0700: [...] 2330 97.9 57 18 162/86 111.1 99 01/12 2008 98.4 73 18 158/87 110.4 99 01/12 1611 98.6 67 18 123/83 96.2 98 01/12 1146 98.1 65 16 154/78 103.0 96 01/12 0734 98.4 56 18 149/71 97.4 98 Patient Weight Weight (lb): 185 Weight (oz): 6.19 Weight (kg): 83.915 Medications: Active Meds + DC'd Last 24 Hrs Famotidine 20 MG BID PO Nicotine 21 [...] MG ASDIR PRN IV Sodium Chloride 100 ML Losartan Potassium 100 MG DAILY PO Diphenhydramine HCl [...] Chloride 10 MEQ ASDIR PRN PO Physical Exam General appearance: alert, awake, oriented Head/Eyes: atraumatic, normocephalic ENT: moist mucosal membranes Neck: no JVD Cardiovascular: CV assessment: regular rate and rhythm Respiratory: clear to auscultation, no distress Upper extremity: UE assessment: no cyanosis, no edema Lower extremity: LE assessment: no edema Musculoskeletal: full range of motion, normal inspection, straight leg raise neg Neuro/PRESS OPERATOR AUTOMATIC: alert, oriented X 3, CN II-XII intact Skin: dry, intact Wound/incision: Site condition: dressing clean dry Psychiatry: normal affect, normal judgment/insight, normal mood Diagnosis, Assessment Plan Free Text DxA P Notes Free Text DxA P Notes: IMP: Severe PVD s/p LLE Fem-pop bypass 12/2017 now with occluded graft s/p LLE fem-tib bypass CAD - s/p ACB Tobacco abuse REC: Continue home medications Add amlodipine IS Ambulate Advised to quit smoking. D/C planning at 0743 RPT #:[id number] END OF REPORT [facility] 2019-01-12 19:37:00 [facility] ([facility]) Cardiovascular Surgery Prog REPORT#:[id number] REPORT STATUS: Signed DATE:01/12/19 TIME: 1936 PATIENT: DELMI MATHEW UNIT #: [id number] ROOM/BED: [facility] : 68 AGE: 48 SEX: M ATTEND: Ad Cummings MD ADM AUTHOR: Ml Marie * ALL edits or amendments must be made on the electronic/computer document * General Post-op: day 3 Status post: Redo left femoral to posterior tibial artery bypass with cryopreserved SVG Subjective Patient reports: No: complaints. Nursing reports: No: complaints. Comments: Pt. seen at bedside, doing well. He still has some mild soreness to his left leg Review of Systems Constitutional: Denies: chills, fatigue, fever. Respiratory: Denies: MURO (dyspnea on exertion), SOB. Cardiovascular: Denies: chest pain. Objective Physical Exam VS/I O: Last Documented: Result Date Time Pulse Ox 98 01/12 1611 B/P 123/83 01/12 1611 B/P Mean 96.2 01/12 1611 Temp 37.0 01/12 1611 Pulse 67 01/12 161 Resp 18 01/12 1611 O2 Delivery Room air 01/11 2017 FiO2 21 01/11 0843 24 hour I O ending at 0700: 01/12 0700 01/11 1900 Intake Total 300 Output Total 500 Balance -200 Intake, Oral 300 Output, Urine 500 Patient Weight Weight (lb): 185 Weight (oz): 6.19 Weight (kg): 83.915 Medications: Active Meds + DC'd Last 24 Hrs Famotidine 20 MG BID PO Nicotine 21 [...] MG ASDIR PRN IV Sodium Chloride 100 ML Losartan Potassium 100 MG DAILY PO Diphenhydramine HCl [...] General appearance: alert, awake, oriented, no acute distress Wound/incision: Location: left lower extremity Site condition: dressing clean dry, dressing intact Neck: non-tender, no masses or swelling Cardiovascular: normal heart sounds, regular rate rhythm Respiratory: aerating well, clear to auscultation, symmetric expansion, no distress Abdomen: soft, non-tender Genitourinary: chen Extremities: pedal pulses (left foot non palpable), moves all, The left leg and foot is warm to touch with good color. 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 AUTOMATIC: alert, oriented X 3 Diagnosis, Assessment Plan Free Text A P: This is a 48 y/m severe PVD, HTN, HLD, CAD, s/p CAB s/p Redo left femoral to posterior tibial artery bypass with cryopreserved SVG On Plavix/ASA/BB/Statin ETOH Abuse- on MVI/Thiamine/Folic Expected acute blood loss anemia- started on Feosol with Colace Encouraged IS and ambulation/Cont PT/OT Plan for discharge home in am at 1939 RPT #:[id number] END OF REPORT [facility] 2019-01-12 19:37:00 [facility] ([facility]) Cardiovascular Surgery Prog REPORT#:[id number] REPORT STATUS: Signed DATE:01/12/19 TIME: 1936 PATIENT: DELMI MATHEW UNIT #: [id number] ROOM/BED: [address] : 68 AGE: 48 SEX: M ATTEND: Ad Cummings MD ADM AUTHOR: Ml Marie * ALL edits or amendments must be made on the electronic/computer document * General Post-op: day 3 Status post: Redo left femoral to posterior tibial artery bypass with cryopreserved SVG Subjective Patient reports: No: complaints. Nursing reports: No: complaints. Comments: Pt. seen at bedside, doing well. He still has some mild soreness to his left leg Review of Systems Constitutional: Denies: chills, fatigue, fever. Respiratory: Denies: MURO (dyspnea on exertion), SOB. Cardiovascular: Denies: chest pain. Objective Physical Exam VS/I O: Last Documented: Result Date Time Pulse Ox 98 01/12 1611 B/P 123/83 01/12 1611 B/P Mean 96.2 01/12 1611 Temp 37.0 01/12 1611 Pulse 67 01/12 1611 Resp 18 01/12 1611 O2 Delivery Room air 01/11 2017 FiO2 21 01/11 0843 24 hour I O ending at 0700: 01/12 0700 01/11 1900 Intake Total 300 Output Total 500 Balance -200 Intake, Oral 300 Output, Urine 500 Patient Weight Weight (lb): 185 Weight (oz): 6.19 Weight (kg): 83.915 Medications: Active Meds + DC'd Last 24 Hrs Famotidine 20 MG BID PO Nicotine 21 [...] MG ASDIR PRN IV Sodium Chloride 100 ML Losartan Potassium 100 MG DAILY PO Diphenhydramine HCl [...] General appearance: alert, awake, oriented, no acute distress Wound/incision: Location: left lower extremity Site condition: dressing clean dry, dressing intact Neck: non-tender, no masses or swelling Cardiovascular: normal heart sounds, regular rate rhythm Respiratory: aerating well, clear to auscultation, symmetric expansion, no distress Abdomen: soft, non-tender Genitourinary: chen Extremities: pedal pulses (left foot non palpable), moves all, The left leg and foot is warm to touch with good color. 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 AUTOMATIC: alert, oriented X 3 Diagnosis, Assessment Plan Free Text A P: This is a 48 y/m severe PVD, HTN, HLD, CAD, s/p CAB s/p Redo left femoral to posterior tibial artery bypass with cryopreserved SVG On Plavix/ASA/BB/Statin ETOH Abuse- on MVI/Thiamine/Folic Expected acute blood loss anemia- started on Feosol with Colace Encouraged IS and ambulation/Cont PT/OT Plan for discharge home in am at 1939 at 1457 RPT #[id number] END OF REPORT [facility] 2019-01-12 15:37:00 [facility] ([facility] Cardiology Progress Note REPORT#:[id number] REPORT STATUS: Signed DATE:01/12/19 TIME: 1537 PATIENT: DELMI MATHEW UNIT #: [id number] ROOM/BED: [address] : 68 AGE: 48 SEX: M ATTEND: Ad Cummings MD ADM AUTHOR: Gilberto Bonds MD * ALL edits or amendments must be made on the electronic/computer document * Subjective Chief Complaint: LLE Pain Patient reports: No: chest pain, palpitations, shortness of breath. Objective General VS/I O: 24 hour I O ending at 0700: [...] 16 145/80 101.8 Patient Weight Weight (lb): 185 Weight (oz): 6.19 Weight (kg): 83.915 Medications: Active Meds + DC'd Last 24 Hrs Famotidine 20 MG BID PO Nicotine 21 [...] MG ASDIR PRN IV Sodium Chloride 100 ML Losartan Potassium 100 MG DAILY PO Diphenhydramine HCl [...] Chloride 10 MEQ ASDIR PRN PO Physical Exam General appearance: alert, awake, oriented Head/Eyes: atraumatic, normocephalic ENT: moist mucosal membranes Neck: no JVD Cardiovascular: CV assessment: regular rate and rhythm Respiratory: clear to auscultation, no distress Upper extremity: UE assessment: no cyanosis, no edema Lower extremity: LE assessment: no edema Musculoskeletal: full range of motion, normal inspection, straight leg raise neg Neuro/PRESS OPERATOR AUTOMATIC: alert, oriented X 3, CN II-XII intact Skin: dry, intact Wound/incision: Site condition: dressing clean dry Psychiatry: normal affect, normal judgment/insight, normal mood Diagnosis, Assessment Plan Free Text DxA P Notes Free Text DxA P Notes: IMP: Severe PVD s/p LLE Fem-pop bypass 12/2017 now with occluded graft s/p LLE fem-tib bypass CAD - s/p ACB Tobacco abuse REC: Continue home medications Add nifedipine prn for HTN. IS Ambulate Advised to quit smoking. at [address] [place] [address] #:[id number] END OF REPORT [facility] 2019-01-12 14:18:00 [facility] ([facility]) Hospitalist Progress Note REPORT#:[id number] REPORT STATUS: Signed DATE:01/12/19 TIME: 1418 PATIENT: DELMI MATHEW UNIT #: [id number] ROOM/BED: [address] : 68 AGE: 48 SEX: M ATTEND: Ad Cummings MD ADM AUTHOR: Hudson Chong MD * ALL edits or amendments must be made on the electronic/computer document * Subjective Chief Complaint: Patient reports having some pain at the surgical site. He continues to report no discomfort while walking. Patient says "everything else is good." Review of Systems All systems rev neg: except as marked Objective General VS/I O: Vital Signs: Date Time Temp Pulse Resp [...] Output, Urine 500 Patient Weight Weight (lb): 185 Weight (oz): 6.19 Weight (kg): 83.915 Medications: Active Meds + DC'd Last 24 Hrs Famotidine 20 MG BID PO Nicotine 21 [...] MG ASDIR PRN IV Sodium Chloride 100 ML Losartan Potassium 100 MG DAILY PO Diphenhydramine HCl [...] Chloride 10 MEQ ASDIR PRN PO Physical Exam General appearance: alert, awake, oriented, no acute distress, pleasant, conversational, mental status normal, no respiratory distress Head/Eyes: atraumatic, clear cornea, EOMI, normal conjunctiva/sclera, normal eyelids/periorb., PERRL ENT: moist mucosal membranes, normal ear left, normal ear right, normal nose, normal pharynx Neck: non-tender, supple/no meningismus, no masses or swelling Cardiovascular: normal heart sounds, regular rate rhythm Respiratory: aerating well, clear to auscultation, symmetric expansion, no distress Abdomen: non-tender, normal bowel sounds, soft, no guarding, no rebound Genitourinary: no chen Rectal: not indicated Extremities: moves all, no clubbing, no cyanosis Musculoskeletal: normal inspection, no muscle spasm Neuro/PRESS OPERATOR AUTOMATIC: alert, oriented X 3, normal speech, no motor deficits Wound/incision: Location: Left thigh and leg. Site Condition: dressing clean dry, dressing intact Psychiatry: normal affect, normal judgment/insight, normal mood Results Results: no new labs, vital signs stable, current med profile rev'd Sepsis Reassessment VS: Last Documented: Result Date Time Pulse Ox 96 01/12 1146 B/P 154/78 01/12 1146 B/P Mean 103.0 01/12 1146 Temp 98.1 01/12 1146 Pulse 65 01/12 1146 Resp 16 01/12 1146 O2 Delivery Room air 01/11 2017 FiO2 21 01/11 0843 Diagnosis, Assessment Plan Free Text DxA P Notes Free Text DxA P Notes: - Severe peripheral vascular disease with occluded left fem-pop graft, s/p redo left fem-pop on 01/09/2019. - Atherosclerotic heart disease. - Hypertension. - Diabetes mellitus. - Hypercholesterolemia. - Tobacco dependence. PLAN AND RECOMMENDATIONS: 01/10/2019: 1. Continue home medications. 2. Advanced diet and activity. 3. Pain medications as needed. 4. Counseled the patient regarding tobacco cessation. He indicated that he is trying recently and cutdown on his smoking. I asked if he has tried any tobacco cessation agents including nicotine replacement or Chantix and he indicated no. I offered nicotine patch and he is agreeable. 5. The patient to be transferred out of intensive care unit later today. 01/11/2019: - Transfer patient from SICU to medical floor. - Current medical treatment. - Anticipate discharge home in the next 24-48 hours. 01/12/2019: - Continue medical treatment. - Anticipate dischage home tomorrow. Quality Medications Current medication review: I attest that the foregoing medication list in the medical record is true, accurate, and complete to the best of my knowledge. BMI Screening > 25 or < 18.5 BMI status/follow-up: abnl BMI, pt to F/U w/PCP (to discuss diet exercise) at 1946 RPT #:[id number] END OF REPORT [facility] 2019-01-11 19:30:00 [facility] ([facility]) Cardiovascular Surgery Prog REPORT#:[id number] REPORT STATUS: Signed DATE:01/11/19 TIME: 1929 PATIENT: DELMI MATHEW UNIT #: [id number] ROOM/BED: [address] : 68 AGE: 48 SEX: M ATTEND: Ad Cummings MD ADM AUTHOR: Ml Marie * ALL edits or amendments must be made on the electronic/computer document * General Post-op: day 2 Status post: Redo left femoral to posterior tibial artery bypass with cryopreserved SVG Subjective Patient reports: No: complaints. Nursing reports: No: complaints. Comments: Pt. seen at bedside, he was transferred to telemetry today. States that his left foot feels mucgh better since the surgery Review of Systems Constitutional: Denies: chills, fatigue, fever. Respiratory: Denies: MURO (dyspnea on exertion), SOB. Cardiovascular: Denies: chest pain, MURO (dyspnea on exertion), palpitations. Objective Physical Exam VS/I O: Last Documented: Result Date Time B/P 145/80 01/11 1714 B/P Mean 101.8 01/11 1714 Temp 36.7 01/11 171 Pulse 62 01/11 1714 Resp 16 01/11 [...] 83.915 kg Weight Patient Weight Weight (lb): 185 Weight (oz): 6.19 Weight (kg): 83.915 Medications: Active Meds + DC'd Last 24 Hrs Famotidine 20 MG BID PO Nicotine 21 [...] MG ASDIR PRN IV Sodium Chloride 100 ML Losartan Potassium 100 MG DAILY PO Diphenhydramine HCl [...] ASDIR PRN IV (DC) Sodium Chloride 250 ML Nifedipine 10 MG Q4H PRN PRN SL (DC) Ondansetron HCl 4 MG Q8H PRN PRN IV Potassium Chloride 10 MEQ ASDIR PRN PO Potassium Chloride/Dextrose/Sod Cl 1,000 ML Q12H IV (DC) Nicardipine HCl 25 MG ASDIR IV (DC) Sodium Chloride 250 ML General appearance: alert, awake, oriented, no acute distress Wound/incision: Location: left lower extremity, Left groin and thigh dressings are intact. The left calf dressing is saturated Neck: non-tender, no masses or swelling Cardiovascular: normal heart sounds, regular rate rhythm Respiratory: aerating well, clear to auscultation, symmetric expansion, no distress Abdomen: soft, non-tender Extremities: pedal pulses (left foot non palpable), moves all, The left leg and foot is warm to touch with good color. 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 AUTOMATIC: alert, oriented X 3 Results Findings/Data: Laboratory Tests 01/12 436 Chemistry Sodium (137 - [...] % (Auto) (14 - 44 %) 34.0 Atlantic % (Auto) (4 - 13 %) 6.3 Eos % (Auto) (0 - 6 %) 0.3 Baso % (Auto) (0 - 2 %) 0.3 Neut # (Auto) (2.0 - 7.6 K/mm3) 6.42 Lymph # (Auto) (1.0 - 3.8 K/mm3) 3.71 Atlantic # (Auto) (0.1 - 0.8 K/mm3) 0.69 Eos # (Auto) (0.0 - 0.2 K/mm3) 0.03 Baso # (Auto) (0.0 - 0.2 K/mm3) 0.03 Immature Gran % (0.0 - 2.0 %) 0.3 Nucleated RBC % (0 - 1.0 %) 0.0 Nucleated RBCs # (Man) (0.0 - 0.1 K/mm3) 0.00 Diagnosis, Assessment Plan Free Text A P: This is a 48 y/m severe PVD, HTN, HLD, CAD, s/p CAB s/p Redo left femoral to posterior tibial artery bypass with cryopreserved SVG On Plavix/ASA/BB/Statin ETOH Abuse- on MVI/Thiamine/Folic Expected acute blood loss anemia- started on Feosol with Colace Encouraged IS and ambulation/Cont PT/OT Plan for discharge home on Wednesday D/C central line at 1936 RPT #:[id number] END OF REPORT [facility] 2019-01-11 19:30:00 [facility] ([facility]) Cardiovascular Surgery Prog REPORT#:[id number] REPORT STATUS: Signed DATE:01/11/19 TIME: 1929 PATIENT: DELMI MATHEW UNIT #: [id number] [facility] AGE: 48 SEX: M ATTEND: Ad Cummings MD ADM AUTHOR: Ml Marie * ALL edits or amendments must be made on the electronic/computer document * General Post-op: day 2 Status post: Redo left femoral to posterior tibial artery bypass with cryopreserved SVG Subjective Patient reports: No: complaints. Nursing reports: No: complaints. Comments: Pt. seen at bedside, he was transferred to telemetry today. States that his left foot feels mucgh better since the surgery Review of Systems Constitutional: Denies: chills, fatigue, fever. Respiratory: Denies: MURO (dyspnea on exertion), SOB. Cardiovascular: Denies: chest pain, MURO (dyspnea on exertion), palpitations. Objective Physical Exam VS/I O: Last Documented: Result Date Time B/P 145/80 01/11 1714 B/P Mean 101.8 01/11 1714 Temp 36.7 01/11 171 Pulse 62 01/11 1714 Resp 16 01/11 [...] 83.915 kg Weight Patient Weight Weight (lb): 185 Weight (oz): 6.19 Weight (kg): 83.915 Medications: Active Meds + DC'd Last 24 Hrs Famotidine 20 MG BID PO Nicotine 21 [...] MG ASDIR PRN IV Sodium Chloride 100 ML Losartan Potassium 100 MG DAILY PO Diphenhydramine HCl [...] ASDIR PRN IV (DC) Sodium Chloride 250 ML Nifedipine 10 MG Q4H PRN PRN SL (DC) Ondansetron HCl 4 MG Q8H PRN PRN IV Potassium Chloride 10 MEQ ASDIR PRN PO Potassium Chloride/Dextrose/Sod Cl 1,000 ML Q12H IV (DC) Nicardipine HCl 25 MG ASDIR IV (DC) Sodium Chloride 250 ML General appearance: alert, awake, oriented, no acute distress Wound/incision: Location: left lower extremity, Left groin and thigh dressings are intact. The left calf dressing is saturated Neck: non-tender, no masses or swelling Cardiovascular: normal heart sounds, regular rate rhythm Respiratory: aerating well, clear to auscultation, symmetric expansion, no distress Abdomen: soft, non-tender Extremities: pedal pulses (left foot non palpable), moves all, The left leg and foot is warm to touch with good color. 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 AUTOMATIC: alert, oriented X 3 Results Findings/Data: Laboratory Tests 01/12 436 Chemistry Sodium (137 - [...] % (Auto) (14 - 44 %) 34.0 Atlantic % (Auto) (4 - 13 %) 6.3 Eos % (Auto) (0 - 6 %) 0.3 Baso % (Auto) (0 - 2 %) 0.3 Neut # (Auto) (2.0 - 7.6 K/mm3) 6.42 Lymph # (Auto) (1.0 - 3.8 K/mm3) 3.71 Atlantic # (Auto) (0.1 - 0.8 K/mm3) 0.69 Eos # (Auto) (0.0 - 0.2 K/mm3) 0.03 Baso # (Auto) (0.0 - 0.2 K/mm3) 0.03 Immature Gran % (0.0 - 2.0 %) 0.3 Nucleated RBC % (0 - 1.0 %) 0.0 Nucleated RBCs # (Man) (0.0 - 0.1 K/mm3) 0.00 Diagnosis, Assessment Plan Free Text A P: This is a 48 y/m severe PVD, HTN, HLD, CAD, s/p CAB s/p Redo left femoral to posterior tibial artery bypass with cryopreserved SVG On Plavix/ASA/BB/Statin ETOH Abuse- on MVI/Thiamine/Folic Expected acute blood loss anemia- started on Feosol with Colace Encouraged IS and ambulation/Cont PT/OT Plan for discharge home on Wednesday D/C central line at 1936 at 1502 RPT #:[id number] END OF REPORT [facility] 2019-01-11 16:16:00 [facility] ([facility]) Hospitalist Progress Note REPORT#:[id number] REPORT STATUS: Signed DATE:01/11/19 TIME: 1616 PATIENT: DELMI MATHEW UNIT #: [id number] ROOM/BED: [address] : 68 AGE: 48 SEX: M ATTEND: Ad Cummings MD ADM AUTHOR: Hudson Chong MD * ALL edits or amendments must be made on the electronic/computer document * Subjective Chief Complaint: Patient reports feeling and eating well. He says that he has walked today with no pain and has not experienced the same pain with walking that he used to experience. He mentioned that he had a BM today. He mentions that he is concerned about some oozing at the site of incision. Review of Systems All systems rev neg: except as marked Objective General VS/I O: Vital Signs: Date Time Temp Pulse Resp B/P B/P Pulse O2 O2 Flow FiO2 Mean Ox Delivery Rate 01/11 1237 68 12 01/11 1230 97.4 01/11 1230 62 13 109/56 77 98 07/ 1220 15 01/11 1200 55 114/64 84 99 07/17 1130 61 107/53 77 97 07/ 1100 64 16 105/55 76 97 07/17 1030 70 18 131/60 98 07/17 1000 60 129/58 83 96 07/ 0930 65 10 161/78 111 98 07/ 0900 78 12 143/82 107 99 07/ 0843 96 Room air 21 01/11 0841 51 11 143/78 104 98 07/ 0800 56 14 146/77 104 96 / 0730 58 15 138/65 94 99 / 0700 97.6 / 0700 63 24 152/69 96 07/ 0500 69 12 157/79 108 100 07/ 0430 51 15 141/77 103 98 / 0400 97.7 / 0400 57 13 139/73 101 98 / 0330 49 13 152/78 105 98 07/17 0300 50 12 126/76 96 98 07/17 0230 50 13 138/78 102 98 07/17 0200 48 14 160/78 108 99 07/17 0130 47 13 135/79 102 98 07/17 0100 49 125/68 90 95 07/17 0030 50 124/70 92 96 07/17 0000 97.7 07/ 0000 53 14 116/65 85 97 07/16 2330 53 14 126/74 95 96 07/16 2300 54 14 116/67 87 92 07/16 2230 54 16 127/71 94 96 07/16 2200 55 12 123/68 88 94 07/16 2130 58 14 118/69 89 95 07/16 2100 64 14 125/65 90 95 07/16 2030 67 16 119/62 85 95 07/16 2000 97.9 07/16 2000 63 18 108/58 77 95 07/16 1930 63 18 126/67 90 98 07/16 1900 64 17 115/61 83 96 07/16 1844 98 Room air 07/16 1730 57 127/71 92 99 07/16 1700 58 124/72 93 98 07/16 1630 59 15 116/64 85 99 24 hour I O ending at 0700: 17 0700 /16 1900 Intake Total 850 1400.00 Output Total 650 1180 Balance 200 220.00 Intake, IV 600.00 Intake, Oral 850 800 Number Voids 2 Output, Urine 650 1180 Patient 185 lb Weight Patient Weight Weight (lb): 185 Weight (oz): 6.19 Weight (kg): 83.915 Medications: Active Meds + DC'd Last 24 Hrs Famotidine 20 MG BID PO Nicotine 21 [...] MG ASDIR PRN IV Sodium Chloride 100 ML Losartan Potassium 100 MG DAILY PO Diphenhydramine HCl [...] ASDIR PRN IV (DC) Sodium Chloride 250 ML Nifedipine 10 MG Q4H PRN PRN SL (DC) Ondansetron HCl 4 MG Q8H PRN PRN IV Potassium Chloride 10 MEQ ASDIR PRN PO Potassium Chloride/Dextrose/Sod Cl 1,000 ML Q12H IV (DC) Nicardipine HCl 25 MG ASDIR IV (DC) Sodium Chloride 250 ML Physical Exam General appearance: alert, awake, oriented, no acute distress, pleasant, conversational, mental status normal, no respiratory distress Head/Eyes: atraumatic, clear cornea, EOMI, normal conjunctiva/sclera, normal eyelids/periorb., PERRL ENT: moist mucosal membranes, normal ear left, normal ear right, normal nose, normal pharynx Neck: non-tender, supple/no meningismus, no masses or swelling Cardiovascular: normal heart sounds, regular rate rhythm Respiratory: aerating well, clear to auscultation, symmetric expansion, no distress Abdomen: non-tender, normal bowel sounds, soft, no guarding, no rebound Genitourinary: no chen Rectal: not indicated Extremities: moves all, no clubbing, no cyanosis Musculoskeletal: normal inspection, no muscle spasm Neuro/PRESS OPERATOR AUTOMATIC: alert, oriented X 3, normal speech, no motor deficits Wound/incision: Location: Left thigh and leg. Site Condition: dressing stained Psychiatry: normal affect, normal judgment/insight, normal mood Results Findings/Data: Laboratory Tests 01/12 436 Chemistry Sodium (137 - [...] % (Auto) (14 - 44 %) 34.0 Atlantic % (Auto) (4 - 13 %) 6.3 Eos % (Auto) (0 - 6 %) 0.3 Baso % (Auto) (0 - 2 %) 0.3 Neut # (Auto) (2.0 - 7.6 K/mm3) 6.42 Lymph # (Auto) (1.0 - 3.8 K/mm3) 3.71 Atlantic # (Auto) (0.1 - 0.8 K/mm3) 0.69 Eos # (Auto) (0.0 - 0.2 K/mm3) 0.03 Baso # (Auto) (0.0 - 0.2 K/mm3) 0.03 Immature Gran % (0.0 - 2.0 %) 0.3 Nucleated RBC % (0 - 1.0 %) 0.0 Nucleated RBCs # (Man) (0.0 - 0.1 K/mm3) 0.00 Sepsis Reassessment VS: Last Documented: Result Date Time Pulse 68 01/11 1237 Resp 12 01/11 1237 Temp 97.4 01/11 1230 Pulse Ox 98 01/11 1230 B/P 109/56 01/11 1230 B/P Mean 77 01/11 1230 FiO2 21 01/11 0843 O2 Delivery Room air 01/11 0843 Diagnosis, Assessment Plan Free Text DxA P Notes Free Text DxA P Notes: - Leukocytosis, likely reactive. - Severe peripheral vascular disease with occluded left fem-pop graft, s/p redo left fem-pop on 01/09/2019. - Atherosclerotic heart disease. - Hypertension. - Diabetes mellitus. - Hypercholesterolemia. - Tobacco dependence. PLAN AND RECOMMENDATIONS: 01/10/2019: 1. Continue home medications. 2. Advanced diet and activity. 3. Pain medications as needed. 4. Counseled the patient regarding tobacco cessation. He indicated that he is trying recently and cutdown on his smoking. I asked if he has tried any tobacco cessation agents including nicotine replacement or Chantix and he indicated no. I offered nicotine patch and he is agreeable. 5. The patient to be transferred out of intensive care unit later today. 01/11/2019: - Transfer patient from SICU to medical floor. - Current medical treatment. - Anticipate discharge home in the next 24-48 hours. Quality Medications Current medication review: I attest that the foregoing medication list in the medical record is true, accurate, and complete to the best of my knowledge. BMI Screening > 25 or < 18.5 BMI status/follow-up: abnl BMI, pt to F/U w/PCP (to discuss diet exercise) Tobacco Use/Counseling Tobacco use/counseling: tobacco user, cessation counselor/art therapist <3 min HTN Screening/Follow-up B/P assess/follow-up: pre-existing hx of HTN at 1748 RPT #:[id number] END OF REPORT [facility] 2019-01-11 07:49:00 [facility] ([facility]) Cardiology Progress Note REPORT#:[id number] REPORT STATUS: Signed DATE:01/11/19 TIME: 0749 PATIENT: DELMI MATHEW UNIT #: [id number] ROOM/BED: [address] : 68 AGE: 48 SEX: M ATTEND: Ad Cummings MD ADM AUTHOR: Gilberto Bonds MD * ALL edits or amendments must be made on the electronic/computer document * Subjective Patient reports: No: chest pain, palpitations, shortness of breath. Objective General VS/I O: 24 hour I O ending at 0700: [...] 01/11 0000 53 14 116/65 85 97 / 2330 53 14 126/74 95 96 01/10 2300 54 14 116/67 87 92 / 2230 54 16 127/71 94 96 01/10 2200 55 12 123/68 88 94 / 2130 58 14 118/69 89 95 /16 2100 64 14 125/65 90 95 07/16 2030 67 16 119/62 85 95 07/16 1999 97.9 07/16 1999 63 18 108/58 77 95 07/16 1930 63 18 126/67 90 98 07/16 1900 64 17 115/61 83 96 07/16 [...] 96 Room air Patient Weight Weight (lb): 185 Weight (oz): 6.19 Weight (kg): 83.915 Medications: Active Meds + DC'd Last 24 Hrs Heparin Sodium (Porcine) 1,000 UNIT .STK-MED ONE Z [...] MG Q8H IV (DC) Sodium Chloride 10 ML Atorvastatin Calcium 20 MG BEDTIME PO Famotidine 20 MG Q12HR IV (DC) Metoprolol Tartrate 50 MG BID PO Mupirocin 1 APPLIC BID NASAL Calcium Gluconate 1,000 MG ASDIR PRN IV Sodium Chloride 100 ML Losartan Potassium 100 MG DAILY PO Multivitamins 10 ML .Q24H IV (DC) Thiamine HCl 100 MG Folic Acid 1 MG Sodium Chloride 1,000 ML Diphenhydramine HCl 25 MG Q6H PRN PRN [...] ASDIR PRN IV (DC) Sodium Chloride 250 ML Nifedipine 10 MG Q4H PRN PRN SL (DC) Ondansetron HCl 4 MG Q8H PRN PRN IV Potassium Chloride 10 MEQ ASDIR PRN PO Potassium Chloride/Dextrose/Sod Cl 1,000 ML Q12H IV (DC) Nicardipine HCl 25 MG ASDIR IV (DC) Sodium Chloride 250 ML Physical Exam General appearance: alert, awake, oriented Head/Eyes: atraumatic, normocephalic ENT: moist mucosal membranes Neck: no JVD Cardiovascular: CV assessment: regular rate and rhythm Respiratory: clear to auscultation, no distress Upper extremity: UE assessment: no cyanosis, no edema Lower extremity: LE assessment: no edema Musculoskeletal: full range of motion, normal inspection, straight leg raise neg Neuro/PRESS OPERATOR AUTOMATIC: alert, oriented X 3, CN II-XII intact Skin: dry, intact Wound/incision: Site condition: dressing clean dry Psychiatry: normal affect, normal judgment/insight, normal mood Results Findings/Data: Laboratory Tests 01/11 0436 Chemistry Sodium (137 - [...] % (Auto) (14 - 44 %) 34.0 Atlantic % (Auto) (4 - 13 %) 6.3 Eos % (Auto) (0 - 6 %) 0.3 Baso % (Auto) (0 - 2 %) 0.3 Neut # (Auto) (2.0 - 7.6 K/mm3) 6.42 Lymph # (Auto) (1.0 - 3.8 K/mm3) 3.71 Atlantic # (Auto) (0.1 - 0.8 K/mm3) 0.69 Eos # (Auto) (0.0 - 0.2 K/mm3) 0.03 Baso # (Auto) (0.0 - 0.2 K/mm3) 0.03 Immature Gran % (0.0 - 2.0 %) 0.3 Nucleated RBC % (0 - 1.0 %) 0.0 Nucleated RBCs # (Man) (0.0 - 0.1 K/mm3) 0.00 Diagnosis, Assessment Plan Free Text DxA P Notes Free Text DxA P Notes: IMP: Severe PVD s/p LLE Fem-pop bypass 12/2017 now with occluded graft s/p LLE fem-tib bypass CAD - s/p ACB Tobacco abuse REC: Continue home medications IS Ambulate Advised to quit smoking. at 1755 RPT #:[id number] END OF REPORT [facility] 2019-01-10 15:11:00 [id number] [address] PATIENT NAME: DELMI MATHEW ADMIT DATE: 01/09/19 ACCOUNT NO: [id number] ROOM NO: [facility] AGE: 48 REPORT TYPE: CONSULTATION REPORT SEX: M ADMITTING PHYSICIAN:Ad Cummings MD ATTENDING PHYSICIAN:Ad Cummings MD CONSULTATION DATE: 01/09/2019 CONSULTING PHYSICIAN: Hudson Chong MD INTERNAL MEDICINE CONSULTATION REFERRING PHYSICIAN: Ad Cummings MD REASON FOR CONSULTATION: Management of medical problems. CHIEF COMPLAINT: Pain in lower extremities. HISTORY OF PRESENTING ILLNESS: The patient is a 48-year-old male with known multiple medical problems including hypertension, diabetes mellitus, coronary artery disease, and peripheral arterial disease who underwent a redo left femoral to posterior tibial artery bypass yesterday and is now admitted to the intensive care unit. History has been obtained from the patient as well as from review of medical records. The patient initially underwent left fem-pop surgery in December 2017. He was placed on aspirin, Plavix, and warfarin by Dr. Cummings. There was a concern of hypercoagulable state. At some point, patient quit taking warfarin and subsequently started having symptoms related to claudication in his left lower extremity. He has some blockages in his right lower extremity as well. He was seen by his brim ironer hand, Dr. Saurabh Worley and underwent aortogram as well as angiogram of bilateral lower extremities on 12/24/2018 which showed occluded left fem-pop as well as stenosis of arteries of right lower extremity. The patient was referred back to Dr. Cummings, who scheduled the surgery, which was performed yesterday. The patient is now seen in the intensive care unit, sitting up in the chair at the bedside. He reports improvement in pain in the left lower extremity, which he was having prior to the surgery. He reports slight pain at the surgical site. He denies any other complaints. PAST MEDICAL HISTORY: 1. Hypertension. 2. Diabetes mellitus. 3. Hyperlipidemia. 4. Coronary artery disease. PAST SURGICAL HISTORY: 1. CABG. 2. Left lower extremity fem-pop graft. PATIENT NAME: DELMI MATHEW 3. Ventral hernia repair. MEDICATIONS: 1. Plavix 75 mg daily. 2. Atorvastatin 20 mg at bedtime. 3. Losartan 100 mg daily. 4. Metoprolol tartrate 50 mg b.i.d. 5. Ecotrin 81 mg daily. ALLERGIES: NO KNOWN DRUG ALLERGIES. SOCIAL HISTORY: The patient has smoked a pack a day almost for 35 years. Very recently he decided to decrease and cut down to half pack per day. He drinks alcohol 2 to 3 times a month, mostly on the weekend. His last drink was 2 weeks ago. He denies use of any drugs. 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 He is and has 4 children. FAMILY HISTORY: Father has diabetes mellitus and heart problems. Mother has hypercholesterolemia. REVIEW OF SYSTEMS: An extensive 12-point review of systems was performed and was noted to be negative except for the symptoms listed in the history of presenting illness. PHYSICAL EXAMINATION: GENERAL: The patient is a middle age male of average build and height. He is awake, alert, and oriented and a fair historian. He does not appear to be in acute distress. VITAL SIGNS: Temperature 97.9, pulse 62, respiratory rate 16, blood pressure 138/60, pulse ox 96%. BMI 27.4. HEENT: Atraumatic, normocephalic, anicterus, pink conjunctivae. Pupils equally round and reactive to light. No frontomaxillary tenderness, moist oral mucosa, no oropharyngeal lesions. NECK: Supple, nontender. CHEST: Symmetric expansion, respirations nonlabored. LUNGS: Clear to auscultation. CARDIOVASCULAR: No carotid bruits, no JVD. S1 and S2 with regular rate and rhythm, trace pitting edema noted in left lower extremity, diminished pedal pulses. ABDOMEN: Bowel sounds normoactive, soft. No tenderness, guarding, or rigidity. EXTREMITIES: No clubbing or cyanosis, surgical site in left lower extremity covered with clean dressings. MUSCULOSKELETAL SYSTEM: Normal inspection. No muscle spasms. CENTRAL NERVOUS SYSTEM: The patient is awake, alert, and oriented x3, speech normal, no motor deficits. LABORATORY DATA: WBC count 9.5, hemoglobin 12.5, and platelets 167. Electrolytes were normal. BUN 7, creatinine 0.5, glucose 146, calcium 8.4, and magnesium 2.0. Prothrombin time 18.0, INR 1.7. DIAGNOSTIC STUDIES: Chest x-ray showed mild cardiomegaly with no acute pulmonary process. ASSESSMENT: PATIENT NAME: DELMI MATHEW 1. Severe peripheral vascular disease with occluded left fem-pop graft, status post redo left fem-pop on 01/09/2019. 2. Atherosclerotic heart disease. 3. Hypertension. 4. Diabetes mellitus. 5. Hypercholesterolemia. 6. Tobacco dependence. PLAN AND RECOMMENDATIONS: 1. Continue home medications. 2. Advanced diet and activity. 3. Pain medications as needed. 4. Counseled the patient regarding tobacco cessation. He indicated that he is trying recently and cutdown on his smoking. I asked if he has tried any tobacco cessation agents including nicotine replacement or Chantix and he indicated no. I offered nicotine patch and he is agreeable. 5. The patient to be transferred out of intensive care unit later today. Thank you, Dr. Cummings for allowing us to participate in the care of this patient. We will continue to follow along with you. Dictated By: Hudson Chong MD WT: CON:MELODY/DOROTHY/EARLE Conf#: [id number]/DID#: [id number] Authenticated by Hudson Chong MD On 01/10/2019 08:24:48 PM at 2024 PATIENT NAME: DELMI MATHEW [facility] 2019-01-10 10:54:00 [facility] ([facility] Adult General Consultation REPORT#:[id number] REPORT STATUS: Signed DATE:01/10/19 TIME: 1054 PATIENT: DELMI MATHEW UNIT #: [id number] ROOM/BED: [facility] : 68 AGE: 48 SEX: M ATTEND: Ad Cummings MD ADM AUTHOR: Hudson Chong MD * ALL edits or amendments must be made on the electronic/computer document * History - Adult longitudinal Allergies: Coded Allergies: No Known Allergies (01/13/18) Diagnosis, Assessment Plan Free Text DxA P Notes Free Text DxA P Notes: CONSULT DICTATED: # [id number] Quality Medications Current medication review: I attest that the foregoing medication list in the medical record is true, accurate, and complete to the best of my knowledge. BMI Screening > 25 or < 18.5 Patient's BMI: Current BMI: 27.4 BMI status/follow-up: abnl BMI, pt to F/U w/PCP (to discuss diet exercise) Tobacco Use/Counseling Tobacco use/counseling: tobacco user, cessation counselor/art therapist <3 min HTN Screening/Follow-up Last documented vitals: Last Documented: Result Date Time Pulse Ox 98 01/10 1209 FiO2 21 01/10 1209 O2 Delivery Room air 01/10 1209 B/P 130/62 01/10 1200 B/P Mean 84 01/10 1200 Temp 97.8 01/10 1200 Pulse 63 01/10 1200 Resp 12 01/10 1200 B/P assess/follow-up: pre-existing hx of HTN at 1513 RPT #:[id number] END OF REPORT [facility] 2019-01-10 10:41:00 [facility] ([facility]) Cardiovascular Surgery Prog REPORT#:[id number] REPORT STATUS: Signed DATE:01/10/19 TIME: 1041 PATIENT: DELMI MATHEW UNIT #: [id number] ROOM/BED: [address] : 68 AGE: 48 SEX: M ATTEND: Ad Cummings MD ADM AUTHOR: Yolanda Mondragon NP * ALL edits or amendments must be made on the electronic/computer document * General Post-op: day 1 Status post: Redo left femoral to posterior tibial artery bypass with cryopreserved SVG Subjective Patient reports: No: complaints, nausea, vomiting, pain. Nursing reports: No: complaints. Comments: seen pt OOB in the chair denies pain,SOB, CP Review of Systems Constitutional: Denies: chills, fatigue, fever, generalized weakness. Respiratory: Denies: MURO (dyspnea on exertion), SOB. Cardiovascular: Denies: chest pain, MURO (dyspnea on exertion), edema, orthopnea. Objective Physical Exam VS/I O: Last Documented: Result Date Time Pulse Ox 96 01/10 0800 B/P 138/60 01/10 08 B/P Mean 86 01/10 08 O2 Delivery Room air 01/11 800 Temp 36.6 01/10 08 Pulse 62 01/10 0800 Resp 15 01/10 0800 24 hour I O ending at 0700: 01/10 0700 01/09 1900 Intake Total 1860.00 230.00 Output Total 2275 500 Balance -415.00 -270.00 Intake, IV 1360.00 230.00 Intake, Oral 500 Output, Urine 2275 500 Patient Weight Weight (lb): 185 Weight (oz): 6.19 Weight (kg): 84.090 Medications: Active Meds + DC'd Last 24 Hrs Aspirin 81 MG DAILY PO Clopidogrel Bisulfate 75 MG DAILY PO Cefazolin Sodium 1,000 MG Q8H IV Sodium Chloride 10 ML Magnesium Sulfate 50 ML NOW ONE IV (DC) Atorvastatin Calcium 20 MG BEDTIME PO Famotidine 20 MG Q12HR IV Metoprolol Tartrate 50 MG BID PO Mupirocin 1 APPLIC BID NASAL Calcium Gluconate 1,000 MG ASDIR PRN IV Sodium Chloride 100 ML Diphenhydramine HCl 12.5 MG ONCE ONE IV (DC) Losartan Potassium 100 MG DAILY PO Magnesium Sulfate 50 ML NOW ONE IV (DC) Multivitamins 10 ML .Q24H IV Thiamine HCl 100 MG Folic Acid 1 MG Sodium Chloride 1,000 ML Diphenhydramine HCl 25 MG Q6H PRN PRN PO Prednisone 20 MG NOW ONE PO (DC) Diphenhydramine HCl 0 .STK-MED ONE IV (DC) Acetaminophen 650 MG Q4H PRN PRN PO Bisacodyl 10 MG ASDIR PRN RECTAL Calcium Chloride 5 ML ASDIR PRN IV (DC) Sodium Chloride 100 ML Hydrocodone Bitart/Acetaminophen 1 TAB Q4H PRN PRN PO Hydrocodone Bitart/Acetaminophen 2 TAB Q4H PRN PRN PO Meperidine HCl 25 MG Q4H PRN PRN IM Meperidine HCl 50 MG Q4H PRN PRN IM Nicardipine HCl 25 MG ASDIR PRN IV Sodium Chloride 250 ML Nifedipine 10 MG Q4H PRN PRN SL Ondansetron HCl 4 MG Q8H PRN PRN IV Potassium Chloride 10 MEQ ASDIR PRN PO Potassium Chloride/Dextrose/Sod Cl 1,000 ML Q12H IV Ondansetron HCl 0 .STK-MED ONE .ROUTE (DC) Nicardipine HCl 25 MG ASDIR IV Sodium Chloride 250 ML Glycopyrrolate 0 .STK-MED ONE .ROUTE (DC) Neostigmine [place] 0 .STK-MED ONE .ROUTE (DC) Ephedrine Sulfate 0 .STK-MED ONE .ROUTE (DC) Dexamethasone Sodium Phosphate 0 .STK-MED ONE .ROUTE (DC) Papaverine HCl 0 .STK-MED ONE .ROUTE (DC) Rocuronium [place] 0 .STK-MED ONE .ROUTE (DC) Lidocaine HCl [...] General appearance: alert, awake, oriented, no acute distress Wound/incision: 1 Location: left groin Site condition: dressing clean dry, dressing intact Wound/incision: 2 Location: left lower extremity Site condition: dressing clean dry, dressing intact Neck: non-tender, no masses or swelling Cardiovascular: normal heart sounds, regular rate rhythm Respiratory: aerating well, clear to auscultation, symmetric expansion, no distress Abdomen: soft, non-tender Genitourinary: chen Extremities: pedal pulses (left foot non palpable), moves all 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 AUTOMATIC: alert, oriented X 3 Results Findings/Data: Laboratory Tests 01/09 1947 Blood Gas Puncture Site [...] (14 - 44 %) 11.4 L 24.1 Atlantic % (Auto) (4 - 13 %) 4.8 2.8 L Eos % (Auto) (0 - 6 %) 0.0 0.6 Baso % (Auto) (0 - 2 %) 0.1 0.3 Neut # (Auto) (2.0 - 7.6 K/mm3) 7.90 H 7.35 Lymph # (Auto) (1.0 - 3.8 K/mm3) 1.08 2.47 Atlantic # (Auto) (0.1 - 0.8 K/mm3) 0.46 0.29 Eos # (Auto) (0.0 - 0.2 K/mm3) 0.00 0.06 Baso # (Auto) (0.0 - 0.2 K/mm3) 0.01 0.03 Immature Gran % (0.0 - 2.0 %) 0.5 0.6 Nucleated RBC % (0 - 1.0 %) 0.0 0.0 Nucleated RBCs # (Man) (0.0 - 0.1 K/mm3) 0.00 0.00 Radiology data: Recent Impressions: RADIOLOGY - XR CHEST 1V 01/10 1944 Report Impression - Status: SIGNED Entered: 01/09/20191956 IMPRESSION: No acute cardiopulmonary disease. Good position for the central line. Location: U19 Impression By: Sarah - Ad Eng MD RADIOLOGY - XR CHEST 1V 01/10 0605 Report Impression - Status: SIGNED Entered: 01/10/2019 0808 IMPRESSION: Mild cardiomegaly with no acute pulmonary process. Impression By: [email or web address] - Marilyn Chaney MD Diagnosis, Assessment Plan Free Text A P: This is a 48 y/m severe PVD, HTN, HLD, CAD, s/p CAB s/p Redo left femoral to posterior tibial artery bypass with cryopreserved SVG On Plavix/ASA/BB/Statin D/C F/C D/C arterial line SR on tele HR 70's ETOH- on MVI/Thiamine/Folic Expected acute blood loss anemia- started on Feosol with Colace Encouraged IS and ambulation/Cont PT/OT Transfer to CVU/IMCU Plan discussed with: patient, collaborating MD (DR. Cummings) at 1803 RPT #:[id number] END OF REPORT [facility] 2019-01-10 10:41:00 [facility] Cardiovascular Surgery Prog REPORT#:[id number] REPORT STATUS: Signed DATE:01/10/19 TIME: 1041 PATIENT: DELMI MATHEW UNIT #: [id number] ROOM/BED: [address] : 69 AGE: 48 SEX: M ATTEND: Ad Cummings MD ADM AUTHOR: Yolanda Mondragon NP * ALL edits or amendments must be made on the electronic/computer document * General Post-op: day 1 Status post: Redo left femoral to posterior tibial artery bypass with cryopreserved SVG Subjective Patient reports: No: complaints, nausea, vomiting, pain. Nursing reports: No: complaints. Comments: seen pt OOB in the chair denies pain,SOB, CP Review of Systems Constitutional: Denies: chills, fatigue, fever, generalized weakness. Respiratory: Denies: MURO (dyspnea on exertion), SOB. Cardiovascular: Denies: chest pain, MURO (dyspnea on exertion), edema, orthopnea. Objective Physical Exam VS/I O: Last Documented: Result Date Time Pulse Ox 96 01/10 0800 B/P 138/60 01/10 0800 B/P Mean 86 01/10 0800 O2 Delivery Room air 01/10 08 Temp 36.6 01/10 08 Pulse 62 01/10 0800 Resp 15 01/10 0800 24 hour I O ending at 0700: 01/10 0700 01/09 1900 Intake Total 1860.00 230.00 Output Total 2275 500 Balance -415.00 -270.00 Intake, IV 1360.00 230.00 Intake, Oral 500 Output, Urine 2275 500 Patient Weight Weight (lb): 185 Weight (oz): 6.19 Weight (kg): 84.090 Medications: Active Meds + DC'd Last 24 Hrs Aspirin 81 MG DAILY PO Clopidogrel Bisulfate 75 MG DAILY PO Cefazolin Sodium 1,000 MG Q8H IV Sodium Chloride 10 ML Magnesium Sulfate 50 ML NOW ONE IV (DC) Atorvastatin Calcium 20 MG BEDTIME PO Famotidine 20 MG Q12HR IV Metoprolol Tartrate 50 MG BID PO Mupirocin 1 APPLIC BID NASAL Calcium Gluconate 1,000 MG ASDIR PRN IV Sodium Chloride 100 ML Diphenhydramine HCl 12.5 MG ONCE ONE IV (DC) Losartan Potassium 100 MG DAILY PO Magnesium Sulfate 50 ML NOW ONE IV (DC) Multivitamins 10 ML .Q24H IV Thiamine HCl 100 MG Folic Acid 1 MG Sodium Chloride 1,000 ML Diphenhydramine HCl 25 MG Q6H PRN PRN PO Prednisone 20 MG NOW ONE PO (DC) Diphenhydramine HCl 0 .STK-MED ONE IV (DC) Acetaminophen 650 MG Q4H PRN PRN PO Bisacodyl 10 MG ASDIR PRN RECTAL Calcium Chloride 5 ML ASDIR PRN IV (DC) Sodium Chloride 100 ML Hydrocodone Bitart/Acetaminophen 1 TAB Q4H PRN PRN PO Hydrocodone Bitart/Acetaminophen 2 TAB Q4H PRN PRN PO Meperidine HCl 25 MG Q4H PRN PRN IM Meperidine HCl 50 MG Q4H PRN PRN IM Nicardipine HCl 25 MG ASDIR PRN IV Sodium Chloride 250 ML Nifedipine 10 MG Q4H PRN PRN SL Ondansetron HCl 4 MG Q8H PRN PRN IV Potassium Chloride 10 MEQ ASDIR PRN PO Potassium Chloride/Dextrose/Sod Cl 1,000 ML Q12H IV Ondansetron HCl 0 .STK-MED ONE .ROUTE (DC) Nicardipine HCl 25 MG ASDIR IV Sodium Chloride 250 ML Glycopyrrolate 0 .STK-MED ONE .ROUTE (DC) Neostigmine [place] 0 .STK-MED ONE .ROUTE (DC) Ephedrine Sulfate 0 .STK-MED ONE .ROUTE (DC) Dexamethasone Sodium Phosphate 0 .STK-MED ONE .ROUTE (DC) Papaverine HCl 0 .STK-MED ONE .ROUTE (DC) Rocuronium [place] 0 .STK-MED ONE .ROUTE (DC) Lidocaine HCl [...] General appearance: alert, awake, oriented, no acute distress Wound/incision: 1 Location: left groin Site condition: dressing clean dry, dressing intact Wound/incision: 2 Location: left lower extremity Site condition: dressing clean dry, dressing intact Neck: non-tender, no masses or swelling Cardiovascular: normal heart sounds, regular rate rhythm Respiratory: aerating well, clear to auscultation, symmetric expansion, no distress Abdomen: soft, non-tender Genitourinary: chen Extremities: pedal pulses (left foot non palpable), moves all 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 AUTOMATIC: alert, oriented X 3 Results Findings/Data: Laboratory Tests 01/09 1947 Blood Gas Puncture Site [...] AIR FiO2 (%) 21 Laboratory Tests 01/10 01/09 01/09 01/09 0615 1857 1519 1308 Chemistry Sodium (137 - [...] MG/DL) 2.0 1.5 L Laboratory Tests 01/10 01/09 0615 1857 Hematology WBC (3.8 - 9.8 K/MM3) [...] (14 - 44 %) 11.4 L 24.1 Atlantic % (Auto) (4 - 13 %) 4.8 2.8 L Eos % (Auto) (0 - 6 %) 0.0 0.6 Baso % (Auto) (0 - 2 %) 0.1 0.3 Neut # (Auto) (2.0 - 7.6 K/mm3) 7.90 H 7.35 Lymph # (Auto) (1.0 - 3.8 K/mm3) 1.08 2.47 Atlantic # (Auto) (0.1 - 0.8 K/mm3) 0.46 0.29 Eos # (Auto) (0.0 - 0.2 K/mm3) 0.00 0.06 Baso # (Auto) (0.0 - 0.2 K/mm3) 0.01 0.03 Immature Gran % (0.0 - 2.0 %) 0.5 0.6 Nucleated RBC % (0 - 1.0 %) 0.0 0.0 Nucleated RBCs # (Man) (0.0 - 0.1 K/mm3) 0.00 0.00 Radiology data: Recent Impressions: RADIOLOGY - XR CHEST 1V 01/10 1944 Report Impression - Status: SIGNED Entered: 01/09/20191956 IMPRESSION: No acute cardiopulmonary disease. Good position for the central line. Location: U19 Impression By: [facility] - Ad Eng MD RADIOLOGY - XR CHEST 1V 01/10 0605 Report Impression - Status: SIGNED Entered: 01/10/2019 0808 IMPRESSION: Mild cardiomegaly with no acute pulmonary process. Impression By: [email or web address] - Marilyn Chaney MD Diagnosis, Assessment Plan Free Text A P: This is a 48 y/m severe PVD, HTN, HLD, CAD, s/p CAB s/p Redo left femoral to posterior tibial artery bypass with cryopreserved SVG On Plavix/ASA/BB/Statin D/C F/C D/C arterial line SR on tele HR 70's ETOH- on MVI/Thiamine/Folic Expected acute blood loss anemia- started on Feosol with Colace Encouraged IS and ambulation/Cont PT/OT Transfer to CVU/IMCU Plan discussed with: patient, collaborating MD (DR. Cummings) at 1803 at 1507 RPT #:[id number] END OF REPORT [facility] 2019-01-10 06:17:00 [facility] ([facility]) Cardiology Progress Note REPORT#:[id number] REPORT STATUS: Signed DATE:01/10/19 TIME: 06 PATIENT: DELMI MATHEW UNIT #: [id number] ROOM/BED: [facility] : 69 AGE: 48 SEX: M ATTEND: Ad Cummings MD ADM AUTHOR: Gilberto Bonds MD * ALL edits or amendments must be made on the electronic/computer document * Subjective HPI: 48 year old male with h/o CAD, ACB, severe PVD, s/p previous left fem-pop bypass 12/2017, now s/p LLE fem-tib bypass. No c/o chest pain, palpitations, dyspnea. LLE incisional pain. Objective General VS/I O: Vital Signs: Date Time Temp Pulse Resp B/P B/P Pulse O2 O2 Flow FiO2 Mean Ox Delivery Rate 01/09 1900 89 22 100 01/09 1844 97 100 01/09 1842 97.6 01/09 1003 97.3 64 18 173/95 100 Room air Patient Weight Weight (lb): 185 Weight (oz): 6.19 Weight (kg): 84.090 Medications: Active Meds + DC'd Last 24 Hrs Aspirin 81 MG DAILY PO Clopidogrel Bisulfate 75 MG DAILY PO Cefazolin Sodium 1,000 MG Q8H IV Sodium Chloride 10 ML Magnesium Sulfate 50 ML NOW ONE IV (DC) Atorvastatin Calcium 20 MG BEDTIME PO Famotidine 20 MG Q12HR IV Metoprolol Tartrate 50 MG BID PO Mupirocin 1 APPLIC BID NASAL Calcium Gluconate 1,000 MG ASDIR PRN IV Sodium Chloride 100 ML Diphenhydramine HCl 12.5 MG ONCE ONE IV (DC) Losartan Potassium 100 MG DAILY PO Magnesium Sulfate 50 ML NOW ONE IV (DC) Multivitamins 10 ML .Q24H IV Thiamine HCl 100 MG Folic Acid 1 MG Sodium Chloride 1,000 ML Diphenhydramine HCl 25 MG Q6H PRN PRN PO Prednisone 20 MG NOW ONE PO (DC) Diphenhydramine HCl 0 .STK-MED ONE IV (DC) Acetaminophen 650 MG Q4H PRN PRN PO Bisacodyl 10 MG ASDIR PRN RECTAL Calcium Chloride 5 ML ASDIR PRN IV (DC) Sodium Chloride 100 ML Hydrocodone Bitart/Acetaminophen 1 TAB Q4H PRN PRN PO Hydrocodone Bitart/Acetaminophen 2 TAB Q4H PRN PRN PO Meperidine HCl 25 MG Q4H PRN PRN IM Meperidine HCl 50 MG Q4H PRN PRN IM Nicardipine HCl 25 MG ASDIR PRN IV Sodium Chloride 250 ML Nifedipine 10 MG Q4H PRN PRN SL Ondansetron HCl 4 MG Q8H PRN PRN IV Potassium Chloride 10 MEQ ASDIR PRN PO Potassium Chloride/Dextrose/Sod Cl 1,000 ML Q12H IV Ondansetron HCl 0 .STK-MED ONE .ROUTE (DC) Nicardipine HCl 25 MG ASDIR IV Sodium Chloride 250 ML Glycopyrrolate 0 .STK-MED ONE .ROUTE (DC) Neostigmine [place] 0 .STK-MED ONE .ROUTE (DC) Ephedrine Sulfate 0 .STK-MED ONE .ROUTE (DC) Dexamethasone Sodium Phosphate 0 .STK-MED ONE .ROUTE (DC) Papaverine HCl 0 .STK-MED ONE .ROUTE (DC) Rocuronium [place] 0 .STK-MED ONE .ROUTE (DC) Lidocaine HCl [...] IV (DC) Sodium Chloride 10 ML Physical Exam General appearance: alert, awake, oriented Head/Eyes: atraumatic, normocephalic ENT: moist mucosal membranes Neck: no JVD Cardiovascular: CV assessment: regular rate and rhythm Respiratory: clear to auscultation, no distress Upper extremity: UE assessment: no cyanosis, no edema Lower extremity: LE assessment: no edema Musculoskeletal: full range of motion, normal inspection, straight leg raise neg Neuro/PRESS OPERATOR AUTOMATIC: alert, oriented X 3, CN II-XII intact Skin: dry, intact Wound/incision: Site condition: dressing clean dry Psychiatry: normal affect, normal judgment/insight, normal mood Results Findings/Data: Laboratory Tests 01/09 1947 Blood Gas Puncture Site [...] AIR FiO2 (%) 21 Laboratory Tests 01/09 1519 1308 0943 Chemistry Sodium (137 - [...] % (Auto) (14 - 44 %) 24.1 Atlantic % (Auto) (4 - 13 %) 2.8 L Eos % (Auto) (0 - 6 %) 0.6 Baso % (Auto) (0 - 2 %) 0.3 Neut # (Auto) (2.0 - 7.6 K/mm3) 7.35 Lymph # (Auto) (1.0 - 3.8 K/mm3) 2.47 Atlantic # (Auto) (0.1 - 0.8 K/mm3) 0.29 Eos # (Auto) (0.0 - 0.2 K/mm3) 0.06 Baso # (Auto) (0.0 - 0.2 K/mm3) 0.03 Immature Gran % (0.0 - 2.0 %) 0.6 Nucleated RBC % (0 - 1.0 %) 0.0 Nucleated RBCs # (Man) (0.0 - 0.1 K/mm3) 0.00 Laboratory Tests 01/09 1857 Chemistry Magnesium (1.6 - 2.3 MG/DL) 1.5 L Radiology data: Recent Impressions: RADIOLOGY - XR CHEST 1V 01/10 1944 Report Impression - Status: SIGNED Entered: 01/09/20191956 IMPRESSION: No acute cardiopulmonary disease. Good position for the central line. Location: U19 Impression By: Sarah - Ad Eng MD Diagnosis, Assessment Plan Free Text DxA P Notes Free Text DxA P Notes: IMP: Severe PVD s/p LLE Fem-pop bypass 12/2017 now with occluded graft s/p LLE fem-tib bypass CAD - s/p ACB Tobacco abuse REC: Continue home medications IS Ambulate Advised to quit smoking. at 0724 RPT #:[id number] END OF REPORT [facility] 2019-01-10 03:59:00 [id number] [address] PATIENT NAME: DELMI MATHEW ADMIT DATE: 01/09/19 ACCOUNT NO: [id number] ROOM NO: Z.SI04 AGE: 48 REPORT TYPE: ELECTROCARDIOGRAM SEX: M ADMITTING PHYSICIAN:Ad Cummings MD ATTENDING PHYSICIAN:Ad Cummings MD Order: [id number] Test Reason : CAD Test Date/Time Stamp: WedJan 10 2019 03:59:09 Blood Pressure : / mmHG Vent. Rate : 056 BPM Atrial Rate : 056 BPM P-R Int : 166 ms QRS Dur : 118 ms QT Int : 468 ms P-R-T Axes : 062 063 058 degrees QTc Int : 451 ms Sinus bradycardia Right bundle branch block Abnormal ECG When compared with ECG of 09-JAN-2019 20:54, No significant change was found Confirmed by SAURABH WORLEY ([id number]) on 01/10/2019 7:07:13 AM Referred By: Ad Cummings Confirmed by:SAURABH WORLEY at 0707 PATIENT NAME: DELMI MATHEW [facility] 2019-01-09 20:54:[id number] [place] [address] PATIENT NAME: DELMI MATHEW ADMIT DATE: 01/09/19 ACCOUNT NO: [id number] ROOM NO: Z.SI04 AGE: 48 REPORT TYPE: ELECTROCARDIOGRAM SEX: M ADMITTING PHYSICIAN:Ad Cummings MD ATTENDING PHYSICIAN:Ad Cummings MD Order: [id number] Test Reason : CAD Test Date/Time Stamp: WedJan 09 2019 20:54:46 Blood Pressure : / mmHG Vent. Rate : 079 BPM Atrial Rate : 079 BPM P-R Int : 152 ms QRS Dur : 118 ms QT Int : 430 ms P-R-T Axes : 055 034 046 degrees QTc Int : 493 ms Normal sinus rhythm Right bundle branch block Abnormal ECG When compared with ECG of 04-JAN-2019 15:49, QT has lengthened Confirmed by SAURABH WORLEY ([id number]) on 01/10/2019 7:07:03 AM Referred By: Ad Cummings Confirmed by:SAURABH WORLEY at 0707 PATIENT NAME: DELMI MATHEW [facility] 2019-01-09 18:44:00 [id number] [place] [id number] PATIENT NAME: DELMI MATHEW ADMIT DATE: 01/09/19 ACCOUNT NO: [id number] ROOM NO: Z.422 AGE: 49 REPORT TYPE: OPERATIVE REPORT SEX: M ADMITTING PHYSICIAN:Ad Cummings MD ATTENDING PHYSICIAN:Ad Cummings MD OPERATION DATE: 01/09/2019 CARDIAC SURGERY SERVICE PREOPERATIVE DIAGNOSES: Severe peripheral vascular disease left lower extremity with severe rest pain and claudication, atherosclerosis vessels with left popliteal artery occlusion, left tibioperoneal occlusion, hypertension, hyperlipidemia, coronary artery disease, status post coronary artery bypass surgery, positive tobacco use. POSTOPERATIVE DIAGNOSES: Severe peripheral vascular disease left lower extremity with severe rest pain and claudication, atherosclerosis vessels with left popliteal artery occlusion, left tibioperoneal occlusion, hypertension, hyperlipidemia, coronary artery disease, status post coronary artery bypass surgery, positive tobacco use. PROCEDURE: Right CVP insertion and also ultrasound-guided access with SonoSite to right subclavian vein, redo left femoral to posterior tibial artery bypass using cryopreserved saphenous vein. SURGEON: Ad Cummings MD TOOLING MECHANIC: Ml Marie PA-C ANESTHESIA: General. COMPLICATIONS: None. DISPOSITION: The patient to surgical ICU in stable condition. DESCRIPTION OF PROCEDURE: On 01/09/2019, patient was brought to the operating room, placed on the operating table in supine position, prepped and draped in usual fashion. Following introduction of satisfactory general anesthesia, placement of appropriate monitoring lines, Chen catheter, hips, shoulders, elbows padded in usual fashion. Right subclavian CVP was placed using Seldinger percutaneous guidewire technique and ultrasound-guided access with SonoSite. The patient prepped and draped in usual fashion. Redo left groin incision was made, carried down through dense scar tissue down to the femoral, superficial femoral artery after takeoff of the deep femoral artery. We then made a medial calf incision where the previous incision was and extended more distally, dissected down through scar tissue again to get down to level of the posterior tibial artery and isolated the posterior tibial artery. Counter incision made a PATIENT NAME: DELMI MATHEW left medial thigh through dense scar tissue from previous graft and dissected out tunnels and we used a tunneler to pass the cryopreserved saphenous vein from the left groin through the counter incision in medial thigh to the left midcalf incision. We then heparinized the patient. Small vascular clamps were placed on the posterior tibial artery. Arteriotomy was made and the distal anastomosis was done with running 6-0 Prolene suture. Clamps were released and the vascular clamps then placed on the other femoral artery and arteriotomy was made and anastomosis was done with running 6-0 Prolene suture. Clamps were released. Excellent pulse by palpation and Doppler within the incisions. Protamine given, hemostasis achieved. Wounds were irrigated with antibiotic saline solution, closed in layers in the usual fashion, dressings applied, and the patient to the surgical ICU in stable condition with good Doppler pulse present in the incisions. Wound site has been closed in standard fashion. Dictated By: Ad Cummings MD WT: OP:MELODY/DENG/EARLE Conf#: [id number]/DID#: [id number] cc: Dr. Hugo Worley MD Authenticated by Ad Cummings MD On 02/25/2019 01:10:36 PM at 1311 PATIENT NAME: DELMI MATHEW [facility] 2019-01-09 18:33:00 [facility] ([facility]) Brief Op Note REPORT#:[id number] REPORT STATUS: Signed DATE:01/09/19 TIME: 1832 PATIENT: DELMI MATHEW UNIT #: [id number] ROOM/BED: [address] : [birth year] AGE: 48 SEX: M ATTEND: Ad Cummings MD ADM AUTHOR: Ad Cummings MD * ALL edits or amendments must be made on the electronic/computer document * Op/Inv Proc Note - Brief ORM Surgeries: Surgery Date and Time: 01/09/2019 1455 Proposed Primary Procedure: REDO LEFT FEMORAL TO POSTERIOR TIBIAL Pre-procedure diagnosis: Atherosclerosis of the LLE with intermittent claudication Atherosclerosis of the non autologous bypass graft of the LLE with intermittent claudications Post-procedure diagnosis: same as pre procedure dx Procedures performed: Redo left femoral to posterior tibial artery bypass with cryopreserved SVG Insertion of right subclavian central line using sonosite US guidance Primary Surgeon: Ad Cummings Supervising Law Enforcement Analyst(s): Ml Marie PA-C Anesthesiologist: Dr. Tang Frankel Anesthesia: general anesthesia Findings: see detailed op report Complications: none Estimated blood loss in ml's: 100cc Specimens removed/altered: none Drain(s): Chen Catheter Placed Disposition: ICU, stable at 1836 RPT #:[id number] END OF REPORT [facility] 2019-01-09 16:00:00 [id number] [place] [address] PATIENT NAME: DELMI MATHEW ADMIT DATE: 01/09/19 ACCOUNT NO: [id number] ROOM NO: Z.422 AGE: 49 REPORT TYPE: HISTORY AND PHYSICAL SEX: M ADMITTING PHYSICIAN:Ad Cummings MD ATTENDING PHYSICIAN:Ad Cummings MD ADMISSION DATE: 01/09/2019 REASON FOR ADMISSION: Atherosclerosis of the left lower extremity with intermittent claudication, atherosclerosis of the nonautologous bypass graft of the left lower extremity with intermittent claudication, coronary artery disease, status post CABG. HISTORY OF PRESENT ILLNESS: The patient is a 48-year-old male well known to our services with a history of severe peripheral vascular disease to his bilateral lower extremity. He is status post a left fem-pop bypass below knee with CryoVein on 01/11/2018. The patient was discharged home on aspirin, Plavix, and warfarin at that time. Most recently, he was seen and followed by his brim ironer hand, Dr. Worley and he had stopped taking his warfarin treatment. The patient also states that he has severe claudication to his bilateral lower extremity, left worse than the right. He works about a block from his home and he could barely make it to his house, so he is ambulating. He is able to ambulate less than a block before he has severe cramping to his bilateral lower extremity. He also says he has pain to his bilateral feet. He is status post an abdominal aortogram with long leg runoff by Dr. Worley on 12/24/2018 where he was found to have a 90% distal SFA, popliteal, and infrapopliteal disease at the tibioperoneal trunk calcified lesions on the right occluded left fem-pop with 100% distal occlusion of the SFA, popliteal distal SFA was also 80% before the occlusion. The patient's is being admitted to the hospital today to undergo a redo left femoral to posterior tibial artery bypass. PAST MEDICAL HISTORY: Significant for coronary artery disease, peripheral vascular disease, hypertension, hypercholesterolemia, history of depression. PAST SURGICAL HISTORY: Significant for CABG in 2011, a left fem-pop bypass below knee on 01/11/2018 and hernia repair. ALLERGIES: NO KNOWN DRUG ALLERGIES. MEDICATIONS: Aspirin, metoprolol, Plavix, atorvastatin, losartan, citalopram. He stopped taking his warfarin. SOCIAL HISTORY: The patient continues to smoke. He is a current everyday smoker. He smokes cigarettes daily despite being counseled to stop several times. He denies using any alcoholic beverages or use any illicit drugs. FAMILY HISTORY: Positive for coronary artery disease. PATIENT NAME: DELMI MATHEW REVIEW OF SYSTEMS: The patient complains of having severe claudication to bilateral lower extremities with numbness and pain to his left foot. He denies having any chest pain, shortness of breath, nausea, or vomiting. PHYSICAL EXAMINATION: GENERAL: Demonstrates well-developed, well-nourished male in no apparent distress. NECK: No carotid bruits. Carotid pulse present bilaterally. LUNGS: Clear to auscultation bilaterally. HEART: Regular rate and rhythm. Sternal incision is well healed from previous scar. ABDOMEN: Soft, nontender, and nondistended. EXTREMITIES: He has 2+ femoral pulses bilaterally. He has absent popliteal pulses on both feet and absent pedal pulses on both legs. NEUROLOGIC: He is alert and oriented x3. IMPRESSION: The patient with atherosclerosis of the bilateral lower extremity with intermittent claudication, atherosclerosis of the nonautologous bypass graft of the left lower extremity with intermittent claudication, hypertension, hypercholesterolemia, coronary artery disease, status post coronary artery bypass grafting. PLAN: The plan will be to take the patient to the operating room today to undergo a redo left femoral to posterior tibial artery bypass. The procedure, possible risks, alternatives, complications as well as the inherent risks of surgery were all explained to the patient and his who understands, accepts, and wants to proceed. Dictated By: JEAN Alvarez for Ad Cummings MD WT: HP:MELODY/EBONIE/EARLE Conf#: [id number]/DID#: [id number] Authenticated by JEAN Alvarez On 01/11/2019 09:58:26 PM Authenticated by Ad Cummings MD On 02/25/2019 01:10:32 PM at 1310 at 1310 PATIENT NAME: DELMI MATHEW [facility] 2019-01-04 15:49:00 [id number] [address] PATIENT NAME: DELMI MATHEW ADMIT DATE: ACCOUNT NO: [id number] ROOM NO: AGE: 48 REPORT TYPE: ELECTROCARDIOGRAM SEX: M ADMITTING PHYSICIAN: ATTENDING PHYSICIAN:Ad Cummings MD Order: [id number] Test Reason : PREOP Test Date/Time Stamp: WedJan 04 2019 15:49:47 Blood Pressure : / mmHG Vent. Rate : 064 BPM Atrial Rate : 064 BPM P-R Int : 176 ms QRS Dur : 116 ms QT Int : 412 ms P-R-T Axes : 047 021 040 degrees QTc Int : 425 ms Normal sinus rhythm Incomplete right bundle branch block Borderline ECG When compared with ECG of 24-DEC-2018 07:15, No significant change was found Confirmed by SAURABH WORLEY ([id number]) on 01/06/2019 11:15:05 AM Referred By: Ad Cummings Confirmed by:SAURABH WORLEY at 1115 PATIENT NAME: DELMI MATHEW [facility] 2018-12-24 09:05:00 [phone] [place] [address] PATIENT NAME: DELMI MATHEW ADMIT DATE: 12/24/18 ACCOUNT NO: [id number] ROOM NO: AGE: 48 REPORT TYPE: CARDIAC CATHETERIZATION REPORT SEX: M ADMITTING PHYSICIAN: ATTENDING PHYSICIAN:Saurabh Worley MD PROCEDURE DATE: 12/24/2018 CARDIOLOGY PROCEDURE BALANCING MACHINE SET UP WORKER: Saurabh Worley MD INDICATION FOR THE PROCEDURE: Disabling PAD with leg claudications previous fem-pop bypass on the left. TITLE OF THE PROCEDURE: Abdominal and bilateral selective iliofemoral angiograms, first order angiogram of the right lower extremity, third order angiogram of the left lower extremity. ESTIMATED BLOOD LOSS: Minimal. COMPLICATIONS: None. CONTRAST: 100 mL. ANESTHESIA: Conscious sedation with Versed and fentanyl and 1% lidocaine for local anesthesia. FINAL DIAGNOSES: A 90% distal SFA, popliteal, and infrapopliteal disease at the TP trunk calcified lesions on the right, occluded left fem-pop on the, 100% distal occlusion of the SFA, popliteal, distal SFA was also 80% before the occlusion. The recommendation is surgical consultation PROCEDURE IN DETAIL: After informed consent, the patient was brought to the cardiac catheterization lab in a stable fasting nonsedated state. He was prepped and draped in the usual sterile fashion. After conscious sedation, 1% lidocaine was administered to the right common femoral artery area for local anesthesia. A 6-Latvian sheath was placed in the right common femoral artery using standard techniques and fluoroscopy. After heparinization, selective iliofemoral angiogram on the right showed a 35% external iliac disease, 50% eccentric common femoral disease. The distal SFA had a 90% at the popliteal and then after that he has 2 calcified lesions in the TP trunk 90%. There was 3-vessel runoff. The abdominal angiogram showed no significant aortoiliac disease. The left fem-pop bypass is occluded. The selective angiogram with the right coronary catheter over a Glidewire of the left lower extremity third order showed 80% distal SFA lesion followed by 100% occlusion at the popliteal with collaterals down to the leg. The right groin was sealed using basket. There were no complications. The patient tolerated the procedure well and will be PATIENT NAME: DELMI MATHEW transferred back to the holding area for observation. Surgical consultation will be obtained. Of note, here also he had a small distal abdominal aortic aneurysm on the abdominal angiogram. Dictated By: Saurabh Worley MD WT: CATH:CURTIS/LIZ/EARLE Conf#: [id number]/DID#: [id number] Authenticated by Saurabh Worley MD On 12/24/2018 12:10:26 PM at 1210 PATIENT NAME: DELMI MATHEW [facility] 2018-12-24 07:15:00 [id number] [place] [address] PATIENT NAME: DELMI MATHEW ADMIT DATE: 12/24/18 ACCOUNT NO: [id number] ROOM NO: AGE: 48 REPORT TYPE: ELECTROCARDIOGRAM SEX: M ADMITTING PHYSICIAN: ATTENDING PHYSICIAN:Saurabh Worley MD Order: [id number] Test Reason : CAD Test Date/Time Stamp: WedDec 24 2018 07:15:01 Blood Pressure : / mmHG Vent. Rate : 067 BPM Atrial Rate : 067 BPM P-R Int : 178 ms QRS Dur : 116 ms QT Int : 390 ms P-R-T Axes : 060 032 029 degrees QTc Int : 412 ms Normal sinus rhythm Right bundle branch block Abnormal ECG When compared with ECG of 15-JAN-2018 07:26, Right bundle branch block is now present Confirmed by SAURABH WORLEY ([id number]) on 12/24/2018 10:36:27 AM Referred By: Saurabh Worley Confirmed by:SAURABH WORLEY at 1036 PATIENT NAME: DELMI MATHEW [facility] 2018-12-23 07:15:00 [id number] [address] PATIENT NAME: DELMI MATHEW ADMIT DATE: ACCOUNT NO: [id number] ROOM NO: AGE: 48 REPORT TYPE: HISTORY AND PHYSICAL SEX: M ADMITTING PHYSICIAN: ATTENDING PHYSICIAN:Saurabh Worley MD PATIENT NAME: DELMI MATHEW ADMIT DATE:12/24/2018 ADMISSION DATE: 12/24/2018 BALANCING MACHINE SET UP WORKER: Saurabh Worley MD REASON FOR ADMISSION: Abdominal and bilateral selective iliofemoral angiograms. Access from the right groin to assess for peripheral vascular disease and possible further revascularization. HISTORY OF PRESENT ILLNESS: Delmi is a 48-year-old patient with extensive atherosclerotic cardiovascular disease history. The patient has known coronary artery disease. His last heart catheterization was done on 01/08/2018 that showed patent LOMELI to the LAD, patent vein graft to the PDA and occluded vein graft to the OM. He has been stable from the cardiac standpoint. His last peripheral angiogram showed his right popliteal to be 60% stenosed. The left popliteal to be 100% occluded. The patient underwent surgery by Dr. Cummings. He was considered to be hypercoagulable state and was placed on aspirin, Plavix, and warfarin. The patient due to noncompliance has stopped his warfarin and presented back to the office with worsening claudication of the left lower extremity. The lower arterial Doppler examination showed the right ankle brachial index to be still normal but the left ankle brachial index was 0.59 showing most likely occlusion of the graft for severe disease. Given this information, the patient is here for abdominal and bilateral iliofemoral angiograms to assess for further possible revascularization. The patient has moderate carotid disease, 40% to 50% plaquing. He has known normal ejection fraction on an echocardiogram with mild mitral regurgitation and mild pulmonary hypertension. His last stress test showed ischemia back in November 2017 and ejection fraction of 45% that was followed up by the last heart catheterization, which showed occlusion of the vein graft to the obtuse marginal and he will be managed medically for his coronary artery disease. The patient is here today for abdominal and bilateral iliofemoral angiograms to assess for further revascularization of the left lower extremity. PAST MEDICAL HISTORY: Remarkable for the above in addition to hypertension, hyperlipidemia, previous myocardial infarction and a triple bypass in 2011, anxiety and depression. PAST SURGICAL HISTORY: The above-mentioned bypass and hernia repair and the left leg bypass. ALLERGIES: NO KNOWN DRUG ALLERGIES. PATIENT NAME: DELMI MATHEW MEDICATIONS: Aspirin 81 mg daily, metoprolol 50 mg b.i.d., Plavix 75 mg daily, atorvastatin 10 mg daily, losartan 100 mg daily. He is supposed to be on warfarin, but he has been out of it due to noncompliance, citalopram 20 mg daily. He was on simvastatin 40 mg daily that was changed to atorvastatin 10 mg daily. SOCIAL HISTORY: The patient is an active smoker. He denies alcohol or street drug use. FAMILY HISTORY: Positive for atherosclerotic cardiovascular disease. REVIEW OF SYSTEMS: Remarkable for the above in addition to easy bruisability. No acute GI or symptoms. No TIAs or strokes. PHYSICAL EXAMINATION: GENERAL: Reveals a pleasant middle-aged male, in no acute distress. VITAL SIGNS: Blood pressure 127/88, pulse 68 and regular, respiratory rate 16 unlabored, temperature afebrile. HEENT: Head, atraumatic and normocephalic. Eyes, ENT examination within normal for age. NECK: Supple. No jugular venous distention, bruits, or lymphadenopathy. Normal upstroke. LUNGS: Decreased air entry, otherwise clear and resonant. HEART: Regular rate and rhythm with II/ systolic ejection murmur at the left lower sternal border and no gallops. ABDOMEN: Soft. No tenderness, no organomegaly, no masses or bruits. EXTREMITIES: 1+ distal pulses on the left, 2+ on the right, left leg scar noted from the bypass. No edema, cyanosis, or clubbing. NEUROLOGIC: Alert and oriented x3. Examination appears to be nonfocal. LABORATORY DATA: Pending. Noninvasive cardiovascular workup enclosed. IMPRESSION: This is a 48-year-old patient with known atherosclerotic cardiovascular disease, multiple cardiovascular risk factors, who appears to have either severe disease or occlusion of the left fem-pop bypass that is symptomatic with left lower extremity claudication. The patient is here for abdominal and bilateral selective iliofemoral angiograms to assess the patency of the left fem-pop bypass and to assess for further possible revascularization. The surgery was done by Dr. Cummings on 01/11/2018. The recommendation is to proceed with the above-mentioned procedure. The risks and benefits of the planned procedures were discussed in detail with the patient and his and he is willing to proceed. Dictated By: Saurabh Worley MD WT: HP:MELODY/LIZ/EARLE Conf#: [id number]/DID#: [id number] PATIENT NAME: DELMI MATHEW cc: Ad Cummings MD Authenticated and Edited by Saurabh Worley MD On 12/23/18 5:55:12 PM at 1757 PATIENT NAME: DELMI MATHEW [facility]
--- NOTE | 2024-02-15 18:00 | EKG ---
Test Date: 2024-02-11 Test Time: 09:58:48 Mold Setter: RUBIA MEASUREMENT RESULTS: Intervals: Rate: 87 WA: 172 QRSD: 128 QT: 400 QTc: 481 Imperial: P: 69 WA: 172 QRS: -70 T: 14 INTERPRETIVE STATEMENTS: Normal sinus rhythm Right bundle branch block Left anterior fascicular block Bifascicular block Abnormal ECG Compared to ECG 12/18/2023 19:18:53 Left anterior fascicular block now present Bifascicular block now present Electronically Signed On 02-15-24 17:51:04 CDT by Yung Pope
== END 2024-02-13 09:41 | disposition home or self-care (01) | DRG 264 ==
LOC: ER 08:59 → ERHOLD 13:49 → 2ND 14:58
PROVIDERS: ADMIT Hospitalist; ATTEND Hospitalist
PROC: 0JBR0ZZ Excision of Left Foot Subcutaneous Tissue and Fascia, Open Approach (ICD-10-PCS; principal; 2024-02-11 18:30)
DX: I73.9 Peripheral vascular disease, unspecified (principal); I96 Gangrene, not elsewhere classified; L03.116 Cellulitis of left lower limb; E87.1 Hypo-osmolality and hyponatremia; I10 Essential (primary) hypertension; E87.6 Hypokalemia; E16.2 Hypoglycemia, unspecified; E78.00 Pure hypercholesterolemia, unspecified; F10.10 Alcohol abuse, uncomplicated; S91.302A Unspecified open wound, left foot, initial encounter; I25.10 Atherosclerotic heart disease of native coronary artery without angina pectoris; I25.2 Old myocardial infarction; F17.210 Nicotine dependence, cigarettes, uncomplicated; Z71.6 Tobacco abuse counseling; Z95.1 Presence of aortocoronary bypass graft; Z71.41 Alcohol abuse counseling and surveillance of alcoholic; Z79.899 Other long term (current) drug therapy
CPT/HCPCS: 36415; 72191; 73706; 74175; 80048; 80053; 80202; 82947; 83605; 84439; 84443; 85025; 85610; 85730; 87040; 88304; 93005; 93925; 96365; 96375; 99285; J0692; J1170; J2250; J2270; J2704; J3010; J7030; J7050; Q9967

== ENCOUNTER 2024-02-15 13:05 | Inpatient (IN) | payer BC ==
[2024-02-15 14:27] LABS: Absolute Basophils 0.1 K/uL (0-0.5); Absolute Eosinophils 0.1 K/uL (0-0.5); Absolute Lymphocytes (CBC) 3.4 K/uL (0.7-4.9); Absolute Monocytes 0.4 K/uL (0.1-1.3); Absolute Neutrophil 4.4 K/uL (1.8-8.0); Basophils % 0.9 % (0-1.3); Eosinophils % 0.6 % (0-4.4); Hematocrit 35.7 % (39.6-49.0); Hemoglobin 11.9 g/dL (13.6-17.9); Lymphocytes % 40.5 % (15.3-44.8); MCH 35.1 pg (27.0-35.0); MCHC 33.3 g/dL (32.0-36.0); MCV 105.5 fL (80-100); MPV 7.9 fL (7.6-11.3); Monocytes % 5.3 % (3.3-12.3); Neutrophils % 52.7 % (41.7-73.7); Platelets 190 thou/uL (152-406); RBC Red Blood Cell Count 3.38 M/uL (4.33-5.43); Red Cell Distribution Width 13.3 % (12.1-15.2)
[2024-02-15 14:33] LABS: Anion Gap 12.4 mEq/L (5.0-15.0); C-Reactive Protein 3.83 mg/L (<3.00); Potassium 3.4 mEq/L (3.5-5.1)
--- OUTSIDE RECORDS SUMMARY | 2024-02-15 14:48 | XMS REPORT | Continuity of Care Document ---
Author Name Unknown Address [address] [facility] [place] [address] [facility] Address [address] [facility] [place] [address] Care Team Providers Care Hot Walker Name Role Phone FREEMAN LANDIS Primary Care Physician DOT Felix Attending Clinician DOT Felix Attending Clinician Vanessa dominguez Payers Payer Name Policy Type Policy Number Effective Date Expirati on Date Source [facility] [id number] 2017 00:00:00 Allergies, Adverse Reactions, Alerts Allergy Name Allergy Type Status Severity Reaction(s) Onset Date Inactive Date Treating Clinician Comments Source No Known Allergie s DA Active U 01-13 00:00: 00 [facility] NO KNOWN ALLERGIE S Drug Class Active [facility] Social History Social Habit Start Date Stop Date Quantity Comments Source Sexual orientation U [facility] Sex assigned at 1970 00:00:00 1970 00:00:00 [facility] Smoking Status Start Date Stop Date Source Tobacco smoking consumption unknown [facility] Medications Ordered Medication Name Filled Medication Name Start Date Stop Date Current Medication? Ordering Clinician Indication Dosage Frequency Signature (SIG) Comments Components Source NaCl 0.9% (NS) bolus infusion 1,000 mL 12-31 21:45: 00 12-31 21:21 :00 No 1000mL at 999 mL/hr, 1,000 mL, IV Infusion, ONCE, 1 dose, On 01/01/24 at 1645, EVER [facility] Vital Signs Vital Name Observation Time Observation Value Barber gunter Systolic blood pressure 2024-01-01 21:00:00 96 mm[Hg] [facility] Diastolic blood pressure 2024-01-01 21:00:00 59 mm[Hg] [facility] Heart rate 2024-01-01 21:00:00 86 /min [facility] Respiratory rate 2024-01-01 21:00:00 19 /min [facility] Oxygen saturation in Arterial blood by Pulse oximetry 2024-01-01 21:00:00 97 /min [facility] Body temperature 2024-01-01 20:31:00 37.11 Shana [facility] Body height 2024-01-01 20:31:00 160 cm [facility] Body weight 2024-01-01 20:31:00 77.111 kg [facility] BMI 2024-01-01 20:31:00 30.11 kg/m2 [facility] Procedures Procedure Date / Time Performed Performing Clinicia n Source EKG-12 LEAD 2024-01-01 21:26:21 Dot Ballard [facility] LACTIC ACID WHOLE BLOOD 2024-01-01 20:54:00 Dot Ballard [facility] MAGNESIUM 2024-01-01 20:52:00 Dot Ballard Un [facility] COMP. METABOLIC PANEL (12097) 2024-01-01 20:52:00 Dot Ballard [facility] CBC WITH DIFF 2024-01-01 20:52:00 [facility] Start Date/Time End Date/Time Encounter Type Admission Type Attending Clinicians Care Facility Care Department Encounter ID Source 2024-01-01 15:35:00 2024-01-01 16:45:00 Emergency X DOT BALLARD [facility] ERT [id number] [facility] 2024-01-01 15:35:00 2024-01-01 16:45:00 Emergency Dot Ballard [facility] [id number] [facility] Results Test Description Test Time Test Comments Results Result Co mments Source [facility] 21:40:52* Test Item Value Reference Range Interpretation Comme nts MAGNESIUM (test code = 9307804793) 1.8 mg/dL 1.7-2.4 Lab Interpretation (test cod e = 50508-1) Normal [facility] [id number] 21:24:51* Test Item Value Reference Range Interpretation [...] g/dL 31.2-35.0 H RDW-SD (test code = 66820-0) 48.2 fL 38.5-51.6 RDW-CV (test code = 788-0) 13.1 % 12.1-15.4 PLT (test code = 777-3) 189 150-328 MPV (test code = 15623-6) 10.0 fL 9.8-13.0 NRBC/100 WBC (test code = 4584297928) 0.0 0.0-10.0 NRBC x10^3 (test code = 6169573127) See_Comment [Automated messa ge] The system which generated this result transmitted reference range: 10*3/?L. The reference range was not used to interpret this result as normal/abnormal. GRAN MAT (NEUT) % (test code = 770-8) 39.8 % IMM GRAN % (test code = 4429108145) 0.30 % LYMPH % (test code = 736-9) 52.9 % MONO % (test code = 5905-5) 5.4 % EOS % (test code = 713-8) 0.9 % BASO % (test code = 706-2) 0.7 % GRAN MAT x10^3(ANC) (test code = 5899158104) 2.94 10*3/uL 1.99-6.95 IMM GRAN x10^3 (test code = 3969035797) 0.00-0.06 LYMPH x10^3 (test code = 731-0) 3.91 10*3/uL 1.09-3.23 H MONO x10^3 (test code = 742-7) 0.40 10*3/uL 0.36-1.02 EOS x10^3 (test code = 711-2) 0.07 10*3/uL 0.06-0.53 BASO x10^3 (test code = 704-7) 0.05 10*3/uL 0.01-0.09 Lab Interpretation (test code = 31673-0) Abnormal [facility] Whole [id number] 21:00:29* Test Item Value Reference Range Interpretation Comme nts LACTIC ACID (test code = 8636382725) 3.50 mmol/L 0.50-2.20 H Lab Interpretation (test cod e = 57621-8) Abnormal [facility] MET[facility]OL[facility] [id number] 14:11:00* Test Item Value Reference Range Interpretation [...] CA) 9.8 MG/DL 8.4-10.2 N CBC W/AUTO [id number] 13:53:00* Test Item Value Reference Range Interpretation [...] NRBC#) 0.00 K/mm3 0.0-0.1 N BASIC METABOLIC [id number] 05:54:00* Test Item Value Reference Range Interpretation [...] CA) 8.6 MG/DL 8.4-10.2 N CBC W/AUTO [id number] 05:40:00* Test Item Value Reference Range Interpretation [...] 0.00 K/mm3 0.0-0.1 N - XR CHEST [id number] 08:05:00Patient Name: DELMI MATHEW Unit No: [id number] EXAMS: CPT CODE: [id number] XR CHEST 1V 70765 EXAMINATION: - XR CHEST 1V. LOCATION: B2. [...] TellyPR7 Orig Print D/T: S: 01/10/2019 (0808) [facility] NAME: DELMI MATHEW [address] PHYS: [place] [address] : 1970 AGE: 48 SEX: M LOC: Z.SI04 A PHONE #: [phone] EXAM DATE: 01/10/2019 STATUS: ADM IN FAX #: [phone] RADIOLOGY NO: PAGE 1 Signed ReportBASIC METABOLIC [id number] 07:00:00* Test Item Value Reference Range Interpretation [...] MIGUEL ÁNGEL 01/10/19 AT 0630 BY Billie [id number] 07:00:00* Test Item Value Reference Range Interpretation Comme nts MAGNESIUM (test code = MAG) 2.0 MG/DL 1.6-2.3 UNABLE TO DRAW BLOOD, REASON: CBNNOTIFIED PATIENT CARE STAFF: MIGUEL ÁNGEL 01/10/19 AT 0630 BY Jesus Velasquez W/AUTO [id number] 06:42:00* Test Item Value Reference Range Interpretation [...] 01/10/19 AT 0631 BY Aliya VelasquezARTERIAL BLOOD [id number] 20:01:00* Test Item Value Reference Range Interpretation [...] = COHBGFFIO2) 21 % - XR CHEST [id number] 19:54:00Patient Name: DELMI MATHEW Unit No: [id number] EXAMS: CPT CODE: [id number] XR CHEST 1V 55081 REASON FOR EXAM: Central line placement. COMPARISON: January 04, 2019. Chest, single view, frontal projection. T he right subclavian central line has is tip [...] (1953)Sarah Orig Print D/T: S: 01/09/2019 (1956) [facility] NAME: DELMI MATHEW [address] PHYS: [place] [address] : 1970 AGE: 48 SEX: M LOC: Z.SI04 A PHONE #: [phone] EXAM DATE: 01/09/2019 STATUS: ADM IN FAX #: [phone] RADIOLOGY NO: PAGE 1 Signed ReportBASIC METABOLIC [id number] 19:37:00* Test Item Value Reference Range Interpretation [...] code = CA) 8.6 MG/DL 8.4-10.2 N [id number] 19:37:00* Test Item Value Reference Range Interpretation Comme nts MAGNESIUM (test code = MAG) 1.5 MG/DL 1.6-2.3 L CBC W/AUTO [id number] 19:13:00* Test Item Value Reference Range Interpretation [...] NRBC#) 0.00 K/mm3 0.0-0.1 N GLUCOSE BEDSIDE [id number] 15:24:00* Test Item Value Reference Range Interpretation Comme nts GLUCOSE BEDSIDE TESTING (adolfo t code = GLUBED) 82 MG/DL 60-99 N GLUCOSE BEDSIDE [id number] 13:15:00* Test Item Value Reference Range Interpretation Comme nts GLUCOSE BEDSIDE TESTING (adolfo t code = GLUBED) 86 MG/DL 60-99 N GLUCOSE BEDSIDE [id number] 09:53:00* Test Item Value Reference Range Interpretation Comme nts GLUCOSE BEDSIDE TESTING (adolfo t code = GLUBED) 81 MG/DL 60-99 N HIV 12 AB [id number] 17:32:00* Test Item Value Reference Range Interpretation Comme nts AB HIV 1 2 (test code = JTT57VU) NON REACTIVE NON-REAC NOTE: A NONREACT SANTO RESULT INDICATES THAT HIV-1 AND HIV-2ANTIBODIES HAVE NOT BEEN FOUND IN THIS PATIENT SPECIMEN. ANON-REACTIVE RESULT, HOWEVER, DOES NOT PRECLUDE PREVIOUSEXPOSURE OR INFECTION WITH HIV1. AG HIV1 P24 (test code = FBV2N54) NON REACTIVE NONE REAC - XR CHEST 2 [id number] 17:10:00Patient Name: DELMI MATHEW Unit No: [id number] EXAMS: CPT CODE: [id number] XR CHEST 2 V 71514 DICTATION LOCATION: 8 HISTORY: Male, 48 years [...] Technologist: ANDRESSA Nguyen, RT(R) Transcrpt Date/Tm/Trnsp: 01/04/2019 (1710) tSHANIQUA Orig Print D/T: S: 01/04/2019 (4054) [facility] NAME: DELMI MATHEW [address] PHYS: [place] [address] : 1970 AGE: 48 SEX: M LOC: CORI PHONE #: [phone] EXAM DATE: 01/04/2019 STATUS: [facility] FAX #: [phone] RADIOLOGY NO: PAGE 1 Signed ReportBASIC METABOLIC [...] = CA) 10.0 MG/DL 8.4-10.2 N PROTHROMBIN [id number] 17:04:00* Test Item Value Reference Range Interpretation [...] recurrent systemic embolism. 3.0 - 4.5 PTT [id number] 17:04:00* Test Item Value Reference Range Interpretation Comme nts PTT ACTIVATED (test code = APTT) 39.3 SECONDS 22.0-33.0 H CBC W/AUTO [id number] 16:50:00* Test Item Value Reference Range Interpretation [...] NRBC#) 0.00 K/mm3 0.0-0.1 N BASIC METABOLIC [id number] 07:55:00* Test Item Value Reference Range Interpretation [...] mg/dL HIGH.........160-189 mg/dL VERY HIGH.........>/= 190 mg/dL [id number] 07:55:00* Test Item Value Reference Range Interpretation Comme nts MAGNESIUM (test code = MAG) 1.7 MG/DL 1.6-2.3 N BASIC METABOLIC [id number] 07:44:00* Test Item Value Reference Range Interpretation [...] LDL (test code = LDL) MG/DL 0-99 [id number] 07:44:00* Test Item Value Reference Range Interpretation Comme nts MAGNESIUM (test code = MAG) 1.7 MG/DL 1.6-2.3 N PROTHROMBIN [id number] 07:31:00* Test Item Value Reference Range Interpretation [...] recurrent systemic embolism. 3.0 - 4.5 PTT [id number] 07:31:00* Test Item Value Reference Range Interpretation Comme nts PTT ACTIVATED (test code = APTT) 27.1 SECONDS 22.0-33.0 N CBC W/AUTO [id number] 07:18:00* Test Item Value Reference Range Interpretation [...] appears in no distress Sheridan Barnes RN [facility] 2024-01-01 15:33:30 Patient came in with complaints of blisters on bilateral feet since 2 weeks. Denies any complaints. BP in triage 82/60mmHg. ETTET Lidya Pierce RN [facility] 2024-01-01 15:23:00 Associated Order(s): EKG-12 Lead ROUTINE ONCE Pre-Procedure Diagnose(s): Hypotension, unspecified hypotension type Post-Procedure Diagnose(s): Hypotension, unspecified hypotension type [facility] Emergency Department Note Patient Name: Delmi Mathew Date of : 1970 53 year old male Treatment Room: TX1/TX1 Primary Care Physician: Freeman Landis Patient Escorted by: Family [5] Mode of Arrival: Personal means [1] EMS Treatment Prior to ED Arrival: [employer] treatment: None Travel and Exposure Screening: Symptoms [...] 0.50 - 2.20 mmol/L COMP. METABOLIC PANEL (18191) TROPONIN I MAGNESIUM URINALYSIS EKG: If EKG completed, see Procedure Note. Orders and Treatments: Orders Placed This Encounter Procedures CBC WITH DIFF COMP. METABOLIC PANEL (26212) Lactic Acid Whole Blood Lactic Acid Whole [...] ED Physician in the absence of a car checker: yes Interpretation: Interpretation: normal Rate: ECG rate: [...] signed by: Dot Ballard DO 01/01/24 1626 [facility] 2019-02-28 20:17:00 [id number] [place] [address] PATIENT NAME: DELMI MATHEW ADMIT DATE: 01/09/19 ACCOUNT NO: [id number] ROOM NO: Z.422 AGE: 49 REPORT TYPE: [...] He was brought to the cardiac laborer stores by Dr. Worley on 12/24/2018 and underwent [...] is also to follow up with his car checker, Dr. Worley, and he is to continue medications per the discharge MAR. Dictated By: JEAN Alvarez for Ad Cummings MD WT: DS:MELODY/EBONIE/EARLE Conf#: [id number]/DID#: [id number] PATIENT NAME: DELMI MATHEW Authenticated by JEAN Alvarez On 03/05/2019 05:11:49 PM Authenticated by Ad Cummings MD On 03/05/2019 05:16:33 PM at 1716 at 1716 PATIENT NAME: DELMI MATHEW [facility] 2019-01-13 14:12:[address] [facility]) Cardiovascular Surgery Prog REPORT#:[id number] REPORT STATUS: Signed DATE:01/13/19 TIME: 1412 PATIENT: DELMI MATHEW UNIT #: [id number] ROOM/BED: [address] : [birth year] AGE: 48 SEX: M [...] good color. Musculoskeletal: full range of motion Neuro/VASCULAR TECH: alert, oriented X 3 Results Findings/Data: Laboratory [...] (Auto) (14 - 44 %) 44.7 H Braxton % (Auto) (4 - 13 %) 7.4 Eos % (Auto) (0 - 6 %) 1.3 Baso % (Auto) (0 - 2 %) 0.5 Neut # (Auto) (2.0 - 7.6 K/mm3) 3.95 Lymph # (Auto) (1.0 - 3.8 K/mm3) 3.85 H Braxton # (Auto) (0.1 - 0.8 K/mm3) 0.64 [...] collaborating MD (Dr. Cummings) at 1417 RPT #:[id number] END OF REPORT [facility] 2019-01-13 14:12:00 [facility] Cardiovascular Surgery Prog REPORT#:[id number] REPORT STATUS: Signed DATE:01/13/19 TIME: 1412 PATIENT: DELMI MATHEW UNIT #: [id number] ROOM/BED: [address] : [birth year] AGE: 48 SEX: M [...] good color. Musculoskeletal: full range of motion Neuro/VASCULAR TECH: alert, oriented X 3 Results Findings/Data: Laboratory [...] (Auto) (14 - 44 %) 44.7 H Braxton % (Auto) (4 - 13 %) 7.4 Eos % (Auto) (0 - 6 %) 1.3 Baso % (Auto) (0 - 2 %) 0.5 Neut # (Auto) (2.0 - 7.6 K/mm3) 3.95 Lymph # (Auto) (1.0 - 3.8 K/mm3) 3.85 H Braxton # (Auto) (0.1 - 0.8 K/mm3) 0.64 [...] (Dr. Cummings) at 1417 at 1324 RPT #:[id number] END OF REPORT [facility] 2019-01-13 12:34:00 [facility] ([facility] Hospitalist Progress Note REPORT#:[id number] REPORT STATUS: Signed DATE:01/13/19 TIME: 1234 PATIENT: DELMI MATHEW UNIT #: [id number] ROOM/BED: [address] : [birth year] AGE: 48 SEX: M [...] cyanosis Musculoskeletal: normal inspection, no muscle spasm Neuro/VASCULAR TECH: alert, oriented X 3, normal speech, no motor deficits Wound/incision: Location: Left thigh and leg. Site Condition: dressing clean dry, dressing intact Psychiatry: normal affect, normal judgment/insight, normal mood Sepsis Reassessment VS: Last Documented: Result Date Time Pulse Ox 98 01/13 1110 B/P 139/76 01/13 1110 B/P Mean 96.9 01/13 1110 O2 Delivery Room air 01/13 111 Temp 98.6 01/13 1110 Pulse 55 01/13 [...] Tobacco Use/Counseling Tobacco use/counseling: tobacco user, cessation certified lactation counselor <3 min HTN Screening/Follow-up B/P assess/follow-up: pre-existing hx of HTN at [address] [facility] #:[phone] END OF REPORT [facility] 2019-01-13 06:29:00 [facility] ([facility]) Cardiology Progress Note REPORT#:[id number] REPORT STATUS: Signed DATE:01/13/19 TIME: 628 PATIENT: DELMI MATHEW UNIT #: [id number] ROOM/BED: [address] : [birth year] AGE: 48 SEX: M [...] motion, normal inspection, straight leg raise neg Neuro/VASCULAR TECH: alert, oriented X 3, CN II-XII intact [...] quit smoking. D/C planning at 0743 RPT #:[id number] END OF REPORT [facility] 2019-01-12 19:37:00 [facility] ([facility]) Cardiovascular Surgery Prog REPORT#:[id number] REPORT STATUS: Signed DATE:01/12/19 TIME: 1936 PATIENT: DELMI MATHEW UNIT #: [id number] ROOM/BED: [facility] : 68 AGE: 48 SEX: M ATTEND: [...] good color. Musculoskeletal: full range of motion Neuro/VASCULAR TECH: alert, oriented X 3 Diagnosis, Assessment Plan [...] discharge home in am at 1939 RPT #:[id number] END OF REPORT [facility] 2019-01-12 19:37:00 [facility] ([facility]) Cardiovascular Surgery Prog REPORT#:[id number] REPORT STATUS: Signed DATE:01/12/19 TIME: 1936 PATIENT: DELMI MATHEW UNIT #: [id number] ROOM/BED: [address] : [birth year] AGE: 48 SEX: M [...] good color. Musculoskeletal: full range of motion Neuro/VASCULAR TECH: alert, oriented X 3 Diagnosis, Assessment Plan [...] in am at 1939 at 1457 RPT #:[id number] END OF REPORT [facility] 2019-01-12 15:37:00 [facility] ([facility] Cardiology Progress Note REPORT#:[id number] REPORT STATUS: Signed DATE:01/12/19 TIME: 1537 PATIENT: DELMI MATHEW UNIT #: [id number] ROOM/BED: [address] : [birth year] AGE: 48 SEX: M [...] motion, normal inspection, straight leg raise neg Neuro/VASCULAR TECH: alert, oriented X 3, CN II-XII intact [...] IS Ambulate Advised to quit smoking. at [address] [place] [address] #:[phone] END OF REPORT [facility] 2019-01-12 14:18:00 [facility] ([facility]) Hospitalist Progress Note REPORT#:[id number] REPORT STATUS: Signed DATE:01/12/19 TIME: 1418 PATIENT: DELMI MATHEW UNIT #: [id number] ROOM/BED: [address] : [birth year] AGE: 48 SEX: M [...] cyanosis Musculoskeletal: normal inspection, no muscle spasm Neuro/VASCULAR TECH: alert, oriented X 3, normal speech, no [...] (to discuss diet exercise) at 1946 RPT #:[id number] END OF REPORT [facility] 2019-01-11 19:30:[address] [facility]) Cardiovascular Surgery Prog REPORT#:[id number] REPORT STATUS: Signed DATE:01/11/19 TIME: 1929 PATIENT: DELMI MATHEW UNIT #: [id number] ROOM/BED: [address] : [birth year] AGE: 48 SEX: M [...] good color. Musculoskeletal: full range of motion Neuro/VASCULAR TECH: alert, oriented X 3 Results Findings/Data: Laboratory [...] % (Auto) (14 - 44 %) 34.0 Braxton % (Auto) (4 - 13 %) 6.3 Eos % (Auto) (0 - 6 %) 0.3 Baso % (Auto) (0 - 2 %) 0.3 Neut # (Auto) (2.0 - 7.6 K/mm3) 6.42 Lymph # (Auto) (1.0 - 3.8 K/mm3) 3.71 Braxton # (Auto) (0.1 - 0.8 K/mm3) 0.69 [...] Wednesday D/C central line at 1936 RPT #:[id number] END OF REPORT [facility] 2019-01-11 19:30:00 [facility] ([facility]) Cardiovascular Surgery Prog REPORT#:[id number] REPORT STATUS: Signed DATE:01/11/19 TIME: 1929 PATIENT: DELMI MATHEW UNIT #: [id number] [facility] AGE: 48 SEX: M ATTEND: [...] Temp 36.7 01/11 1714 Pulse 62 01/11 171 Resp 16 01/11 171 Pulse Ox 98 [...] good color. Musculoskeletal: full range of motion Neuro/VASCULAR TECH: alert, oriented X 3 Results Findings/Data: Laboratory [...] % (Auto) (14 - 44 %) 34.0 Braxton % (Auto) (4 - 13 %) 6.3 Eos % (Auto) (0 - 6 %) 0.3 Baso % (Auto) (0 - 2 %) 0.3 Neut # (Auto) (2.0 - 7.6 K/mm3) 6.42 Lymph # (Auto) (1.0 - 3.8 K/mm3) 3.71 Braxton # (Auto) (0.1 - 0.8 K/mm3) 0.69 [...] central line at 1936 at 1502 RPT #:[id number] END OF REPORT [facility] 2019-01-11 16:16:00 [facility] ([facility]) Hospitalist Progress Note REPORT#:[id number] REPORT STATUS: Signed DATE:01/11/19 TIME: 1616 PATIENT: DELMI MATHEW UNIT #: [id number] ROOM/BED: [address] : [birth year] AGE: 48 SEX: M [...] 01/11 1230 62 13 109/56 77 98 07/17 1220 15 01/11 1200 55 114/64 84 99 07/17 1130 61 107/53 77 97 07/17 1100 64 16 105/55 76 97 07/17 1030 70 18 131/60 98 07/17 1000 60 129/58 83 96 07/17 0930 65 10 161/78 111 98 07/17 0900 78 12 143/82 107 99 07/ 0843 96 Room air 21 01/11 0841 51 11 143/78 104 98 07/ 0800 56 14 146/77 104 96 / 0730 58 15 138/65 94 99 / 0700 97.6 / 0700 63 24 152/69 96 07/ 0500 69 12 157/79 108 100 07/ 0430 51 15 141/77 103 98 07/ 0400 97.7 / 0400 57 13 139/73 101 98 07/17 0330 49 13 152/78 105 98 07/17 [...] I O ending at 0700: 01/11 0700 07/16 1900 Intake Total 850 1400.00 Output Total [...] cyanosis Musculoskeletal: normal inspection, no muscle spasm Neuro/VASCULAR TECH: alert, oriented X 3, normal speech, no [...] % (Auto) (14 - 44 %) 34.0 Braxton % (Auto) (4 - 13 %) 6.3 Eos % (Auto) (0 - 6 %) 0.3 Baso % (Auto) (0 - 2 %) 0.3 Neut # (Auto) (2.0 - 7.6 K/mm3) 6.42 Lymph # (Auto) (1.0 - 3.8 K/mm3) 3.71 Braxton # (Auto) (0.1 - 0.8 K/mm3) 0.69 [...] Tobacco Use/Counseling Tobacco use/counseling: tobacco user, cessation certified lactation counselor <3 min HTN Screening/Follow-up B/P assess/follow-up: pre-existing hx of HTN at 1748 RPT #:[id number] END OF REPORT [facility] 2019-01-11 07:49:00 [facility] ([facility]) Cardiology Progress Note REPORT#:[id number] REPORT STATUS: Signed DATE:01/11/19 TIME: 0749 PATIENT: DELMI MATHEW UNIT #: [id number] ROOM/BED: [address] : [birth year] AGE: 48 SEX: M [...] motion, normal inspection, straight leg raise neg Neuro/VASCULAR TECH: alert, oriented X 3, CN II-XII intact [...] % (Auto) (14 - 44 %) 34.0 Braxton % (Auto) (4 - 13 %) 6.3 Eos % (Auto) (0 - 6 %) 0.3 Baso % (Auto) (0 - 2 %) 0.3 Neut # (Auto) (2.0 - 7.6 K/mm3) 6.42 Lymph # (Auto) (1.0 - 3.8 K/mm3) 3.71 Braxton # (Auto) (0.1 - 0.8 K/mm3) 0.69 [...] IS Ambulate Advised to quit smoking. at [address] [facility] #:[phone] END OF REPORT [facility] 2019-01-10 15:11:00 [id number] [address] PATIENT NAME: DELMI MATHEW ADMIT DATE: 01/09/19 ACCOUNT NO: [id number] ROOM NO: [facility] AGE: 48 REPORT TYPE: CONSULTATION REPORT SEX: [...] as well. He was seen by his car checker, Dr. Saurabh Worley and underwent aortogram as [...] drugs. 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 He is and has 4 children. FAMILY [...] By: Hudson Chong MD WT: CON:MELODY/DOROTHY/EARLE Conf#: [id number]/DID#: [id number] Authenticated by Hudson Chong MD On 01/10/2019 08:24:48 PM at 2024 PATIENT NAME: DELMI MATHEW [facility] 2019-01-10 10:54:00 [facility] ([facility]) Adult General Consultation REPORT#:[id number] REPORT STATUS: Signed DATE:01/10/19 TIME: 1054 PATIENT: DELMI MATHEW UNIT #: [id number] ROOM/BED: [facility] : 68 AGE: 48 SEX: M ATTEND: Ad Cummings MD ADM AUTHOR: Hudson Chong MD * ALL edits or amendments must be made on the electronic/computer document * History - Adult longitudinal Allergies: Coded Allergies: No Known Allergies (01/13/18) Diagnosis, Assessment Plan Free Text DxA P Notes Free Text DxA P Notes: CONSULT DICTATED: # [id number] Quality Medications Current medication review: I attest that the foregoing medication list in the medical record is true, accurate, and complete to the best of my knowledge. BMI Screening > 25 or < 18.5 Patient's BMI: Current BMI: 27.4 BMI status/follow-up: abnl BMI, pt to F/U w/PCP (to discuss diet exercise) Tobacco Use/Counseling Tobacco use/counseling: tobacco user, cessation certified lactation counselor <3 min HTN Screening/Follow-up Last documented vitals: Last Documented: Result Date Time Pulse Ox 98 01/10 1209 FiO2 21 01/10 1209 O2 Delivery Room air 01/10 1209 B/P 130/62 01/10 1200 B/P Mean 84 01/10 1200 Temp 97.8 01/10 1200 Pulse 63 01/10 1200 Resp 12 01/10 1200 B/P assess/follow-up: pre-existing hx of HTN at 1513 RPT #:[id number] END OF REPORT [facility] 2019-01-10 10:41:00 [facility] ([facility]) Cardiovascular Surgery Prog REPORT#:[id number] REPORT STATUS: Signed DATE:01/10/19 TIME: 1041 PATIENT: DELMI MATHEW UNIT #: [id number] ROOM/BED: [address] : [birth year] AGE: 48 SEX: M [...] Result Date Time Pulse Ox 96 01/10 08 B/P 138/60 01/11 800 B/P Mean 86 01/10 08 O2 Delivery Room air 01/11 800 Temp 36.6 01/10 08 Pulse 62 01/10 0800 Resp 15 01/10 08 24 hour I O ending at 0700: [...] Glycopyrrolate 0 .STK-MED ONE .ROUTE (DC) Neostigmine Wallace 0 .STK-MED ONE .ROUTE (DC) Ephedrine Sulfate 0 .STK-MED ONE .ROUTE (DC) Dexamethasone Sodium Phosphate 0 .STK-MED ONE .ROUTE (DC) Papaverine HCl 0 .STK-MED ONE .ROUTE (DC) Rocuronium Wallace 0 .STK-MED ONE .ROUTE (DC) Lidocaine HCl [...] moves all Musculoskeletal: full range of motion Neuro/VASCULAR TECH: alert, oriented X 3 Results Findings/Data: Laboratory [...] (14 - 44 %) 11.4 L 24.1 Braxton % (Auto) (4 - 13 %) 4.8 2.8 L Eos % (Auto) (0 - 6 %) 0.0 0.6 Baso % (Auto) (0 - 2 %) 0.1 0.3 Neut # (Auto) (2.0 - 7.6 K/mm3) 7.90 H 7.35 Lymph # (Auto) (1.0 - 3.8 K/mm3) 1.08 2.47 Braxton # (Auto) (0.1 - 0.8 K/mm3) 0.46 [...] with no acute pulmonary process. Impression By: Reji - Marilyn Chaney MD Diagnosis, Assessment Plan [...] collaborating MD (DR. Cummings) at 1803 RPT #:[id number] END OF REPORT [facility] 2019-01-10 10:41:00 [facility] Cardiovascular Surgery Prog REPORT#:[id number] REPORT STATUS: Signed DATE:01/10/19 TIME: 1041 PATIENT: DELMI MATHEW UNIT #: [id number] ROOM/BED: [address] : 69 AGE: 48 SEX: M [...] 138/60 01/10 08 B/P Mean 86 01/10 0800 O2 Delivery Room air 01/10 08 Temp 36.6 01/10 08 Pulse 62 01/10 0800 Resp 15 01/10 08 24 hour I O ending at 0700: [...] Glycopyrrolate 0 .STK-MED ONE .ROUTE (DC) Neostigmine Wallace 0 .STK-MED ONE .ROUTE (DC) Ephedrine Sulfate 0 .STK-MED ONE .ROUTE (DC) Dexamethasone Sodium Phosphate 0 .STK-MED ONE .ROUTE (DC) Papaverine HCl 0 .STK-MED ONE .ROUTE (DC) Rocuronium Wallace 0 .STK-MED ONE .ROUTE (DC) Lidocaine HCl [...] moves all Musculoskeletal: full range of motion Neuro/VASCULAR TECH: alert, oriented X 3 Results Findings/Data: Laboratory [...] (14 - 44 %) 11.4 L 24.1 Braxton % (Auto) (4 - 13 %) 4.8 2.8 L Eos % (Auto) (0 - 6 %) 0.0 0.6 Baso % (Auto) (0 - 2 %) 0.1 0.3 Neut # (Auto) (2.0 - 7.6 K/mm3) 7.90 H 7.35 Lymph # (Auto) (1.0 - 3.8 K/mm3) 1.08 2.47 Braxton # (Auto) (0.1 - 0.8 K/mm3) 0.46 0.29 Eos # (Auto) (0.0 - 0.2 K/mm3) 0.00 0.06 Baso # (Auto) (0.0 - 0.2 K/mm3) 0.01 0.03 Immature Gran % (0.0 - 2.0 %) 0.5 0.6 Nucleated RBC % (0 - 1.0 %) 0.0 0.0 Nucleated RBCs # (Man) (0.0 - 0.1 K/mm3) 0.00 0.00 Radiology data: Recent Impressions: RADIOLOGY - XR CHEST 1V 01/09 194 Report Impression - Status: SIGNED Entered: 01/09/20191956 IMPRESSION: No acute cardiopulmonary disease. Good position for the central line. Location: U19 Impression By: TellyGeovanny - Ad Eng MD RADIOLOGY - XR [...] (DR. Cummings) at 1803 at 1507 RPT #:[id number] END OF REPORT [facility] 2019-01-10 06:17:00 [facility] ([facility]) Cardiology Progress Note REPORT#:[id number] REPORT STATUS: Signed DATE:01/10/19 TIME: 06 PATIENT: DELMI MATHEW UNIT #: [id number] ROOM/BED: [facility] : 69 AGE: 48 SEX: M ATTEND: [...] Glycopyrrolate 0 .STK-MED ONE .ROUTE (DC) Neostigmine Wallace 0 .STK-MED ONE .ROUTE (DC) Ephedrine Sulfate 0 .STK-MED ONE .ROUTE (DC) Dexamethasone Sodium Phosphate 0 .STK-MED ONE .ROUTE (DC) Papaverine HCl 0 .STK-MED ONE .ROUTE (DC) Rocuronium Wallace 0 .STK-MED ONE .ROUTE (DC) Lidocaine HCl [...] motion, normal inspection, straight leg raise neg Neuro/VASCULAR TECH: alert, oriented X 3, CN II-XII intact [...] % (Auto) (14 - 44 %) 24.1 Braxton % (Auto) (4 - 13 %) 2.8 L Eos % (Auto) (0 - 6 %) 0.6 Baso % (Auto) (0 - 2 %) 0.3 Neut # (Auto) (2.0 - 7.6 K/mm3) 7.35 Lymph # (Auto) (1.0 - 3.8 K/mm3) 2.47 Braxton # (Auto) (0.1 - 0.8 K/mm3) 0.29 [...] Ambulate Advised to quit smoking. at 0724 [facility] [place] #:[id number] END OF REPORT [facility] 2019-01-10 03:59:00 [id number] [address] PATIENT NAME: DELMI MATHEW ADMIT DATE: 01/09/19 ACCOUNT NO: [id number] ROOM NO: Z.SI04 AGE: 48 REPORT TYPE: ELECTROCARDIOGRAM SEX: M ADMITTING PHYSICIAN:Ad Cummings MD ATTENDING PHYSICIAN:Ad Cummings MD Order: [id number] Test Reason : CAD Test Date/Time Stamp: [...] WORLEY at 0707 PATIENT NAME: DELMI MATHEW [facility] 2019-01-09 20:54:00 [id number] [place] [address] PATIENT NAME: DELMI MATHEW ADMIT DATE: 01/09/19 ACCOUNT NO: [id number] ROOM NO: Z.SI04 AGE: 48 REPORT TYPE: ELECTROCARDIOGRAM SEX: M ADMITTING PHYSICIAN:Ad Cummings MD ATTENDING PHYSICIAN:Ad Cummings MD Order: [id number] Test Reason : CAD Test Date/Time Stamp: [...] WORLEY at 0707 PATIENT NAME: DELMI MATHEW [facility] 2019-01-09 18:44:00 [id number] [address] PATIENT NAME: DELMI MATHEW ADMIT DATE: 01/09/19 ACCOUNT NO: [id number] ROOM NO: Z.422 AGE: 49 REPORT TYPE: [...] cryopreserved saphenous vein. SURGEON: Ad Cummings MD DISABILITY ADVOCATE: Ml Marie PA-C ANESTHESIA: General. COMPLICATIONS: None. [...] By: Ad Cummings MD WT: OP:MELODY/DENG/EARLE Conf#: [id number]/DID#: [id number] cc: Dr. Hugo Worley MD Authenticated by Ad Cummings MD On 02/25/2019 01:10:36 PM at 1311 PATIENT NAME: DELMI MATHEW [facility] 2019-01-09 18:33:00 [facility] ([facility]) Brief Op Note REPORT#:[id number] REPORT STATUS: Signed DATE:01/09/19 TIME: 1832 PATIENT: DELMI MATHEW UNIT #: [id number] ROOM/BED: [address] : [birth year] AGE: 48 SEX: M [...] sonosite US guidance Primary Surgeon: Ad Cummings Environmental Services Associate(s): Ml Marie PA-C Anesthesiologist: Dr. Tang Frankel Anesthesia: general anesthesia Findings: see detailed op report Complications: none Estimated blood loss in ml's: 100cc Specimens removed/altered: none Drain(s): Chen Catheter Placed Disposition: ICU, stable at 1836 RPT #:[id number] END OF REPORT [facility] 2019-01-09 16:00:00 [phone] [place] [address] PATIENT NAME: DELMI MATHEW ADMIT DATE: 01/09/19 ACCOUNT NO: [id number] ROOM NO: Z.422 AGE: 49 REPORT TYPE: [...] he was seen and followed by his car checker, Dr. Worley and he had stopped taking [...] for Ad Cummings MD WT: HP:MELODY/EBONIE/EARLE Conf#: [id number]/DID#: [id number] Authenticated by JEAN Alvarez On 01/11/2019 09:58:26 PM Authenticated by Ad Cummings MD On 02/25/2019 01:10:32 PM at 1310 at 1310 PATIENT NAME: DELMI MATHEW [facility] 2019-01-04 15:49:00 [id number] [address] PATIENT NAME: DELMI MATHEW ADMIT DATE: ACCOUNT NO: [id number] ROOM NO: AGE: 48 REPORT TYPE: ELECTROCARDIOGRAM SEX: M ADMITTING PHYSICIAN: ATTENDING PHYSICIAN:Ad Cummings MD Order: [id number] Test Reason : PREOP Test Date/Time Stamp: [...] WORLEY at 1115 PATIENT NAME: DELMI MATHEW [facility] 2018-12-24 09:05:00 [phone] [place] [address] PATIENT NAME: DELMI MATHEW ADMIT DATE: 12/24/18 ACCOUNT NO: [id number] ROOM NO: AGE: 48 REPORT TYPE: CARDIAC CATHETERIZATION REPORT SEX: M ADMITTING PHYSICIAN: ATTENDING PHYSICIAN:Saurabh Worley MD PROCEDURE DATE: 12/24/2018 CARDIOLOGY PROCEDURE WEATHER STRIP INSTALLER: Saurabh Worley MD INDICATION FOR THE PROCEDURE: [...] By: Saurabh Worley MD WT: CATH:CURTIS/LIZ/EARLE Conf#: [id number]/DID#: [id number] Authenticated by Saurabh Worley MD On 12/24/2018 12:10:26 PM at 1210 PATIENT NAME: DELMI MATHEW [facility] 2018-12-24 07:15:00 [phone] [place] [address] PATIENT NAME: DELMI MATHEW ADMIT DATE: 12/24/18 ACCOUNT NO: [id number] ROOM NO: AGE: 48 REPORT TYPE: ELECTROCARDIOGRAM SEX: M ADMITTING PHYSICIAN: ATTENDING PHYSICIAN:Saurabh Worley MD Order: [id number] Test Reason : CAD Test Date/Time Stamp: [...] WORLEY at 1036 PATIENT NAME: DELMI MATHEW [facility] 2018-12-23 07:15:00 [phone] [address] PATIENT NAME: DELMI MATHEW ADMIT DATE: ACCOUNT NO: [id number] ROOM NO: AGE: 48 REPORT TYPE: HISTORY AND PHYSICAL SEX: M ADMITTING PHYSICIAN: ATTENDING PHYSICIAN:Saurabh Worley MD PATIENT NAME: DELMI MATHEW ADMIT DATE:12/24/2018 ADMISSION DATE: 12/24/2018 WEATHER STRIP INSTALLER: Saurabh Worley MD REASON FOR ADMISSION: Abdominal [...] By: Saurabh Worley MD WT: HP:MELODY/LIZ/EARLE Conf#: [id number]/DID#: [id number] PATIENT NAME: DELMI MATHEW cc: Ad Cummings MD Authenticated and Edited by Saurabh Worley MD On 12/23/18 5:55:12 PM at 1757 PATIENT NAME: DELMI MATHEW [facility]
--- NOTE | 2024-02-15 15:17 | RAD REPORT ---
EXAM DESCRIPTION: RAD - Foot Left 3 View - 02/15/2024 2:29 pm CLINICAL HISTORY: infection COMPARISON: Foot Left 3 View dated 02/11/2024 TECHNIQUE: Left foot, 3 views. FINDINGS: No fracture, dislocation or periosteal reaction. No air or foreign body in the soft tissues. Vascular calcifications. IMPRESSION: Negative left foot radiographs.
[2024-02-15] MEDS ORDERED: NA CHLORIDE 0.9% 250 ML ONE (15:19)
[2024-02-15] MEDS ORDERED: NA CHLORIDE 0.9% 100 ML ONE (15:19)
[2024-02-15] MEDS ORDERED: VANCOMYCIN 1 GM/VIAL ONE (15:19)
[2024-02-15] MEDS ORDERED: PIPERACIL/TAZO 3.375 GM VIAL IV ONE (15:20)
--- NOTE | 2024-02-15 15:26 | ER ---
Nurse's Notes [facility] Name: Jose L Mathew Age: 54 yrs Sex: Male : 1970 Arrival Date: 02/15/2024 Time: 13:05 Bed 17 Private MD: Diagnosis: Cellulitis of left lower limb Presentation: 02/14 13:21 Chief complaint: Patient states: Had maggots in L foot wound last week. Just had ll1 surgery, released Wednesday. Now the toe beside it is red, swollen noticed today. Coronavirus screen: Client denies travel out of the [place] in the last 14 days. At this time, the client does not indicate any symptoms associated with coronavirus-19. Ebola Screen: Patient denies travel to an Ebola-affected area in the 21 days before illness onset. Initial Sepsis Screen: Does the patient meet any 2 criteria? No. Patient's initial sepsis screen is negative. Does the patient have a suspected source of infection? No. Patient's initial sepsis screen is negative. Risk Assessment: Do you want to hurt yourself or someone else? Patient reports no desire to harm self or others. Onset of symptoms was February 15, 2024. 13:21 Method Of Arrival: Wheelchair ll1 13:21 Acuity: URBANO 3 ll1 Triage Assessment: 13:23 General: Appears uncomfortable, Behavior is calm, cooperative, appropriate for age. ll1 Pain: Complains of pain in left foot Quality of pain is described as aching. Derm: Reports redness, swelling toes. Musculoskeletal: Reports pain in left foot. Historical: - Allergies: 13:20 No Known Allergies; ll1 - PMHx: 13:20 High Cholesterol; Hypertensive disorder; HI; ll1 - PSHx: 13:20 CAB; TOE AMPUTATION (CAB); ll1 - Immunization history:: Adult Immunizations up to date. - Infectious Disease History:: Denies. - Social history:: Smoking status: Patient reports the use of cigarette tobacco products, smokes one-half pack cigarettes per day. Screenin:34 [facility] ED Fall Risk Assessment (Adult) History of falling in the last 3 months, ph including since admission No falls in past 3 months (0 pts) Confusion or Disorientation No (0 pts) Intoxicated or Sedated No (0 pts) Impaired Gait Yes (1 pt) Mobility Assist Device Used Yes (1 pt) Altered Elimination No (0 pt) Score/Fall Risk Level 0 - 2 = Low Risk Oriented to surroundings, Maintained a safe environment, Hourly rounding (assess needs \T\ fall precautionary measures) done, Used ambulatory aids as needed (educated on \T\ assisted with). Abuse screen: Denies threats or abuse. Denies injuries from another. Nutritional screening: No deficits noted. Tuberculosis screening: No symptoms or risk factors identified. Assessment: 16:36 General: Appears in no apparent distress. comfortable, Behavior is calm, cooperative. ph Pain: Complains of pain in left foot. Neuro: Level of Consciousness is awake, alert, obeys commands, Oriented to person, place, time, situation. Cardiovascular: Capillary refill < 3 seconds in bilateral fingers Patient's skin is warm and dry. Respiratory: Airway is patent Respiratory effort is even, unlabored. Derm: Skin is pink, warm \T\ dry. Vital Signs: 13:21 BP 105 / 57; Pulse 78; Resp 17; Temp 97.5; Pulse Ox 96% on R/A; ll1 16:36 BP 109 / 62; Pulse 73; Resp 18; Pulse Ox 97% on R/A; ph 19:00 BP 121 / 65; Pulse 83; Resp 18; Pulse Ox 99% ; ph 20:00 BP 122 / 61; Pulse 78; Resp 18; Temp 97.5; Pulse Ox 99% ; cp4 ED Course: 13:08 Patient arrived in ED. mr 13:13 Adalberto Booth MD is Attending Physician. ec2 13:23 Triage completed. ll1 13:25 Arm band placed on. ll1 14:11 Foot Left 3 View XRAY In Process Unspecified. EDMS 14:12 C-Reactive Protein Sent. bc6 14:12 BMP Sent. bc6 14:12 CBC with Diff Sent. bc6 14:12 Initial lab(s) drawn, by me, sent to lab. Inserted saline lock: 20 gauge in right bc6 antecubital area, using aseptic technique. Blood collected. Flushed with 10 mL NS. 15:25 Loida Foley MD is Hospitalizing Provider. ec2 15:40 Harper Hill RN is Primary Nurse. ph 16:35 Patient has correct armband on for positive identification. Bed in low position. Call ph light in reach. Side rails up X 1. Pulse ox on. NIBP on. Door closed. Noise minimized. Lights dimmed. Warm blanket given. Pillow given. 20:01 Provided Education on: admission. cp4 20:01 No provider procedures requiring assistance completed. Patient admitted, IV remains in cp4 place. Administered Medications: 16:04 Drug: Piperacillin-Tazobactam IVPB 3.375 grams IVPB once over 60 mins; (mix in NS 100 ph mL) Route: IVPB; Infused Over: 60 mins; Site: right antecubital; 16:37 Follow up: Response: No adverse reaction; IV Status: Completed infusion; IV Intake: ph 100ml 16:37 Drug: vancoMYCIN IVPB 1 grams IVPB once over 2 hrs Route: IVPB; Infused Over: 2 hrs; ph Site: right antecubital; 18:40 Follow up: Response: No adverse reaction; IV Status: Completed infusion ph 18:57 Drug: hydrOXYzine PO 50 mg PO once Route: PO; ll1 19:31 Follow up: Response: No adverse reaction ph Medication: 16:34 VIS not applicable for this client. ph Intake: 16:37 IV: 100ml; Total: 100ml. ph Outcome: 15:26 Decision to Hospitalize by Provider. ec2 20:01 Admitted to Med/surg accompanied by tech, via wheelchair, with chart, cp4 20:01 Condition: stable 20:01 Instructed on the need for admit, 20:02 Patient left the ED. cp4 Signatures: Dispatcher [employer] EDSD Therese Pugh, Reg Reg mr Harper Hill RN RN Roscoe Stephenson RN RN 1 Jeannine Yang [facility] Adalberto Booth MD MD 2 Malissa Goodrich cp4
--- NOTE | 2024-02-15 15:26 | EDPHYS ---
Physician Documentation [facility] Name: Jose L Mathew Age: 54 yrs Sex: Male : 1970 Arrival Date: 02/15/2024 Time: 13:05 Bed 17 Private MD: ED Physician Adalberto Booth HPI: 02/14 14:35 This 54 yrs old Male presents to ER via Wheelchair with complaints of Skin ec2 Sore(s). 14:35 Patient arrives today for evaluation of drainage from the left foot as well as redness ec2 to the dorsum of the left foot. Patient reports no fevers or chills, nausea or vomiting. States that he recently had what sounds like an arthroplasty recently. Patient reports that he is supposed to be in antibiotics however has not taken them.. Historical: - Allergies: 13:20 No Known Allergies; ll1 - PMHx: 13:20 High Cholesterol; Hypertensive disorder; OH; ll1 - PSHx: 13:20 CAB; TOE AMPUTATION (CAB); ll1 - Immunization history:: Adult Immunizations up to date. - Infectious Disease History:: Denies. - Social history:: Smoking status: Patient reports the use of cigarette tobacco products, smokes one-half pack cigarettes per day. ROS: 14:35 Constitutional: as per hpi ec2 Exam: 14:35 Constitutional: GEN: NAD Head: atraumatic Eyes: EOMI Ears: External ears are ec2 normal. CV: regular rate LUNGS: no respiratory distress ABD: non-distended SKIN: Dorsum of left foot with erythema and warmth appreciated. Drainage from the third and fourth digit. MSK: no evidence of trauma Vital Signs: 13:21 BP 105 / 57; Pulse 78; Resp 17; Temp 97.5; Pulse Ox 96% on R/A; ll1 16:36 BP 109 / 62; Pulse 73; Resp 18; Pulse Ox 97% on R/A; ph 19:00 BP 121 / 65; Pulse 83; Resp 18; Pulse Ox 99% ; ph 20:00 BP 122 / 61; Pulse 78; Resp 18; Temp 97.5; Pulse Ox 99% ; cp4 MDM: 13:20 Patient medically screened. ec2 14:35 Data reviewed: vital signs. ED course: Patient arrives today due to concern for redness ec2 and drainage from the left foot. Examination remarkable for skin findings as above. Will obtain lab work, radiograph. Differential includes cellulitis, osteomyelitis, dependent rubor. 14:36 ED course: CBC reassuring. Metabolic profile shows slight hyponatremia with a sodium of ec2 127, hypokalemia at 3.4. CRP is elevated at 3.83. . 15:21 ED course: Will admit the patient for cellulitis, hyponatremia. Discussed case with 2 hospice, pending admission.. 02/14 13:28 Order name: CBC with Diff; Complete Time: 16:09 ec2 02/14 13:28 Order name: BMP; Complete Time: 14:34 ec2 02/14 13:29 Order name: C-Reactive Protein; Complete Time: 14:34 ec2 02/14 15:45 Order name: CBC Smear Scan; Complete Time: 16:09 EDMS 02/14 13:28 Order name: Foot Left 3 View XRAY; Complete Time: 15:18 ec2 02/14 16:43 Order name: CONS Physician Consult EDMS Administered Medications: 16:04 Drug: Piperacillin-Tazobactam IVPB 3.375 grams IVPB once over 60 mins; (mix in NS 100 ph mL) Route: IVPB; Infused Over: 60 mins; Site: right antecubital; 16:37 Follow up: Response: No adverse reaction; IV Status: Completed infusion; IV Intake: ph 100ml 16:37 Drug: vancoMYCIN IVPB 1 grams IVPB once over 2 hrs Route: IVPB; Infused Over: 2 hrs; ph Site: right antecubital; 18:40 Follow up: Response: No adverse reaction; IV Status: Completed infusion ph 18:57 Drug: hydrOXYzine PO 50 mg PO once Route: PO; ll1 19:31 Follow up: Response: No adverse reaction ph Disposition Summary: 02/15/24 15:26 Hospitalization Ordered Notes: Hospitalization Status: Inpatient Admission ec2 Provider: Loida Foley ec2 Condition: Stable ec2 Problem: an ongoing problem ec2 Symptoms: are unchanged ec2 Bed/Room Type: Standard ec2 Location: Telemetry/MedSurg (Inpatient)(02/15/24 18:44) bd Room Assignment: 405(02/15/24 18:44) bd Diagnosis - Cellulitis of left lower limb ec2 Forms: - Medication Reconciliation Form ec2 - SBAR form ec2 - Leadership Thank You Letter ec2 Signatures: Dispatcher [employer] EDMS Ayla Oconnell Patricia, RN RN ph Roscoe Stephenson RN RN ll1 Adalberto Booth MD MD ec2 Malissa Goodrich cp4 Corrections: (The following items were deleted from the chart) 16:10 14:35 ED course: Patient arrives today due to concern for redness and drainage from the ec2 left foot. Examination remarkable for skin findings as above. Will obtain lab work, radiograph. Differential includes cellulitis, osteomyelitis, dependent rubor. ec2 16:57 15:26 Telemetry/MedSurg (Inpatient) ec2 bd 16:57 15:26 ec2 bd 18:44 16:57 [facility] ER HOLD bd bd 18:44 16:57 ERHOLD- bd bd
[2024-02-15 15:45] LABS: Anisocytosis 1+; Blood Morphology Comment NOTED (NOT SEEN); Platelet Estimate ADEQ; Poikilocytosis 1+; White Blood Cell Scan OK (OK)
--- NOTE | 2024-02-15 17:50 | P.HP ---
Certification for Inpatient Patient admitted to: Inpatient With expected LOS: <2 Midnights <Candelaria Israel - Last Filed: 02/15/24 20:12> Patient History Date of Service: 02/15/24 Reason for admission: Severe PAD, History of Present Illness: 54-year-old male with history of severe PAD, CAD with previous CABG, hypertension presents the emergency department with chief complaint of left foot wound. He reports redness, swelling to left lower extremity, recent I&D with surgery. He reports being prescribed antibiotics, however cannot afford antibiotics. No reported fever, nausea vomiting diarrhea, chest pain. Shortness of breath. Plan to admit for severe PAD, vascular surgery,, surgery to eval, IV antibiotics, as needed analgesics, - Past Medical/Surgical History -: Hypertension -: Severe PAD -: CAD with previous CABG -: Multiple vascular surgeries to bilateral lower extremities -: CABG -: Hernia repairs Psychosocial/ Personal History: Lives at home with his family - Social History Smoking Status: Current every day smoker Alcohol use: Yes CD- Drugs: No Caffeine use: No Place of Residence: Home <Candelaria Israel - Last Filed: 02/15/24 20:12> Date of Service: 02/15/24 <Loida Foley - Last Filed: 03/09/24 00:32> Allergies No Known Allergies Allergy (Unverified 02/15/24 20:50) Home Medications: Atorvastatin Calcium [Lipitor*] 20 mg PO BEDTIME 02/11/24 Losartan Potassium 100 mg PO DAILY 02/11/24 Metoprolol Succinate [Toprol Xl*] 50 mg PO DAILY 02/11/24 Codeine/APAP [Tylenol W/Codeine #3 tab] 1 tab PO Q6HP PRN #20 tab 02/13/24 Doxycycline Hyclate 100 mg PO BID 7 Days #14 cap 02/13/24 Review of Systems Per HPI <Candelaria Israel - Last Filed: 02/15/24 20:12> 10-point ROS is otherwise unremarkable <Loida Foley - Last Filed: 03/09/24 00:32> Physical Examination - Physical Exam General: Alert, In no apparent distress, Oriented x3 HEENT: Atraumatic, Normocephalic Neck: 2+ carotid pulse no bruit, JVD not distended Respiratory: Clear to auscultation bilaterally, Normal air movement Cardiovascular: Other (Severe PAD left lower extremity, erythema, edema, wounds to the left lower EXTR), Abnormal pulses Gastrointestinal: Normal bowel sounds, Soft and benign Musculoskeletal: Other (Generalized weakness secondary to severe PAD) Integumentary: Tenderness/swelling, Erythema, Warmth (Left lower extremity) Neurological: Normal speech, Normal strength at 5/5 x4 extr, Cranial nerves 3-12 intact, Abnormal gait - Studies Laboratory Data (last 24 hrs) 02/15/24 02/15/24 14:10 14:10 WBC 8.30 Hgb 11.9 L Hct 35.7 L Plt Count 190 Sodium 127 L Potassium 3.4 L BUN 4 L Creatinine 0.55 L Glucose 104 <Candelaria Israel - Last Filed: 02/15/24 20:12> - Vital Signs Temperature: 98 F Blood Pressure: 140/80 Pulse: 80 Respirations: 18 Pulse Ox (%): 95 - Physical Exam General: Alert, In no apparent distress HEENT: Atraumatic, PERRLA, Mucous membr. moist/pink, EOMI, Sclerae nonicteric Neck: Supple, 2+ carotid pulse no bruit, No LAD, Without JVD or thyroid abnormality Respiratory: Clear to auscultation bilaterally, Normal air movement Cardiovascular: Regular rate/rhythm, Normal S1 S2 Gastrointestinal: Normal bowel sounds, No tenderness Musculoskeletal: No tenderness Integumentary: No rashes Neurological: Normal gait, Normal speech, Normal strength at 5/5 x4 extr, Normal tone, Normal affect Lymphatics: No axilla or inguinal lymphadenopathy <Loida Foley - Last Filed: 03/09/24 00:32> Assessment and Plan - Plan - Plan Assessment: Cellulitis of left foot Tunneling left foot wound between third and fourth toes Severe PAD Seen by surgery in ED, n.p.o. for likely surgical intervention Continue antibiotics as needed analgesia Blood cultures obtained in ED, will follow Surgery to consult Vascular surgery consult Hyponatremia Hypokalemia Continue IV fluids, electrolyte protocols If blood sugars persistently low dextrose-containing fluids Tobacco use disorder Alcohol use disorder Counseled on need for cessation Provided with NicoDerm patch Alcohol withdrawal assessments, as needed benzodiazepines Has drank 12 pack/day for many years now History of CAD with previous CABG Hypertension Continue home medications as appropriate Does patient have a Durable POA for Healthcare: No - Code Status/Comfort Care Code Status Assessed: Yes (Full code) Critical Care: No Time Spent Managing Pts Care (In Minutes): 55 Discharge Plan: Home - Advance Directives Does patient have a Living Will: No Does patient have a Durable POA for Healthcare: No - Code Status/Comfort Care Code Status: Full Code Critical Care: No Time Spent Managing Pts Care (In Minutes): 55 <Candelaria Israel - Last Filed: 02/15/24 20:12> - Plan . Chart has been reviewed. Events of the last 24 hours have been noted. Case discussed with FERNANDO. I performed a substantial part of the MDM during this patient's care today. I personally made or approved the documented management plan and acknowledge its risk of complications. I agree with the findings and documentation provided in the FERNANDO's notes Continue with antibiotics and vascular surgery consultation. <Loida Foley - Last Filed: 03/09/24 00:32>
[2024-02-15] MEDS ORDERED: hydrOXYzine HCL 25 MG TAB ONE (18:55)
[2024-02-15] MEDS ORDERED: ACETAMINOPHEN 500 MG TAB PO PRN (20:26)
[2024-02-15] MEDS ORDERED: ONDANSETRON 4 MG/2 ML VIAL IV PRN (20:26)
[2024-02-15] MEDS: HYDROCODONE/APAP 7.5/325 MG TAB PO PRN (20:56)
[2024-02-15 21:05] VITALS: BMI 29.9
[2024-02-15 21:19] VITALS: O2SAT 96
[2024-02-15] MEDS: Levofloxacin 750mg IV 750 MG/150 ML BAG IV SCH (23:00)
[2024-02-16 00:06] LABS: Specific Gravity 1.007 (1.005-1.030); Urine Bilirubin NEGATIVE (Negative); Urine Blood Negative (Negative); Urine Clarity Clear (Clear); Urine Color Light-Yellow (Yellow); Urine Glucose NEGATIVE (Negative); Urine Ketones NEGATIVE (Negative); Urine Microscopic Reflex YN NO UMIC; Urine Nitrite NEGATIVE (Negative); Urine Protein NEGATIVE (Negative); Urine Urobilinogen Normal (Normal); Urine pH 6.5 (5.0-7.0)
[2024-02-16] MEDS: MORPHINE 2 MG/ML SYR IV PRN (01:06)
[2024-02-16 06:52] LABS: Absolute Basophils 0.1 K/uL (0-0.5); Absolute Lymphocytes (CBC) 1.7 K/uL (0.7-4.9); Absolute Monocytes 0.7 K/uL (0.1-1.3); Absolute Neutrophil 3.9 K/uL (1.8-8.0); Basophils % 0.9 % (0-1.3); Eosinophils % 0.6 % (0-4.4); Hematocrit 35.5 % (39.6-49.0); Hemoglobin 12.2 g/dL (13.6-17.9); Lymphocytes % 26.6 % (15.3-44.8); MCH 35.8 pg (27.0-35.0); MCHC 34.4 g/dL (32.0-36.0); MCV 104.1 fL (80-100); MPV 7.8 fL (7.6-11.3); Monocytes % 11.6 % (3.3-12.3); Neutrophils % 60.3 % (41.7-73.7); Platelets 207 thou/uL (152-406); RBC Red Blood Cell Count 3.41 M/uL (4.33-5.43); Red Cell Distribution Width 13.3 % (12.1-15.2)
[2024-02-16 07:07] LABS: Magnesium 1.5 mg/dL (1.6-2.4)
[2024-02-16] MEDS: Magnesium Sulfate 2gm IVPB 2 G/50 ML BAG IV ONE (09:11)
--- NOTE | 2024-02-16 17:38 | P.CNS ---
Date of Consult: 02/16/24 Reason for Consult: peripheral artery disease Chief Complaint: Severe PAD,recurrent foot wound History of Present Illness: The patient is a 54-year-old male. He has a history of hypertension, alcohol abuse as well as significant history of smoking. The patient was in the emergency department about 4 days ago with a wound in the left foot. He was discharged home, and is scheduled to see my office the next day, . Patient reschedule that visit to the , and also did not come that day and instead came to the emergency department because of recurrent wound in the left foot. Patient complains of pain that is associated with the foot and with the wound. He has pain in the calves bilaterally, left worse than right. He complains of pain even as I examine him, while he lays in the stretcher. The patient has CT angiogram performed while previously in the hospital. This is significantly abnormal. In the right leg, there are multiple severe superficial femoral artery and tibial artery heavily calcified stenoses. In the left leg, there is complete 100% occlusion of the superficial femoral artery as well as the popliteal artery. There is reconstitution of the very proximal anterior tibial and peroneal arteries. The patient states that he has had 2 previous left leg arterial procedures, where his leg was cut open and where he has scars in the thigh and calf. On the CT scan, there are surgical clips present in the left common femoral artery and popliteal artery. The findings and the patient history are suggestive of femoral to popliteal bypass graft that of occluded. Given the extensive length of the occluded arterial segment, involving the common femoral, superficial femoral, popliteal and proximal tibial arteries, as well as extensive scarring from previous bypass, I discussed options with the patient including potential outpatient revascularization versus transfer to the [facility] an inpatient revascularization with potential redo of his bypass surgery. The patient wished inpatient care. I have discussed these findings with the patient's hospitalist, who has begun to make arrangements for transfer to the [facility]. Allergies No Known Allergies Allergy (Unverified 02/15/24 20:50) Home medications list reviewed: Yes Home Medications: Atorvastatin Calcium [Lipitor*] 20 mg PO BEDTIME 02/11/24 Losartan Potassium 100 mg PO DAILY 02/11/24 Metoprolol Succinate [Toprol Xl*] 50 mg PO DAILY 02/11/24 Codeine/APAP [Tylenol W/Codeine #3 tab] 1 tab PO Q6HP PRN #20 tab 02/13/24 Doxycycline Hyclate 100 mg PO BID 7 Days #14 cap 02/13/24 - Past Medical/Surgical History -: Hypertension -: Severe PAD -: CAD with previous CABG -: Multiple vascular surgeries to bilateral lower extremities -: CABG -: Hernia repairs Psychosocial/ Personal History: Lives at home with his family - Social History Smoking Status: Current every day smoker Alcohol use: Yes CD- Drugs: No Caffeine use: Yes Place of Residence: Home Physical Examination Temp Pulse Resp BP Pulse Ox 98.2 F 80 16 119/58 L 98 02/16/24 16:00 02/16/24 16:00 02/16/24 16:00 02/16/24 16:00 02/16/24 16:00 General: In no apparent distress, Oriented x3 HEENT: Atraumatic, Normocephalic, PERRLA Neck: Supple, Without JVD or thyroid abnormality Respiratory: Clear to auscultation bilaterally, Normal air movement Cardiovascular: No edema, Abnormal pulses Capillary refill: <2 Seconds Gastrointestinal: Normal bowel sounds Musculoskeletal: No clubbing Integumentary: Arterial ulcer Neurological: Normal gait, Normal speech Conclusions/Impression: 1. Extensive bilateral leg peripheral artery disease. In the left leg, the patient has completed 100% occlusion of the common femoral, superficial femoral and popliteal arteries. Surgical clips are present in the groin and in the popliteal fossa. Patient states that he has had previous left leg bypasses. These have occluded. 2. Patient has critical limb ischemia with ischemic rest pain as well as recurrent left foot wounds. 3. The patient needs revascularization. Options were discussed for outpatient management versus inpatient management. He will likely need redo femoral to distal bypass grafts. Patient would like to be transferred to the Medical Center, and this has been discussed with his hospitalist.
[2024-02-16] MEDS: PIPER TAZO 3.375 GM in NA CHLORIDE 0.9% 100 ML IV SCH (18:43)
[2024-02-17 06:54] LABS: Absolute Basophils 0.1 K/uL (0-0.5); Absolute Eosinophils 0.1 K/uL (0-0.5); Absolute Lymphocytes (CBC) 2.1 K/uL (0.7-4.9); Absolute Monocytes 0.7 K/uL (0.1-1.3); Absolute Neutrophil 3.3 K/uL (1.8-8.0); Basophils % 0.9 % (0-1.3); Hematocrit 35.1 % (39.6-49.0); Hemoglobin 11.8 g/dL (13.6-17.9); Lymphocytes % 33.5 % (15.3-44.8); MCH 35.6 pg (27.0-35.0); MCHC 33.7 g/dL (32.0-36.0); MCV 105.6 fL (80-100); MPV 8.2 fL (7.6-11.3); Monocytes % 11.8 % (3.3-12.3); Neutrophils % 52.8 % (41.7-73.7); Platelets 189 thou/uL (152-406); RBC Red Blood Cell Count 3.32 M/uL (4.33-5.43); Red Cell Distribution Width 13.1 % (12.1-15.2)
[2024-02-17 07:06] LABS: Magnesium 1.8 mg/dL (1.6-2.4)
[2024-02-17] MEDS: ALPRAZOLAM 0.5 MG TABLET PO PRN (14:54)
[2024-02-18] MEDS ORDERED: NICOTINE 21 MG/PAT TD SCH (09:00)
[2024-03-09 00:32] VITALS: BP 140/80; TEMP 98
--- NOTE | 2024-03-09 00:35 | P.PN ---
Date of Service: 02/16/24 Subjective Patient will continue with antibiotic therapy. We are trying to transfer patient for vascular surgery evaluation. Patient is pending [facility] vascular surgery transfer. Physical Examination - Vital Signs reviewed - Physical Exam General: Alert, In no apparent distress Respiratory: Clear to auscultation bilaterally, Normal air movement Cardiovascular: Regular rate/rhythm, Normal S1 S2 Gastrointestinal: Normal bowel sounds, No tenderness Musculoskeletal: No tenderness Neurological: Normal gait, Normal speech, Normal strength at 5/5 x4 extr, Normal tone, Normal affect Assessment and Plan - Assessment/Plan Assessment/Plan: Cellulitis of left foot Tunneling left foot wound between third and fourth toes Severe PAD Seen by surgery in ED, n.p.o. for likely surgical intervention Continue antibiotics as needed analgesia Blood cultures obtained in ED, will follow Surgery to consult Vascular surgery consult Hyponatremia Hypokalemia Continue IV fluids, electrolyte protocols If blood sugars persistently low dextrose-containing fluids Tobacco use disorder Alcohol use disorder Counseled on need for cessation Provided with NicoDerm patch Alcohol withdrawal assessments, as needed benzodiazepines Has drank 12 pack/day for many years now History of CAD with previous CABG Hypertension Continue home medications as appropriate Does patient have a Durable POA for Healthcare: No - Code Status/Comfort Care Code Status Assessed: Yes (Full code) Critical Care: No Time Spent Managing Pts Care (In Minutes): 55 - Plan . Chart has been reviewed. Events of the last 24 hours have been noted. Case discussed with FERNANDO. I performed a substantial part of the MDM during this patient's care today. I personally made or approved the documented management plan and acknowledge its risk of complications. I agree with the findings and documentation provided in the FERNANDO's notes Continue with antibiotics and vascular surgery consultation. <Loida Foley - Last Filed: 03/09/24 00:32>
--- NOTE | 2024-03-09 00:37 | P.DS ---
Discharge Date: 02/17/24 Disposition: TRANSFER TO [facility] Discharge Condition: GOOD Reason for Admission: Severe PAD,recurrent foot wound Brief History of Present Illness: Pt is a 54-year-old male with history of severe PAD, CAD with previous CABG, hypertension presents the emergency department with chief complaint of left foot wound. He reports redness, swelling to left lower extremity, recent I&D with surgery. He reports being prescribed antibiotics, however cannot afford antibiotics. No reported fever, nausea vomiting diarrhea, chest pain. Shortness of breath. Plan to admit for severe PAD, vascular surgery,, surgery to eval, IV antibiotics, as needed analgesics, Hospital Course: Patient be transferred to [facility] vascular surgery for possible bypass surgery. Continue with pain control and IV antibiotics. Continue with anticoagulation. Patient will be transferred once pt is accepted. Vital Signs/Physical Exam: Temp Pulse Resp BP Pulse Ox 98 F 80 18 140/80 95 03/09/24 00:32 03/09/24 00:32 03/09/24 00:32 03/09/24 00:32 03/09/24 00:32 General: Alert, In no apparent distress, Oriented x3 Laboratory Data at Discharge: WBC 6.30 thou/uL (4.3-10.9) 02/17/24 06:28 Hgb 11.8 g/dL (13.6-17.9) L 02/17/24 06:28 Hct 35.1 % (39.6-49.0) L 02/17/24 06:28 Plt Count 189 thou/uL (152-406) 02/17/24 06:28 Sodium 135 mEq/L (136-145) L 02/17/24 06:28 Potassium 4.0 mEq/L (3.5-5.1) 02/17/24 06:28 BUN 10 mg/dL (7-18) 02/17/24 06:28 Creatinine 0.65 mg/dL (0.70-1.30) L 02/17/24 06:28 Glucose 104 mg/dL (74-106) 02/17/24 06:28 Magnesium 1.8 mg/dL (1.6-2.4) 02/17/24 06:28 Home Medications: Atorvastatin Calcium [Lipitor*] 20 mg PO BEDTIME 02/11/24 Losartan Potassium 100 mg PO DAILY 02/11/24 Metoprolol Succinate [Toprol Xl*] 50 mg PO DAILY 02/11/24 Codeine/APAP [Tylenol W/Codeine #3 tab] 1 tab PO Q6HP PRN #20 tab 02/13/24 Doxycycline Hyclate 100 mg PO BID 7 Days #14 cap 02/13/24 Physician Discharge Instructions: Transfer to [facility] Please call Dr. palmer at [phone] if any questions regarding hospital stay Diet: AHA Activity: Fall precautions Followup: NONE,NONE [Primary Care Provider] - Time spent managing pt's care (in minutes): 35
== END 2024-02-17 17:20 | disposition short-term general hospital (02) | DRG 300 ==
LOC: ER 13:05 → ERHOLD 16:39 → 4TH 19:34
PROVIDERS: ADMIT Hospitalist; ATTEND Hospitalist
DX: I73.9 Peripheral vascular disease, unspecified (principal); E87.1 Hypo-osmolality and hyponatremia; L03.116 Cellulitis of left lower limb; E87.6 Hypokalemia; I10 Essential (primary) hypertension; E78.00 Pure hypercholesterolemia, unspecified; F10.10 Alcohol abuse, uncomplicated; I25.10 Atherosclerotic heart disease of native coronary artery without angina pectoris; I25.2 Old myocardial infarction; F17.210 Nicotine dependence, cigarettes, uncomplicated; Z95.1 Presence of aortocoronary bypass graft; Z89.429 Acquired absence of other toe(s), unspecified side; Z79.899 Other long term (current) drug therapy
CPT/HCPCS: 36415; 80048; 81003; 83735; 85025; 86140; 87070; 87077; 87186; 87205; 96365; 96366; 96367; 99285; J2270; J2543; J3475; J7050